=== PATIENT | male | born 1955 | race Caucasian/White ===

== ENCOUNTER 2016-08-17 | Outpatient (CLI) | payer OTHER | END 2016-08-17 22:34 | disposition critical access hospital (66) | DX: R45.851 Suicidal ideations (principal) | CPT/HCPCS: A0425; A0429 ==

== ENCOUNTER 2016-08-17 23:06 | Emergency (ER) | payer OTHER ==
[2016-08-18] MEDS ORDERED: LORazepam 0.5 MG TABLET PO STA ×3 (00:24→06:26)
[2016-08-18] MEDS ORDERED: LORazepam 0.5 MG TABLET ONE ×2 (00:28→02:41)
== END 2016-08-18 08:51 | disposition home or self-care (01) ==
DX: F32.9 Major depressive disorder, single episode, unspecified (principal); F10.129 Alcohol abuse with intoxication, unspecified
CPT/HCPCS: 36415; 80048; 80306; 80307; 80320; 80329; 81001; 85025; 99283; 99284; A9270

== ENCOUNTER 2017-07-11 22:37 | Outpatient (CLI) | payer OTHER | END 2017-07-11 22:38 | disposition critical access hospital (66) | LOC: EMS 22:37 | PROVIDERS: ATTEND Surgery | DX: R41.82 Altered mental status, unspecified (principal); R26.81 Unsteadiness on feet; Z72.89 Other problems related to lifestyle | CPT/HCPCS: A0425; A0429 ==

== ENCOUNTER 2017-07-11 23:13 | Inpatient (IN) | payer OTHER ==
[2017-07-11] MEDS ORDERED: MULTIVITAMIN 10 ML in SODIUM CHLORIDE 0.9% 1,000 ML IV STA (23:22)
[2017-07-11] MEDS ORDERED: LORazepam 2 MG/ML VIAL IVP STA (23:22)
[2017-07-11] MEDS ORDERED: THIAMINE INJ 100 MG, FOLIC ACID INJ 1 MG in SODIUM CHLORIDE 0.9% 100ML 100 ML IV STA (23:22)
[2017-07-11] MEDS ORDERED: MAGNESIUM SULFATE 2 GRAM 2 GM/50 ML BAG IV STA (23:22)
[2017-07-11] MEDS ORDERED: THIAMINE 100 MG/1 ML 2 ML MDV ONE (23:35)
[2017-07-11 23:39] LABS: BASOPHILS % (AUTO) 0.2 %; EOSINOPHILS % (AUTO) 0.1 %; HGB - HEMOGLOBIN 13.3 g/dL (14.0-18.0); LYMPHOCYTES # (AUTO) 0.2 10^3/uL (1.5-3.5); LYMPHOCYTES % (AUTO) 3.2 %; MEAN CORPUSCULAR HEMOGLOBIN 34.7 pg (27.0-31.0); MEAN CORPUSCULAR HGB CONC 33.7 g/dL (32.0-36.0); MEAN PLATELET VOLUME 8.1 fL (7.4-11.4); MONOCYTES # (AUTO) 0.8 10^3/uL (0.0-1.0); NEUTROPHILS # (AUTO) 6.5 10^3/uL (1.5-6.6); NEUTROPHILS % (AUTO) 85.5 %; PLT - PLATELET COUNT 48 10^3/uL (130-450); RED BLOOD COUNT 3.84 10^6/uL (4.70-6.10); WHITE BLOOD COUNT 7.6 x10^3/uL (4.8-10.8)
[2017-07-11] MEDS ORDERED: MAGNESIUM SULFATE 2 GRAM 2 GM/50 ML BAG IV ONE (23:39)
[2017-07-11 23:52] LABS: MUDS CUTOFF CONCENTRATIONS CUTOFF CONC BELOW:
[2017-07-11 23:58] LABS: GLUCOSE, URINE (UA) 100 mg/dL (NEGATIVE); KETONES,URINE (UA) 15 mg/dL (NEGATIVE); LEUKOCYTE ESTERASE, URINE NEGATIVE (NEGATIVE); NITRITE,URINE POSITIVE (NEGATIVE); OCCULT BLOOD,URINE TRACE-LYSE (NEGATIVE); PH,URINE 7.5 PH (5.0-7.5); PROTEIN,URINE 100 mg/dL (NEGATIVE); UROBILINOGEN,URINE >=8.0 E.U./dL (NORMAL)
[2017-07-12] LABS: ALBUMIN 3.7 g/dL (3.2-5.5); ALBUMIN/GLOBULIN RATIO 0.9 (1.0-2.2); ALKALINE PHOSPHATASE 145 IU/L (42-121); ALT ALANINE AMINOTRANSFERASE 128 IU/L (10-60); AST ASPARTATE AMINOTRANSFERASE 406 IU/L (10-42); BILIRUBIN,TOTAL 15.7 mg/dL (0.2-1.0); BUN - BLOOD UREA NITROGEN 13 mg/dL (6-20); CALCIUM 9.1 mg/dL (8.5-10.3); CARBON DIOXIDE - CO2 21 mmol/L (21-32); CHLORIDE 92 mmol/L (101-111); CREATININE 1.7 mg/dL (0.6-1.2); GFR - MDRD 41 (>89); GLUCOSE 147 mg/dL (70-100); LIPASE 52 U/L (22-51); SODIUM 134 mmol/L (135-145); TOTAL PROTEIN 7.9 g/dL (6.7-8.2)
[2017-07-12 00:18] LABS: BILIRUBIN,URINE LARGE (NEGATIVE); CLARITY,URINE HAZY (CLEAR); ICTOTEST,URINE POSITIVE
[2017-07-12 00:20] LABS: AMPHETAMINE SCREEN,URINE NEGATIVE (NEGATIVE); BACTERIA,URINE None Seen /HPF (None Seen); BENZODIAZEPINES SCREEN, URINE NEGATIVE (NEGATIVE); COCAINE SCREEN URINE NEGATIVE (NEGATIVE); METHADONE SCREEN, URINE NEGATIVE (NEGATIVE); METHAMPHETAMINES SCREEN, URINE NEGATIVE (NEGATIVE); MUCUS,URINE Few Strands; OPIATE SCREEN, URINE NEGATIVE (NEGATIVE); OXYCODONE SCREEN, URINE NEGATIVE (NEGATIVE); PROPOXYPHENE SCREEN, URINE NEGATIVE (NEGATIVE); RBC,URINE 0-5 /HPF (0-5); SQUAMOUS EPITHELIAL CELL,UR RARE Squamous (<= Few); TRICYCLIC ANTIDEPRESSANT,URINE NEGATIVE (NEGATIVE)
--- NOTE | 2017-07-12 01:07 | ED Physician Documentation ---
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 According to ems, patient called police three different times today saying someone was breaking into his house and looking through his window. The third time that the patient called when ems arrived he was holding a gun saying there was a boy in his house hiding under the table. There was no one else in the house. Patient states that he had been drinking a pint every other day or every day and had quit 5 days ago. Upon initial evaluation in the emergency department patient denied current hallucinations. Patient was mildly tachycardic and tremulous. Review of Systems Unable to obtain: Confused PD PAST MEDICAL HISTORY - Past Medical History Past Medical History: No - Past Surgical History Past Surgical History: Yes Ortho: Other - Present Medications Home Medications: Ambulatory Orders Medication Instructions Recorded Confirmed No Known Home Medications [No 08/17/16 07/12/17 Known Home Medications] - Allergies Allergies/Adverse Reactions: Allergies Allergy/AdvReac Type Severity Reaction Status Date / Time Sulfa (Sulfonamide Allergy Unknown Verified 07/11/17 23:21 Antibiotics) - Social History Does the pt smoke?: No Smoking Status: Never smoker Does the pt drink ETOH?: Yes Does the pt have substance abuse?: No - Immunizations Immunizations are current?: Yes - POLST Patient has POLST: No PD ED PE NORMAL - Vitals Vital signs reviewed: Yes - General General: Alert and oriented X 3 - HEENT HEENT: Atraumatic - Neck Neck: Supple, no meningeal sign - Respiratory Respiratory: No respiratory distress - Derm Derm: No rash - Extremities Extremities: No deformity, No edema - Neuro Neuro: No motor deficit, Normal speech Eye Opening: Spontaneous PD ED PE EXPANDED - General General: Disheveled, poorly kept - HEENT HEENT: Dry mucous membranes, Dental decay - Eyes Eyes: Scleral icterus - Cardiac Cardiac: Tachy - Abdomen Abdomen: Hepatomegaly. No: Tender to palpation, Rebound, Guarding - Neuro Neuro: Other (mild tremor) Results - Vitals Vitals: Vital Signs - 24 hr 07/11/17 07/12/17 07/12/17 23:16 00:20 00:49 Temperature 37.9 C H Heart Rate 114 H 104 H 110 H Respiratory 18 18 16 Rate Blood Pressure 135/96 H 109/78 112/73 O2 Saturation 97 95 97 07/12/17 01:34 Temperature Heart Rate 99 Respiratory 18 Rate Blood Pressure 136/95 H O2 Saturation 98 Oxygen O2 Source Room air - EKG (time done) 0104 Rate: Rate (enter#) (90) Rhythm: NSR [place]: Normal Intervals: Prolonged QT QRS: Normal Ischemia: Normal ST segments Compare to prior EKG: Old EKG unavailable - Labs Labs: Laboratory Tests 07/11/17 07/11/17 07/11/17 23:30 23:30 23:30 WBC 7.6 RBC 3.84 L Hgb 13.3 L Hct 39.5 L MCV 103.0 H MCH 34.7 H MCHC 33.7 RDW 15.0 Plt Count 48 L MPV 8.1 Neut # 6.5 Lymph # 0.2 L [place] # 0.8 Eos # 0.0 Baso # 0.0 Absolute Nucleated RBC 0.01 Nucleated RBC % 0.1 Sodium 134 L Potassium 3.0 L Chloride 92 L Carbon Dioxide 21 Anion Gap 21.0 H BUN 13 Creatinine 1.7 H Estimated GFR (MDRD) 41 L Glucose 147 H Calcium 9.1 Total Bilirubin 15.7 H AST 406 H ALT 128 H Alkaline Phosphatase 145 H Ammonia Total Creatine Kinase Troponin I Total Protein 7.9 Albumin 3.7 Globulin 4.2 Albumin/Globulin Ratio 0.9 L Lipase 52 H TSH 5.62 H Free T4 Urine Color Urine Clarity Urine pH Ur Specific [place] Urine Protein Urine Glucose (UA) Urine Ketones Urine Occult Blood Urine Nitrite Urine Bilirubin Urine Urobilinogen Ur Leukocyte Esterase Urine RBC Urine WBC Ur Squamous Epith Cells Urine Bacteria Urine Casts Urine Mucus Ur Microscopic Review Urine Culture Comments Urine Opiates Screen Ur Oxycodone Screen Urine Methadone Screen Ur Propoxyphene Screen Ur Barbiturates Screen Ur Tricyclics Screen Ur Phencyclidine Scrn Ur Amphetamine Screen U Methamphetamines Scrn U Benzodiazepines Scrn Urine Cocaine Screen U Cannabinoids Screen Ethyl Alcohol < 5.0 07/11/17 07/11/17 07/11/17 23:30 23:30 23:30 WBC RBC Hgb Hct MCV MCH MCHC RDW Plt Count MPV Neut # Lymph # [place] # Eos # Baso # Absolute Nucleated RBC Nucleated RBC % Sodium Potassium Chloride Carbon Dioxide Anion Gap BUN Creatinine Estimated GFR (MDRD) Glucose Calcium Total Bilirubin AST ALT Alkaline Phosphatase Ammonia Total Creatine Kinase 774 H Troponin I 0.05 Total Protein Albumin Globulin Albumin/Globulin Ratio Lipase TSH 4.97 Free T4 1.06 Urine Color Urine Clarity Urine pH Ur Specific [place] Urine Protein Urine Glucose (UA) Urine Ketones Urine Occult Blood Urine Nitrite Urine Bilirubin Urine Urobilinogen Ur Leukocyte Esterase Urine RBC Urine WBC Ur Squamous Epith Cells Urine Bacteria Urine Casts Urine Mucus Ur Microscopic Review Urine Culture Comments Urine Opiates Screen Ur Oxycodone Screen Urine Methadone Screen Ur Propoxyphene Screen Ur Barbiturates Screen Ur Tricyclics Screen Ur Phencyclidine Scrn Ur Amphetamine Screen U Methamphetamines Scrn U Benzodiazepines Scrn Urine Cocaine Screen U Cannabinoids Screen Ethyl Alcohol 07/11/17 07/12/17 23:49 00:34 WBC RBC Hgb Hct MCV MCH MCHC RDW Plt Count MPV Neut # Lymph # [place] # Eos # Baso # Absolute Nucleated RBC Nucleated RBC % Sodium Potassium Chloride Carbon Dioxide Anion Gap BUN Creatinine Estimated GFR (MDRD) Glucose Calcium Total Bilirubin AST ALT Alkaline Phosphatase Ammonia 57.5 H Total Creatine Kinase Troponin I Total Protein Albumin Globulin Albumin/Globulin Ratio Lipase TSH Free T4 Urine Color DK. ORANGE Urine Clarity HAZY Urine pH 7.5 Ur Specific [place] 1.020 Urine Protein 100 H Urine Glucose (UA) 100 H Urine Ketones 15 H Urine Occult Blood TRACE-LYSE Urine Nitrite POSITIVE H Urine Bilirubin LARGE H Urine Urobilinogen >=8.0 H Ur Leukocyte Esterase NEGATIVE Urine RBC 0-5 Urine WBC 4-5 Ur Squamous Epith Cells RARE Squamous Urine Bacteria None Seen Urine Casts 0-2 Hyaline Casts Urine Mucus Few Strands Ur Microscopic Review INDICATED Urine Culture Comments INDICATED Urine Opiates Screen NEGATIVE Ur Oxycodone Screen NEGATIVE Urine Methadone Screen NEGATIVE Ur Propoxyphene Screen NEGATIVE Ur Barbiturates Screen NEGATIVE Ur Tricyclics Screen NEGATIVE Ur Phencyclidine Scrn NEGATIVE Ur Amphetamine Screen NEGATIVE U Methamphetamines Scrn NEGATIVE U Benzodiazepines Scrn NEGATIVE Urine Cocaine Screen NEGATIVE U Cannabinoids Screen NEGATIVE Ethyl Alcohol PD MEDICAL DECISION MAKING - ED course Complexity details: reviewed old records, reviewed results, re-evaluated patient , considered differential, d/w patient, d/w medical consultant ED course: Patient was seen and examined at bedside. IV access was gained and labs were drawn. Patient was treated with a banana bag and Ativan 1 mg. ekg was performed showed normal sinus with borderline prolonged qt. Patient had multiple lab abnormalities, steffany, transaminitis and elevated bilirubin. Hospitalist was contacted and the case was discussed with her. Patient was admitted for further evaluation and care. Departure - Departure Disposition: 66 [facility] DC/Xfer Clinical Impression: Alcohol withdrawal, STEFFANY (acute kidney injury), Transaminitis Condition: Stable
[2017-07-12] MEDS ORDERED: ONDANSETRON 4 MG/2 ML VIAL IVP PRN (01:50)
[2017-07-12] MEDS ORDERED: TEMAZEPAM 15 MG CAPSULE PO PRN (01:50)
[2017-07-12 01:58] LABS: THYROID STIMULATING HORMONE 4.97 uIU/mL (0.34-5.60)
[2017-07-12 02:00] LABS: FREE T4 (FREE THYROXINE) 1.06 ng/dL (0.58-1.64)
--- NOTE | 2017-07-12 02:47 | Ultrasound Preliminary Report ---
Exam: US ABDOMEN COMPLETE IMPRESSION: 1. Severe hepatic steatosis and moderate to severe hepatomegaly. 2. Dilated common duct measuring 10 mm. However there is no definite intrahepatic biliary dilation. 3. Pancreas is obscured by overlying structures. 4. Gallbladder sludge. No evidence of stones or cholecystitis. 5. Nonspecific mild splenic enlargement. [facility] SITE ID: [id number]
[2017-07-12] MEDS ORDERED: cloNIDine 0.1 MG PATCH TOP SCH (03:00)
--- NOTE | 2017-07-12 03:10 | Ultrasound Report ---
EXAM: ABDOMEN ULTRASOUND EXAM DATE: 07/12/2017 02:29 AM. CLINICAL HISTORY: Hyperbilirubinemia. COMPARISON: CT 09/24/2010. TECHNIQUE: Real-time scanning was performed with static images obtained. FINDINGS: Liver: Moderate to severe increased echogenicity, with increased size of the liver. Liver measures 19 .6 cm in maximal length. There is no definite suspicious hepatic lesion seen at this time. Gallbladder: No stones, wall thickening, or pericholecystic fluid demonstrated. Gallbladder sludge is present. Biliary System: Dilated common duct measuring 10 mm. No definite intrahepatic biliary dilation noted at this time. Pancreas: Obscured by overlying structures. Kidneys: Right: 11.6 cm longitudinally. Normal. No contour-deforming mass, stones, or hydronephrosis. Left: 10.1 cm longitudinally. Normal. No contour-deforming mass, stones, or hydronephrosis. Spleen: 13.8 cm. Normal in size and echotexture. Aorta and Inferior Vena Cava: Unremarkable. Other: None. IMPRESSION: 1. Severe hepatic steatosis and moderate to severe hepatomegaly. 2. Dilated common duct measuring 10 mm. However there is no definite intrahepatic biliary dilation. 3. Pancreas is obscured by overlying structures. 4. Gallbladder sludge. No evidence of stones or cholecystitis. 5. Nonspecific mild splenic enlargement. [facility] Referring Provider Line: [phone] SITE ID: [id number]
[2017-07-12] MEDS: PROPRANOLOL 10 MG TABLET PO SCH ×3 (03:13→21:48)
[2017-07-12] MEDS: chlordiazePOXIDE 25 MG CAPSULE PO SCH ×4 (03:13→17:29)
[2017-07-12] MEDS: LORazepam 2 MG/ML VIAL IVP PRN ×2 (03:20→05:00)
[2017-07-12] MEDS: SODIUM CHLORIDE FLUSH 0.9% 10 ML SYRINGE IVP SCH ×4 (03:21→21:48)
[2017-07-12] MEDS ORDERED: LACTULOSE 10 GM /15 ML UDC PO SCH (04:00)
[2017-07-12] MEDS: NS W/20 MEQ KCL 1,000 ML IV SCH ×2 (04:29→14:20)
--- NOTE | 2017-07-12 04:33 | HISTORY & PHYSICAL EXAMINATION ---
DATE OF SERVICE: 07/12/2017 Physician: Trish Bender MD DATE OF ADMISSION: 07/12/2017 CHIEF COMPLAINT: Shakes and hallucinations. HISTORY OF PRESENT ILLNESS: The patient is a 61-year-old male with past medical history of alcoholism. He was brought into the ER by the police after he was evaluated at his home and was found hallucinating. The patient himself was a poor historian, but as much as he could tell me he had been drinking alcohol for several years heavily and stopped drinking about 5 days ago. At that time, he decided that he "wanted to be healthy." Two days ago, 3 days after he stopped drinking, he became wobbly and started to hear noises in his ear. Initially, he thought he had an ear infection. Subsequently, on the night of to 07/12/2017, he saw people around his house, at least 3-4 people looking into his window and also some people being inside his house, therefore, he called the police. When the police arrived at the patient's residence, they did not find any intruders or bystanders; however, the patient was found shaky, appeared jaundiced, and appeared acutely ill. Besides the above-mentioned issues, the patient also felt padding being on both soles. When I asked him what kind of padding, he described that he had been walking on wood floor quite a while and he felt he had a padding-like feeling developing on his feet. Upon presentation to the ER, the patient was tachycardic with heart rate of 115. He had fever with temperature of 37.9 Celsius, was saturating 97% on room air, blood pressure was 135/96, respiratory rate 18. The ER workup showed significantly abnormal laboratories with abnormal liver function tests. In particular, bilirubin was around 15 and transaminases were in the 100 range. Compared to previous laboratories, this was a new problem. In addition, there was renal failure with creatinine of 1.7, electrolyte abnormality with potassium of 3.0, and there was also anemia and thrombocytopenia with platelet count of 48 and hemoglobin of 13.3. Ammonia level was 57.5. Lipase was unremarkable. EKG showed nonspecific changes and few ectopic beats. No acute ischemia. Troponin was negative. PAST MEDICAL HISTORY 1. Chronic alcoholism. 2. Depression and suicidal ideation for which the patient had an ER visit in . OUTPATIENT MEDICATIONS: No outpatient medications. ALLERGIES: SULFA. SOCIAL HISTORY: The patient drinks alcohol regularly for several years, at least a pint a day. He lives by himself and he about 3 years ago after being for 30 years. FAMILY HISTORY: The patient did not report chronic illnesses in first degree relatives. REVIEW OF SYSTEMS: Please see pertinent positives listed above in history of present illness. On 12-point review, the patient did not report additional complaints. In particular, he denied abdominal pain, nausea, vomiting, chest pain, shortness of breath. PHYSICAL EXAMINATION: VITAL SIGNS: Please see listed above in the history of present illness. GENERAL: The patient is a well-developed male who was shaky, at times was speaking incomprehensibly. EYES: Scleral icterus. SKIN: Jaundice. No bruises, no rash. MUSCULOSKELETAL: Appeared atraumatic. EARS: Shiny normal-appearing tympanic membranes in both ears without erythema, inflammation or bulging. Unremarkable ear exam bilaterally. HEART: S1, S2. Regular tachycardia. I could not hear pathologic murmur in the setting of fast rate. LUNGS: Clear to auscultation without wheezes or crackles. LYMPHATICS: No lymphedema. ABDOMEN: Distended, nontender. I could not palpate organomegaly. Bowel tones were hypoactive. NEURO: Alert, disoriented, nonfocal. PSYCH: Hallucinating, tactile hallucinations during exam. DIAGNOSTIC DATA: Pertinent diagnostics reviewed per ER workup. ASSESSMENT: The patient is getting admitted with acute alcohol withdrawal and delirium tremens; auditory, visual and tactile hallucinations. The case id complicated by electrolyte abnormality, acute renal failure and acute liver failure as well. In particular, the patient has severe hyperbilirubinemia and jaundice. The encephalopathy could be complicated by hepatic encephalopathy as well, besides the delirium tremens. In addition, there is anemia and severe thrombocytopenia. PLAN AND ORDERS: The patient is getting admitted as an inpatient given his tachycardia, acute alcohol withdrawal and high risk to develop cardiac arrhythmia, further significant electrolyte abnormality, and worsening mental status. He will be closely monitored in the ICU. Although I think that laboratory abnormalities are secondary to alcoholism, alcohol withdrawal and related complications, to avoid premature closure I will order ultrasound of the abdomen to make sure that there is no biliary blockage responsible for the hyperbilirubinemia. In addition, ordered hepatitis panel as well. The patient will be monitored on telemetry, will be placed on CIWA protocol, will use Ativan p.r.n. as needed. If the patient does not respond well to Ativan, then we will consider Precedex. For now, to provide alpha blockade, we will use clonidine. To use a long-acting benzodiazepine, I also ordered Librium around the clock. In addition, will continue with vitamin supplements, electrolyte replacement, and IV hydration. If hemodynamics need further control , then I will use a nonselective beta shirin/propranolol. Will check TSH and free T4, request social work consult to assist with discharge planning. Will follow daily metabolic panel. In addition, added coagulation studies and we will recheck CBC in the morning. Regarding DVT prophylaxis, will use Venodyne boots. Given severe thrombocytopenia, the patient should not get pharmacologic prophylaxis. CODE STATUS: FULL CODE per default. The patient did not have clear mentation to discuss this issue. DISPOSITION: I certify that the reasonable expectation is that this patient will be hospitalized for at least 96 hours. Subsequently, if he does not improve, he will be transferred. If he improves he will be discharged. CONDITION: His condition warrants inpatient hospitalization given his acute alcohol withdrawal, requiring medications and close monitoring. TOTAL TIME: Time spent with the care of this patient was 50 minutes and that was critical care time. TD: 07/12/2017 05:31 MTDD
[2017-07-12] MEDS ORDERED: POTASSIUM CHLORIDE 20 MEQ TABLET PO ONE ×2 (04:48→07:00)
[2017-07-12 05:27] LABS: BASOPHILS % (AUTO) 0.4 %; EOSINOPHILS % (AUTO) 0.4 %; HGB - HEMOGLOBIN 12.1 g/dL (14.0-18.0); LYMPHOCYTES # (AUTO) 0.6 10^3/uL (1.5-3.5); LYMPHOCYTES % (AUTO) 8.6 %; MEAN CORPUSCULAR HEMOGLOBIN 34.9 pg (27.0-31.0); MEAN CORPUSCULAR HGB CONC 33.8 g/dL (32.0-36.0); MEAN CORPUSCULAR VOLUME 103.4 fL (80.0-94.0); MEAN PLATELET VOLUME 8.4 fL (7.4-11.4); MONOCYTES # (AUTO) 0.9 10^3/uL (0.0-1.0); MONOCYTES % (AUTO) 12.6 %; NEUTROPHILS # (AUTO) 5.6 10^3/uL (1.5-6.6); PLT - PLATELET COUNT 38 10^3/uL (130-450); RED BLOOD COUNT 3.46 10^6/uL (4.70-6.10); RED CELL DISTRIBUTION WIDTH 14.6 % (12.0-15.0); WHITE BLOOD COUNT 7.2 x10^3/uL (4.8-10.8)
[2017-07-12 05:33] LABS: CALCIUM 8.2 mg/dL (8.5-10.3)
[2017-07-12 05:36] LABS: VBG PH 7.448 (7.31-7.41)
[2017-07-12 05:38] LABS: INR 1.8 (0.8-1.2); PT - PROTHROMBIN TIME 19.8 secs (9.9-12.6)
[2017-07-12 05:43] LABS: ALBUMIN 3.3 g/dL (3.2-5.5); ALBUMIN/GLOBULIN RATIO 0.9 (1.0-2.2); BILIRUBIN,TOTAL 14.6 mg/dL (0.2-1.0); CALCIUM 8.1 mg/dL (8.5-10.3); CREATININE 1.3 mg/dL (0.6-1.2); MAGNESIUM 2.1 mg/dL (1.7-2.8); PHOSPHORUS 2.6 mg/dL (2.5-4.6); TOTAL PROTEIN 6.8 g/dL (6.7-8.2)
[2017-07-12] MEDS: DEXMEDETOMIDINE 400 MCG/100 ML 100 ML IV PRN ×2 (06:40→20:25)
[2017-07-12] MEDS: PANTOPRAZOLE 40 MG TABLET PO SCH (06:53)
[2017-07-12] MEDS: THIAMINE 100 MG TABLET PO SCH (08:39)
[2017-07-12] MEDS: PRENATAL VITAMIN TABLET PO SCH (08:39)
--- NOTE | 2017-07-12 10:01 | CT Report ---
DATE OF SERVICE: CT BRAIN WITHOUT CONTRAST: 07/12/2017 CLINICAL INDICATION: Fall, altered mental status, question hemorrhage. TECHNIQUE: Axial CT images of the brain were obtained without intravenous contrast. No previous CT is available for comparison. FINDINGS: The ventricles and sulci demonstrate moderate symmetric enlargement, compatible with atrophy. There is no evidence of acute hemorrhage, mass effect, or midline shift. The basilar cisterns remain patent. No calvarial fracture is seen. The visualized orbital contents are unremarkable. There are mucous retention cysts or polyps in the right maxillary sinus. IMPRESSION: ATROPHY. NO EVIDENCE OF HEMORRHAGE. In accordance with CT protocol optimization, one or more of the following dose reduction techniques were utilized for this exam: automated exposure control, adjustment of mA and/or KV based on patient size, or use of iterative reconstructive technique. TD: 07/12/2017 11:00
[2017-07-12 10:41] LABS: % IRON SATURATION 85 % (20-50); IRON 140 ug/dL (45-182); TOTAL IRON BINDING CAPACITY 165 ug/dL (250-450); TRANSFERRIN 118 mg/dL (180-329)
[2017-07-12 10:49] LABS: FERRITIN 1455.8 ng/mL (23.9-336.2)
[2017-07-12 10:52] LABS: FOLATE 12.71 ng/mL (5.90 - >24.8)
--- NOTE | 2017-07-12 18:15 | PROVIDER PROGRESS NOTE ---
Hospitalist Cross-cover Note - Cross-Cover Note Cross-Cover Note: October patient was seen and examined this morning. This morning patient's [place] was between 10 and 12. The patient was having confabulations, tremors and hallucinations. Patient had to be placed on a Precedex drip which seemed to really help the patient. By the afternoon the patient was on low dose Precedex and was able to eat dinner, have a normal conversation and did not appear tremulous. We will continue try to wean him off the Precedex and continue alcohol withdrawal treatment. Patient is open to possibility of voluntary detox after hospitalization.
[2017-07-13] MEDS: chlordiazePOXIDE 25 MG CAPSULE PO SCH ×5 (00:11→23:55)
[2017-07-13] MEDS: NS W/20 MEQ KCL 1,000 ML IV SCH ×3 (00:12→19:40)
[2017-07-13 05:03] LABS: CALCIUM 8.2 mg/dL (8.5-10.3)
[2017-07-13 05:12] LABS: INR 1.9 (0.8-1.2); PT - PROTHROMBIN TIME 20.6 secs (9.9-12.6); VBG PH 7.397 (7.31-7.41)
[2017-07-13 05:16] LABS: ALBUMIN 2.7 g/dL (3.2-5.5); ALBUMIN/GLOBULIN RATIO 0.8 (1.0-2.2); BILIRUBIN,TOTAL 12.2 mg/dL (0.2-1.0); CALCIUM 8.1 mg/dL (8.5-10.3); MAGNESIUM 1.9 mg/dL (1.7-2.8); PHOSPHORUS 2.4 mg/dL (2.5-4.6); TOTAL PROTEIN 6.2 g/dL (6.7-8.2)
[2017-07-13] MEDS ORDERED: POTASSIUM CHLORIDE 20 MEQ TABLET PO ONE (05:39)
[2017-07-13] MEDS: PANTOPRAZOLE 40 MG TABLET PO SCH (06:02)
[2017-07-13] MEDS: SODIUM CHLORIDE FLUSH 0.9% 10 ML SYRINGE IVP SCH ×3 (06:03→23:56)
[2017-07-13] MEDS: NEUTRA-PHOS 250 MG TABLET PO SCH ×2 (06:04→08:41)
[2017-07-13] MEDS: SODIUM CHLORIDE FLUSH 0.9% 10 ML SYRINGE IVP PRN ×2 (08:07→11:10)
[2017-07-13] MEDS: PRENATAL VITAMIN TABLET PO SCH (08:41)
[2017-07-13] MEDS: THIAMINE 100 MG TABLET PO SCH (08:41)
[2017-07-13] MEDS: PROPRANOLOL 10 MG TABLET PO SCH ×2 (08:41→22:05)
[2017-07-13 11:01] LABS: HEPATITIS A IGM NON-REACTIVE (NON-REACTIVE); HEPATITIS B CORE ANTIBODY IGM NON-REACTIVE (NON-REACTIVE); HEPATITIS B SURFACE ANTIGEN NON-REACTIVE (NON-REACTIVE); HEPATITIS C ANTIBODY NON-REACTIVE (NON-REACTIVE)
[2017-07-13] MEDS: PANTOPRAZOLE 40 MG VIAL IVP SCH ×2 (11:10→21:54)
[2017-07-13 13:57] LABS: BASOPHILS % (AUTO) 0.6 %; EOSINOPHILS # (AUTO) 0.1 10^3/uL (0.0-0.7); EOSINOPHILS % (AUTO) 1.7 %; HGB - HEMOGLOBIN 11.7 g/dL (14.0-18.0); LYMPHOCYTES # (AUTO) 0.5 10^3/uL (1.5-3.5); MEAN CORPUSCULAR HEMOGLOBIN 36.2 pg (27.0-31.0); MEAN CORPUSCULAR HGB CONC 34.5 g/dL (32.0-36.0); MEAN CORPUSCULAR VOLUME 104.8 fL (80.0-94.0); MEAN PLATELET VOLUME 9.7 fL (7.4-11.4); MONOCYTES # (AUTO) 0.8 10^3/uL (0.0-1.0); MONOCYTES % (AUTO) 14.7 %; NEUTROPHILS # (AUTO) 4.3 10^3/uL (1.5-6.6); PLT - PLATELET COUNT 44 10^3/uL (130-450); RED BLOOD COUNT 3.25 10^6/uL (4.70-6.10); RED CELL DISTRIBUTION WIDTH 15.1 % (12.0-15.0); WHITE BLOOD COUNT 5.7 x10^3/uL (4.8-10.8)
[2017-07-13 17:08] LABS: BASOPHILS % (AUTO) 0.7 %; EOSINOPHILS # (AUTO) 0.1 10^3/uL (0.0-0.7); HGB - HEMOGLOBIN 11.8 g/dL (14.0-18.0); LYMPHOCYTES # (AUTO) 0.7 10^3/uL (1.5-3.5); LYMPHOCYTES % (AUTO) 12.4 %; MEAN CORPUSCULAR HEMOGLOBIN 35.1 pg (27.0-31.0); MEAN CORPUSCULAR HGB CONC 33.2 g/dL (32.0-36.0); MEAN CORPUSCULAR VOLUME 105.7 fL (80.0-94.0); MEAN PLATELET VOLUME 9.4 fL (7.4-11.4); MONOCYTES # (AUTO) 0.8 10^3/uL (0.0-1.0); MONOCYTES % (AUTO) 15.7 %; NEUTROPHILS # (AUTO) 3.7 10^3/uL (1.5-6.6); NEUTROPHILS % (AUTO) 69.2 %; PLT - PLATELET COUNT 48 10^3/uL (130-450); RED BLOOD COUNT 3.35 10^6/uL (4.70-6.10); RED CELL DISTRIBUTION WIDTH 15.1 % (12.0-15.0); WHITE BLOOD COUNT 5.4 x10^3/uL (4.8-10.8)
--- NOTE | 2017-07-13 18:33 | PROVIDER PROGRESS NOTE ---
Assessment/Plan - Problem List (1) Alcohol withdrawal Qualifiers: Complication of substance-induced condition: with delirium Qualified Code(s ): F10.231 - Alcohol dependence with withdrawal delirium Assessment/Plan: Patient presented with severe alcohol withdrawal as he was tremulous, hallucinating and confabulating. The patient initially required ICU admission and was placed on a Precedex drip. This morning the patient has been successfully taken off the Precedex drip and alcohol withdrawal score has been between 4 and 6. Continue ativan as need for withdrawal Continue MV, folate, Thiamine (2) Alcoholic hepatitis Qualifiers: Ascites presence: without ascites Qualified Code(s): K70.10 - Alcoholic hepatitis without ascites Assessment/Plan: Patient is a heavy drinker and presented with jaundice and bilirubin up to 15.7 Bili has improved to 12.2 today AST and ALT also elevated but improving Started on lactulose as he had a mildly elevated ammonia level Hepatitis panel negative Continue to monitor LFTs Avoid alcohol INR 1.9, Plts 44 CT abd showed no CBD dilation and liver looks enlarged so unlikely to have cirrhosis (3) Hypokalemia Assessment/Plan: K is down to 3.4 Replace K (4) Anemia Assessment/Plan: Hb dropping slowly from 13.3 to 11.7 Patient had a bloody stool today Will monitor Hb closely q6 hours Iron studies, b12 and folate normal Start IV protonix If continued bleeding consider surgical consult for EGD/Colonoscopy (5) Weakness Assessment/Plan: Patient has severe weakness and debility. This is likely secondary to his alcoholism and alcohol withdrawal. Patient has very unsteady gait and not safe for transfer at this time. PT has been consulted and will see the patient in the morning. (6) STEFFANY (acute kidney injury) Assessment/Plan: Research Intern was 1.7 Resolved with IVFs Research Intern now 1.0 - Current Meds Current Meds: Current Medications Generic Name Dose Route Start Last Admin Trade Name Freq PRN Reason Stop Dose Admin Chlordiazepoxide HCl 25 mg 07/12/17 02:00 07/13/17 17:27 Librium PO 25 mg Q6HR OK Administration Clonidine HCl 1 patch 07/12/17 03:00 07/12/17 03:25 [id number] TOP 1 patch Q7D OK Administration Potassium Chloride/Sodium Chloride 1,000 mls @ 100 mls/hr 07/12/17 02:00 10:18 Normal Saline 0.9% W/20 Meq Kcl IV 100 mls/hr .Q10H OK Administration Dexmedetomidine/Sodium Chloride 100 mls @ 6.675 mls/hr 07/12/17 06:22 08:07 Precedex Premix IV 0 mcg/kg/hr .[id number] PRN 0 mls/hr Agitation Titration Protocol 0.3 MCG/KG/HR Lorazepam 1 mg 07/12/17 01:48 07/12/17 05:00 Ativan Inj (Vial) IVP 1 mg Q2H PRN Administration Anxiety Pantoprazole Sodium 40 mg 07/13/17 11:00 07/13/17 11:10 Protonix IVP 40 mg BID OK Administration Multivit/Folic Acid/Iron 1 tab 07/12/17 09:00 07/13/17 08:41 Trinatal Rx 1 PO 1 tab DAILY OK Administration Propranolol HCl 20 mg 07/12/17 03:00 07/13/17 08:41 Inderal PO 20 mg BID OK Administration Sodium Chloride 10 ml 07/12/17 06:00 07/13/17 13:12 Normal Saline Flush 0.9% IVP Not Given Q8HR OK Sodium Chloride 10 ml 07/12/17 01:50 07/13/17 11:10 Normal Saline Flush 0.9% IVP 10 ml PRN PRN Administration NEEDED PER PROVIDER ORDERS Thiamine HCl 100 mg 07/12/17 09:00 07/13/17 08:41 Vitamin B-1 PO 100 mg DAILY OK Administration - Lab Result Lab results reviewed: Yes Fish Bone Diagrams: 07/13/17 16:01 07/13/17 04:20 - Additional Planning Condition/Complexity: Guarded My Orders: My Active Orders 07/13/17 Evaluate and Treat PT [PT] Routine 07/13/17 11:00 Pantoprazole [Protonix] 40 mg IVP BID 07/13/17 12:05 Guiaic [OCCULT BLOOD IN PAT. SINGLE] [RAPID] Routine 07/13/17 23:00 CBC - COMP BLD CT W/AUTO DIFF [HEME] Q6H 07/14/17 05:00 CBC - COMP BLD CT W/AUTO DIFF [HEME] Q6H PT WITH INR [COAG] DAILYLAB 07/15/17 05:00 PT WITH INR [COAG] DAILYLAB 07/16/17 05:00 PT WITH INR [COAG] DAILYLAB 07/17/17 05:00 PT WITH INR [COAG] DAILY Consult/Specialty: PT Plan Discussed with:: Patient, Significant Other Time Spent: 31-60 minutes Subjective - Subjective Patient Reports: Other (Still has tremors and very weak and unsteady on his feet. Had a bloody BM today. Denies any fevers or chills. No hallucinations.) Nursing Reports: No Complaints Objective Vital Signs: Vital Signs - 24 hr 07/12/17 07/12/17 07/12/17 19:00 20:00 21:00 Temperature Heart Rate [ 62 64 62 Monitoring electrodes] Respiratory 20 21 21 Rate Blood Pressure 86/55 L 96/55 L 94/63 [Left Brachial artery] O2 Saturation 94 07/12/17 07/12/17 07/13/17 21:42 23:00 00:09 Temperature 36.6 C 36.8 C Heart Rate [ 62 Monitoring electrodes] Respiratory 22 Rate Blood Pressure 97/61 [Left Brachial artery] O2 Saturation 94 07/13/17 07/13/17 07/13/17 01:00 03:00 04:00 Temperature Heart Rate [ 60 62 62 Monitoring electrodes] Respiratory 20 19 19 Rate Blood Pressure 98/65 102/67 101/67 [Left Brachial artery] O2 Saturation 95 07/13/17 07/13/17 07/13/17 05:00 06:00 07:00 Temperature Heart Rate [ 74 60 61 Monitoring electrodes] Respiratory 19 19 19 Rate Blood Pressure 84/68 L 95/64 103/67 [Left Brachial artery] O2 Saturation 96 07/13/17 07/13/17 07/13/17 08:20 08:21 09:00 Temperature Heart Rate [ 84 84 62 Monitoring electrodes] Respiratory 27 H 27 H 19 Rate Blood Pressure 95/65 92/50 L [Left Brachial artery] O2 Saturation 96 07/13/17 07/13/17 07/13/17 09:56 10:28 11:16 Temperature Heart Rate [ 71 66 72 Monitoring electrodes] Respiratory 24 22 Rate Blood Pressure 90/51 L 90/51 L 104/56 L [Left Brachial artery] O2 Saturation 97 07/13/17 07/13/17 07/13/17 13:00 14:08 17:00 Temperature Heart Rate [ 75 78 75 Monitoring electrodes] Respiratory 30 H 29 H 25 H Rate Blood Pressure 104/67 105/66 103/67 [Left Brachial artery] O2 Saturation 98 95 96 Oxygen O2 Source Room air I&O (Last 24 Hrs): Intake and Output Totals x24h 07/11/17 07/12/17 07/13/17 23:59 23:59 23:59 Intake Total 4262.867 2486.870 Output Total 300 Balance 4262.867 2186.870 General: Alert, Oriented x3, Cooperative, Other (tremor) HEENT: Atraumatic, PERRLA, EOMI, Other (Dry mucus membranes, positive scleral icterus) Neck: Supple, No JVD, No thyromegaly, +2 carotid pulse wo bruit, No LAD Lymphatic: no adenopathy Neuro: Alert, Non Focal, CN 2-12 Grossly Intact, Oriented Times 3 Cardiovascular: Regular rate, Normal S1, Normal S2, No murmurs Respiratory: Chest non-tender, No respiratory distress, Breath sounds nml Abdomen: Normal bowel sounds, Soft, No tenderness Extremities: No clubbing, No cyanosis, No edema, Normal pulses Comments/Notes: Jaundice - Results Results: Laboratory Results WBC 5.4 x10^3/uL (4.8-10.8) 07/13/17 16:01 RBC 3.35 10^6/uL (4.70-6.10) L 07/13/17 16:01 Hgb 11.8 g/dL (14.0-18.0) L 07/13/17 16:01 Hct 35.4 % (42.0-52.0) L 07/13/17 16:01 MCV 105.7 fL (80.0-94.0) H 07/13/17 16:01 MCH 35.1 pg (27.0-31.0) H 07/13/17 16:01 MCHC 33.2 g/dL (32.0-36.0) 07/13/17 16:01 RDW 15.1 % (12.0-15.0) H 07/13/17 16:01 Plt Count 48 10^3/uL (130-450) L 07/13/17 16:01 MPV 9.4 fL (7.4-11.4) 07/13/17 16:01 Neut # 3.7 10^3/uL (1.5-6.6) 07/13/17 16:01 Lymph # 0.7 10^3/uL (1.5-3.5) L 07/13/17 16:01 [place] # 0.8 10^3/uL (0.0-1.0) 07/13/17 16:01 Eos # 0.1 10^3/uL (0.0-0.7) 07/13/17 16:01 Baso # 0.0 10^3/uL (0.0-0.1) 07/13/17 16:01 Absolute Nucleated RBC 0.01 x10^3/uL 07/13/17 16:01 Nucleated RBC % 0.1 /100WBC 07/13/17 16:01 PT 20.6 secs (9.9-12.6) H 07/13/17 04:20 INR 1.9 (0.8-1.2) H 07/13/17 04:20 APTT 34.1 secs (24.9-33.3) H 07/12/17 05:15 VBG pH 7.397 (7.31-7.41) 07/13/17 04:20 Ionized Calcium 1.09 mmol/L (1.15-1.33) L 07/13/17 04:20 Sodium 135 mmol/L (135-145) 07/13/17 04:20 Potassium 3.4 mmol/L (3.5-5.0) L 07/13/17 04:20 Chloride 101 mmol/L (101-111) 07/13/17 04:20 Carbon Dioxide 22 mmol/L (21-32) 07/13/17 04:20 Anion Gap 12.0 (6-13) 07/13/17 04:20 BUN 15 mg/dL (6-20) 07/13/17 04:20 Creatinine 1.0 mg/dL (0.6-1.2) 07/13/17 04:20 Estimated GFR (MDRD) 76 (>89) L 07/13/17 04:20 Glucose 95 mg/dL (70-100) 07/13/17 04:20 POC Whole Bld Glucose 99 mg/dL (70 - 100) 07/13/17 11:27 Calcium 8.1 mg/dL (8.5-10.3) L 07/13/17 04:20 Ionized Calcium YES 07/13/17 04:20 Phosphorus 2.4 mg/dL (2.5-4.6) L 07/13/17 04:20 Magnesium 1.9 mg/dL (1.7-2.8) 07/13/17 04:20 Iron 140 ug/dL (45-182) 07/12/17 09:52 TIBC 165 ug/dL (250-450) L 07/12/17 09:52 % Saturation 85 % (20-50) H 07/12/17 09:52 Transferrin 118 mg/dL (180-329) L 07/12/17 09:52 Ferritin 1455.8 ng/mL (23.9-336.2) H 07/12/17 09:52 Total Bilirubin 12.2 mg/dL (0.2-1.0) H 07/13/17 04:20 AST 287 IU/L (10-42) H 07/13/17 04:20 ALT 98 IU/L (10-60) H 07/13/17 04:20 Alkaline Phosphatase 121 IU/L (42-121) 07/13/17 04:20 Ammonia 57.5 umol/L (7-35) H 07/12/17 00:34 Total Creatine Kinase 774 IU/L (22-269) H 07/11/17 23:30 Troponin I 0.05 ng/mL (<0.49) 07/11/17 23:30 Total Protein 6.2 g/dL (6.7-8.2) L 07/13/17 04:20 Albumin 2.7 g/dL (3.2-5.5) L 07/13/17 04:20 Globulin 3.5 g/dL (2.1-4.2) 07/13/17 04:20 Albumin/Globulin Ratio 0.8 (1.0-2.2) L 07/13/17 04:20 Lipase 52 U/L (22-51) H 07/11/17 23:30 Vitamin B12 2131 pg/mL (180-914) H 07/12/17 09:52 Folate 12.71 ng/mL (5.90 - >24.8) 01/24/18 09:52 TSH 4.97 uIU/mL (0.34-5.60) 07/11/17 23:30 Free T4 1.06 ng/dL (0.58-1.64) 07/11/17 23:30 Urine Color DK. ORANGE 07/11/17 23:49 Urine Clarity HAZY (CLEAR) 07/11/17 23:49 Urine pH 7.5 PH (5.0-7.5) 07/11/17 23:49 Ur Specific [place] 1.020 (1.002-1.030) 07/11/17 23:49 Urine Protein 100 mg/dL (NEGATIVE) H 07/11/17 23:49 Urine Glucose (UA) 100 mg/dL (NEGATIVE) H 07/11/17 23:49 Urine Ketones 15 mg/dL (NEGATIVE) H 07/11/17 23:49 Urine Occult Blood TRACE-LYSE (NEGATIVE) 07/11/17 23:49 Urine Nitrite POSITIVE (NEGATIVE) H 07/11/17 23:49 Urine Bilirubin LARGE (NEGATIVE) H 07/11/17 23:49 Urine Urobilinogen >=8.0 E.U./dL (NORMAL) H 07/11/17 23:49 Ur Leukocyte Esterase NEGATIVE (NEGATIVE) 07/11/17 23:49 Urine RBC 0-5 /HPF (0-5) 07/11/17 23:49 Urine WBC 4-5 /HPF (0-3) 07/11/17 23:49 Ur Squamous Epith Cells RARE Squamous (<= Few) 07/11/17 23:49 Urine Bacteria None Seen /HPF (None Seen) 07/11/17 23:49 Urine Casts 0-2 Cellular Casts /LPF0-2 Hyaline Casts /LPF 07/11/17 23:49 Urine Casts 0-2 Cellular Casts /LPF0-2 Hyaline Casts /LPF 07/11/17 23:49 Urine Mucus Few Strands 07/11/17 23:49 Ur Microscopic Review INDICATED 07/11/17 23:49 Urine Culture Comments INDICATED 07/11/17 23:49 Urine Opiates Screen NEGATIVE (NEGATIVE) 07/11/17 23:49 Ur Oxycodone Screen NEGATIVE (NEGATIVE) 07/11/17 23:49 Urine Methadone Screen NEGATIVE (NEGATIVE) 07/11/17 23:49 Ur Propoxyphene Screen NEGATIVE (NEGATIVE) 07/11/17 23:49 Ur Barbiturates Screen NEGATIVE (NEGATIVE) 07/11/17 23:49 Ur Tricyclics Screen NEGATIVE (NEGATIVE) 07/11/17 23:49 Ur Phencyclidine Scrn NEGATIVE (NEGATIVE) 07/11/17 23:49 Ur Amphetamine Screen NEGATIVE (NEGATIVE) 07/11/17 23:49 U Methamphetamines Scrn NEGATIVE (NEGATIVE) 07/11/17 23:49 U Benzodiazepines Scrn NEGATIVE (NEGATIVE) 07/11/17 23:49 Urine Cocaine Screen NEGATIVE (NEGATIVE) 07/11/17 23:49 U Cannabinoids Screen NEGATIVE (NEGATIVE) 07/11/17 23:49 Ethyl Alcohol < 5.0 mg/dL 07/11/17 23:30 Hepatitis A IgM Ab NON-REACTIVE (NON-REACTIVE) 07/12/17 05:15 Hep Bs Antigen NON-REACTIVE (NON-REACTIVE) 07/12/17 05:15 Hep B Core IgM Ab NON-REACTIVE (NON-REACTIVE) 07/12/17 05:15 Hepatitis C Antibody NON-REACTIVE (NON-REACTIVE) 07/12/17 05:15 Hep C Ab Signal/Cutoff 0.00 (<1.00) 07/12/17 05:15
[2017-07-13 23:18] LABS: BASOPHILS % (AUTO) 1.1 %; EOSINOPHILS # (AUTO) 0.1 10^3/uL (0.0-0.7); EOSINOPHILS % (AUTO) 2.6 %; HGB - HEMOGLOBIN 11.3 g/dL (14.0-18.0); LYMPHOCYTES # (AUTO) 0.7 10^3/uL (1.5-3.5); LYMPHOCYTES % (AUTO) 16.6 %; MEAN CORPUSCULAR HEMOGLOBIN 35.2 pg (27.0-31.0); MEAN CORPUSCULAR HGB CONC 34.3 g/dL (32.0-36.0); MEAN CORPUSCULAR VOLUME 102.6 fL (80.0-94.0); MEAN PLATELET VOLUME 8.9 fL (7.4-11.4); MONOCYTES # (AUTO) 0.9 10^3/uL (0.0-1.0); MONOCYTES % (AUTO) 19.8 %; NEUTROPHILS # (AUTO) 2.6 10^3/uL (1.5-6.6); NEUTROPHILS % (AUTO) 59.9 %; PLT - PLATELET COUNT 43 10^3/uL (130-450); RED BLOOD COUNT 3.21 10^6/uL (4.70-6.10); RED CELL DISTRIBUTION WIDTH 15.2 % (12.0-15.0); WHITE BLOOD COUNT 4.4 x10^3/uL (4.8-10.8)
[2017-07-14 05:04] LABS: BASOPHILS # (AUTO) 0.1 10^3/uL (0.0-0.1); BASOPHILS % (AUTO) 1.2 %; EOSINOPHILS # (AUTO) 0.1 10^3/uL (0.0-0.7); EOSINOPHILS % (AUTO) 1.7 %; HGB - HEMOGLOBIN 11.8 g/dL (14.0-18.0); LYMPHOCYTES # (AUTO) 0.7 10^3/uL (1.5-3.5); MEAN CORPUSCULAR HEMOGLOBIN 35.6 pg (27.0-31.0); MEAN CORPUSCULAR VOLUME 104.6 fL (80.0-94.0); MEAN PLATELET VOLUME 8.8 fL (7.4-11.4); MONOCYTES # (AUTO) 0.7 10^3/uL (0.0-1.0); MONOCYTES % (AUTO) 16.8 %; NEUTROPHILS # (AUTO) 2.7 10^3/uL (1.5-6.6); NEUTROPHILS % (AUTO) 63.3 %; PLT - PLATELET COUNT 49 10^3/uL (130-450); RED BLOOD COUNT 3.31 10^6/uL (4.70-6.10); RED CELL DISTRIBUTION WIDTH 14.9 % (12.0-15.0); WHITE BLOOD COUNT 4.3 x10^3/uL (4.8-10.8)
[2017-07-14 05:06] LABS: CALCIUM 8.2 mg/dL (8.5-10.3)
[2017-07-14 05:09] LABS: INR 2.2 (0.8-1.2); PT - PROTHROMBIN TIME 24.1 secs (9.9-12.6); VBG PH 7.358 (7.31-7.41)
[2017-07-14 05:15] LABS: ALBUMIN 2.6 g/dL (3.2-5.5); ALBUMIN/GLOBULIN RATIO 0.8 (1.0-2.2); BILIRUBIN,TOTAL 12.1 mg/dL (0.2-1.0); CALCIUM 8.3 mg/dL (8.5-10.3); CREATININE 0.9 mg/dL (0.6-1.2); MAGNESIUM 1.5 mg/dL (1.7-2.8); PHOSPHORUS 2.2 mg/dL (2.5-4.6); TOTAL PROTEIN 5.8 g/dL (6.7-8.2)
[2017-07-14] MEDS: chlordiazePOXIDE 25 MG CAPSULE PO SCH (06:31)
[2017-07-14] MEDS: SODIUM CHLORIDE FLUSH 0.9% 10 ML SYRINGE IVP SCH (06:32)
[2017-07-14] MEDS: NS W/20 MEQ KCL 1,000 ML IV SCH ×2 (06:34→08:54)
[2017-07-14] MEDS ORDERED: POTASSIUM PHOSPHATE 15 MMOL in SODIUM CHLORIDE 0.9% 250 ML IV ONE (06:41)
[2017-07-14] MEDS ORDERED: MAGNESIUM OXIDE 400 MG TABLET PO SCH (08:00)
[2017-07-14] MEDS: THIAMINE 100 MG TABLET PO SCH (08:51)
[2017-07-14] MEDS: PROPRANOLOL 10 MG TABLET PO SCH (08:51)
[2017-07-14] MEDS: PRENATAL VITAMIN TABLET PO SCH (08:52)
--- NOTE | 2017-07-14 08:55 | Discharge Plan ---
Discharge Plan Disposition: 01 Home, Self Care Condition: Stable Prescriptions: chlordiazePOXIDE [Librium] 25 mg PO BID #3 capsule cloNIDine 0.1 MG PATCH [[id number]-[id number]-5] 1 patch TOP Q7D #3 patch Magnesium Oxide [Mag Ox] 400 mg PO DAILY #30 tablet Thiamine [Vitamin B-1] 100 mg PO DAILY #30 tablet Diet: Regular Activity Restrictions: Activity as Tolerated Shower Restrictions: No Driving Restrictions: No Instruction Topics: Alcoholism, Alcoholism Get Help, Addiction Alcohol, ED Withdrawal Alcohol, Magnesium Blood Additional Instructions or Follow Up instructions: STOP DRINKING ALCOHOL EXCESSIVELY Take the Librium twice a day for the next few days to prevent alcohol withdrawal symptoms. Use the patch topically, change it once a week. Start taking a tablet of Magnesium and Thiamine daily. See your doctor for refills and for a follow-up visit. No Smoking: If you smoke, Please STOP! Call for help.
[2017-07-14 09:02] VITALS: BP 123/89
--- NOTE | 2017-07-14 16:26 | DISCHARGE SUMMARY ---
DATE OF SERVICE: 07/14/2017 Physician: Lien Frazier MD DATE OF ADMISSION: 07/12/2017 DATE OF DISCHARGE: 07/14/2017 DATE OF ADMISSION: 07/12/2017 DATE OF DISCHARGE: 07/14/2017 HISTORY OF PRESENT ILLNESS: This is a 61-year-old male with a history of alcohol abuse. The patient drinks a liter of vodka daily. Five days before admission, he decided to stop this because he "wanted to become healthy". Two days before this admission, he started to have hallucinations and called the police. They found him to be confused and brought him to the emergency room. He was admitted for alcohol detoxification with signs of withdrawal, abnormal blood tests and rehydration. HOSPITAL COURSE AND DISCHARGE DIAGNOSES: 1. Alcohol dependence with withdrawal. The patient was tachycardic and showed evidence of volume depletion. He required Librium while here and a CIWA protocol. He had a head CT done which showed atrophy but no evidence of hemorrhage.The patient was mentating appropriately, able to take regular diet. He was discharged on several more days of Librium for a taper and advised to continue to remain off of alcohol. 2. Alcoholic hepatitis, without ascites. The patient's AST was 406 on admission, ALT 128, ammonia level 57, bilirubin 15, INR 2.2, platelet count 48. With continued alcohol abstinence and IV hydration, his AST dropped to 207, ALT 89. He had an ultrasound of the abdomen done that showed severe hepatic steatosis and moderate to severe hepatomegaly, dilated common bile duct, but no biliary dilatation, the pancreas was obscured, there was gallbladder sludge, but no evidence of stones and he had mild splenic enlargement that was nonspecific. The patient was discharged with oral thiamine replacement daily. 3. Hypokalemia. The patient's admitting potassium was 3.0 and he required replacement, on the day of discharge, this was 3.6. 4. Hypomagnesemia. The patient's magnesium level was low normal on admission, this dropped to 1.5 at the time of discharge and he was discharged with magnesium oral replacement. ALLERGIES: SULFA. MEDICATIONS AT THE TIME OF DISCHARGE (all new): 1. Librium 25 mg p.o. b.i.d. for an additional 2 days. 2. Clonidine patch topically weekly. 3. Magnesium 400 mg p.o. daily. 4. Thiamine 100 mg p.o. daily. LABORATORY DATA AND IMAGING: Reviewed and summarized above. CONDITION AT DISCHARGE: Stable. PHYSICAL EXAMINATION: VITAL SIGNS: Blood pressure 123/89. HEENT: Unremarkable except he was disheveled and poor dentition. NECK: Without JVD. CHEST: Clear. HEART: Sounds normal. ABDOMEN: Soft with positive bowel sounds. Nontender. EXTREMITIES: Without edema. NEUROLOGIC: Grossly intact. He had no "liver flap". Follow-up: He was advised to have a PCP. He was told he should return to the ER if he has further problems. Time required to complete this discharge: 30 min. TD: 07/14/2017 17:25 SENAIT
== END 2017-07-14 10:30 | disposition home or self-care (01) | DRG 897 ==
LOC: EDUNIT# → ED 23:13 → ICU 07-12 01:50
PROVIDERS: ADMIT Internal Medicine; ATTEND Internal Medicine
DX: F10.231 Alcohol dependence with withdrawal delirium (principal); N17.9 Acute kidney failure, unspecified; E86.9 Volume depletion, unspecified; K70.10 Alcoholic hepatitis without ascites; E87.6 Hypokalemia; E83.42 Hypomagnesemia; D64.9 Anemia, unspecified; D69.6 Thrombocytopenia, unspecified; Z86.59 Personal history of other mental and behavioral disorders
CPT/HCPCS: 36415; 70450; 76700; 80053; 80074; 80306; 80320; 81001; 81003; 82140; 82270; 82310; 82330; 82550; 82607; 82728; 82746; 83540; 83690; 83735; 84100; 84439; 84443; 84466; 84484; 85025; 85610; 85730; 87086; 87150; 93005; 96365; 96366; 96368; 96375; 99284; 99285

== ENCOUNTER 2017-07-14 13:41 | Outpatient (CLI) | payer OTHER | END 2017-07-14 13:42 | disposition EMS.NT | LOC: EMS 13:41 | PROVIDERS: ATTEND Surgery | DX: K92.1 Melena (principal); Z72.89 Other problems related to lifestyle ==

== ENCOUNTER 2017-07-27 11:19 | Inpatient (IN) | payer OTHER ==
[2017-07-27 12:40] LABS: GLUCOSE, URINE (UA) NEGATIVE (NEGATIVE); KETONES,URINE (UA) TRACE mg/dL (NEGATIVE); LEUKOCYTE ESTERASE, URINE NEGATIVE (NEGATIVE); NITRITE,URINE NEGATIVE (NEGATIVE); OCCULT BLOOD,URINE TRACE-LYSE (NEGATIVE); PROTEIN,URINE TRACE mg/dL (NEGATIVE); UROBILINOGEN,URINE 4 E.U./dL (NORMAL)
[2017-07-27 12:52] LABS: CLARITY,URINE HAZY (CLEAR)
[2017-07-27 12:56] LABS: BILIRUBIN,URINE LARGE (NEGATIVE); ICTOTEST,URINE POSITIVE
[2017-07-27 13:02] LABS: RBC,URINE 0-5 /HPF (0-5); SQUAMOUS EPITHELIAL CELL,UR FEW Squamous (<= Few)
[2017-07-27 13:03] LABS: BACTERIA,URINE None Seen /HPF (None Seen); MUCUS,URINE Moderate Strands
[2017-07-27 13:04] LABS: BASOPHILS % (AUTO) 0.1 %; EOSINOPHILS # (AUTO) 0.3 10^3/uL (0.0-0.7); EOSINOPHILS % (AUTO) 1.7 %; HGB - HEMOGLOBIN 11.8 g/dL (14.0-18.0); LYMPHOCYTES # (AUTO) 1.1 10^3/uL (1.5-3.5); LYMPHOCYTES % (AUTO) 7.1 %; MEAN CORPUSCULAR HEMOGLOBIN 36.7 pg (27.0-31.0); MEAN CORPUSCULAR HGB CONC 34.3 g/dL (32.0-36.0); MEAN PLATELET VOLUME 8.7 fL (7.4-11.4); MONOCYTES # (AUTO) 1.2 10^3/uL (0.0-1.0); MONOCYTES % (AUTO) 7.8 %; NEUTROPHILS % (AUTO) 83.3 %; PLT - PLATELET COUNT 231 10^3/uL (130-450); RED BLOOD COUNT 3.22 10^6/uL (4.70-6.10); RED CELL DISTRIBUTION WIDTH 17.1 % (12.0-15.0); WHITE BLOOD COUNT 15.6 x10^3/uL (4.8-10.8)
[2017-07-27] MEDS ORDERED: PHYTONADIONE 10 MG/ML AMP SUBQ STA (13:11)
--- NOTE | 2017-07-27 13:11 | ED Physician Documentation ---
PD HPI ABD PAIN - Stated complaint Stated Complaint: MALE - Chief complaint Chief Complaint: Abd Pain - History obtained from History obtained from: Patient - History of Present Illness Timing - onset: Other (61-year-old gentleman with alcoholic cirrhosis presents with lower GI bleeding with bowel movements but of large volume for the last 3 days associated with weakness and shortness of breath as well as abdominal swelling. He has a raw rectum but no abdominal pain. No hematemesis. He had a recent admission for alcohol withdrawal, he says he has had one drink since then. On that admission he was noted to be coagulopathic and thrombocytopenic.) Review of Systems Ten Systems: 10 systems reviewed and negative Constitutional: reports: Fatigue. denies: Fever, Chills Nose: reports: Epistaxis. denies: Rhinorrhea / runny nose, Congestion Cardiac: denies: Chest pain / pressure, Palpitations Respiratory: reports: Dyspnea. denies: Cough GI: reports: Bloody / black stool. denies: Abdominal Pain, Nausea, Vomiting PD PAST MEDICAL HISTORY - Past Medical History Cardiovascular: None Respiratory: None Neuro: None Endocrine/Autoimmune: None GI: None : Kidney stones HEENT: None Psych: None Musculoskeletal: Other Derm: None - Past Surgical History Past Surgical History: Yes Ortho: Other - Present Medications Home Medications: Ambulatory Orders Medication Instructions Recorded Confirmed Thiamine [Vitamin B-1] 100 mg PO DAILY #30 tablet 07/14/17 chlordiazePOXIDE [Librium] 25 mg PO BID #3 capsule 07/14/17 cloNIDine 0.1 MG PATCH 1 patch TOP Q7D #3 patch 07/14/17 [[id number]] - Allergies Allergies/Adverse Reactions: Allergies Allergy/AdvReac Type Severity Reaction Status Date / Time Sulfa (Sulfonamide Allergy Unknown Verified 07/27/17 11:25 Antibiotics) - Social History Does the pt smoke?: No Smoking Status: Never smoker Does the pt drink ETOH?: Yes Does the pt have substance abuse?: No - Immunizations Immunizations are current?: Yes - POLST Patient has POLST: No PD ED PE NORMAL - Vitals Vital signs reviewed: Yes - General General: Alert and oriented X 3, Other (He is jaundiced) - HEENT HEENT: PERRL, EOMI, Other (Icteric) - Neck Neck: Supple, no meningeal sign, No bony TTP - Cardiac Cardiac: RRR, No murmur - Respiratory Respiratory: No respiratory distress, Clear bilaterally - Abdomen Abdomen: Other (Nontender but swollen with fluid wave and bedside ultrasound showing significant ascites) - Rectal Rectal: Other (Very guaiac positive, he does have external hemorrhoids but they do not look like they have been recently bleeding.) - Back Back: No CVA TTP, No spinal TTP - Derm Derm: Normal color, Warm and dry - Extremities Extremities: No edema, No calf tenderness / cord - Neuro Neuro: Alert and oriented X 3, Normal speech - Psych Psych: Normal mood, Normal affect Results - Vitals Vitals: Vital Signs - 24 hr 07/27/17 11:21 Temperature 36.7 C Heart Rate 113 H Respiratory 18 Rate Blood Pressure 126/74 O2 Saturation 96 Oxygen O2 Source Room air - Labs Labs: Laboratory Tests 07/27/17 07/27/17 07/27/17 12:23 12:50 12:50 WBC 15.6 H RBC 3.22 L Hgb 11.8 L Hct 34.5 L MCV 107.0 H MCH 36.7 H MCHC 34.3 RDW 17.1 H Plt Count 231 MPV 8.7 Neut # 13.0 H Lymph # 1.1 L [place] # 1.2 H Eos # 0.3 Baso # 0.0 Absolute Nucleated RBC 0.00 Nucleated RBC % 0.0 Manual Slide Review Indicated RBC Morph Micro Appear 2+ ANISOCYTOSIS PT INR Sodium 132 L Potassium 3.2 L Chloride 98 L Carbon Dioxide 26 Anion Gap 8.0 BUN 16 Creatinine 1.3 H Estimated GFR (MDRD) 57 L Glucose 92 Calcium 7.7 L Total Bilirubin 17.0 H AST 97 H ALT 35 Alkaline Phosphatase 131 H Total Protein 6.6 L Albumin 2.1 L Globulin 4.5 H Albumin/Globulin Ratio 0.5 L Lipase 31 Urine Color ORANGE Urine Clarity HAZY Urine pH 6.0 Ur Specific [place] 1.020 Urine Protein TRACE Urine Glucose (UA) NEGATIVE Urine Ketones TRACE Urine Occult Blood TRACE-LYSE Urine Nitrite NEGATIVE Urine Bilirubin LARGE H Urine Urobilinogen 4 H Ur Leukocyte Esterase NEGATIVE Urine RBC 0-5 Urine WBC 4-5 Ur Squamous Epith Cells FEW Squamous Urine Bacteria None Seen Urine Mucus Moderate Strands Ur Microscopic Review INDICATED Urine Culture Comments NOT INDICATED Ethyl Alcohol Blood Type Antibody Screen 07/27/17 07/27/17 07/27/17 12:50 12:50 13:25 WBC RBC Hgb Hct MCV MCH MCHC RDW Plt Count MPV Neut # Lymph # [place] # Eos # Baso # Absolute Nucleated RBC Nucleated RBC % Manual Slide Review RBC Morph Micro Appear PT 27.1 H INR 2.5 H Sodium Potassium Chloride Carbon Dioxide Anion Gap BUN Creatinine Estimated GFR (MDRD) Glucose Calcium Total Bilirubin AST ALT Alkaline Phosphatase Total Protein Albumin Globulin Albumin/Globulin Ratio Lipase Urine Color Urine Clarity Urine pH Ur Specific [place] Urine Protein Urine Glucose (UA) Urine Ketones Urine Occult Blood Urine Nitrite Urine Bilirubin Urine Urobilinogen Ur Leukocyte Esterase Urine RBC Urine WBC Ur Squamous Epith Cells Urine Bacteria Urine Mucus Ur Microscopic Review Urine Culture Comments Ethyl Alcohol < 5.0 Blood Type A POSITIVE Antibody Screen NEGATIVE PD MEDICAL DECISION MAKING - ED course ED course: 61-year-old gentleman with alcoholic liver disease presents with a lower GI bleed and evidence of worsening cirrhosis, ultrasound on last admission did not comment on ascites, but he has it now and his INR is higher and his bilirubin is 17, his meld score is 32 giving him a 53% 3 month mortality. Given the active bleeding despite reassuring H&H I think he should spend the night for serial H&H and medication management and diuresis and call the hospitalist was placed at 2:[address] Miller by phone for eval at 2:18pm Departure - Departure Disposition: ED Place in Observation Clinical Impression: Lower GI bleed Cirrhosis Qualifiers: Hepatic cirrhosis type: alcoholic cirrhosis Ascites presence: with ascites Qualified Code(s): K70.31 - Alcoholic cirrhosis of liver with ascites Liver failure Qualifiers: Liver failure chronicity: acute Hepatic coma status: without hepatic coma Qualified Code(s): K72.00 - Acute and subacute hepatic failure without coma Condition: Serious
[2017-07-27 13:19] LABS: RBC MORPHOLOGY (MULTIPLE) 2+ ANISOCYTOSIS (NORMAL)
[2017-07-27 13:21] LABS: ALBUMIN 2.1 g/dL (3.2-5.5); ALBUMIN/GLOBULIN RATIO 0.5 (1.0-2.2); CALCIUM 7.7 mg/dL (8.5-10.3); CREATININE 1.3 mg/dL (0.6-1.2); TOTAL PROTEIN 6.6 g/dL (6.7-8.2)
[2017-07-27 13:55] LABS: INR 2.5 (0.8-1.2); PT - PROTHROMBIN TIME 27.1 secs (9.9-12.6)
[2017-07-27] MEDS ORDERED: FUROSEMIDE 40 MG/4 ML VIAL IVP STA (14:05)
[2017-07-27] MEDS ORDERED: POTASSIUM BICARB 25 MEQ TABLET PO STA (14:05)
[2017-07-27] MEDS ORDERED: ONDANSETRON 4 MG/2 ML VIAL IVP PRN (15:21)
[2017-07-27] MEDS ORDERED: ONDANSETRON ODT 4 MG TABLET TL PRN (15:21)
--- NOTE | 2017-07-27 16:41 | XRAY Preliminary Report ---
Exam: XR CHEST 1 VIEW X-RAY IMPRESSION: Normal single view chest. [facility] SITE ID: [id number]
--- NOTE | 2017-07-27 16:47 | XRAY Report ---
EXAM: CHEST RADIOGRAPHY EXAM DATE: 07/27/2017 04:32 PM. CLINICAL HISTORY: Cirrhosis. Abdominal distention. COMPARISON: None. TECHNIQUE: 1 view. FINDINGS: Lungs/Pleura: No focal opacities evident. No pleural effusion. No pneumothorax. Mediastinum: Within exam limitations, the cardiomediastinal contour is normal. Other: None. IMPRESSION: Normal single view chest. [facility] Referring Provider Line: [phone] SITE ID: [id number]
[2017-07-27 17:27] LABS: GLUCOSE, URINE (UA) NEGATIVE (NEGATIVE); KETONES,URINE (UA) NEGATIVE (NEGATIVE); LEUKOCYTE ESTERASE, URINE NEGATIVE (NEGATIVE); NITRITE,URINE NEGATIVE (NEGATIVE); OCCULT BLOOD,URINE NEGATIVE (NEGATIVE); PH,URINE 6.5 PH (5.0-7.5); PROTEIN,URINE NEGATIVE (NEGATIVE); UROBILINOGEN,URINE 1 (NORMAL) E.U./dL (NORMAL)
[2017-07-27 17:37] LABS: BILIRUBIN,URINE MODERATE (NEGATIVE); CLARITY,URINE CLEAR (CLEAR); ICTOTEST,URINE POSITIVE
[2017-07-27] MEDS: SODIUM CHLORIDE FLUSH 0.9% 10 ML SYRINGE IVP PRN (18:01)
[2017-07-27] MEDS: PANTOPRAZOLE 40 MG VIAL IVP SCH (18:01)
--- NOTE | 2017-07-27 20:08 | CONSULTATION NOTE ---
Referring Provider Name of Referring Provider:: Dr. Gallo Consult Date: 07/27/17 Chief Complaint - Chief Complaint Chief Complaint: GI bleed History of Present Illness - History of Present Illness HPI Comment/Other: This is a 61 year old male with end stage liver disease secondary to Alcohol abuse who was recently admitted for alcohol withdrawal who represents to the emergency department today complaining of bright red blood per rectum. He states that a few days ago he began having bright red bleeding associated with his bowel movements. He states that he has occasionally seen clots in the toilet as well. He does have hemorrhoids but feels like this is more bleeding than he usually sees with his hemorrhoids. He last had a colonoscopy 3 years ago and as far as he can remember he states that it was normal. He does not have a property supervisor and to his knowledge she has never had an EGD. He also complains of increasing abdominal girth in the last few days. His calculated meld score is 32 he is coagulopathic With an INR of 2.5. He denies any hematemesis. He has been hemodynamically stable since admission. History - Past Medical History Cardiovascular: reports: None Respiratory: reports: None Neuro: reports: None Endocrine/Autoimmune: reports: None GI: reports: None : reports: Kidney stones HEENT: reports: None Psych: reports: None Musculoskeletal: reports: Other Derm: reports: None MRSA Hx?: No - Past Surgical History Ortho: reports: Other - POLST Patient has POLST: No Meds/Allgy - Home Medications Home Medications: Ambulatory Orders Medication Instructions Recorded Confirmed Thiamine [Vitamin B-1] 100 mg PO DAILY #30 tablet 07/14/17 07/27/17 chlordiazePOXIDE [Librium] 25 mg PO BID #3 capsule 07/14/17 07/27/17 cloNIDine 0.1 MG PATCH 1 patch TOP Q7D #3 patch 07/14/17 07/27/17 [[id number]] Magnesium Oxide [Magnesium Oxide] 400 mg PO DAILY 07/27/17 07/27/17 - Allergies Allergies/Adverse Reactions: Allergies Allergy/AdvReac Type Severity Reaction Status Date / Time Sulfa (Sulfonamide Allergy Unknown Verified 07/27/17 11:25 Antibiotics) Review of Systems - Constitutional Constitutional: reports: Fatigue - Cardiovascular Cariovascular: denies: Palpitations - Gastrointestinal Gastrointestinal: reports: Abdominal distention, Rectal bleeding. denies: Abdominal pain - Neurological Neurological: reports: Memory problems Exam - Vital Signs Reviewed Vital Signs: Yes Vital Signs: Vital Signs x48h Temp Pulse Resp BP Pulse Ox 07/27/17 15:47 36.8 C 96 18 101/66 96 - Physical Exam General Appearance: positive: No acute distress Respiratory: positive: No respiratory distress Cardiovascular: positive: Regular rate & rhythm Abdomen: positive: Other (Softly distended, tympanic to percussion. Nontender to palpation.) Extremities: positive: Pedal edema Neurologic/Psychiatric: positive: Oriented x3 Conclusion/Plan - Diagnosis Diagnosis: Alcoholic cirrhosis with GI bleed - Plan Plan: The patient states that even if I recommended a colonoscopy he would not be willing to undergo one because he feels that he lost his rectal tone after his last colonoscopy. At this time I do not feel that he urgently needs to undergo colonoscopy. He should follow-up with a property supervisor for management of his liver failure including an EGD and colonoscopy. His hemoglobin is 11 and his blood pressure and heart rate have been normal. I would recommend period of observation and as long as his hemoglobin and hematocrit do not drop precipitously he can be discharged to follow-up with a property supervisor. If he does develop severe lower GI bleed he will need his INR corrected. If he becomes hemodynamically unstable he will require transfer to a higher level of care. - Lab Results Fish Bones: 07/27/17 12:50 07/27/17 12:50
--- NOTE | 2017-07-27 20:19 | HISTORY & PHYSICAL EXAMINATION ---
DATE OF SERVICE: 07/27/2017 Physician: Hien Miller MD PRIMARY CARE PROVIDER: None. CHIEF COMPLAINT: Bright red blood per rectum. HISTORY OF PRESENT ILLNESS: The patient is an unfortunate 61-year-old male who has alcoholic liver disease. He was just admitted 07/12/2017 for alcohol withdrawal and hallucinations. He decided to be healthy and stopped drinking around 07/07/2017. He got through his withdrawal, and on physical exam during that stay he did not have ascites, but he had other lab findings of cirrhosis including chronic anemia, thrombocytopenia, macrocytosis, INR of 2.1, and a bilirubin of 12. With that, abdominal ultrasound on 07/12/2017, he had severe hepatic steatosis and moderate to severe hepatomegaly. A dilated common bile duct measuring 10 mm. Pancreas obscured by structures. Gallbladder sludge. Mild nonspecific splenic enlargement. No ascites. He does have a history of bright red blood per rectum in the remote past, but it went away on its own and he never needed to do anything about it. He never had a colonoscopy or endoscopy. Since discharge on 07/14/2017, he said that he continued not to drink. He has had maybe 1 sip of 1 drink, but he has not gone back to his alcohol drinking. About a week ago , he developed severe lancinating rectal pain every time he defecated. Then, that progressed to episodic bright red blood per rectum. Last night he had ange clots. He has not had any unusual weight changes. No fevers, chills, sweats. He denies any abdominal pain. However, his abdomen is becoming gradually more and more distended. His legs are mildly more edematous. When he started having clots last night, he decided he should come to the emergency room today. He was evaluated by Dr. Wellington and blood pressure was 126/74. Pulse was approximately 113. Oxygenating well on room air and he was afebrile. His rectal exam showed him to be very guaiac positive. External hemorrhoids, but they do not look like they have been bleeding. There is no comment about a fissure, or palpation of internal hemorrhoids or any masses. His hemoglobin is 11.8. That is about what he was with his admission when he had withdrawal. Unfortunately, his bilirubin has worsened to 17. INR worsened to 2.5. Platelets are unusually elevated at 231, and I think this may be a lab error. He is now admitted for worsening ascites in a patient who appears to have end- stage liver disease and probable lower GI bleeding, source yet to be established. PAST MEDICAL HISTORY: 1. Chronic alcoholism. 2. Depression with suicidal ideation related to his divorce three years ago. ALLERGIES: SULFA. MEDICATIONS: 1. Librium 25 mg p.o. b.i.d. that he has not had to take. 2. Clonidine 0.1 mg every seven days. 3. Magnesium oxide 400 mg daily. 4. Vitamin B1 daily. SOCIAL HISTORY: He was born and raised in [place]. 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 He has been once before and has had 3 children with his first . They 3 years ago and he has had a subsequent depression because of that. He has been drinking for decades. Drinks at least a pint a day. Stopped drinking 2017. He says he has never smoked. He has no other history of recreational substance abuse[place] with his new girlfriend. FAMILY HISTORY: Dad is in his 90s and mom is in her 80s. Dad is an alcoholic. Otherwise, there are no other major medical illnesses in them. He is 1 of 8 children. None of them have problems with alcoholism, hypertension, cancer. His 3 children are healthy. REVIEW OF SYSTEMS GENERAL: He does not describe any change in weight. No unexpected weight changes. No sweats. Appetite has been okay. ENT: He wears glasses, denies cataracts. Denies deafness. Denies problems with swallowing. PULMONARY: Denies coughing, wheezing, bronchitis, asthma, chest congestion. CARDIOVASCULAR: Denies chest pain, he does have mild increase in leg edema. No orthopnea. No palpitations. No history of heart disease or murmurs. GASTROINTESTINAL: As above. GENITOURINARY: Denies erectile dysfunction, nocturia, increasing urinary frequency, urgency. Denies hematuria or flank pain. JOINTS: Not a problem. What he feels more than anything is like his feet have a thick pad on them. He can feel the bottoms of his feet. They are not hypersensitive. It just feels like he is always wearing socks when he is not. DERMATOLOGIC: No new lesions, no changes in any moles. No rashes. PSYCH: He has not hallucinated since he went through withdrawal 2 weeks ago. He gets occasionally angry and depressed because of the divorce, but never homicidal. Last suicidal ideation was 08/2016. Currently not suicidal. CENTRAL NERVOUS SYSTEM: Denies headache, syncope, seizures. No gait ataxia. PHYSICAL EXAMINATION GENERA: He is seen in his room after being transferred there from the emergency room. He is alert, oriented, eating a normal diet, watching TV, and in no acute distress. He is a middle-aged white male who looks his stated age. VITAL SIGNS: Temperature is 36.8, pulse is 96, blood pressure 101/66, respirations 18, and he is 96% on room air. HEAD: He has male pattern baldness and the hair he does have left falls to his shoulders. He is wearing dark-rimmed glasses. Pupils are reactive. Sclerae is muddy and anicteric. Oral mucosa is pink. Moist. Speech is normal. Swallowing is normal as I watch him eat a sandwich. NECK: Supple with shotty adenopathy. No goiter or bruits. LUNGS: Clear to auscultation and percussion. Slightly diminished breath sounds. He does initially have crackles at the base, but when I have him give a deep cough they clear. No increased respiratory effort. He says that it is getting a little bit harder to breathe, especially when he lays down because his abdominal distention feels like it is pushing up on his diaphragm. ABDOMEN: He has generalized abdominal distention, firm. Slightly tympanitic. There is a fluid wave. No rebound or guarding. I do not feel his spleen. I do feel his liver. Scrotum slightly has edema. EXTREMITIES: He has mild 1+ edema. No clubbing or cyanosis. NEUROLOGIC: He is alert and oriented to person, place and time. Normal speech patterns. No confusion. No evidence of hepatic encephalopathy. He does not have asterixis. He is able to swing his legs at the side of the bed and transfer from a supine to sitting position and then a standing position with only standby assist and a modicum of grunting effort. LABORATORY DATA: Sodium is 132, potassium 3.2, BUN 16, creatinine 1.3, random glucose 92. Two weeks ago, his creatinine was 0.9. Bilirubin is 17. Two weeks ago was 12. AST is 97, ALT is 35, alkaline phosphatase is 131. Albumin is 2.1. White cell count is 15.6, hemoglobin 11.8, hematocrit 34.5, platelets are unusually high at 231. Two weeks ago, he was in the 30s and 40s. INR was 1.8, 2 weeks ago, it is 2.5 today. Urinalysis has large amount of bilirubin, 4+ urobilinogen. Negative leukocyte esterase. Moderate strands. Culture is indicated. Today's alcohol level is less than 5. Tox screen on 07/11/2017 was negative for all substances. On 07/12/2017, hepatitis A, B, and C were all nonreactive. Today's chest x-ray has normal single view chest. No pleural effusion. ASSESSMENT 1. Bright red blood per rectum, indicating possible lower gastrointestinal bleed. Differential diagnoses in this gentleman, who is an alcoholic, would be internal hemorrhoids, external hemorrhoids, rectal fissure, possible neoplasm. Rectal exam was done in the emergency room and none of these were found other than external hemorrhoids that were not bleeding. This is a gentleman who has a prolonged INR, and end-stage liver disease. I do not believe this is esophageal variceal bleeding because he does not have black tarry stools and he is not hemodynamically unstable. I have spoken to [facility], Gastroenterology transportation services representative, and at this time they feel this patient can safely stay here from a hemodynamic perspective. ATTESTATION: This patient will be admitted for less than 96 hours. At 96 hours, he will be evaluated for discharge or transfer. PLAN: Check serial hemoglobin and hematocrit. If develops any sign of instability, transfer after starting platelets and FFP. No FFP or platelets at this time. Once we have stabilized him and he is not having an active GI bleed, will need outpatient colonoscopy and upper endoscopy with assembly line inspector [facility]. I have discussed the case the General Surgery transportation services representative as well,Dr. Goldstein. I am not requested endoscopy here but wanted to advise them of his admission as a courtesy. 2. Alcoholic liver disease with worsening labs and a rising MELD score. Again , the case was discussed with Gastroenterology at [facility]. He will definitely need followup in the outpatient setting. Hepatitis panel negative. This is attributed strictly to his alcoholism. Possibly fatty liver or a combination thereof. PLAN: Abdominal ultrasound to assess with venous Doppler to assess for thrombosis. Also, need to look for ascites. Transfuse albumin per [facility] recommendations. Diagnostic paracentesis has been discussed with Dr. Culp, radiology, and we will plan for tomorrow. He does not require me to reverse the INR with FFP. Blood cultures were recommended. Chest xray was recommended. Spironolactone to be started. No antibiotics until the diagnostic paracentesis results return. 3. Thrombocytopenia history. Since this is not going to change his management tonight, I will not repeat his CBC tonight. However, we will repeat CBC tomorrow to see where his platelets are since I think those platelets are a lab error. 4. FULL CODE STATUS. 5. Deep venous thrombosis prophylaxis will be KATEY mayers. TD: 07/27/2017 20:17 MTDJessica
[2017-07-27] MEDS: ALBUMIN 25% 12.5 GM/50 ML VIAL IV SCH (21:24)
[2017-07-27] MEDS: SODIUM CHLORIDE FLUSH 0.9% 10 ML SYRINGE IVP SCH (21:24)
--- NOTE | 2017-07-27 23:06 | Ultrasound Preliminary Report ---
Exam: US DOPPLER LIMITED IMPRESSION: 1. Cirrhotic liver. No mass. Liver is enlarged. 2. Splenic enlargement. 3. Portal vein and hepatic vein are patent. Hepatic artery not evaluated. 4. Moderate ascites. [facility] SITE ID: [id number]
--- NOTE | 2017-07-28 00:59 | Ultrasound Report ---
EXAM: LIMITED ABDOMINAL DOPPLER ULTRASOUND EXAM DATE: 07/27/2017 07:07 PM. CLINICAL HISTORY: Cirrhosis. COMPARISON: 07/12/2017. TECHNIQUE: Real-time scanning was performed with static images obtained. FINDINGS: Liver: Heterogeneous liver parenchyma with irregular liver contour. No mass. No evidence of intrahepa tic bile duct dilation. 18.7 cm. Main portal vein flow: Hepatopetal. Spleen: 14.6 x 5.6 x 11.5 cm. Enlarged spleen with a volume of 494 cc. No mass. Other: At least moderate amount of nonloculated fluid in the abdomen. Splenic vein is patent. Portal vein is patent. Hepatic artery not evaluated. IMPRESSION: 1. Cirrhotic liver. No mass. Liver is enlarged. 2. Splenic enlargement. 3. Portal vein and hepatic vein are patent. Hepatic artery not evaluated. 4. Moderate ascites. [facility] Referring Provider Line: [phone] SITE ID: [id number]
[2017-07-28 01:02] LABS: HGB - HEMOGLOBIN 10.1 g/dL (14.0-18.0)
[2017-07-28] MEDS: SODIUM CHLORIDE FLUSH 0.9% 10 ML SYRINGE IVP PRN ×3 (06:08→13:03)
[2017-07-28] MEDS: SODIUM CHLORIDE FLUSH 0.9% 10 ML SYRINGE IVP SCH ×3 (06:08→19:55)
[2017-07-28] MEDS: PANTOPRAZOLE 40 MG VIAL IVP SCH (06:08)
[2017-07-28 06:59] LABS: BASOPHILS # (AUTO) 0.1 10^3/uL (0.0-0.1); EOSINOPHILS % (AUTO) 0.1 %; LYMPHOCYTES # (AUTO) 0.9 10^3/uL (1.5-3.5); MONOCYTES # (AUTO) 0.7 10^3/uL (0.0-1.0); RED BLOOD COUNT 2.82 10^6/uL (4.70-6.10)
[2017-07-28 07:16] LABS: BASOPHILS % (AUTO) 0.7 %; LYMPHOCYTES % (AUTO) 7.1 %; MEAN CORPUSCULAR HEMOGLOBIN 35.3 pg (27.0-31.0); MEAN PLATELET VOLUME 8.7 fL (7.4-11.4); MONOCYTES % (AUTO) 5.4 %; NEUTROPHILS # (AUTO) 11.5 10^3/uL (1.5-6.6); NEUTROPHILS % (AUTO) 86.7 %; PLT - PLATELET COUNT 186 10^3/uL (130-450); WHITE BLOOD COUNT 13.2 x10^3/uL (4.8-10.8)
[2017-07-28] MEDS ORDERED: POTASSIUM CHLORIDE 20 MEQ/15 ML UDC PO SCH (08:00)
[2017-07-28] MEDS: POLYETHYLENE GLYCOL 3350 17 GM PACKET PO SCH (08:25)
[2017-07-28] MEDS: ALBUMIN 25% 12.5 GM/50 ML VIAL IV SCH ×2 (08:25→20:56)
[2017-07-28] MEDS ORDERED: BUFFERED LIDOCAINE 10 ML SYRINGE IU ONE (10:29)
[2017-07-28 10:51] LABS: CC,BF RBC 313 /mm^3
--- NOTE | 2017-07-28 11:03 | Ultrasound Report ---
ULTRASOUND-GUIDED PARACENTESIS: 07/28/2017 CLINICAL INDICATION: New ascites, diagnostic tap. FINDINGS: Following obtaining informed consent, a suitable site on the patient's right mid abdomen was selected with ultrasound. The skin was prepped and draped in the usual sterile fashion. The skin and soft tissues were anesthetized with lidocaine. A 20-gauge needle was inserted into the fluid, and 60 mL of ascitic fluid was removed without difficulty. Fluid was submitted to the lab for further evaluation as directed by the clinical service. The patient tolerated the procedure well. No immediate complications. IMPRESSION: SUCCESSFUL ULTRASOUND-GUIDED DIAGNOSTIC PARACENTESIS. TD: 07/28/2017 11:02
[2017-07-28 11:08] LABS: BF COLOR YELLOW
--- NOTE | 2017-07-28 11:09 | PROVIDER PROGRESS NOTE ---
Subjective - Prog Note Date Prog Note Date: 07/28/17 Prog Note Time: 11:07 - Subjective Pt reports feeling: No change Subjective: no real response to the lasix IV diagnostic paracentesis done this am denies abd pain. no cp, no fevers. has not had any more rectal bleeding. Current Medications - Current Medications Current Medications: Active Medications Albumin Human (Albuminar-25) 12.5 gm in 50 mls @ 50 mls/hr IV BID [facility] Last Infusion: 07/28/17 09:31 Dose: Infused Ondansetron HCl (Zofran Inj) 4 mg IVP Q6HR PRN PRN Reason: Nausea / Vomiting Ondansetron HCl (Zofran Odt) 4 mg TL Q6HR PRN PRN Reason: Nausea / Vomiting Pantoprazole Sodium (Protonix) 40 mg IVP QDAC [facility] Last Admin: 07/28/17 06:08 Dose: 40 mg Polyethylene Glycol (Miralax) 17 gm PO DAILY [facility] Last Admin: 07/28/17 08:25 Dose: Not Given Sodium Chloride (Normal Saline Flush 0.9%) 10 ml IVP PRN PRN PRN Reason: NEEDED PER PROVIDER ORDERS Last Admin: 07/28/17 06:18 Dose: 10 ml Sodium Chloride (Normal Saline Flush 0.9%) 10 ml IVP Q8HR [facility] Last Admin: 07/28/17 06:08 Dose: 10 ml Magnesium Oxide [Magnesium Oxide] 400 mg PO DAILY 07/27/17 Objective - Vital Signs/Intake & Output Reviewed Vital Signs: Yes Vital Signs: Vital Signs x48h Temp Pulse Resp BP Pulse Ox 07/28/17 07:55 36.7 C 78 16 108/56 L 95 Intake & Output: Intake & Output 07/25/17 07/26/17 07/27/17 07/28/17 23:59 23:59 23:59 23:59 Intake Total 175 170 Output Total 400 Balance 175 -230 - Objective General Appearance: positive: No acute distress, Alert, Other (icteric jaundice male. no lethargy) Eyes Bilateral: positive: PERRL Eyes: OU Scleral icterus ENT: positive: Pharynx nml Neck: positive: No JVD. negative: Stiff neck, Carotid bruit Respiratory: positive: Chest non-tender. negative: Wheezes, Rales, Rhonchi Cardiovascular: positive: Regular rate & rhythm, No murmur. negative: Gallop/S4 , Friction rub Abdomen: positive: Non-tender, Nml bowel sounds, Other (distension from fluid, does have fluid wave. but not in pain). negative: Guarding, Rebound Skin: positive: Warm, Dry Extremities: positive: Full ROM, Pedal edema Neurologic/Psychiatric: positive: Oriented x3, CN's nml (2-12), Motor nml (no asterixis and no ataxia) - Lab Results Fish Bones: 07/28/17 06:52 07/27/17 12:50 Other Labs: Lab Results x24hrs 07/28/17 07/28/17 07/27/17 Range/Units 06:52 00:38 Unknown WBC 13.2 H (4.8-10.8) x10^3/uL RBC 2.82 L (4.70-6.10) 10^6/uL Hgb 10.0 L 10.1 L (14.0-18.0) g/dL Hct 30.2 L 28.8 L (42.0-52.0) % MCV 107.0 H (80.0-94.0) fL MCH 35.3 H (27.0-31.0) pg MCHC 33.0 (32.0-36.0) g/dL RDW 17.0 H (12.0-15.0) % Plt Count 186 (130-450) 10^3/uL MPV 8.7 (7.4-11.4) fL Neut # 11.5 H (1.5-6.6) 10^3/uL Lymph # 0.9 L (1.5-3.5) 10^3/uL [place] # 0.7 (0.0-1.0) 10^3/uL Eos # 0.0 (0.0-0.7) 10^3/uL Baso # 0.1 (0.0-0.1) 10^3/uL Absolute Nucleated RBC 0.01 x10^3/uL Nucleated RBC % 0.0 /100WBC Ammonia 18.0 (7-35) umol/L Urine Color Urine Clarity (CLEAR) Urine pH (5.0-7.5) PH Ur Specific [place] (1.002-1.030) Urine Protein (NEGATIVE) mg/dL Urine Glucose (UA) (NEGATIVE) mg/dL Urine Ketones (NEGATIVE) mg/dL Urine Occult Blood (NEGATIVE) Urine Nitrite (NEGATIVE) Urine Bilirubin (NEGATIVE) Urine Urobilinogen (NORMAL) E.U./dL Ur Leukocyte Esterase (NEGATIVE) Ur Microscopic Review Urine Culture Comments 07/27/17 Range/Units 17:08 WBC (4.8-10.8) x10^3/uL RBC (4.70-6.10) 10^6/uL Hgb (14.0-18.0) g/dL Hct (42.0-52.0) % MCV (80.0-94.0) fL MCH (27.0-31.0) pg MCHC (32.0-36.0) g/dL RDW (12.0-15.0) % Plt Count (130-450) 10^3/uL MPV (7.4-11.4) fL Neut # (1.5-6.6) 10^3/uL Lymph # (1.5-3.5) 10^3/uL [place] # (0.0-1.0) 10^3/uL Eos # (0.0-0.7) 10^3/uL Baso # (0.0-0.1) 10^3/uL Absolute Nucleated RBC x10^3/uL Nucleated RBC % /100WBC Ammonia (7-35) umol/L Urine Color DARK YELLOW Urine Clarity CLEAR (CLEAR) Urine pH 6.5 (5.0-7.5) PH Ur Specific [place] 1.015 (1.002-1.030) Urine Protein NEGATIVE (NEGATIVE) mg/dL Urine Glucose (UA) NEGATIVE (NEGATIVE) mg/dL Urine Ketones NEGATIVE (NEGATIVE) mg/dL Urine Occult Blood NEGATIVE (NEGATIVE) Urine Nitrite NEGATIVE (NEGATIVE) Urine Bilirubin MODERATE H (NEGATIVE) Urine Urobilinogen 1 (NORMAL) (NORMAL) E.U./dL Ur Leukocyte Esterase NEGATIVE (NEGATIVE) Ur Microscopic Review NOT INDICATED Urine Culture Comments NOT INDICATED Assessment/Plan - Problem List (1) Bright red blood per rectum Impression: he has stayed stable with BP and with Hgb. No further bleeding since admit At this time no transfusion need for FFP or PRBC. If does need it, transfer (2) Alcoholic cirrhosis of liver with ascites Impression: worsening in the last 2 weeks. He didn't have much ascites then. Bili went from 15>17. INR went from 2.1>2.5, Creat went from 0.9>1.3 getting albumin diagnostic paracentesis results pending. Initial gram stain does show bacteria and fluid was cloudy, start empiric tx for SBP. He does not have a fever, but does have elevated WBC, abd exam not really tender start spironolactone and one more dose of IV lasix CXR negative Blood cultures pending. (3) Electrolyte abnormality Impression: hyponatremia and hypokalemia. receving supplement for K. recheck in am.
[2017-07-28 11:44] LABS: BF SOURCE PERITONIAL
[2017-07-28] MEDS ORDERED: CEFOTAXIME 2 GM in SODIUM CHLORIDE 0.9% MINIBAG 100 ML IV SCH (12:00)
[2017-07-28] MEDS: FUROSEMIDE 40 MG/4 ML VIAL IVP SCH (13:03)
[2017-07-28] MEDS: CEFOTAXIME IV SCH ×2 (13:03→19:54)
[2017-07-28] MEDS: SODIUM CHLORIDE 0.9% IV SCH ×2 (13:03→19:54)
[2017-07-28] MEDS: POTASSIUM CHLORIDE 20 MEQ/15 ML UDC PO SCH (18:18)
[2017-07-28] MEDS: SPIRONOLACTONE 25 MG TABLET PO SCH (21:02)
[2017-07-29] MEDS: SODIUM CHLORIDE 0.9% IV SCH ×3 (04:09→19:41)
[2017-07-29] MEDS: CEFOTAXIME IV SCH ×3 (04:09→19:41)
[2017-07-29] MEDS: SODIUM CHLORIDE FLUSH 0.9% 10 ML SYRINGE IVP SCH ×3 (04:10→19:41)
[2017-07-29 06:01] LABS: ALBUMIN 1.9 g/dL (3.2-5.5); ALBUMIN/GLOBULIN RATIO 0.6 (1.0-2.2); CALCIUM 6.9 mg/dL (8.5-10.3); CREATININE 1.3 mg/dL (0.6-1.2); TOTAL PROTEIN 5.1 g/dL (6.7-8.2)
[2017-07-29] MEDS: SODIUM CHLORIDE FLUSH 0.9% 10 ML SYRINGE IVP PRN ×4 (06:21→20:53)
[2017-07-29] MEDS: PANTOPRAZOLE 40 MG VIAL IVP SCH (06:22)
--- NOTE | 2017-07-29 06:49 | PROVIDER PROGRESS NOTE ---
Subjective - Prog Note Date Prog Note Date: 07/29/17 Prog Note Time: 15:37 - Subjective Subjective: still having occ bright red blood Hgb slightly dropped but not significantly BP stable eating no abd pain no fevers still relates all of this started after a C scope a few years ago lost sphincter control and now oozes sometimes rectal pain is only w defecation. Hurts like a sharp hot knife Current Medications - Current Medications Current Medications: Active Medications Furosemide (Lasix Inj 40 Mg Vial) 40 mg IVP DAILY [facility] Last Admin: 07/29/17 09:49 Dose: 40 mg Albumin Human (Albuminar-25) 12.5 gm in 50 mls @ 50 mls/hr IV BID [facility] Last Infusion: 07/29/17 12:22 Dose: Infused Cefotaxime Sodium 2 gm/ Sodium (Chloride) 100 mls @ 100 mls/hr IV Q8H [facility] Last Infusion: 07/29/17 13:30 Dose: Infused Lidocaine HCl (Xylocaine Jelly 2%) 1 ml TOP TID [facility] Nitroglycerin (Nitro-Bid (Pkt)) 0.25 inch TOP Q8H [facility] Ondansetron HCl (Zofran Inj) 4 mg IVP Q6HR PRN PRN Reason: Nausea / Vomiting Ondansetron HCl (Zofran Odt) 4 mg TL Q6HR PRN PRN Reason: Nausea / Vomiting Pantoprazole Sodium (Protonix) 40 mg IVP QDAC [facility] Last Admin: 07/29/17 06:22 Dose: 40 mg Polyethylene Glycol (Miralax) 17 gm PO DAILY [facility] Last Admin: 07/29/17 07:36 Dose: Not Given Potassium Chloride () 20 meq PO BIDWM [facility] Last Admin: 07/29/17 09:53 Dose: 20 meq Sodium Chloride (Normal Saline Flush 0.9%) 10 ml IVP PRN PRN PRN Reason: NEEDED PER PROVIDER ORDERS Last Admin: 07/29/17 12:12 Dose: 10 ml Sodium Chloride (Normal Saline Flush 0.9%) 10 ml IVP Q8HR [facility] Last Admin: 07/29/17 13:32 Dose: 10 ml Spironolactone (Aldactone) 25 mg PO BID [facility] Last Admin: 07/29/17 09:49 Dose: 25 mg Magnesium Oxide [Magnesium Oxide] 400 mg PO DAILY 07/27/17 Objective - Vital Signs/Intake & Output Reviewed Vital Signs: Yes Vital Signs: Vital Signs x48h Temp Pulse Resp BP Pulse Ox 07/29/17 01:00 37.0 C 77 16 110/61 98 Intake & Output: Intake & Output 07/26/17 07/27/17 07/28/17 07/29/17 23:59 23:59 23:59 23:59 Intake Total 175 940 100 Output Total 1835 150 Balance 175 -895 -50 - Objective General Appearance: positive: No acute distress, Alert, Other (middled aged male, looks stated age, jaundiced) Eyes Bilateral: positive: PERRL, EOMI Eyes: OU Scleral icterus ENT: positive: Pharynx nml Neck: positive: No JVD. negative: Lymphadenopathy (R), Lymphadenopathy (L), Stiff neck, Carotid bruit Respiratory: positive: Chest non-tender. negative: Wheezes, Rales, Rhonchi Cardiovascular: positive: Regular rate & rhythm. negative: Gallop/S4, Friction rub Abdomen: positive: Non-tender, No organomegaly, Nml bowel sounds, Other (fluid distension) Rectal: positive: Tenderness, Hemorrhoid (external, none are thrombosed. fissure at 12 o'clock) Skin: positive: Warm, Dry Extremities: positive: Non-tender, Pedal edema Neurologic/Psychiatric: positive: Oriented x3, CN's nml (2-12), Motor nml. negative: Slurred/abnml speech, Depressed mood/affect - Lab Results Fish Bones: 07/28/17 06:52 07/29/17 05:15 Other Labs: Lab Results x24hrs 07/29/17 07/28/17 07/28/17 Range/Units 05:15 09:45 06:52 WBC 13.2 H (4.8-10.8) x10^3/uL RBC 2.82 L (4.70-6.10) 10^6/uL Hgb 10.0 L (14.0-18.0) g/dL Hct 30.2 L (42.0-52.0) % MCV 107.0 H (80.0-94.0) fL MCH 35.3 H (27.0-31.0) pg MCHC 33.0 (32.0-36.0) g/dL RDW 17.0 H (12.0-15.0) % Plt Count 186 (130-450) 10^3/uL MPV 8.7 (7.4-11.4) fL Neut # 11.5 H (1.5-6.6) 10^3/uL Lymph # 0.9 L (1.5-3.5) 10^3/uL [place] # 0.7 (0.0-1.0) 10^3/uL Eos # 0.0 (0.0-0.7) 10^3/uL Baso # 0.1 (0.0-0.1) 10^3/uL Absolute Nucleated RBC 0.01 x10^3/uL Nucleated RBC % 0.0 /100WBC Sodium 136 (135-145) mmol/L Potassium 3.2 L (3.5-5.0) mmol/L Chloride 104 (101-111) mmol/L Carbon Dioxide 26 (21-32) mmol/L Anion Gap 6.0 (6-13) BUN 19 (6-20) mg/dL Creatinine 1.3 H (0.6-1.2) mg/dL Estimated GFR (MDRD) 57 L (>89) Glucose 90 (70-100) mg/dL Calcium 6.9 L (8.5-10.3) mg/dL Total Bilirubin 10.0 H (0.2-1.0) mg/dL AST 64 H (10-42) IU/L ALT 25 (10-60) IU/L Alkaline Phosphatase 88 (42-121) IU/L Total Protein 5.1 L (6.7-8.2) g/dL Albumin 1.9 L (3.2-5.5) g/dL Globulin 3.2 (2.1-4.2) g/dL Albumin/Globulin Ratio 0.6 L (1.0-2.2) Fluid Source PERITONIAL Fluid Color YELLOW Fluid Clarity CLEAR Fluid WBC 358 /mm^3 Fluid RBC 313 /mm^3 Fluid Neutrophils % 36.0 % Fluid Lymphocytes % 2.0 Fluid Monocytes % 6.0 % Fluid Macrophages % 52.0 % Fld Mesothelial Cell % 4.0 % Assessment/Plan - Problem List (1) Bright red blood per rectum Impression: FROM RECTAL FISSURE he has stayed stable with BP and with Hgb. Has had some bleeding yesterday pm and this am At this time no transfusion need for FFP or PRBC. If does need it, transfer But I think his bleeding is from fissure. Will start NTG and lidocaine jelly. Plan for dc in am. (2) Alcoholic cirrhosis of liver with ascites Impression: worsening in the last 2 weeks. He didn't have much ascites then. Bili went from 15>17. INR went from 2.1>2.5, Creat went from 0.9>1.3 This morning bili down to 10. continue albumin diagnostic paracentesis results w initial gram stain showing bacteria and fluid was cloudy per RN, started empiric tx for SBP with cefotaxime. He does not have a fever, but does have elevated WBC, abd exam not really tender This am WBC nml . Continue abx. Day #2 Cefotaxime and change to cipro 500 mg po bid for 3 more days once dc'd for a total of 5 days of treatment in view of mild nature of presentation. started spironolactone and IV lasix. when he goes home continue spironolactone. right now no varices suspected so no betablocker or PPI. CXR negative Blood cultures negative at 24 hours. Once he is discharged, fu with his PCP at the [facility] in [place] who can then refer him to liver clinic. reminded he needs to be dry and no drugs for min of 6 months to be considered for liver transplant. (3) Electrolyte abnormality Impression: hyponatremia resolved but hypokalemia continues this am receiving supplement for K at 20 bid. Continue for a week at home. Make sure his PCP repeats his BMP in the next week to avoid hyperkalemia. continue to monitor and supplement since he is on both K losing and K sparing diuretics
[2017-07-29] MEDS: POLYETHYLENE GLYCOL 3350 17 GM PACKET PO SCH (07:36)
[2017-07-29] MEDS: FUROSEMIDE 40 MG/4 ML VIAL IVP SCH (09:49)
[2017-07-29] MEDS: SPIRONOLACTONE 25 MG TABLET PO SCH ×2 (09:49→20:53)
[2017-07-29] MEDS: POTASSIUM CHLORIDE 20 MEQ/15 ML UDC PO SCH ×2 (09:53→17:23)
[2017-07-29] MEDS: ALBUMIN 25% 12.5 GM/50 ML VIAL IV SCH ×2 (09:53→20:53)
[2017-07-29] MEDS: LIDOCAINE JELLY 2% 30 ML TUBE TOP SCH ×2 (17:23→22:08)
[2017-07-29] MEDS: NITROGLYCERIN 2% PASTE TOP SCH ×2 (17:23→22:07)
[2017-07-29] MEDS ORDERED: IBUPROFEN 400 MG TABLET PO PRN (18:44)
[2017-07-30] MEDS: SODIUM CHLORIDE 0.9% IV SCH (03:55)
[2017-07-30] MEDS: CEFOTAXIME IV SCH (03:55)
[2017-07-30] MEDS: SODIUM CHLORIDE FLUSH 0.9% 10 ML SYRINGE IVP SCH ×2 (03:56→06:12)
[2017-07-30 05:38] LABS: ALBUMIN 2.1 g/dL (3.2-5.5); ALBUMIN/GLOBULIN RATIO 0.7 (1.0-2.2); BILIRUBIN,TOTAL 9.9 mg/dL (0.2-1.0); CREATININE 1.1 mg/dL (0.6-1.2); TOTAL PROTEIN 5.2 g/dL (6.7-8.2)
[2017-07-30] MEDS: NITROGLYCERIN 2% PASTE TOP SCH (06:11)
[2017-07-30] MEDS: LIDOCAINE JELLY 2% 30 ML TUBE TOP SCH (06:12)
[2017-07-30] MEDS: PANTOPRAZOLE 40 MG VIAL IVP SCH (06:12)
[2017-07-30] MEDS: ALBUMIN 25% 12.5 GM/50 ML VIAL IV SCH (08:25)
[2017-07-30] MEDS: FUROSEMIDE 40 MG/4 ML VIAL IVP SCH (08:25)
[2017-07-30] MEDS: POTASSIUM CHLORIDE 20 MEQ/15 ML UDC PO SCH (08:25)
[2017-07-30] MEDS: POLYETHYLENE GLYCOL 3350 17 GM PACKET PO SCH (08:26)
[2017-07-30] MEDS: SODIUM CHLORIDE FLUSH 0.9% 10 ML SYRINGE IVP PRN (08:26)
[2017-07-30] MEDS: SPIRONOLACTONE 25 MG TABLET PO SCH (08:26)
[2017-07-30 08:35] VITALS: BP 115/57
[2017-07-30 11:03] LABS: HGB - HEMOGLOBIN 10.8 g/dL (14.0-18.0); MEAN CORPUSCULAR HEMOGLOBIN 36.8 pg (27.0-31.0); MEAN CORPUSCULAR HGB CONC 33.8 g/dL (32.0-36.0); MEAN CORPUSCULAR VOLUME 108.9 fL (80.0-94.0); MEAN PLATELET VOLUME 7.8 fL (7.4-11.4); RED BLOOD COUNT 2.93 10^6/uL (4.70-6.10); RED CELL DISTRIBUTION WIDTH 17.3 % (12.0-15.0); WHITE BLOOD COUNT 10.5 x10^3/uL (4.8-10.8)
--- NOTE | 2017-07-30 11:24 | Discharge Plan ---
Discharge Plan Disposition: 01 Home, Self Care Condition: Good Diet: Soft Activity Restrictions: No Restrictions Shower Restrictions: No Driving Restrictions: No Weight Bearing: Full Weight Instruction Topics: Cirrhosis Liver Dc Additional Instructions or Follow Up instructions: You have several medical conditions which make it very important for you to have a regular doctor who follows your case. It is important that you select a primary care physician as soon as possible and start seeing that physician on a regular basis. It is imperative that you stop drinking alcohol as you have cirrhosis at this time and alcohol will only make it worse, and left untreated, cirrhosis will kill you.Continue with the Flagyl and the creams that we have prescribed for your rectal fissure. Continue with Spironolactone and a stool softener, and your home medications. No Smoking: If you smoke, Please STOP! Call for help.
--- NOTE | 2017-07-30 11:35 | DISCHARGE SUMMARY ---
"Discharge Summary Admit Date: 07/27/17 Discharge Date: 07/30/17 Discharging Provider: Beatrice Damon DO Primary Care Provider: Pt denies he has a PCP Code Status: Attempt Resuscitation Condition at Discharge: Good Discharge Disposition: 01 Home, Self Care - DIAGNOSES Admission Diagnoses: Alcoholic cirrhosis Discharge Diagnoses with Status of Each Condition: Alcoholic cirrhosis- Patient's transaminases are only mildly elevated in the AST but his total protein and albumin are low and his bilirubin is elevated.He has been experiencing bright red blood per rectum through an anal fissure and this may be related to portal hypertension.We will discharge him on a maintenance dose of Spironolactone. Bright red blood per rectum- we will discharge the patient home on nitroglycerin cream and lidocaine jelly. He will also be given a prescription for Colace for stool softening. He should follow-up with the primary care physician in the next week. Electrolyte abnormalities- The patient's hypokalemia and hyponatremia have been corrected. His creatinine is now within normal limits and his BUN is corrected as well. He still shows a low calcium but the corrected Calcium level is within normal limits. - HPI History of Present Illness: From Dr Goldstein's note: This is a 61 year old male with end stage liver disease secondary to Alcohol abuse who was recently admitted for alcohol withdrawal who represents to the emergency department today complaining of bright red blood per rectum. He states that a few days ago he began having bright red bleeding associated with his bowel movements. He states that he has occasionally seen clots in the toilet as well. He does have hemorrhoids but feels like this is more bleeding than he usually sees with his hemorrhoids. He last had a colonoscopy 3 years ago and as far as he can remember he states that it was normal. He does not have a national van owner operator and to his knowledge she has never had an EGD. He also complains of increasing abdominal girth in the last few days. His calculated meld score is 32 he is coagulopathic With an INR of 2.5. He denies any hematemesis. He has been hemodynamically stable since admission. - CONSULTS | PROCEDURES Consultations: Dr Goldstein (surgery) - HOSPITAL COURSE Hospital Course: The patient was admitted to the hospital and placed on medications to help with correction of his electrolytes and his bright red blood from the rectal fissure. He continues to slowly improve daily to the point where today he appears to be stable enough to be discharged. His hemoglobin has increased while here in the hospital and he has no new complaints today. - ALLERGIES Allergies/Adverse Reactions: Allergies Allergy/AdvReac Type Severity Reaction Status Date / Time Sulfa (Sulfonamide Allergy Unknown Verified 07/27/17 11:25 Antibiotics) - MEDICATIONS Home Medications: Ambulatory Orders Medication Instructions Recorded Confirmed Thiamine [Vitamin B-1] 100 mg PO DAILY #30 tablet 07/14/17 07/27/17 cloNIDine 0.1 MG PATCH 1 patch TOP Q7D #3 patch 07/14/17 07/27/17 [[id number]] Magnesium Oxide [Magnesium Oxide] 400 mg PO DAILY 07/27/17 07/27/17 Home Medications Other | Comments: Ciprofloxacin 500 mg twice a day for 3 days Spironolactone 25 mg a day Nitroglycerin cream 0.4% and lidocaine jelly to the affected area 3 times a day. - PHYSICAL EXAM AT DISCHARGE General Appearance: positive: No acute distress, Alert Eyes Bilateral: positive: Normal inspection, PERRL, EOMI ENT: positive: ENT inspection nml, Pharynx nml, No signs of dehydration Neck: positive: Nml inspection, Thyroid nml, No JVD, Trachea midline. negative : Thyromegaly Respiratory: positive: Chest non-tender, No respiratory distress, Breath sounds nml. negative: Wheezes, Rales, Rhonchi Cardiovascular: positive: Regular rate & rhythm, No murmur, No gallop Peripheral Pulses: positive: 1+ Abdomen: positive: Non-tender, No organomegaly, Nml bowel sounds, No distention Rectal: positive: Stool - heme POS, Bloody stool, Tenderness Back: positive: Nml inspection. negative: CVA tenderness (R), CVA tenderness (L ) Skin: positive: Color nml, No rash, Warm, Dry. negative: Cyanosis Extremities: positive: Non-tender, Full ROM, Nml appearance Neurologic/Psychiatric: positive: Oriented x3, CN's nml (2-12), Motor nml, Sensation nml, Mood/affect nml - LABS Result Diagrams: 07/30/17 10:55 07/30/17 04:48 - DIAGNOSTIC IMAGING Diagnostic Imaging Results: Final report reviewed Diagnostic Imaging Results Comments: EXAM: CHEST RADIOGRAPHY EXAM DATE: 07/27/2017 04:32 PM. CLINICAL HISTORY: Cirrhosis. Abdominal distention. COMPARISON: None. TECHNIQUE: 1 view. FINDINGS: Lungs/Pleura: No focal opacities evident. No pleural effusion. No pneumothorax. Mediastinum: Within exam limitations, the cardiomediastinal contour is normal. Other: None. IMPRESSION: Normal single view chest. EXAM: LIMITED ABDOMINAL DOPPLER ULTRASOUND EXAM DATE: 07/27/2017 07:07 PM. CLINICAL HISTORY: Cirrhosis. COMPARISON: 07/12/2017. TECHNIQUE: Real-time scanning was performed with static images obtained. FINDINGS: Liver: Heterogeneous liver parenchyma with irregular liver contour. No mass. No evidence of intrahepatic bile duct dilation. 18.7 cm. Main portal vein flow: Hepatopetal. Spleen: 14.6 x 5.6 x 11.5 cm. Enlarged spleen with a volume of 494 cc. No mass. Other: At least moderate amount of nonloculated fluid in the abdomen. Splenic vein is patent. Portal vein is patent. Hepatic artery not evaluated. IMPRESSION: 1. Cirrhotic liver. No mass. Liver is enlarged. 2. Splenic enlargement. 3. Portal vein and hepatic vein are patent. Hepatic artery not evaluated. 4. Moderate ascites. EXAM: [id number] US/ABDPAR ([id number]) ULTRASOUND-GUIDED PARACENTESIS: 07/28/2017 CLINICAL INDICATION: New ascites, diagnostic tap. FINDINGS: Following obtaining informed consent, a suitable site on the patient' s right mid abdomen was selected with ultrasound. The skin was prepped and draped in the usual sterile fashion. The skin and soft tissues were anesthetized with lidocaine. A 20-gauge needle was inserted into the fluid, and 60 mL of ascitic fluid was removed without difficulty. Fluid was submitted to the lab for further evaluation as directed by the clinical service. The patient tolerated the procedure well. No immediate complications. IMPRESSION: SUCCESSFUL ULTRASOUND-GUIDED DIAGNOSTIC PARACENTESIS. - FOLLOW UP Follow Up: Follow-up with a primary care physician this week and with a national van owner operator next week - TIME SPENT Time Spent in Discharge (Minutes): 40"
== END 2017-07-30 12:15 | disposition home or self-care (01) | DRG 433 ==
LOC: ED 11:19 → MS2 15:21
PROVIDERS: ADMIT Specialist; ATTEND Hospitalist
PROC: 0W9G3ZX Drainage of Peritoneal Cavity, Percutaneous Approach, Diagnostic (ICD-10-PCS; principal; 2017-07-28)
DX: K70.31 Alcoholic cirrhosis of liver with ascites (principal); E87.1 Hypo-osmolality and hyponatremia; D68.9 Coagulation defect, unspecified; K60.2 Anal fissure, unspecified; K70.40 Alcoholic hepatic failure without coma; E87.6 Hypokalemia; K64.4 Residual hemorrhoidal skin tags; D64.9 Anemia, unspecified; F10.20 Alcohol dependence, uncomplicated; F32.9 Major depressive disorder, single episode, unspecified; Y90.0 Blood alcohol level of less than 20 mg/100 ml
CPT/HCPCS: 36415; 49083; 71045; 80053; 80320; 81001; 81003; 81599; 82140; 83690; 84157; 85014; 85018; 85025; 85610; 86850; 86900; 86901; 87040; 87070; 87086; 87205; 89051; 93976; 96372; 96374; 99283; 99284; 99285

== ENCOUNTER 2018-04-15 13:11 | Outpatient (CLI) | payer OTHER | END 2018-04-15 13:12 | disposition EMS.NT | LOC: EMS 13:11 | PROVIDERS: ATTEND Surgery | DX: Z72.89 Other problems related to lifestyle (principal) ==

== ENCOUNTER 2018-06-12 00:50 | Outpatient (CLI) | payer OTHER | END 2018-06-12 00:51 | disposition EMS.NT | LOC: EMS 00:50 | PROVIDERS: ATTEND Surgery | DX: R11.10 Vomiting, unspecified (principal); R10.10 Upper abdominal pain, unspecified ==

== ENCOUNTER 2018-06-12 03:12 | Inpatient (IN) | payer OTHER ==
--- NOTE | 2018-06-12 03:32 | ED Physician Documentation ---
PD HPI ABD PAIN - Stated complaint Stated Complaint: ABD PAIN - Chief complaint Chief Complaint: Abd Pain - History obtained from History obtained from: Patient - History of Present Illness Timing - onset: How many days ago (3) Timing - duration: Days (3) Timing - details: Gradual onset, Still present Quality: Cramping, Aching, Pain Location: Epigastric, Periumbilical Radiation: No: Chest, Lower back Improved by: No: Vomiting Worsened by: Eating Associated symptoms: Nausea, Vomiting (for 1-2 days, with hiccups for 3 days as well.), Hematemesis (he noted some dark blood in the last emesis, not prior). No: Fever, Diarrhea, Constipation, Melena Similar symptoms before: Diagnosis (alcoholic gastritis and withdrawal. No history of pancreatitis.) Recently seen: Other (he says he had an EGD done outpt after his Jul admission here, and it was okay, per patient. Done by GI on [facility] in [place]. We are trying to track that report.) Review of Systems Constitutional: reports: Myalgias. denies: Fever, Chills Nose: denies: Rhinorrhea / runny nose, Congestion Throat: denies: Sore throat Cardiac: denies: Chest pain / pressure, Palpitations Respiratory: denies: Dyspnea, Cough GI: reports: Abdominal Pain, Nausea, Vomiting. denies: Constipation, Diarrhea, Bloody / black stool : denies: Dysuria, Frequency Neurologic: reports: Generalized weakness, Near syncope (feeling lightheaded). denies: Syncope, Altered mental status, Headache Endocrine: denies: Weight loss Immunocompromised: denies: Immunocompromised PD PAST MEDICAL HISTORY - Past Medical History Past Medical History: Yes Cardiovascular: None Respiratory: None Endocrine/Autoimmune: None GI: None : Kidney stones HEENT: None Psych: None Musculoskeletal: Other Derm: None - Past Surgical History Past Surgical History: Yes Ortho: Other - Present Medications Home Medications: Ambulatory Orders Medication Instructions Recorded Confirmed Thiamine [Vitamin B-1] 100 mg PO DAILY #30 tablet 07/14/17 07/27/17 Magnesium Oxide 400 mg PO DAILY 07/27/17 07/27/17 - Allergies Allergies/Adverse Reactions: Allergies Allergy/AdvReac Type Severity Reaction Status Date / Time Sulfa (Sulfonamide Allergy Unknown Verified 06/12/18 03:16 Antibiotics) - Social History Does the pt smoke?: No Smoking Status: Never smoker Does the pt drink ETOH?: Yes Does the pt have substance abuse?: No - Immunizations Immunizations are current?: Yes - POLST Patient has POLST: No PD ED PE NORMAL - Vitals Vital signs reviewed: Yes - General General: Alert and oriented X 3, Well developed/nourished, Other (shaky very, and tachycardic c/w withdrawal. ) - HEENT HEENT: Pharynx benign. No: Moist mucous membranes - Neck Neck: Supple, no meningeal sign, No adenopathy, No JVD - Cardiac Cardiac: No murmur. No: RRR - Respiratory Respiratory: No respiratory distress, Clear bilaterally - Abdomen Abdomen: Normal bowel sounds, Soft, No organomegaly, Other (mildly to moderately distended but not tight. Bowel sounds are diminished. Tender in epigastric area. ) - Male Male : Deferred - Back Back: No CVA TTP - Derm Derm: Normal color, Warm and dry - Extremities Extremities: No deformity, No tenderness to palpate, Normal ROM s pain, No edema, No calf tenderness / cord - Neuro Neuro: Alert and oriented X 3, No motor deficit, Normal speech Results - Vitals Vitals: Vital Signs - 24 hr 06/12/18 06/12/18 06/12/18 03:11 03:30 04:28 Temperature 38.0 C H Heart Rate 110 H 106 H Heart Rate [ 115 H Sitting] Heart Rate [ 130 H Standing] Heart Rate [ 110 H Supine] Respiratory 18 16 Rate Blood Pressure 153/89 H 129/95 H Blood Pressure 132/88 H [Sitting] Blood Pressure 138/90 H [Standing] Blood Pressure 134/83 H [Supine] O2 Saturation 98 98 Oxygen O2 Source Room air - Labs Labs: Laboratory Tests 06/12/18 06/12/18 06/12/18 04:06 04:06 04:06 WBC 5.3 RBC 3.83 L Hgb 13.5 L Hct 38.4 L MCV 100.1 H MCH 35.2 H MCHC 35.2 RDW 14.3 Plt Count 52 L MPV 7.8 Neut # (Auto) 4.1 Lymph # (Auto) 0.5 L [place] # (Auto) 0.6 Eos # (Auto) 0.0 Baso # (Auto) 0.0 Absolute Nucleated RBC 0.00 Nucleated RBC % 0.0 PT 18.7 H INR 1.7 H APTT 36.9 H Sodium 138 Potassium 3.2 L Chloride 103 Carbon Dioxide 21 Anion Gap 14.0 H BUN 14 Creatinine 1.1 Estimated GFR (MDRD) 68 L Glucose 110 H Lactic Acid Calcium 8.3 L Magnesium 1.7 Total Bilirubin 5.3 H AST 160 H ALT 62 H Alkaline Phosphatase 112 Total Protein 7.4 Albumin 3.6 Globulin 3.8 Albumin/Globulin Ratio 0.9 L Lipase 43 Ethyl Alcohol 147.5 Blood Type Antibody Screen 06/12/18 06/12/18 04:06 04:20 WBC RBC Hgb Hct MCV MCH MCHC RDW Plt Count MPV Neut # (Auto) Lymph # (Auto) [place] # (Auto) Eos # (Auto) Baso # (Auto) Absolute Nucleated RBC Nucleated RBC % PT INR APTT Sodium Potassium Chloride Carbon Dioxide Anion Gap BUN Creatinine Estimated GFR (MDRD) Glucose Lactic Acid 3.9 H* Calcium Magnesium Total Bilirubin AST ALT Alkaline Phosphatase Total Protein Albumin Globulin Albumin/Globulin Ratio Lipase Ethyl Alcohol Blood Type A POSITIVE Antibody Screen NEGATIVE - Rads (name of study) abd CT Radiology: Prelim report reviewed (results pending) PD MEDICAL DECISION MAKING - ED course Complexity details: considered differential (Sounds like alcoholic gastritis most likely. Will check labs for pancreatitis. He has been having vomiting the last day or so and is very shaky and tachycardic suggestive of alcohol withdrawal. Will check labs as well. He does have history of significant liver disease. He states he had a upper endoscopy done in August of this past year in [facility]. He does not remember the name of the physician. Were trying to track down that result for the issue of whether he had varices or any evidence of variceal bleeding in the past. I think he will have significant enough withdrawal and is having gastritis type symptoms that he will need to be hospitalized. Wanting to make sure that here is appropriate. His vital signs are stable with blood pressure. He is tachycardic here but that improves with Ativan. He has not had any vomiting while here. He is also given famotidine and Protonix IV.), d/w patient Departure - Departure Disposition: 66 [facility] DC/Xfer Clinical Impression: Alcoholic cirrhosis of liver with ascites Alcohol withdrawal Qualifiers: Complication of substance-induced condition: uncomplicated Qualified Code(s): F10.230 - Alcohol dependence with withdrawal, uncomplicated Abdominal pain Qualifiers: Abdominal location: upper abdomen, unspecified Qualified Code(s): R10.10 - Upper abdominal pain, unspecified Vomiting Qualifiers: Vomiting type: unspecified Vomiting Intractability: non-intractable Nausea presence: with nausea Qualified Code(s): R11.2 - Nausea with vomiting, unspecified Condition: Stable Record reviewed to determine appropriate education?: Yes
[2018-06-12] MEDS ORDERED: SODIUM CHLORIDE 0.9% 1,000 ML IV ONE ×2 (03:55→07:27)
[2018-06-12] MEDS ORDERED: LORazepam 2 MG/ML VIAL IVP STA ×2 (03:55→05:05)
[2018-06-12] MEDS ORDERED: ONDANSETRON 4 MG/2 ML VIAL IVP STA (03:55)
[2018-06-12] MEDS ORDERED: FAMOTIDINE 20 MG/2 ML VIAL IVP STA (03:55)
[2018-06-12] MEDS ORDERED: FOLIC ACID INJ 1 MG, THIAMINE INJ 100 MG, MAGNESIUM SULFATE 2 GM, MULTIVITAMIN 10 ML in... IV STA ×5 (03:56)
[2018-06-12] MEDS ORDERED: THIAMINE 100 MG/1 ML 2 ML MDV ONE (04:07)
[2018-06-12 04:12] LABS: BASOPHILS % (AUTO) 0.7 %; EOSINOPHILS % (AUTO) 0.2 %; HGB - HEMOGLOBIN 13.5 g/dL (14.0-18.0); LYMPHOCYTES # (AUTO) 0.5 10^3/uL (1.5-3.5); LYMPHOCYTES % (AUTO) 9.8 %; MEAN CORPUSCULAR HEMOGLOBIN 35.2 pg (27.0-31.0); MEAN CORPUSCULAR HGB CONC 35.2 g/dL (32.0-36.0); MEAN CORPUSCULAR VOLUME 100.1 fL (80.0-94.0); MEAN PLATELET VOLUME 7.8 fL (7.4-11.4); MONOCYTES # (AUTO) 0.6 10^3/uL (0.0-1.0); NEUTROPHILS # (AUTO) 4.1 10^3/uL (1.5-6.6); NEUTROPHILS % (AUTO) 77.3 %; PLT - PLATELET COUNT 52 10^3/uL (130-450); RED BLOOD COUNT 3.83 10^6/uL (4.70-6.10); RED CELL DISTRIBUTION WIDTH 14.3 % (12.0-15.0); WHITE BLOOD COUNT 5.3 x10^3/uL (4.8-10.8)
[2018-06-12] MEDS ORDERED: IOVERSOL 320 100 ML VIAL IVP ONE ×2 (04:12→04:57)
[2018-06-12 04:19] LABS: INR 1.7 (0.8-1.2); PT - PROTHROMBIN TIME 18.7 secs (9.9-12.6)
[2018-06-12 04:25] LABS: ALBUMIN 3.6 g/dL (3.2-5.5); ALBUMIN/GLOBULIN RATIO 0.9 (1.0-2.2); BILIRUBIN,TOTAL 5.3 mg/dL (0.2-1.0); CALCIUM 8.3 mg/dL (8.5-10.3); CREATININE 1.1 mg/dL (0.6-1.2); MAGNESIUM 1.7 mg/dL (1.7-2.8); TOTAL PROTEIN 7.4 g/dL (6.7-8.2)
[2018-06-12] MEDS ORDERED: PANTOPRAZOLE 40 MG VIAL IVP STA (04:41)
--- NOTE | 2018-06-12 05:09 | CT Report ---
Reason: mid abd pain and vomiting; h/o cirrhosis Procedure Date: 06/12/2018 Accession Number: [id number] / [id number] Procedure: CT - Abdomen/Pelvis W/ CPT Code: FULL RESULT: EXAM: CT ABDOMEN AND PELVIS EXAM DATE: 06/12/2018 04:56 AM. CLINICAL HISTORY: Mid abd pain and vomiting; h/o cirrhosis. COMPARISONS: None. TECHNIQUE: Routine helical CT imaging was performed through the abdomen and pelvis. IV contrast: OPTI 320 100mL. Enteric contrast: No. Reconstructions: Coronal and sagittal. In accordance with CT protocol optimization, one or more of the following dose reduction techniques were utilized for this exam: automated exposure control, adjustment of mA and/or KV based on patient size, or use of iterative reconstructive technique. FINDINGS: Lung Bases: Unremarkable. Liver: Diffuse fatty infiltration. Gallbladder/Bile Ducts: Cholelithiasis. Spleen: Normal. Pancreas: Normal. Adrenal Glands: Normal. Kidneys: Cortical cysts. No hydronephrosis or nephrolithiasis. Peritoneal Cavity/Bowel: Normal. No free fluid, free air or adenopathy. No masses or acute inflammatory process. The appendix is well visualized and normal. Pelvic Organs: Normal. The bladder and visualized pelvic organs are within normal limits. Vasculature: Retroperitoneal varices. Bones: No significant abnormality. Other: None. IMPRESSION: Fatty infiltration of the liver. Varices. No evidence of bowel obstruction. Cholelithiasis. RADIA
[2018-06-12] MEDS ORDERED: HYDROmorphone 0.5 MG/0.5 ML SYRINGE IVP PRN (05:46)
[2018-06-12] MEDS ORDERED: PROCHLORPERAZINE 10 MG/2 ML VIAL IVP PRN (05:46)
[2018-06-12] MEDS ORDERED: SODIUM CHLORIDE FLUSH 0.9% 10 ML SYRINGE IVP PRN (05:46)
[2018-06-12] MEDS ORDERED: D5NS W/20 MEQ KCL 1,000 ML IV SCH (06:00)
[2018-06-12] MEDS ORDERED: LORazepam 100MG/100ML 100 ML IV SCH (06:00)
[2018-06-12 06:41] LABS: VBG BASE EXCESS -2.7 mmol/L (-2 - +2); VBG PCO2 34.6 mmHg (41-51); VBG PH 7.407 (7.31-7.41); VBG PO2 161.5 mmHg (25-47); VBG TOTAL CO2 22.4 mmol/L (24-29)
[2018-06-12] MEDS ORDERED: GI COCKTAIL 120 ML BOTTLE PO PRN (07:00)
--- NOTE | 2018-06-12 07:24 | HISTORY & PHYSICAL EXAMINATION ---
DATE OF SERVICE: 06/12/2018 Physician: Lien Frazier MD HISTORY OF PRESENT ILLNESS: This is a 62-year-old white male with a history of alcohol abuse, several admissions for alcohol withdrawal. He required a Precedex drip and ICU stay in June 2017. There is a remote history of suicide attempt after a divorce, rectal bleeding from hemorrhoids. He was admitted here in July 2017 with a GI bleed and refused endoscopy, but states that he had colonoscopy after that time at another facility and "nothing was found." The patient presents now with 1-2 days of nausea, vomiting, abdominal pain and hiccups. He stopped drinking his heavy alcohol daily intake because of the abdominal pain, nausea and vomiting. He presented today with continued abdominal pain, nausea, vomiting, and also now starting to be shaky and tremulous. He is tachycardic and has signs of alcohol withdrawal despite still having a blood alcohol level present of 148. He is being admitted to the ICU for alcohol withdrawal. PAST MEDICAL HISTORY: Alcohol abuse, alcohol withdrawal, alcoholic hepatitis, ascites, alcohol cirrhosis, remote suicide attempt, bleeding hemorrhoid history. MEDICATIONS: According to the records he is on thiamine and magnesium, but was unlikely to be taking either. ALLERGIES: SULFA. SOCIAL HISTORY: The patient is a nonsmoker who never smoked, uses no illicit drugs. He has heavy alcohol intake. REVIEW OF SYSTEMS: Comprehensive review of systems was performed and the pertinent positives are in the HPI, the rest are negative. FAMILY HISTORY: No inherited diseases. PHYSICAL EXAMINATION GENERAL: A tremulous white male who is disheveled, but currently somnolent and not tremulous after Ativan given iv in the ER. VITAL SIGNS: Blood pressure 153/89 with a pulse of 110, a fever of 38, room air saturation is 98%. HEENT: Reveals dry oral mucosa having hiccups. Scleral icterus. NECK: Without JVD or carotid bruits. LUNGS: Clear. HEART: Heart sounds tachycardic and a 1-2/6 systolic murmur. ABDOMEN: Soft, mildly tender. Decreased bowel sounds. I cannot rule out hepatomegaly or ascites. EXTREMITIES: Legs without edema. NEUROLOGIC: Tremulous previously. No asterixis. Moving all extremities. LABORATORY DATA: Sodium 138, potassium 3.2, anion gap 14. Lactic acid level 3.9. Normal BUN and creatinine. Magnesium 1.7, phosphorus 2.2, bilirubin 5.3 (in the past, his bilirubin has been 13-17). AST 160, ALT 62. INR 1.7, hemoglobin 13.5 with elevated MCV of 100. Normal white count. Platelet count down at 52. Serum alcohol level 148. IMAGING STUDIES: No chest x-ray was done. Abdominal CT was done that showed the presence of small ascites, diffuse fatty infiltration of the liver, gallstones are present, but no evidence of bile duct dilatation and a normal looking pancreas. IMPRESSION/DIAGNOSES 1. Alcohol withdrawal. 2. Alcoholic ketoacidosis. 3. Abdominal pain, which could be from an ulcer, gastritis or spontaneous bacterial peritonitis. No evidence of pancreatitis. 4. Hematemesis, posssibly from gastritis, ulcer or varices. 5. Tachycardia, most likely from volume depletion and his alcohol withdrawal, but also rule out alcoholic cardiomyopathy. 6. Alcohol cirrhosis with ascites. PLAN 1. Admit the patient to the ICU on telemetry. Begin a CIWA protocol and Ativan titration, IV dosing. Begin thiamine, which was given in the ER and now daily thiamine via banana bag. Begin fluids with D5 normal saline with potassium replacement. Follow his potassium, magnesium, and phosphorus. Replace the low potassium and phosphorus. 2. Begin treatment for his abdominal pain and hematemesis with H2 blockers, sucralfate, only clear liquids for a diet. 3. Consider General Surgery consult, for EGD, if there is significant hematemesis. But he may need to be transferred, as variceal bleeding is unable to be managed here. 4. Obtain a urine culture and recheck lactic acid levels until they clear. SBP should be considered also. 5. Social work consult when the patient is medically cleared for potential transfer for inpatient detoxification and further management. Deep venous thrombosis prophylaxis: SCDs. CODE STATUS: FULL CODE. ATTESTATION: The patient is expected to be discharged or transferred to another facility within 96 hours: Yes. TD: 06/12/2018 06:44 SENAIT
[2018-06-12] MEDS ORDERED: LORazepam 2 MG/ML VIAL IVP PRN (07:27)
[2018-06-12] MEDS: SUCRALFATE 1 GM/10 ML UDC PO SCH ×2 (08:16→11:30)
[2018-06-12] MEDS: POTASSIUM PHOSPHATE 15 MMOL in SODIUM CHLORIDE 0.9% 250 ML IV SCH ×2 (08:17→12:06)
[2018-06-12] MEDS: chlordiazePOXIDE 25 MG CAPSULE PO SCH ×2 (08:33→11:30)
[2018-06-12] MEDS ORDERED: SODIUM CHLORIDE FLUSH 0.9% 10 ML SYRINGE IVP SCH (09:00)
[2018-06-12] MEDS ORDERED: MULTIVITAMIN 10 ML, THIAMINE INJ 100 MG, FOLIC ACID INJ 1 MG in SODIUM CHLORIDE 0.9% 1,... IV SCH (09:00)
[2018-06-12] MEDS ORDERED: MAGNESIUM OXIDE 400 MG TABLET PO SCH (09:00)
[2018-06-12] MEDS ORDERED: PANTOPRAZOLE 40 MG VIAL IVP SCH ×2 (09:00→21:00)
[2018-06-12 10:31] LABS: MUDS CUTOFF CONCENTRATIONS CUTOFF CONC BELOW:
[2018-06-12 10:34] LABS: GLUCOSE, URINE (UA) NEGATIVE (NEGATIVE); KETONES,URINE (UA) NEGATIVE (NEGATIVE); LEUKOCYTE ESTERASE, URINE NEGATIVE (NEGATIVE); NITRITE,URINE NEGATIVE (NEGATIVE); OCCULT BLOOD,URINE MODERATE (NEGATIVE); PROTEIN,URINE 30 mg/dL (NEGATIVE); UROBILINOGEN,URINE >=8.0 E.U./dL (NORMAL)
[2018-06-12 10:40] LABS: BILIRUBIN,URINE SMALL (NEGATIVE); CLARITY,URINE CLEAR (CLEAR); ICTOTEST,URINE POSITIVE
[2018-06-12 10:46] LABS: AMPHETAMINE SCREEN,URINE NEGATIVE (NEGATIVE); BENZODIAZEPINES SCREEN, URINE POSITIVE (NEGATIVE); COCAINE SCREEN URINE NEGATIVE (NEGATIVE); METHADONE SCREEN, URINE NEGATIVE (NEGATIVE); METHAMPHETAMINES SCREEN, URINE NEGATIVE (NEGATIVE); OPIATE SCREEN, URINE NEGATIVE (NEGATIVE); OXYCODONE SCREEN, URINE NEGATIVE (NEGATIVE); PROPOXYPHENE SCREEN, URINE NEGATIVE (NEGATIVE); TRICYCLIC ANTIDEPRESSANT,URINE NEGATIVE (NEGATIVE)
[2018-06-12 11:17] LABS: BACTERIA,URINE Rare /HPF (None Seen); SQUAMOUS EPITHELIAL CELL,UR RARE Squamous (<= Few)
[2018-06-12 11:18] LABS: CASTS, URINE 3-5 Hyaline Casts /LPF
--- NOTE | 2018-06-12 12:27 | Discharge Plan ---
Discharge Plan Disposition: Home, Self Care Condition: Fair Prescriptions: chlordiazePOXIDE [Librium] 25 mg PO Q6HR #30 capsule Multivit-Min/Iron Fum/Folic AC [Stvxh-Enstorz-Hsbyibvt Tablet] 1 each PO DAILY #30 tablet Omeprazole 20 mg PO BID #60 tablet. Thiamine [Vitamin B-1] 100 mg PO DAILY #30 tablet Diet: Regular Activity Restrictions: Activity as Tolerated Shower Restrictions: No Driving Restrictions: No Weight Bearing: Full Weight Additional Instructions or Follow Up instructions: You presented to the emergency department with abdominal pain, nausea and vomiting. You found to have likely alcoholic gastritis. Improved with a GI cocktail and antinausea medications. You were able to tolerate your lunch. You were starting to go through some alcohol withdrawal for which we gave you Librium. I have prescribed you Librium 30 tablets which you should take 4 times a day for 3 days then 3 times a day for 3 days then 2 times a day for 3 days and then once a day for 3 days to get you through the alcohol withdrawal. I encourage you to stop drinking as it is damaging her liver and causing your health to deteriorate. I also prescribed you omeprazole which should help with your gastritis. Have prescribed you a multivitamin with minerals and thiamine which should help with your nutritional deficiencies due to alcohol abuse. I recommend that you take yourself to a alcohol rehab center if you need to help. You appear well enough to be able to go home. No Smoking: If you smoke, Please STOP! Call for help. Follow-up with: Africa Gonzales MD [Primary Care Provider] -
--- NOTE | 2018-06-12 12:37 | DISCHARGE SUMMARY ---
Discharge Summary Admit Date: 06/12/18 Discharge Date: 06/12/18 Discharging Provider: Yahir Cherry MD Primary Care Provider: Africa Gonzales MD Code Status: Attempt Resuscitation Condition at Discharge: Fair Discharge Disposition: 01 Home, Self Care - DIAGNOSES Admission Diagnoses: 1. Alcohol withdrawal 2. Alcohol ketoacidosis 3. Abdominal pain 4. Hematemesis 5. Tachycardia 6. Alcoholic liver cirrhosis with ascites Discharge Diagnoses with Status of Each Condition: 1. Alcohol withdrawal: Stable 2. Alcoholic gastritis: Stable 3. Alcoholic liver cirrhosis with ascites: Stable 4. Alcohol abuse: Stable - HPI History of Present Illness: Patient is a 62-year-old gentleman with a past medical history significant for alcohol abuse and alcoholic liver cirrhosis with varices who presents to the emergency department with complaint of abdominal pain. The patient has had several admissions in the past for alcohol withdrawal. He has required a Precedex drip and ICU stay in June 2017. There is a remote history of suicide attempt after a divorce, rectal bleeding with hemorrhoids. He was admitted here in July 2017 with a GI bleed and refused endoscopy, but states that he had colonoscopy after that time at another facility and nothing was found. Patient presented with 1-2 days of nausea, vomiting and abdominal pain. The patient also states that he has been having hiccups nonstop. He stated that he stopped drinking his heavy alcohol daily intake 1 day ago because of his abdominal pain, nausea and vomiting. He presented to the emergency department with continued abdominal pain, nausea and vomiting. He also became shaky and tremulous. He was tachycardic with signs of alcohol withdrawal despite still having a blood alcohol level of 147.5. He was initially placed in the intensive care unit for alcohol withdrawal given his previous history. - HOSPITAL COURSE Hospital Course: The patient surprisingly did not go into florid alcohol withdrawal likely because his last drink was only 24 hours ago and he still had alcohol in his system on presentation. The patient was having tremors but was scoring low on the [place] protocol. The patient was placed on oral Librium as he was tolerating p.o. intake. The patient was able to eat a full lunch and his nausea had resolved. The patient stated that his abdominal pain was improved. The patient recovered much quicker than what we had anticipated but he appeared well enough that we were able to discharge him home. The patient was discharged home with a prescription for Librium to help him through his alcohol withdrawal. The patient was instructed to take 1 tablet of Librium 4 times a day for 3 days then 1 tablet of Librium 3 times a day for 3 days then 1 tablet of Librium 2 times a day for 3 days and finally 1 tablet of Librium daily for 3 days. The patient was also prescribed omeprazole for his alcoholic gastritis. He was prescribed a multivitamin with minerals and thiamine for nutritional purposes given his history of alcohol abuse. The patient was seen by social work and given counseling and resources for alcohol withdrawal. The patient stated that he was interested in quitting and was going to make an effort to quit. He understood that the alcohol abuse had done significant damage to his liver already and if he continued to drink his prognosis is very poor going forward. - ALLERGIES Allergies/Adverse Reactions: Allergies Allergy/AdvReac Type Severity Reaction Status Date / Time Sulfa (Sulfonamide Allergy Unknown Verified 06/12/18 03:16 Antibiotics) - MEDICATIONS Home Medications: Ambulatory Orders Medication Instructions Recorded Confirmed Multivit-Min/Iron Fum/Folic AC 1 each PO DAILY #30 tablet 06/12/18 [Ezugf-Qlbwkde-Ykfeqosh Tablet] Omeprazole 20 mg PO BID #60 tablet. 06/12/18 Thiamine [Vitamin B-1] 100 mg PO DAILY #30 tablet 06/12/18 chlordiazePOXIDE [Librium] 25 mg PO Q6HR #30 capsule 06/12/18 - PHYSICAL EXAM AT DISCHARGE General Appearance: positive: Alert, Other (Tremulous, disheveled appearing) Eyes Bilateral: positive: Normal inspection, PERRL, EOMI, No lid inflammation, Conjunctivae nml, No scleral icterus ENT: positive: ENT inspection nml, Pharynx nml, Dry mucous membranes. negative: Purulent nasal drainage, Pharyngeal erythema, Oral lesions Neck: positive: Nml inspection, Thyroid nml, No JVD, Trachea midline. negative: Thyromegaly, Lymphadenopathy (R), Lymphadenopathy (L), Stiff neck, Carotid bruit, Tracheal deviation Respiratory: positive: Chest non-tender, No respiratory distress, Breath sounds nml. negative: Wheezes, Rales, Rhonchi Cardiovascular: positive: No murmur, No gallop, Tachycardia Peripheral Pulses: positive: 2+ Abdomen: positive: No organomegaly, Nml bowel sounds, Tenderness (Mild epigastric tenderness). negative: Guarding, Rebound, Hepatomegaly Back: positive: Nml inspection. negative: CVA tenderness (R), CVA tenderness (L) Skin: positive: Color nml, No rash, Warm. negative: Cyanosis, Diaphoresis, Pallor Extremities: positive: Non-tender, Full ROM, Nml appearance, No pedal edema Neurologic/Psychiatric: positive: Oriented x3, CN's nml (2-12), Motor nml, Sensation nml, Mood/affect nml - LABS Result Diagrams: 06/12/18 04:06 06/12/18 04:06 Other Lab Results: Laboratory Results WBC 5.3 x10^3/uL (4.8-10.8) 06/12/18 04:06 RBC 3.83 10^6/uL (4.70-6.10) L 06/12/18 04:06 Hgb 13.5 g/dL (14.0-18.0) L 06/12/18 04:06 Hct 38.4 % (42.0-52.0) L 06/12/18 04:06 MCV 100.1 fL (80.0-94.0) H 06/12/18 04:06 MCH 35.2 pg (27.0-31.0) H 06/12/18 04:06 MCHC 35.2 g/dL (32.0-36.0) 06/12/18 04:06 RDW 14.3 % (12.0-15.0) 06/12/18 04:06 Plt Count 52 10^3/uL (130-450) L 06/12/18 04:06 MPV 7.8 fL (7.4-11.4) 06/12/18 04:06 Neut # (Auto) 4.1 10^3/uL (1.5-6.6) 06/12/18 04:06 Lymph # (Auto) 0.5 10^3/uL (1.5-3.5) L 06/12/18 04:06 [place] # (Auto) 0.6 10^3/uL (0.0-1.0) 06/12/18 04:06 Eos # (Auto) 0.0 10^3/uL (0.0-0.7) 06/12/18 04:06 Baso # (Auto) 0.0 10^3/uL (0.0-0.1) 06/12/18 04:06 Absolute Nucleated RBC 0.00 x10^3/uL 06/12/18 04:06 Nucleated RBC % 0.0 /100WBC 06/12/18 04:06 PT 18.7 secs (9.9-12.6) H 06/12/18 04:06 INR 1.7 (0.8-1.2) H 06/12/18 04:06 APTT 36.9 secs (24.9-33.3) H 06/12/18 04:06 VBG pH 7.407 (7.31-7.41) 06/12/18 06:10 VBG pCO2 34.6 mmHg (41-51) L 06/12/18 06:10 VBG pO2 161.5 mmHg (25-47) H 06/12/18 06:10 VBG HCO3 21.3 mmol/L (23-28) L 06/12/18 06:10 VBG Total CO2 22.4 mmol/L (24-29) L 06/12/18 06:10 VBG O2 Saturation 98.8 % (60-80) H 06/12/18 06:10 VBG Base Excess -2.7 mmol/L (-2 - +2) L 06/12/18 06:10 Sodium 138 mmol/L (135-145) 06/12/18 04:06 Potassium 3.2 mmol/L (3.5-5.0) L 06/12/18 04:06 Chloride 103 mmol/L (101-111) 06/12/18 04:06 Carbon Dioxide 21 mmol/L (21-32) 06/12/18 04:06 Anion Gap 14.0 (6-13) H 06/12/18 04:06 BUN 14 mg/dL (6-20) 06/12/18 04:06 Creatinine 1.1 mg/dL (0.6-1.2) 06/12/18 04:06 Estimated GFR (MDRD) 68 (>89) L 06/12/18 04:06 Glucose 110 mg/dL (70-100) H 06/12/18 04:06 Lactic Acid 2.5 mmol/L (0.5-2.2) H 06/12/18 06:55 Calcium 8.3 mg/dL (8.5-10.3) L 06/12/18 04:06 Phosphorus 2.2 mg/dL (2.5-4.6) L 06/12/18 04:06 Magnesium 1.7 mg/dL (1.7-2.8) 06/12/18 04:06 Total Bilirubin 5.3 mg/dL (0.2-1.0) H 06/12/18 04:06 AST 160 IU/L (10-42) H 06/12/18 04:06 ALT 62 IU/L (10-60) H 06/12/18 04:06 Alkaline Phosphatase 112 IU/L (42-121) 06/12/18 04:06 Total Protein 7.4 g/dL (6.7-8.2) 06/12/18 04:06 Albumin 3.6 g/dL (3.2-5.5) 06/12/18 04:06 Globulin 3.8 g/dL (2.1-4.2) 06/12/18 04:06 Albumin/Globulin Ratio 0.9 (1.0-2.2) L 06/12/18 04:06 Lipase 43 U/L (22-51) 06/12/18 04:06 Urine Color DARK YELLOW 06/12/18 10:16 Urine Clarity CLEAR (CLEAR) 06/12/18 10:16 Urine pH 7.0 PH (5.0-7.5) 06/12/18 10:16 Ur Specific [place] 1.015 (1.002-1.030) 06/12/18 10:16 Urine Protein 30 mg/dL (NEGATIVE) H 06/12/18 10:16 Urine Glucose (UA) NEGATIVE mg/dL (NEGATIVE) 06/12/18 10:16 Urine Ketones NEGATIVE mg/dL (NEGATIVE) 06/12/18 10:16 Urine Occult Blood MODERATE (NEGATIVE) H 06/12/18 10:16 Urine Nitrite NEGATIVE (NEGATIVE) 06/12/18 10:16 Urine Bilirubin SMALL (NEGATIVE) H 06/12/18 10:16 Urine Urobilinogen >=8.0 E.U./dL (NORMAL) H 06/12/18 10:16 Ur Leukocyte Esterase NEGATIVE (NEGATIVE) 06/12/18 10:16 Urine RBC 6-10 /HPF (0-5) H 06/12/18 10:16 Urine WBC 0-3 /HPF (0-3) 06/12/18 10:16 Ur Squamous Epith Cells RARE Squamous (<= Few) 06/12/18 10:16 Urine Bacteria Rare /HPF (None Seen) 06/12/18 10:16 Urine Casts 3-5 Hyaline Casts /LPF 06/12/18 10:16 Ur Microscopic Review INDICATED 06/12/18 10:16 Urine Culture Comments NOT INDICATED 06/12/18 10:16 Urine Opiates Screen NEGATIVE (NEGATIVE) 06/12/18 10:16 Ur Oxycodone Screen NEGATIVE (NEGATIVE) 06/12/18 10:16 Urine Methadone Screen NEGATIVE (NEGATIVE) 06/12/18 10:16 Ur Propoxyphene Screen NEGATIVE (NEGATIVE) 06/12/18 10:16 Ur Barbiturates Screen NEGATIVE (NEGATIVE) 06/12/18 10:16 Ur Tricyclics Screen NEGATIVE (NEGATIVE) 06/12/18 10:16 Ur Phencyclidine Scrn NEGATIVE (NEGATIVE) 06/12/18 10:16 Ur Amphetamine Screen NEGATIVE (NEGATIVE) 06/12/18 10:16 U Methamphetamines Scrn NEGATIVE (NEGATIVE) 06/12/18 10:16 U Benzodiazepines Scrn POSITIVE (NEGATIVE) H 06/12/18 10:16 Urine Cocaine Screen NEGATIVE (NEGATIVE) 06/12/18 10:16 U Cannabinoids Screen NEGATIVE (NEGATIVE) 06/12/18 10:16 Ethyl Alcohol 147.5 mg/dL 06/12/18 04:06 Blood Type A POSITIVE 06/12/18 04:20 Antibody Screen NEGATIVE 06/12/18 04:20 - DIAGNOSTIC IMAGING Diagnostic Imaging Results: Final report reviewed Diagnostic Imaging Results Comments: CT abdomen/pelvis Impression: Fatty infiltration of the liver. Varices. No evidence of bowel obstruction. Cholelithiasis. - FOLLOW UP Follow Up: The patient was admitted for mild alcohol withdrawal and alcoholic gastritis. The patient had improvement in his symptoms and was able to tolerate p.o. medication and full meal. The patient was discharged home with Librium to help with his alcohol withdrawal and omeprazole to help with gastritis. The patient was counseled on the need to quit drinking. The patient will need to follow-up with his primary care physician. - TIME SPENT Time Spent in Discharge (Minutes): 40
[2018-06-12 13:07] VITALS: BP 130/89
[2018-06-13] MEDS ORDERED: MULTIVITAMIN 10 ML, THIAMINE INJ 100 MG, FOLIC ACID INJ 1 MG in SODIUM CHLORIDE 0.9% 1,... IV SCH (04:30)
== END 2018-06-12 14:05 | disposition home or self-care (01) | DRG 897 ==
LOC: EDUNIT# → ED 03:12 → ICU 05:46
PROVIDERS: ADMIT Internal Medicine; ATTEND Internal Medicine
DX: F10.239 Alcohol dependence with withdrawal, unspecified (principal); E87.2 Acidosis; K92.0 Hematemesis; K29.20 Alcoholic gastritis without bleeding; K70.31 Alcoholic cirrhosis of liver with ascites; Y90.6 Blood alcohol level of 120-199 mg/100 ml; R00.0 Tachycardia, unspecified; F10.20 Alcohol dependence, uncomplicated
CPT/HCPCS: 36415; 74177; 80053; 80306; 80320; 81001; 81003; 82803; 83605; 83690; 83735; 84100; 84132; 85025; 85610; 85730; 86850; 86900; 86901; 87086; 87150; 93005; 96365; 96375; 99284

== ENCOUNTER 2018-09-09 12:52 | Inpatient (IN) | payer OTHER ==
[2018-09-09] MEDS ORDERED: MORPHINE 2 MG/ML SYRINGE IVP STA (13:21)
[2018-09-09] MEDS ORDERED: SODIUM CHLORIDE 0.9% 1,000 ML IV ONE (13:21)
[2018-09-09] MEDS ORDERED: LORazepam 2 MG/ML VIAL IVP STA (13:21)
--- NOTE | 2018-09-09 13:23 | ED Physician Documentation ---
History of Present Illness - Stated complaint Stated Complaint: SIDE/BACK PX VOMITING - Chief complaint Chief Complaint: General - History obtained from History obtained from: Patient, Friend - History of Present Illness Timing: Other (This is a 62-year-old gentleman with history of some alcohol problems who presents with 2 days of sudden onset low back pain. He says it is just below the belt sign and slightly to the right of midline. It started at rest while watching TV. He admits to drinking alcohol for the pain, but his time course is inconsistent because then he says that his last drink was 5 days ago. He also complains of central abdominal pain, vomiting and diarrhea and shakiness from alcohol withdrawal. He denies any specific urinary complaints. He has no history of IV drug use.) Review of Systems Constitutional: reports: Fever, Chills, Myalgias, Fatigue Nose: denies: Rhinorrhea / runny nose, Congestion Throat: reports: Sore throat Respiratory: denies: Cough GI: reports: Abdominal Pain, Nausea, Vomiting, Diarrhea. denies: Hematemesis, Bloody / black stool : denies: Dysuria, Frequency PD PAST MEDICAL HISTORY - Past Medical History Cardiovascular: None Respiratory: None Neuro: None Endocrine/Autoimmune: None GI: Other : Kidney stones HEENT: None Psych: None Musculoskeletal: Other Derm: None - Past Surgical History Past Surgical History: Yes Ortho: Carpal Tunnel surgery, Other - Present Medications Home Medications: Ambulatory Orders Medication Instructions Recorded Confirmed Multivit-Min/Iron Fum/Folic AC 1 each PO DAILY #30 tablet 06/12/18 [Ovxrj-Wnywtjs-Ccgjvrap Tablet] Omeprazole 20 mg PO BID #60 tablet. 06/12/18 Thiamine [Vitamin B-1] 100 mg PO DAILY #30 tablet 06/12/18 chlordiazePOXIDE [Librium] 25 mg PO Q6HR #30 capsule 06/12/18 - Allergies Allergies/Adverse Reactions: Allergies Allergy/AdvReac Type Severity Reaction Status Date / Time Sulfa (Sulfonamide Allergy Unknown Verified 06/12/18 03:16 Antibiotics) - Social History Does the pt smoke?: No Smoking Status: Never smoker Does the pt drink ETOH?: Yes Does the pt have substance abuse?: No - Immunizations Immunizations are current?: Yes - POLST Patient has POLST: No PD ED PE NORMAL - Vitals Vital signs reviewed: Yes - General General: Alert and oriented X 3, Other (Slightly tremulous, tachycardic) - HEENT HEENT: PERRL, EOMI - Neck Neck: Supple, no meningeal sign, No bony TTP - Cardiac Cardiac: RRR, No murmur - Respiratory Respiratory: No respiratory distress, Clear bilaterally - Abdomen Abdomen: Normal bowel sounds, Soft, Non tender - Back Back: Other (Tender to the low back diffusely without skin changes) - Derm Derm: Normal color, Warm and dry, No rash - Extremities Extremities: No calf tenderness / cord, Other (The patient has equal and normal Achilles and patellar reflexes bilaterally. Normal sensation in all areas of the legs. Patient denies saddle anesthesia. Normal strength in flexion- extension at the ankles, knees, and flexion of the hips.) - Neuro Neuro: Alert and oriented X 3, Normal speech Results - Vitals Vitals: Vital Signs - 24 hr 09/09/18 09/09/18 13:00 15:21 Temperature 38.0 C H Heart Rate 119 H 105 H Respiratory 18 Rate Blood Pressure 142/86 H 127/83 H O2 Saturation 97 96 Oxygen O2 Source Room air - Labs Labs: Laboratory Tests 09/09/18 09/09/18 09/09/18 14:00 14:00 14:00 WBC 6.0 RBC 3.53 L Hgb 12.6 L Hct 35.6 L MCV 100.8 H MCH 35.6 H MCHC 35.3 RDW 15.4 H Plt Count 42 L MPV 7.7 Neut # (Auto) 4.5 Lymph # (Auto) 0.5 L [place] # (Auto) 0.9 Eos # (Auto) 0.0 Baso # (Auto) 0.0 Absolute Nucleated RBC 0.00 Nucleated RBC % 0.0 Sodium 134 L Potassium 3.1 L Chloride 95 L Carbon Dioxide 24 Anion Gap 15.0 H BUN 14 Creatinine 1.0 Estimated GFR (MDRD) 76 L Glucose 145 H Lactic Acid Calcium 8.4 L Magnesium 1.6 L Total Bilirubin 8.0 H AST 207 H ALT 64 H Alkaline Phosphatase 133 H Total Protein 7.4 Albumin 3.5 Globulin 3.9 Albumin/Globulin Ratio 0.9 L Lipase 46 Urine Color Urine Clarity Urine pH Ur Specific [place] Urine Protein Urine Glucose (UA) Urine Ketones Urine Occult Blood Urine Nitrite Urine Bilirubin Urine Urobilinogen Ur Leukocyte Esterase Ur Microscopic Review Urine Culture Comments Ethyl Alcohol 149.0 Influenza A (Rapid) Negative Influenza B (Rapid) Negative 09/09/18 09/09/18 14:09 15:20 WBC RBC Hgb Hct MCV MCH MCHC RDW Plt Count MPV Neut # (Auto) Lymph # (Auto) [place] # (Auto) Eos # (Auto) Baso # (Auto) Absolute Nucleated RBC Nucleated RBC % Sodium Potassium Chloride Carbon Dioxide Anion Gap BUN Creatinine Estimated GFR (MDRD) Glucose Lactic Acid 5.7 H* Calcium Magnesium Total Bilirubin AST ALT Alkaline Phosphatase Total Protein Albumin Globulin Albumin/Globulin Ratio Lipase Urine Color DARK YELLOW Urine Clarity CLEAR Urine pH 7.0 Ur Specific [place] 1.020 Urine Protein 100 H Urine Glucose (UA) NEGATIVE Urine Ketones 15 H Urine Occult Blood MODERATE H Urine Nitrite NEGATIVE Urine Bilirubin MODERATE H Urine Urobilinogen >=8.0 H Ur Leukocyte Esterase NEGATIVE Ur Microscopic Review INDICATED Urine Culture Comments Not Reportable Ethyl Alcohol Influenza A (Rapid) Influenza B (Rapid) PD MEDICAL DECISION MAKING - ED course ED course: This is a 62-year-old gentleman with cirrhosis and ongoing alcohol abuse who presents with fever, back pain, and some evidence of withdrawal. His workup demonstrates evidence of cirrhosis, lactic acidosis which could be from cirrhosis but infection not ruled out. He does not have leukocytosis, but he is a cirrhotic so that is nonspecific as well. Abdominal CT does not show a source nor does the urine. He was cultured up and given cefepime, vancomycin, and significant crystalloid repletion given the lactic acidosis and I spoke with Dr. Miller for admission at 3:57 PM. - Critical Care Time(min): 38 Time Includes: Direct patient care, Review records, Reassess patient, Document care, Coordinate care, Medical consult Data interpretation: Labs, Pulse ox - Sepsis Event Current Stage of Sepsis: Sepsis Possible source of Sepsis: Unknown Mental/Cognitive Status: Confused Capillary refill: Less than 2 seconds Peripheral Pulse Strength: 4+ Bounding Peripheral Pulse Location: Radial Bedside ultrasound performed: No Departure - Departure Disposition: 66 [facility] DC/Xfer Clinical Impression: Alcoholism /alcohol abuse, Electrolyte abnormality Cirrhosis Qualifiers: Hepatic cirrhosis type: alcoholic cirrhosis Ascites presence: without ascites Qualified Code(s): K70.30 - Alcoholic cirrhosis of liver without ascites Fever Qualifiers: Fever type: due to other condition Qualified Code(s): R50.81 - Fever presenting with conditions classified elsewhere Back pain Qualifiers: Back pain location: low back pain Chronicity: acute Back pain laterality: midline Sciatica presence: without sciatica Qualified Code(s): M54.5 - Low back pain Condition: Serious
[2018-09-09] MEDS ORDERED: ONDANSETRON 4 MG/2 ML VIAL IVP STA (14:03)
--- NOTE | 2018-09-09 14:18 | CT Report ---
Reason: abd/flank pain Procedure Date: 09/09/2018 Accession Number: [id number] / [id number] Procedure: CT - Abdomen/Pelvis WO CPT Code: FULL RESULT: EXAM: CT ABDOMEN AND PELVIS (CT KUB) EXAM DATE: 09/09/2018 01:41 PM. CLINICAL HISTORY: Abd/flank pain. COMPARISONS: ABDOMEN/PELVIS W/ 06/12/2018 4:33 AM. TECHNIQUE: Routine axial helical CT imaging was performed through the abdomen and pelvis without IV contrast. Reconstructions: Coronal and sagittal. In accordance with CT protocol optimization, one or more of the following dose reduction techniques were utilized for this exam: automated exposure control, adjustment of mA and/or KV based on patient size, or use of iterative reconstructive technique. FINDINGS: Lung Bases: Unremarkable. Right Kidney/Ureter: There is a nonobstructing 3 mm stone in the right kidney with no hydronephrosis or hydroureter. Left Kidney/Ureter: There is a nonobstructing 2 mm stone in the left kidney with no hydronephrosis or hydroureter. Other Solid Organs: The liver is again noted to be diffusely low in attenuation and heterogeneous with a nodular contour consistent with cirrhotic liver morphology. The spleen, adrenal glands and pancreas image normally. There is are tiny calcified stones in the gallbladder with no gallbladder wall thickening. Gallbladder/Bile Ducts: Unremarkable. Peritoneal Cavity: No free fluid, free air or ange adenopathy. Bowel is grossly unremarkable. Pelvic Organs: No bladder stones or wall thickening. Noncontrast images of the visualized pelvic organs are unremarkable. Vasculature: Unremarkable. Other: None. IMPRESSION: Bilateral nonobstructing renal stones measuring 3 mm on the right and 2 mm on the left. No hydronephrosis or hydroureter. No stones in the bladder. RADIA
[2018-09-09 14:28] LABS: ALBUMIN 3.5 g/dL (3.2-5.5); ALBUMIN/GLOBULIN RATIO 0.9 (1.0-2.2); CALCIUM 8.4 mg/dL (8.5-10.3); MAGNESIUM 1.6 mg/dL (1.7-2.8); TOTAL PROTEIN 7.4 g/dL (6.7-8.2)
[2018-09-09 14:34] LABS: BASOPHILS % (AUTO) 0.7 %; EOSINOPHILS % (AUTO) 0.7 %; HGB - HEMOGLOBIN 12.6 g/dL (14.0-18.0); LYMPHOCYTES # (AUTO) 0.5 10^3/uL (1.5-3.5); LYMPHOCYTES % (AUTO) 8.1 %; MEAN CORPUSCULAR HEMOGLOBIN 35.6 pg (27.0-31.0); MEAN CORPUSCULAR HGB CONC 35.3 g/dL (32.0-36.0); MEAN CORPUSCULAR VOLUME 100.8 fL (80.0-94.0); MEAN PLATELET VOLUME 7.7 fL (7.4-11.4); MONOCYTES # (AUTO) 0.9 10^3/uL (0.0-1.0); MONOCYTES % (AUTO) 14.3 %; NEUTROPHILS # (AUTO) 4.5 10^3/uL (1.5-6.6); NEUTROPHILS % (AUTO) 76.2 %; PLT - PLATELET COUNT 42 10^3/uL (130-450); RED BLOOD COUNT 3.53 10^6/uL (4.70-6.10); RED CELL DISTRIBUTION WIDTH 15.4 % (12.0-15.0)
[2018-09-09] MEDS ORDERED: LACTATED RINGERS 2,449.41 ML IV STA (14:35)
[2018-09-09] MEDS ORDERED: POTASSIUM CHLOR 10 MEQ/100 ML 10 MEQ/100 ML BAG IV ONE (14:35)
[2018-09-09] MEDS ORDERED: CEFEPIME 2 GM in SODIUM CHLORIDE 0.9% MINIBAG 100 ML IV STA (14:53)
[2018-09-09] MEDS ORDERED: VANCOMYCIN INJ 2 GM in SODIUM CHLORIDE 0.9% 500 ML IV STA (14:53)
[2018-09-09 15:25] LABS: MUDS CUTOFF CONCENTRATIONS CUTOFF CONC BELOW:
[2018-09-09 15:27] LABS: GLUCOSE, URINE (UA) NEGATIVE (NEGATIVE); KETONES,URINE (UA) 15 mg/dL (NEGATIVE); LEUKOCYTE ESTERASE, URINE NEGATIVE (NEGATIVE); NITRITE,URINE NEGATIVE (NEGATIVE); OCCULT BLOOD,URINE MODERATE (NEGATIVE); PROTEIN,URINE 100 mg/dL (NEGATIVE); UROBILINOGEN,URINE >=8.0 E.U./dL (NORMAL)
[2018-09-09 15:39] LABS: BILIRUBIN,URINE MODERATE (NEGATIVE); CLARITY,URINE CLEAR (CLEAR); ICTOTEST,URINE POSITIVE
[2018-09-09] MEDS ORDERED: ONDANSETRON 4 MG/2 ML VIAL IVP PRN (15:58)
[2018-09-09] MEDS ORDERED: ONDANSETRON ODT 4 MG TABLET TL PRN (15:58)
[2018-09-09] MEDS ORDERED: SODIUM CHLORIDE FLUSH 0.9% 10 ML SYRINGE IVP PRN (15:58)
[2018-09-09] MEDS ORDERED: IBUPROFEN 600 MG TABLET PO PRN (15:58)
[2018-09-09] MEDS ORDERED: MAGNESIUM SULFATE 2 GRAM 2 GM/50 ML BAG IV ONE (16:00)
[2018-09-09 16:03] LABS: BACTERIA,URINE None Seen /HPF (None Seen); MUCUS,URINE Few Strands; SQUAMOUS EPITHELIAL CELL,UR NONE SEEN (<= Few)
[2018-09-09 16:04] LABS: AMPHETAMINE SCREEN,URINE NEGATIVE (NEGATIVE); BENZODIAZEPINES SCREEN, URINE NEGATIVE (NEGATIVE); COCAINE SCREEN URINE NEGATIVE (NEGATIVE); METHADONE SCREEN, URINE NEGATIVE (NEGATIVE); METHAMPHETAMINES SCREEN, URINE NEGATIVE (NEGATIVE); OPIATE SCREEN, URINE POSITIVE (NEGATIVE); OXYCODONE SCREEN, URINE NEGATIVE (NEGATIVE); PROPOXYPHENE SCREEN, URINE NEGATIVE (NEGATIVE); TRICYCLIC ANTIDEPRESSANT,URINE NEGATIVE (NEGATIVE)
[2018-09-09] MEDS ORDERED: VANCOMYCIN INJ 1 GM in SODIUM CHLORIDE 0.9% 250 ML IV SCH (19:00)
[2018-09-09] MEDS ORDERED: MULTIVITAMIN 10 ML, THIAMINE INJ 100 MG, FOLIC ACID INJ 1 MG in SODIUM CHLORIDE 0.9% 1,... IV SCH (19:27)
[2018-09-09] MEDS ORDERED: POTASSIUM CHLORIDE INJ 40 MEQ in SODIUM CHLORIDE 0.9% 480 ML IV ONE (19:30)
[2018-09-09] MEDS ORDERED: SODIUM CHLORIDE 0.9% 500 ML IV ONE (20:07)
--- NOTE | 2018-09-09 20:08 | HISTORY & PHYSICAL EXAMINATION ---
DATE OF SERVICE: 09/09/2018 Physician: Hien Miller MD PRIMARY CARE PROVIDER: Africa Gonzales MD, [facility]. ADMITTING PROVIDER: Hien Miller MD CHIEF COMPLAINT: Severe low back pain. HISTORY OF PRESENT ILLNESS: Mr. Garland is an unfortunate male who drinks a pint of vodka on a daily basis and has done so for decades. He gives conflicting information about how long he has been drinking, and why he drinks, but has been doing this for a long time. He had been admitted 06/2017 with withdrawal to our hospital. Was admitted 07/2017 with rectal bleeding, and then admitted 05/2018 with nausea, vomiting, abdominal pain, hiccups, and was felt to have alcoholic gastritis. With his alcohol use, he has alcoholic liver disease including portal hypertension and esophageal varices. His last drink was approximately 5 days ago. While he does endorse having some mild URI symptoms of a runny nose, right eustachian tube dysfunction, it has been nothing severe. His back started hurting a few days ago and the pain is getting steadily worse. It is centered in the lumbar spine, just to the right of midline. It is constant, unremitting. It does not wax and wane. It is nonradiating. Nothing seems to particularly make it better or worse. He states that he has been drinking to relieve the pain, but when I asked him to clarify that, because he told me he stopped drinking 5 days ago and the pain started after that, he seems confused. He came to the emergency room with this. There is no hematuria, no urgency or frequency. Evaluated by Dr. Hieu Soriano. In addition to the back pain, he has central abdominal pain, vomiting, and diarrhea. He cannot keep anything down. When he was seen by Dr. Soriano, his temperature was 38, pulse 119, respirations 18, and blood pressure 142/86, 97% on room air. He was tachycardic, starting to get tremulous, having emesis in the ED. His back was tender to touch in the low back area, but no skin changes. The abdomen was benign. CT of the abdomen was done and other than his usual findings of cirrhotic liver morphology and nonobstructing bilateral kidney stones, not much more was seen. The pancreas appeared normal. There were tiny stones in the gallbladder without gallbladder wall thickening. There was no ascites present in the pelvis. The patient had diffuse electrolyte abnormalities. He was hypokalemic, had a high anion gap, a random glucose of 145, a lactic acid of 5.7, and elevated liver enzymes with a total bilirubin of 8, AST 207, ALT 64, alkaline phosphatase 133. Hemoglobin was stable at 12.6. His white cell count was normal. His platelets were down to 42. In 07/2017, they were 231 and 05/2018 they were 52. He had a hepatitis panel done in 06/2017 and it was all nonreactive. His influenza A and B were negative with his current ER evaluation. Because he is starting to go in withdrawal, has liver failure on lab studies and a fever to 38, the patient may have an infection that we are just not finding. His urine has hyperbilirubinemia, and he does have red cells 11-25, white cells, 6-10, but no bacteria. The patient was given empiric cefepime and vancomycin in the emergency room. He has been given IV fluids. Now upon transfer to Med/Surg, he is afebrile, pulse has dropped down to 95 and blood pressure is 121/72. PAST MEDICAL HISTORY 1. Alcoholic liver disease with hepatic failure, esophageal varices. 2. Depression with suicidal ideation 08/2016. 3. History of rectal bleeding 07/2017. No colonoscopy was done at that time, but he says he got an outpatient one that was negative. ALLERGIES: HE IS ALLERGIC TO SULFA. MEDICATIONS: Essentially none. When he was in the hospital he was given Librium, multivitamin, omeprazole, and thiamine to take in the outpatient setting. He said he did not necessarily continue those. SOCIAL HISTORY: He is . 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 He was born and raised in [place]. He was once before and has had 3 children with his first . They in 2014, and has had subsequent depression because of that. He says he drinks at least a pint a day. He denies ever smoking tobacco. He denies any history of recreational substance abuse, such as cocaine, heroin, LSD, or cannabis. He lives in his own home of the [place] [facility]. He did have a girlfriend last year and she is not with him anymore. FAMILY HISTORY: Dad is approximately 92 and has alcoholism, but is otherwise healthy. Mom is 88 and is healthy. The patient is 1 of 8 children. Of his brothers and sisters, he said 1 has seizure disorders, 1 likes to smoke pot, but they do not have any cancer, heart attack, stroke, mental health or alcoholism amongst them. He states that his 3 children are healthy. REVIEW OF SYSTEMS CONSTITUTIONAL: He denies any fevers, chills, unexpected weight loss, sweats. Overall, he just does not feel well and has not felt well forever. ENT: He wears glasses, denies any problems with blurred vision, cataracts, problems with swallowing. No facial dysesthesias. Denies deafness. PULMONARY: Denies coughing, wheezing, bronchitis, chest congestion, or asthma. CARDIOVASCULAR: He has mild leg edema, has always done so. Denies orthopnea. Denies any change in cardiovascular endurance. He denies any history of heart attack, palpitations, valvular heart disease. He does not have any murmurs. GASTROINTESTINAL: Positive for generalized abdominal pain, nausea, vomiting, diarrhea. GENITOURINARY: Denies urgency, frequency, dysuria, hematuria, and feels like his back pain is lower than what flank pain would be. JOINTS: Feels like he cannot feel the bottom of his feet. That has been getting worse. He feels like he always has socks on. Denies any joint effusions, joint pain that is severe and unusual. SKIN: Denies any rashes, new moles, new lesions. PSYCHIATRIC: He does hallucinate with withdrawal, gets depressed, last suicidal ideation was 08/2016. He has been through withdrawals at least 3 times and has had inpatient rehab in [place] a couple of times. CENTRAL NERVOUS SYSTEM: Denies seizures, syncope, headache. Denies cerebellar ataxia. Previous level of function is described as an independent male who says that he still feeds himself, dresses himself, drives a car. Vague about when he last went to work. PHYSICAL EXAMINATION On examination, I am seeing him in med/surg after he has been transferred from the emergency room and has received IV fluids and antibiotics. VITAL SIGNS: Repeat temperature has not been noted since he was 38 in the emergency room. Pulse is now 95, blood pressure 121/72, respirations 18, 96% on room air. GENERAL: He is a tremulous, long haired, disheveled male who looks his stated age, and has 2 emesis bags in front of him as he constantly spits and dry heaves during my exam. HEENT: Head is unremarkable. Sclerae are muddy, icteric sclerae. Pupils reactive. No facial asymmetry. Slightly rough, low hoarse voice. Both tympanic membranes appear concave. No redness. The back of the throat is cobblestone. Poor dentition and halitosis. NECK: With shotty adenopathy. Supple. No carotid bruits. No goiter. LUNGS: Clear to auscultation and percussion without crackles, rhonchi or wheezing. He has no increased respiratory effort in talking to me. CARDIAC: Regular rate and rhythm, tachycardic in the ER and now in the 90s in the room. PMI normally placed. No murmurs, rubs or gallop. ABDOMEN: Diffuse abdominal aching with palpation. He says it is really mild and on a scale of 1-10, he says maybe it is at 2. There is no pinpoint area of pain. He does not have rebound or guarding. Hyperactive bowel sounds. Liver edge is palpable 2 fingerbreadths below the right rib cage. I am not feeling his spleen. EXTREMITIES: Dirty. Hands are covered in what looks like dirt. Knobby deformities of some of his distal interphalangeal joints of his fingers. No clubbing, cyanosis or edema. NEUROLOGIC: It is hard for him to concentrate on this exam. He is able to give me a lucid history, but fads often into silence periodically, especially when he is vomiting. He can follow 2-step commands, but has a little bit of psychomotor slowing. He is tremulous and with hand shaking as he holds the emesis basin to his face. No focal deficits. LABORATORY DATA: Labs reviewed in history of present illness. He has thrombocytopenia, macrocytosis, acidosis with hyponatremia, hypokalemia and elevated anion gap, liver failure. Urinalysis with hyperbilirubinemia and hematuria. Urine tox screen is positive for opiates. Alcohol is 149. CT of the abdomen as above. ASSESSMENT: 1. Probable alcohol withdrawal. We are not finding any source of infection in this gentleman with a negative review of systems for lung, urinalysis showing probable hyperbilirubinemia, but no white cells or bacteria. No pancreatitis on abdominal exam. Fever can be seen with withdrawal. He is tremulous. Plan is: a. inpatient admission. b. ATTESTATION: The patient will be admitted less than 96 hours. c. Banana bag. d. KELLIEWA protocol. e. Replace potassium and magnesium. f. Transfer to ICU if he escalates with regards to needing increasing level of treatment for alcohol withdrawal. 2. Alcoholic liver disease without ascites, but a positive history of esophageal varices. a. Continue to check hemoglobin and hematocrit, and make sure this gentleman does not progress to a gastrointestinal bleed. b. We will give proton pump inhibitor or histamine shirin on a regular basis. 3. Fever. Again, most likely part of alcohol withdrawal. a. On current empiric antibiotic therapy with cefepime and vancomycin. b. Blood cultures have been submitted. c. I will withdraw or deescalate treatment on the basis of his findings over the next 24 hours or if his exam changes and he provides us was a source of infection through his history and exam. 4. Deep venous thrombosis prophylaxis will be KATEY mayers. 5. FULL CODE STATUS. He states that is a power of claims attorney is Faith, his sister. TD: 09/09/2018 19:12 SENAIT
--- NOTE | 2018-09-09 20:09 | XRAY Report ---
Reason: fever and alcohol withdrawal Procedure Date: 09/09/2018 Accession Number: [id number] / [id number] Procedure: XR - Chest 1 View X-Ray CPT Code: 87489 FULL RESULT: EXAM: CHEST RADIOGRAPHY EXAM DATE: 09/09/2018 07:19 PM. CLINICAL HISTORY: Fever and alcohol withdrawal. COMPARISON: CHEST 1 VIEW 07/27/2017 4:16 PM. TECHNIQUE: 1 view. FINDINGS: Lungs/Pleura: No dense consolidation. No large effusion or pneumothorax. No pulmonary edema. Mediastinum: Heart and mediastinal contours are unremarkable. Other: None. IMPRESSION: No acute radiographic pulmonary abnormalities. RADIA
[2018-09-09] MEDS: SODIUM CHLORIDE FLUSH 0.9% 10 ML SYRINGE IVP SCH (20:18)
[2018-09-09] MEDS ORDERED: CEFEPIME 2 GM in SODIUM CHLORIDE 0.9% MINIBAG 100 ML IV SCH (21:00)
[2018-09-09] MEDS: LORazepam 2 MG/ML VIAL IVP PRN (22:19)
[2018-09-09] MEDS: POTASSIUM CHLOR 10 MEQ/100 ML 10 MEQ/100 ML BAG IV SCH (22:19)
[2018-09-09] MEDS: D5NS W/20 MEQ KCL 1,000 ML IV SCH (22:19)
[2018-09-09] MEDS: FAMOTIDINE 20 MG TABLET PO SCH (22:19)
[2018-09-10] MEDS: POTASSIUM CHLOR 10 MEQ/100 ML 10 MEQ/100 ML BAG IV SCH ×3 (00:04→02:36)
[2018-09-10] MEDS: SODIUM CHLORIDE FLUSH 0.9% 10 ML SYRINGE IVP SCH ×3 (00:04→19:26)
[2018-09-10] MEDS: LORazepam 2 MG/ML VIAL IVP PRN ×3 (00:08→23:08)
[2018-09-10] MEDS: CEFEPIME 2 GM in SODIUM CHLORIDE 0.9% MINIBAG 100 ML IV SCH ×2 (03:38→16:40)
[2018-09-10] MEDS ORDERED: WATER FOR INJECTION,STERILE 40 ML ONE (04:33)
[2018-09-10] MEDS: VANCOMYCIN INJ 1.25 GM in SODIUM CHLORIDE 0.9% 250 ML IV SCH ×2 (04:43→17:01)
[2018-09-10 05:18] LABS: BASOPHILS % (AUTO) 0.8 %; EOSINOPHILS # (AUTO) 0.1 10^3/uL (0.0-0.7); EOSINOPHILS % (AUTO) 1.8 %; HGB - HEMOGLOBIN 11.2 g/dL (14.0-18.0); LYMPHOCYTES # (AUTO) 0.4 10^3/uL (1.5-3.5); LYMPHOCYTES % (AUTO) 11.1 %; MEAN CORPUSCULAR HEMOGLOBIN 35.6 pg (27.0-31.0); MEAN CORPUSCULAR HGB CONC 34.7 g/dL (32.0-36.0); MEAN CORPUSCULAR VOLUME 102.9 fL (80.0-94.0); MEAN PLATELET VOLUME 7.6 fL (7.4-11.4); MONOCYTES # (AUTO) 0.9 10^3/uL (0.0-1.0); MONOCYTES % (AUTO) 25.2 %; NEUTROPHILS # (AUTO) 2.1 10^3/uL (1.5-6.6); NEUTROPHILS % (AUTO) 61.1 %; RED BLOOD COUNT 3.15 10^6/uL (4.70-6.10); RED CELL DISTRIBUTION WIDTH 15.6 % (12.0-15.0); WHITE BLOOD COUNT 3.4 x10^3/uL (4.8-10.8)
[2018-09-10 05:22] LABS: PLT - PLATELET COUNT 32 10^3/uL (130-450)
[2018-09-10 05:26] LABS: ALBUMIN 2.9 g/dL (3.2-5.5); ALBUMIN/GLOBULIN RATIO 0.9 (1.0-2.2); ALKALINE PHOSPHATASE 96 IU/L (42-121); ALT ALANINE AMINOTRANSFERASE 54 IU/L (10-60); AST ASPARTATE AMINOTRANSFERASE 180 IU/L (10-42); BILIRUBIN,TOTAL 7.6 mg/dL (0.2-1.0); BUN - BLOOD UREA NITROGEN 11 mg/dL (6-20); CALCIUM 7.6 mg/dL (8.5-10.3); CARBON DIOXIDE - CO2 22 mmol/L (21-32); CHLORIDE 98 mmol/L (101-111); GFR - MDRD 76 (>89); GLUCOSE 132 mg/dL (70-100); MAGNESIUM 1.7 mg/dL (1.7-2.8); SODIUM 131 mmol/L (135-145)
[2018-09-10 05:27] LABS: PHOSPHORUS < 1.0 mg/dL (2.5-4.6)
[2018-09-10 05:44] LABS: PLATELET ESTIMATE, MANUAL DECREASED (<130,000) (NORMAL); PLATELET MORPHOLOGY NORMAL APPEARANCE (NORMAL); RBC MORPHOLOGY (MULTIPLE) NORMAL APPEARANCE (NORMAL)
[2018-09-10] MEDS: NEUTRA-PHOS 250 MG TABLET PO SCH ×3 (08:15→17:01)
[2018-09-10] MEDS: FAMOTIDINE 20 MG TABLET PO SCH ×2 (08:15→22:11)
[2018-09-10] MEDS: POLYETHYLENE GLYCOL 3350 17 GM PACKET PO SCH (08:16)
[2018-09-10] MEDS ORDERED: MULTIVITAMIN 10 ML, THIAMINE INJ 100 MG, FOLIC ACID INJ 1 MG in SODIUM CHLORIDE 0.9% 1,... IV SCH (09:00)
[2018-09-10] MEDS ORDERED: VANCOMYCIN PER PHARMACY 100 GM in SODIUM CHLORIDE 0.9% 250 ML IV SCH (09:00)
--- NOTE | 2018-09-10 09:55 | HISTORY & PHYSICAL EXAMINATION ---
History - Past Medical History Cardiovascular: reports: None Respiratory: reports: None Neuro: reports: None Endocrine/Autoimmune: reports: None GI: reports: Other : reports: Kidney stones HEENT: reports: None Psych: reports: None Musculoskeletal: reports: Other Derm: reports: None MRSA Hx?: No - Past Surgical History Ortho: reports: Carpal Tunnel surgery, Other - POLST Patient has POLST: No Meds/Allgy - Home Medications Home Medications: Ambulatory Orders Medication Instructions Recorded Confirmed Multivit-Min/Iron Fum/Folic AC 1 each PO DAILY #30 tablet 06/12/18 [Agqkq-[id number] Tablet] Omeprazole 20 mg PO BID #60 tablet. 06/12/18 Thiamine [Vitamin B-1] 100 mg PO DAILY #30 tablet 06/12/18 chlordiazePOXIDE [Librium] 25 mg PO Q6HR #30 capsule 06/12/18 - Allergies Allergies/Adverse Reactions: Allergies Allergy/AdvReac Type Severity Reaction Status Date / Time Sulfa (Sulfonamide Allergy Unknown Verified 06/12/18 03:16 Antibiotics) Exam - Vital Signs Vital Signs: Vital Signs x48h Temp Pulse Resp BP Pulse Ox 09/10/18 07:30 37.6 C H 95 18 116/60 98 Sepsis Event Note (H) - Evaluation Possible source of Sepsis: positive: Unknown Conclusion/Plan - Lab Results Fish Bones: 09/10/18 05:01 09/10/18 05:01
--- NOTE | 2018-09-10 10:01 | PROVIDER PROGRESS NOTE ---
Subjective - Prog Note Date Prog Note Date: 09/10/18 Prog Note Time: 10:05 - Subjective Pt reports feeling: No change Subjective: Back still hurts. Sitting up in bed trying to eat breakfast. The nonstop vomiting finally resolved from yesterday. Still with mild generalized pain. stool is at least once a day and he is incontinent, doesn't have strength to get out of bed quickly enough. not black. gets hungry. when he does try to get up to stand, 2 max assist and legs so weak, they tremble underneath him, can't be supported. Current Medications - Current Medications Current Medications: Active Medications Famotidine (Pepcid) 20 mg PO BID [facility] Last Admin: 09/10/18 08:15 Dose: 20 mg Cefepime HCl 2 gm/ Sodium (Chloride) 100 mls @ 200 mls/hr IV Q12H [facility] Last Infusion: 09/10/18 04:30 Dose: Infused Vancomycin HCl 1.25 gm/ Sodium (Chloride) 250 mls @ 167 mls/hr IV Q12H [facility] Last Infusion: 09/10/18 06:38 Dose: Infused Multivitamins 10 ml/ Thiamine HCl 100 mg/ Folic Acid 1 mg/Sodium Chloride 1,011.2 mls @ 100 mls/hr IV DAILY [facility] Stop: 09/11/18 19:07 Ibuprofen (Motrin) 600 mg PO Q6HR PRN PRN Reason: Pain 1 to 4 Lorazepam (Ativan Inj (Vial)) 1 mg IVP Q30M PRN; Protocol PRN Reason: CIWA >8 Last Admin: 09/10/18 00:08 Dose: 1 mg Ondansetron HCl (Zofran Inj) 4 mg IVP Q6HR PRN PRN Reason: Nausea / Vomiting Last Admin: 09/09/18 18:47 Dose: 4 mg Ondansetron HCl (Zofran Odt) 4 mg TL Q6HR PRN PRN Reason: Nausea / Vomiting Oxycodone HCl (Roxicodone) 5 mg PO Q4HR PRN PRN Reason: Pain 5 to 7 Polyethylene Glycol (Miralax) 17 gm PO DAILY [facility] Last Admin: 09/10/18 08:16 Dose: 17 gm Sodium Chloride (Normal Saline Flush 0.9%) 10 ml IVP PRN PRN PRN Reason: NEEDED PER PROVIDER ORDERS Sodium Chloride (Normal Saline Flush 0.9%) 10 ml IVP 0100,0900,1700 [facility] Last Admin: 09/10/18 00:04 Dose: 10 ml Sodium Phosphate (K-Phos Neutral) 250 mg PO TIDWM [facility] Last Admin: 09/10/18 08:15 Dose: 250 mg Objective - Vital Signs/Intake & Output Reviewed Vital Signs: Yes Vital Signs: Vital Signs x48h Temp Pulse Resp BP Pulse Ox 09/10/18 07:30 37.6 C H 95 18 116/60 98 Intake & Output: Intake & Output 09/07/18 09/08/18 09/09/18 09/10/18 23:59 23:59 23:59 23:59 Intake Total 4849.41 1595.000 Output Total 500 550 Balance 4349.41 1045.000 - Objective General Appearance: positive: No acute distress, Other (speech slowed, tremulous) Eyes Bilateral: positive: PERRL Eyes: OU Scleral icterus ENT: positive: Pharynx nml, Other (poor dentition, halotosis) Neck: positive: No JVD. negative: Stiff neck, Carotid bruit Respiratory: positive: Chest non-tender. negative: Wheezes, Rales, Rhonchi Cardiovascular: positive: Regular rate & rhythm. negative: Gallop/S4, Friction rub Abdomen: positive: Nml bowel sounds, Tenderness (diffuse, mild), Hepatomegaly. negative: Guarding, Rebound Skin: positive: Warm, Diaphoresis Extremities: positive: Non-tender, Pedal edema Neurologic/Psychiatric: positive: CN's nml (2-12), Disoriented to place, Disoriented to time, Slurred/abnml speech. negative: Motor nml (ataxia, tremors, asterixis) - Lab Results Fish Bones: 09/10/18 05:01 09/10/18 05:01 Other Labs: Lab Results x24hrs 09/10/18 09/10/18 09/10/18 Range/Units 05:01 05:01 05:01 WBC 3.4 L (4.8-10.8) x10^3/uL RBC 3.15 L (4.70-6.10) 10^6/uL Hgb 11.2 L (14.0-18.0) g/dL Hct 32.4 L (42.0-52.0) % MCV 102.9 H (80.0-94.0) fL MCH 35.6 H (27.0-31.0) pg MCHC 34.7 (32.0-36.0) g/dL RDW 15.6 H (12.0-15.0) % Plt Count 32 L* (130-450) 10^3/uL MPV 7.6 (7.4-11.4) fL Neut # (Auto) 2.1 (1.5-6.6) 10^3/uL Lymph # (Auto) 0.4 L (1.5-3.5) 10^3/uL Grady # (Auto) 0.9 (0.0-1.0) 10^3/uL Eos # (Auto) 0.1 (0.0-0.7) 10^3/uL Baso # (Auto) 0.0 (0.0-0.1) 10^3/uL Absolute Nucleated RBC 0.00 x10^3/uL Nucleated RBC % 0.1 /100WBC Manual Slide Review Indicated Platelet Estimate DECREASED (<130,000) (NORMAL) Platelet Morphology NORMAL APPEARANCE (NORMAL) RBC Morph Micro Appear NORMAL APPEARANCE (NORMAL) Sodium 131 L (135-145) mmol/L Potassium 3.3 L (3.5-5.0) mmol/L Chloride 98 L (101-111) mmol/L Carbon Dioxide 22 (21-32) mmol/L Anion Gap 11.0 (6-13) BUN 11 (6-20) mg/dL Creatinine 1.0 (0.6-1.2) mg/dL Estimated GFR (MDRD) 76 L (>89) Glucose 132 H (70-100) mg/dL Lactic Acid 2.0 (0.5-2.2) mmol/L Calcium 7.6 L (8.5-10.3) mg/dL Phosphorus < 1.0 L* (2.5-4.6) mg/dL Magnesium 1.7 (1.7-2.8) mg/dL Total Bilirubin 7.6 H (0.2-1.0) mg/dL AST 180 H (10-42) IU/L ALT 54 (10-60) IU/L Alkaline Phosphatase 96 (42-121) IU/L Total Protein 6.0 L (6.7-8.2) g/dL Albumin 2.9 L (3.2-5.5) g/dL Globulin 3.1 (2.1-4.2) g/dL Albumin/Globulin Ratio 0.9 L (1.0-2.2) Lipase (22-51) U/L Urine Color Urine Clarity (CLEAR) Urine pH (5.0-7.5) PH Ur Specific [place] (1.002-1.030) Urine Protein (NEGATIVE) mg/dL Urine Glucose (UA) (NEGATIVE) mg/dL Urine Ketones (NEGATIVE) mg/dL Urine Occult Blood (NEGATIVE) Urine Nitrite (NEGATIVE) Urine Bilirubin (NEGATIVE) Urine Urobilinogen (NORMAL) E.U./dL Ur Leukocyte Esterase (NEGATIVE) Urine RBC (0-5) /HPF Urine WBC (0-3) /HPF Ur Squamous Epith Cells (<= Few) Urine Bacteria (None Seen) /HPF Urine Mucus Ur Microscopic Review Urine Culture Comments Urine Opiates Screen (NEGATIVE) Ur Oxycodone Screen (NEGATIVE) Urine Methadone Screen (NEGATIVE) Ur Propoxyphene Screen (NEGATIVE) Ur Barbiturates Screen (NEGATIVE) Ur Tricyclics Screen (NEGATIVE) Ur Phencyclidine Scrn (NEGATIVE) Ur Amphetamine Screen (NEGATIVE) U Methamphetamines Scrn (NEGATIVE) U Benzodiazepines Scrn (NEGATIVE) Urine Cocaine Screen (NEGATIVE) U Cannabinoids Screen (NEGATIVE) Ethyl Alcohol mg/dL Influenza A (Rapid) (Negative) Influenza B (Rapid) (Negative) 09/09/18 09/09/18 09/09/18 Range/Units 18:38 15:20 14:09 WBC (4.8-10.8) x10^3/uL RBC (4.70-6.10) 10^6/uL Hgb (14.0-18.0) g/dL Hct (42.0-52.0) % MCV (80.0-94.0) fL MCH (27.0-31.0) pg MCHC (32.0-36.0) g/dL RDW (12.0-15.0) % Plt Count (130-450) 10^3/uL MPV (7.4-11.4) fL Neut # (Auto) (1.5-6.6) 10^3/uL Lymph # (Auto) (1.5-3.5) 10^3/uL Grady # (Auto) (0.0-1.0) 10^3/uL Eos # (Auto) (0.0-0.7) 10^3/uL Baso # (Auto) (0.0-0.1) 10^3/uL Absolute Nucleated RBC x10^3/uL Nucleated RBC % /100WBC Manual Slide Review Platelet Estimate (NORMAL) Platelet Morphology (NORMAL) RBC Morph Micro Appear (NORMAL) Sodium (135-145) mmol/L Potassium (3.5-5.0) mmol/L Chloride (101-111) mmol/L Carbon Dioxide (21-32) mmol/L Anion Gap (6-13) BUN (6-20) mg/dL Creatinine (0.6-1.2) mg/dL Estimated GFR (MDRD) (>89) Glucose (70-100) mg/dL Lactic Acid 4.2 H* 5.7 H* (0.5-2.2) mmol/L Calcium (8.5-10.3) mg/dL Phosphorus (2.5-4.6) mg/dL Magnesium (1.7-2.8) mg/dL Total Bilirubin (0.2-1.0) mg/dL AST (10-42) IU/L ALT (10-60) IU/L Alkaline Phosphatase (42-121) IU/L Total Protein (6.7-8.2) g/dL Albumin (3.2-5.5) g/dL Globulin (2.1-4.2) g/dL Albumin/Globulin Ratio (1.0-2.2) Lipase (22-51) U/L Urine Color DARK YELLOW Urine Clarity CLEAR (CLEAR) Urine pH 7.0 (5.0-7.5) PH Ur Specific [place] 1.020 (1.002-1.030) Urine Protein 100 H (NEGATIVE) mg/dL Urine Glucose (UA) NEGATIVE (NEGATIVE) mg/dL Urine Ketones 15 H (NEGATIVE) mg/dL Urine Occult Blood MODERATE H (NEGATIVE) Urine Nitrite NEGATIVE (NEGATIVE) Urine Bilirubin MODERATE H (NEGATIVE) Urine Urobilinogen >=8.0 H (NORMAL) E.U./dL Ur Leukocyte Esterase NEGATIVE (NEGATIVE) Urine RBC 11-25 H (0-5) /HPF Urine WBC 6-10 H (0-3) /HPF Ur Squamous Epith Cells NONE SEEN (<= Few) Urine Bacteria None Seen (None Seen) /HPF Urine Mucus Few Strands Ur Microscopic Review INDICATED Urine Culture Comments INDICATED Urine Opiates Screen POSITIVE H (NEGATIVE) Ur Oxycodone Screen NEGATIVE (NEGATIVE) Urine Methadone Screen NEGATIVE (NEGATIVE) Ur Propoxyphene Screen NEGATIVE (NEGATIVE) Ur Barbiturates Screen NEGATIVE (NEGATIVE) Ur Tricyclics Screen NEGATIVE (NEGATIVE) Ur Phencyclidine Scrn NEGATIVE (NEGATIVE) Ur Amphetamine Screen NEGATIVE (NEGATIVE) U Methamphetamines Scrn NEGATIVE (NEGATIVE) U Benzodiazepines Scrn NEGATIVE (NEGATIVE) Urine Cocaine Screen NEGATIVE (NEGATIVE) U Cannabinoids Screen NEGATIVE (NEGATIVE) Ethyl Alcohol mg/dL Influenza A (Rapid) (Negative) Influenza B (Rapid) (Negative) 09/09/18 09/09/18 09/09/18 Range/Units 14:00 14:00 14:00 WBC 6.0 (4.8-10.8) x10^3/uL RBC 3.53 L (4.70-6.10) 10^6/uL Hgb 12.6 L (14.0-18.0) g/dL Hct 35.6 L (42.0-52.0) % MCV 100.8 H (80.0-94.0) fL MCH 35.6 H (27.0-31.0) pg MCHC 35.3 (32.0-36.0) g/dL RDW 15.4 H (12.0-15.0) % Plt Count 42 L (130-450) 10^3/uL MPV 7.7 (7.4-11.4) fL Neut # (Auto) 4.5 (1.5-6.6) 10^3/uL Lymph # (Auto) 0.5 L (1.5-3.5) 10^3/uL Grady # (Auto) 0.9 (0.0-1.0) 10^3/uL Eos # (Auto) 0.0 (0.0-0.7) 10^3/uL Baso # (Auto) 0.0 (0.0-0.1) 10^3/uL Absolute Nucleated RBC 0.00 x10^3/uL Nucleated RBC % 0.0 /100WBC Manual Slide Review Platelet Estimate (NORMAL) Platelet Morphology (NORMAL) RBC Morph Micro Appear (NORMAL) Sodium 134 L (135-145) mmol/L Potassium 3.1 L (3.5-5.0) mmol/L Chloride 95 L (101-111) mmol/L Carbon Dioxide 24 (21-32) mmol/L Anion Gap 15.0 H (6-13) BUN 14 (6-20) mg/dL Creatinine 1.0 (0.6-1.2) mg/dL Estimated GFR (MDRD) 76 L (>89) Glucose 145 H (70-100) mg/dL Lactic Acid (0.5-2.2) mmol/L Calcium 8.4 L (8.5-10.3) mg/dL Phosphorus (2.5-4.6) mg/dL Magnesium 1.6 L (1.7-2.8) mg/dL Total Bilirubin 8.0 H (0.2-1.0) mg/dL AST 207 H (10-42) IU/L ALT 64 H (10-60) IU/L Alkaline Phosphatase 133 H (42-121) IU/L Total Protein 7.4 (6.7-8.2) g/dL Albumin 3.5 (3.2-5.5) g/dL Globulin 3.9 (2.1-4.2) g/dL Albumin/Globulin Ratio 0.9 L (1.0-2.2) Lipase 46 (22-51) U/L Urine Color Urine Clarity (CLEAR) Urine pH (5.0-7.5) PH Ur Specific [place] (1.002-1.030) Urine Protein (NEGATIVE) mg/dL Urine Glucose (UA) (NEGATIVE) mg/dL Urine Ketones (NEGATIVE) mg/dL Urine Occult Blood (NEGATIVE) Urine Nitrite (NEGATIVE) Urine Bilirubin (NEGATIVE) Urine Urobilinogen (NORMAL) E.U./dL Ur Leukocyte Esterase (NEGATIVE) Urine RBC (0-5) /HPF Urine WBC (0-3) /HPF Ur Squamous Epith Cells (<= Few) Urine Bacteria (None Seen) /HPF Urine Mucus Ur Microscopic Review Urine Culture Comments Urine Opiates Screen (NEGATIVE) Ur Oxycodone Screen (NEGATIVE) Urine Methadone Screen (NEGATIVE) Ur Propoxyphene Screen (NEGATIVE) Ur Barbiturates Screen (NEGATIVE) Ur Tricyclics Screen (NEGATIVE) Ur Phencyclidine Scrn (NEGATIVE) Ur Amphetamine Screen (NEGATIVE) U Methamphetamines Scrn (NEGATIVE) U Benzodiazepines Scrn (NEGATIVE) Urine Cocaine Screen (NEGATIVE) U Cannabinoids Screen (NEGATIVE) Ethyl Alcohol 149.0 mg/dL Influenza A (Rapid) Negative (Negative) Influenza B (Rapid) Negative (Negative) ABX Reporting Has patient been on IV antibiotics over the past 48 hours?: Yes Sepsis Event Note (H) - Evaluation Possible source of Sepsis: positive: Unknown Assessment/Plan - Problem List (1) Alcohol withdrawal Impression: Patient presented his low back pain with fever but negative source of infection. He was already starting to go in withdrawal when he was admitted and that the only thing I can think his fever is from. Chest x-ray is negative, urine is negative, and abdomen is not indicating any source of infection. He does not have a fever, denies any sweats I do not think valvular heart disease is a problem. Now in full withdrawal with hallucinations, tremulousness, And I will continue CIWA protocol. He did not get his banana bag last night because of nursing confusion about access to the medication. Banana bag ordered for this morning. Overall I do not think it is going to reduce his risk of Warnicke's encephalopathy. Qualifiers: Complication of substance-induced condition: with delirium Qualified Code(s): F10.231 - Alcohol dependence with withdrawal delirium (2) Electrolyte abnormality Impression: Potassium replaced with IV fluids. Magnesium given a K rider.Still hypokalemic this morning. Will give oral solution since he seems to be more awake. (3) Alcoholic cirrhosis of liver without ascites Impression: He has esophageal varices, portal hypertension, thrombocytopenia with prolonged INR. He did have ascites last year and does not this year. Considering he is not on any medications for his alcoholic liver disease I find it interesting that he has no ascites. His bili is not nearly as elevated as it was a year ago. But still has a prolonged INR. Elevated bilirubin. The most I can do is avoid liver toxic agents such as Tylenol, etc. He has acute intoxication on alcohol level from yesterday. No steroids given at this time. (4) Fever Impression: No clear an infection source identified. He is on empiric antibiotic therapy. High fever has resolved but he is still at 37.7 up to 37.8 at times. I would stop that in 3 days depending on that it is in process, results to follow. any culture results. Urine culture this morning says blood cultures were received and being process. Qualifiers: Fever type: due to other condition Qualified Code(s): R50.81 - Fever presenting with conditions classified elsewhere (5) Hepatic encephalopathy Impression: add lactulose and check ammonia level daily. add riamximin, betablocker. (6) Lactic acidosis Impression: from cirrhosis, resolved. (7) Weakness Impression: Once his delirium tremens resolved he may be able to be ambulatory again. But right now needs a 2 person max assist and his legs shake when he stands. Will have PT evaluation for possibility of needing rehab at discharge.
[2018-09-10] MEDS: MULTIVITAMIN 10 ML, THIAMINE INJ 100 MG, FOLIC ACID INJ 1 MG in SODIUM CHLORIDE 0.9% 1,... IV SCH (10:15)
[2018-09-10] MEDS: D5NS W/20 MEQ KCL 1,000 ML IV SCH (10:22)
[2018-09-10] MEDS: LACTULOSE 10 GM /15 ML UDC PO SCH ×2 (14:02→22:11)
[2018-09-10] MEDS: IBUPROFEN 600 MG TABLET PO PRN (14:45)
[2018-09-10] MEDS: metroNIDAZOLE 250 MG TABLET PO SCH (17:01)
[2018-09-10] MEDS: rifAXIMin 550 MG TABLET PO SCH (22:10)
[2018-09-10] MEDS: PROPRANOLOL 10 MG TABLET PO SCH (22:11)
[2018-09-11] MEDS: SODIUM CHLORIDE FLUSH 0.9% 10 ML SYRINGE IVP SCH ×4 (00:05→05:52)
[2018-09-11] MEDS: LORazepam 2 MG/ML VIAL IVP PRN ×6 (00:44→05:52)
[2018-09-11] MEDS: metroNIDAZOLE 250 MG TABLET PO SCH ×3 (01:53→17:40)
[2018-09-11] MEDS: CEFEPIME 2 GM in SODIUM CHLORIDE 0.9% MINIBAG 100 ML IV SCH ×2 (03:44→15:50)
[2018-09-11] MEDS ORDERED: LORazepam 100MG/100ML D5W 100 ML IV SCH (04:00)
--- NOTE | 2018-09-11 04:10 | PROVIDER PROGRESS NOTE ---
Candy Spreader Note - Candy Spreader Note Candy Spreader Note: Subjective: Patient having worsening DT's per RN CIWA has been progressive over night with 15 now to 18 despite multiple doses of Ativan which was increases to 2 mg IVP q30min. Patient moans and groans and was observed with tremors. No hematemesis, loose stools and on C. diff precautions due to new onset C. diff. Objective: VSS, afebrile, Temp Pulse Resp BP Pulse Ox 37.4 C 75 21 119/78 95 09/11/18 00:20 09/10/18 23:38 09/10/18 23:38 09/10/18 23:38 09/10/18 23:38 General Appearance: positive: Appears anxious and uncooperative, agitated and in mild-mod acute distress, Other (speech slowed, tremulous) Eyes Bilateral: positive: PERRL Eyes: OU Scleral icterus ENT: positive: Pharynx nml, Other (poor dentition, halotosis) Neck: positive: No JVD. negative: Stiff neck, Carotid bruit Respiratory: positive: Chest non-tender. negative: Wheezes, Rales, Rhonchi Cardiovascular: positive: Regular rate & rhythm. negative: Gallop/S4, Friction rub Abdomen: positive: Nml bowel sounds, Tenderness (diffuse, mild), Hepatomegaly. negative: Guarding, Rebound Skin: positive: Warm, Diaphoresis Extremities: positive: Non-tender, Pedal edema Neurologic/Psychiatric: positive: CN's nml (2-12), Disoriented to place, Disoriented to time, Slurred/abnml speech. negative: Motor nml (ataxia, tremors, asterixis); verbalizes poorly, spontaneously moving all limbs, agitated. Active Medications Generic Name Dose Route Start Last Admin Trade Name Freq PRN Reason Stop Dose Admin Famotidine 20 mg 09/11/18 09:00 Pepcid IVP BID OK Cefepime HCl 2 gm/ Sodium 100 mls @ 200 mls/hr 09/10/18 04:00 09/11/18 03:44 Chloride IV 200 mls/hr Q12H OK Administration Vancomycin HCl 1.25 gm/ Sodium 250 mls @ 167 mls/hr 09/10/18 04:00 09/10/18 20:20 Chloride IV Infused Q12H OK Infusion Multivitamins 10 ml/ Thiamine 1,011.2 mls @ 100 mls/hr 09/10/18 09:00 09/11/18 00:06 HCl 100 mg/ Folic Acid 1 mg/ IV 09/11/18 19:07 Infused Sodium Chloride DAILY OK Infusion Lorazepam 100 mls @ 5 mls/hr 09/11/18 04:00 Ativan IV .Q20H OK Protocol 5 MG/HR Ibuprofen 600 mg 09/10/18 08:41 09/10/18 14:45 Motrin PO 600 mg Q6HR PRN Administration Pain 1 to 4 Lactulose 10 gm 09/10/18 14:00 09/10/18 22:11 Enulose PO 10 gm TID OK Administration Lorazepam 2 mg 09/11/18 01:32 09/11/18 03:10 Ativan Inj (Vial) IVP 2 mg Q30M PRN Administration CIWA >8 Protocol Metronidazole 500 mg 09/10/18 17:00 09/11/18 01:53 Flagyl PO 500 mg Q8H OK Administration Ondansetron HCl 4 mg 09/09/18 15:58 09/09/18 18:47 Zofran Inj IVP 4 mg Q6HR PRN Administration Nausea / Vomiting Ondansetron HCl 4 mg 09/09/18 15:58 Zofran Odt TL Q6HR PRN Nausea / Vomiting Oxycodone HCl 5 mg 09/09/18 15:58 Roxicodone PO Q4HR PRN Pain 5 to 7 Polyethylene Glycol 17 gm 09/10/18 09:00 09/10/18 08:16 Miralax PO 17 gm DAILY OK Administration Propranolol HCl 10 mg 09/10/18 21:00 09/10/18 22:11 Inderal PO 10 mg BID OK Administration Rifaximin 550 mg 09/10/18 21:00 09/10/18 22:10 Xifaxan PO 550 mg BID OK Administration Sodium Chloride 10 ml 09/09/18 15:58 Normal Saline Flush 0.9% IVP PRN PRN NEEDED PER PROVIDER ORDERS Sodium Chloride 10 ml 09/09/18 17:00 09/11/18 03:11 Normal Saline Flush 0.9% IVP 10 ml 0100,0900,1700 OK Administration Sodium Phosphate 250 mg 09/10/18 08:00 09/10/18 17:01 K-Phos Neutral PO 250 mg TIDWM OK Administration Labs: Reviewed Imaging studies: reviewed Assessment: (1) Alcohol withdrawal Impression: Patient with severe DT's and at high risk for withdrawal seizures unresponsive to increased 2 mg IV q30min and with CIWA of 18. Would transfer to ICU and start an Ativan gtt, along with placing on 2 point reastraints. Would avoid Haldol as this has extrapyrimidal side effect and would create unwanted complications as patient is currently with severe DT's. Qualifiers: Complication of substance-induced condition: with delirium Qualified Code(s): F10.231 - Alcohol dependence with withdrawal delirium (2) Electrolyte abnormality Impression: Low phosph, potassium, Potassium replaced with IV fluids. Magnesium given a K rider. Will give oral solution since he seems to be more awake. ICU electrolyte protocol to start. (3) Alcoholic cirrhosis of liver without ascites Impression: He has esophageal varices, portal hypertension, thrombocytopenia with prolonged INR. Surprisingly no ASCITES, but at risk for worsening hepatic encephalopathy which would lower seizure threshold if he bleeds, also would watch for tense ascites as this may be a sign of SBP. Propanolol for portal HTN. (4) Fever Impression: Likely secondary to new onset C. diff. He is on empiric antibiotic therapy. Pyrexia noted, Urine and blood cultures to follow. Qualifiers: Fever type: due to other condition Qualified Code(s): R50.81 - Fever presenting with conditions classified elsewhere (5) Hepatic encephalopathy Impression: on lactulose, rifaximin.
[2018-09-11] MEDS: VANCOMYCIN INJ 1.25 GM in SODIUM CHLORIDE 0.9% 250 ML IV SCH (04:45)
[2018-09-11 06:17] LABS: EOSINOPHILS # (AUTO) 0.1 10^3/uL (0.0-0.7); EOSINOPHILS % (AUTO) 3.5 %; HGB - HEMOGLOBIN 11.5 g/dL (14.0-18.0); LYMPHOCYTES # (AUTO) 0.6 10^3/uL (1.5-3.5); MEAN CORPUSCULAR HEMOGLOBIN 35.2 pg (27.0-31.0); MEAN CORPUSCULAR HGB CONC 33.7 g/dL (32.0-36.0); MEAN CORPUSCULAR VOLUME 104.4 fL (80.0-94.0); MEAN PLATELET VOLUME 8.2 fL (7.4-11.4); MONOCYTES # (AUTO) 0.9 10^3/uL (0.0-1.0); NEUTROPHILS # (AUTO) 2.1 10^3/uL (1.5-6.6); NEUTROPHILS % (AUTO) 55.5 %; PLT - PLATELET COUNT 37 10^3/uL (130-450); RED BLOOD COUNT 3.28 10^6/uL (4.70-6.10); RED CELL DISTRIBUTION WIDTH 16.2 % (12.0-15.0); WHITE BLOOD COUNT 3.8 x10^3/uL (4.8-10.8)
[2018-09-11 06:38] LABS: ALBUMIN 2.9 g/dL (3.2-5.5); ALBUMIN/GLOBULIN RATIO 0.9 (1.0-2.2); CREATININE 0.8 mg/dL (0.6-1.2); TOTAL PROTEIN 6.1 g/dL (6.7-8.2)
[2018-09-11] MEDS: MULTIVITAMIN 10 ML, THIAMINE INJ 100 MG, FOLIC ACID INJ 1 MG in SODIUM CHLORIDE 0.9% 1,... IV SCH (09:00)
[2018-09-11] MEDS: SODIUM CHLORIDE 0.9% 500 ML IV PRN (10:15)
[2018-09-11] MEDS ORDERED: POTASSIUM CHLORIDE 20 MEQ/15 ML UDC PO ONE (10:17)
[2018-09-11] MEDS: POLYETHYLENE GLYCOL 3350 17 GM PACKET PO SCH (10:27)
[2018-09-11] MEDS: NEUTRA-PHOS 250 MG TABLET PO SCH ×3 (10:31→21:11)
[2018-09-11] MEDS: FAMOTIDINE 20 MG/2 ML VIAL IVP SCH ×2 (10:32→21:10)
[2018-09-11] MEDS: rifAXIMin 550 MG TABLET PO SCH (10:33)
[2018-09-11] MEDS: LACTULOSE 10 GM /15 ML UDC PO SCH ×3 (10:38→22:24)
[2018-09-11] MEDS ORDERED: MAGNESIUM OXIDE 400 MG TABLET PO SCH (12:00)
--- NOTE | 2018-09-11 12:05 | PROVIDER PROGRESS NOTE ---
Assessment/Plan - Problem List (1) Alcohol withdrawal Qualifiers: Complication of substance-induced condition: with delirium Qualified Code(s): F10.231 - Alcohol dependence with withdrawal delirium Assessment/Plan: Pt moved to ICU overnight to start iv Ativan drip for active alcohol withdrawal. (2) C. difficile diarrhea Assessment/Plan: Pt was started on po Flagyl and put on contact precautions yesterday. (3) Hypokalemia Assessment/Plan: Correct low K. Follow BMP daily. (4) Hypophosphatemia Assessment/Plan: Correct low PO4. Follow serum PO4 daily. (5) Alcoholic cirrhosis of liver without ascites Assessment/Plan: He has known esophageal varices, portal hypertension, thrombocytopenia and p rolonged INR. Not a Lovenox candidate. Follow CBC, LFTs, I's and O's daily. (6) Thrombocytopenia Assessment/Plan: Likely due to his alcohol abuse. He is not on Lovenox for DVT prophylaxis. He is on Pepcid iv for stress ulcer prophylaxis. He still has a risk of bleeding from potential varices and this thrombocytopenia. Follow CBC daily. (7) Fever Qualifiers: Fever type: unspecified Qualified Code(s): R50.9 - Fever, unspecified Assessment/Plan: The plan was to continue empiric iv antibiotics for 3 days, therefore iv Vanco will be continued today and tomorrow, awaiting cultures. - Current Meds Current Meds: Current Medications Generic Name Dose Route Start Last Admin Trade Name Freq PRN Reason Stop Dose Admin Famotidine 20 mg 09/11/18 09:00 09/11/18 10:32 Pepcid IVP 20 mg BID OK Administration Cefepime HCl 2 gm/ Sodium 100 mls @ 200 mls/hr 09/10/18 04:00 09/11/18 04:42 Chloride IV Infused Q12H OK Infusion Vancomycin HCl 1.25 gm/ Sodium 250 mls @ 167 mls/hr 09/10/18 04:00 09/11/18 06:30 Chloride IV Infused Q12H OK Infusion Multivitamins 10 ml/ Thiamine 1,011.2 mls @ 100 mls/hr 09/10/18 09:00 09/11/18 09:00 HCl 100 mg/ Folic Acid 1 mg/ IV 09/11/18 19:07 100 mls/hr Sodium Chloride DAILY OK Administration Lorazepam 100 mls @ 5 mls/hr 09/11/18 04:00 09/11/18 10:12 Ativan IV 5 mg/hr .Q20H OK 5 mls/hr Administration Protocol 5 MG/HR Sodium Chloride 500 mls @ 20 mls/hr 09/11/18 08:34 09/11/18 10:15 Normal Saline 0.9% IV 20 mls/hr Q24H PRN Administration TKO RATE Ibuprofen 600 mg 09/10/18 08:41 09/10/18 14:45 Motrin PO 600 mg Q6HR PRN Administration Pain 1 to 4 Lactulose 10 gm 09/10/18 14:00 09/11/18 10:38 Enulose PO 10 gm TID OK Administration Lorazepam 2 mg 09/11/18 01:32 09/11/18 05:52 Ativan Inj (Vial) IVP 2 mg Q30M PRN Administration CIWA >8 Protocol Metronidazole 500 mg 09/10/18 17:00 09/11/18 10:30 Flagyl PO 500 mg Q8H OK Administration Ondansetron HCl 4 mg 09/09/18 15:58 09/09/18 18:47 Zofran Inj IVP 4 mg Q6HR PRN Administration Nausea / Vomiting Polyethylene Glycol 17 gm 09/10/18 09:00 09/11/18 10:27 Miralax PO Not Given DAILY OK Propranolol HCl 10 mg 09/10/18 21:00 09/10/18 22:11 Inderal PO 10 mg BID OK Administration Rifaximin 550 mg 09/10/18 21:00 09/11/18 10:33 Xifaxan PO 550 mg BID OK Administration Sodium Chloride 10 ml 09/09/18 15:58 09/11/18 10:32 Normal Saline Flush 0.9% IVP 10 ml PRN PRN Administration NEEDED PER PROVIDER ORDERS Sodium Chloride 10 ml 09/09/18 17:00 09/11/18 05:52 Normal Saline Flush 0.9% IVP 10 ml 0100,0900,1700 OK Administration Sodium Phosphate 250 mg 09/10/18 08:00 09/11/18 10:31 K-Phos Neutral PO 250 mg TIDWM OK Administration - Lab Result Fish Bone Diagrams: 09/11/18 06:07 09/11/18 06:07 - Additional Planning My Orders: My Active Orders 09/11/18 08:17 Humphrey Insertion [RC] QSHIFT 09/11/18 08:18 Humphrey Continuation and Care [RC] QSSCFT 09/11/18 08:34 Sodium Chloride 0.9% [Normal Saline 0.9%] 500 ml IV Q24H 09/11/18 10:15 MRSA PCR,CCU ADMIT Routine 09/11/18 12:00 Magnesium Oxide [Mag Ox] 400 mg PO Q6H Potassium Phosphate 15 mmol Sodium Chloride 0.9% [Normal Saline 0.9%] 250 ml IV Q4H 09/11/18 12:30 Saccharomyces Boulardii [Florastor] 500 mg PO BIDWM 09/12/18 05:00 PHOSPHORUS [CHEM] DAILYLAB 09/13/18 05:00 PHOSPHORUS [CHEM] DAILYLAB 09/14/18 05:00 PHOSPHORUS [CHEM] DAILYLAB Subjective - Subjective Nursing Reports: Other (Somnolent, but awakens to eat and take meds) Objective Vital Signs: Vital Signs - 24 hr 09/10/18 09/10/18 09/10/18 14:39 15:50 23:38 Temperature 37.1 C 37.1 C Heart Rate [ 96 75 Brachial] Respiratory 24 21 Rate Blood Pressure 126/80 119/78 [Right Brachial artery] O2 Saturation 98 95 09/11/18 09/11/18 09/11/18 00:20 08:33 09:00 Temperature 37.4 C 37.8 C H Heart Rate [ 73 84 Brachial] Respiratory 18 18 Rate Blood Pressure 99/67 98/68 [Right Brachial artery] O2 Saturation 92 92 09/11/18 09/11/18 10:00 11:00 Temperature Heart Rate [ 92 99 Brachial] Respiratory 19 31 H Rate Blood Pressure 117/86 H 107/88 H [Right Brachial artery] O2 Saturation 98 97 Oxygen O2 Source Room air I&O (Last 24 Hrs): Intake and Output Totals x24h 09/09/18 09/10/18 09/11/18 23:59 23:59 23:59 Intake Total 4849.41 3690.000 1861.2 Output Total 500 1150 600 Balance 4349.41 2540.000 1261.2 General: Other (Somnolent) HEENT: Mucous membr. moist/pink, Other (Disheveled) Neuro: Non Focal Respiratory: No respiratory distress Abdomen: Soft Extremities: No edema - Results Results: Laboratory Results WBC 3.8 x10^3/uL (4.8-10.8) L 09/11/18 06:07 RBC 3.28 10^6/uL (4.70-6.10) L 09/11/18 06:07 Hgb 11.5 g/dL (14.0-18.0) L 09/11/18 06:07 Hct 34.2 % (42.0-52.0) L 09/11/18 06:07 MCV 104.4 fL (80.0-94.0) H 09/11/18 06:07 MCH 35.2 pg (27.0-31.0) H 09/11/18 06:07 MCHC 33.7 g/dL (32.0-36.0) 09/11/18 06:07 RDW 16.2 % (12.0-15.0) H 09/11/18 06:07 Plt Count 37 10^3/uL (130-450) L 09/11/18 06:07 MPV 8.2 fL (7.4-11.4) 09/11/18 06:07 Neut # (Auto) 2.1 10^3/uL (1.5-6.6) 09/11/18 06:07 Lymph # (Auto) 0.6 10^3/uL (1.5-3.5) L 09/11/18 06:07 [place] # (Auto) 0.9 10^3/uL (0.0-1.0) 09/11/18 06:07 Eos # (Auto) 0.1 10^3/uL (0.0-0.7) 09/11/18 06:07 Baso # (Auto) 0.0 10^3/uL (0.0-0.1) 09/11/18 06:07 Absolute Nucleated RBC 0.00 x10^3/uL 09/11/18 06:07 Nucleated RBC % 0.1 /100WBC 09/11/18 06:07 Manual Slide Review Indicated 09/10/18 05:01 Platelet Estimate DECREASED (<130,000) (NORMAL) 09/10/18 05:01 Platelet Morphology NORMAL APPEARANCE (NORMAL) 09/10/18 05:01 RBC Morph Micro Appear NORMAL APPEARANCE (NORMAL) 09/10/18 05:01 Sodium 137 mmol/L (135-145) 09/11/18 06:07 Potassium 3.1 mmol/L (3.5-5.0) L 09/11/18 06:07 Chloride 103 mmol/L (101-111) 09/11/18 06:07 Carbon Dioxide 22 mmol/L (21-32) 09/11/18 06:07 Anion Gap 12.0 (6-13) 09/11/18 06:07 BUN 6 mg/dL (6-20) 09/11/18 06:07 Creatinine 0.8 mg/dL (0.6-1.2) 09/11/18 06:07 Estimated GFR (MDRD) 99 (>89) 09/11/18 06:07 Glucose 91 mg/dL (70-100) 09/11/18 06:07 Lactic Acid 2.0 mmol/L (0.5-2.2) 09/10/18 05:01 Calcium 8.0 mg/dL (8.5-10.3) L 09/11/18 06:07 Phosphorus < 1.0 mg/dL (2.5-4.6) L* 09/11/18 05:00 Magnesium 1.6 mg/dL (1.7-2.8) L 09/11/18 05:00 Total Bilirubin 9.0 mg/dL (0.2-1.0) H 09/11/18 06:07 AST 201 IU/L (10-42) H 09/11/18 06:07 ALT 60 IU/L (10-60) 09/11/18 06:07 Alkaline Phosphatase 105 IU/L (42-121) 09/11/18 06:07 Ammonia 42.1 umol/L (7-35) H 09/11/18 06:07 Total Protein 6.1 g/dL (6.7-8.2) L 09/11/18 06:07 Albumin 2.9 g/dL (3.2-5.5) L 09/11/18 06:07 Globulin 3.2 g/dL (2.1-4.2) 09/11/18 06:07 Albumin/Globulin Ratio 0.9 (1.0-2.2) L 09/11/18 06:07 Lipase 46 U/L (22-51) 09/09/18 14:00 Urine Color DARK YELLOW 09/09/18 15:20 Urine Clarity CLEAR (CLEAR) 09/09/18 15:20 Urine pH 7.0 PH (5.0-7.5) 09/09/18 15:20 Ur Specific [place] 1.020 (1.002-1.030) 09/09/18 15:20 Urine Protein 100 mg/dL (NEGATIVE) H 09/09/18 15:20 Urine Glucose (UA) NEGATIVE mg/dL (NEGATIVE) 09/09/18 15:20 Urine Ketones 15 mg/dL (NEGATIVE) H 09/09/18 15:20 Urine Occult Blood MODERATE (NEGATIVE) H 09/09/18 15:20 Urine Nitrite NEGATIVE (NEGATIVE) 09/09/18 15:20 Urine Bilirubin MODERATE (NEGATIVE) H 09/09/18 15:20 Urine Urobilinogen >=8.0 E.U./dL (NORMAL) H 09/09/18 15:20 Ur Leukocyte Esterase NEGATIVE (NEGATIVE) 09/09/18 15:20 Urine RBC 11-25 /HPF (0-5) H 09/09/18 15:20 Urine WBC 6-10 /HPF (0-3) H 09/09/18 15:20 Ur Squamous Epith Cells NONE SEEN (<= Few) 09/09/18 15:20 Urine Bacteria None Seen /HPF (None Seen) 09/09/18 15:20 Urine Mucus Few Strands 09/09/18 15:20 Ur Microscopic Review INDICATED 09/09/18 15:20 Urine Culture Comments INDICATED 09/09/18 15:20 Urine Opiates Screen POSITIVE (NEGATIVE) H 09/09/18 15:20 Ur Oxycodone Screen NEGATIVE (NEGATIVE) 09/09/18 15:20 Urine Methadone Screen NEGATIVE (NEGATIVE) 09/09/18 15:20 Ur Propoxyphene Screen NEGATIVE (NEGATIVE) 09/09/18 15:20 Ur Barbiturates Screen NEGATIVE (NEGATIVE) 09/09/18 15:20 Ur Tricyclics Screen NEGATIVE (NEGATIVE) 09/09/18 15:20 Ur Phencyclidine Scrn NEGATIVE (NEGATIVE) 09/09/18 15:20 Ur Amphetamine Screen NEGATIVE (NEGATIVE) 09/09/18 15:20 U Methamphetamines Scrn NEGATIVE (NEGATIVE) 09/09/18 15:20 U Benzodiazepines Scrn NEGATIVE (NEGATIVE) 09/09/18 15:20 Urine Cocaine Screen NEGATIVE (NEGATIVE) 09/09/18 15:20 U Cannabinoids Screen NEGATIVE (NEGATIVE) 09/09/18 15:20 Ethyl Alcohol 149.0 mg/dL 09/09/18 14:00 C. difficile Tox B Gene POSITIVE (NEGATIVE) A* 09/10/18 12:57 Influenza A (Rapid) Negative (Negative) 09/09/18 14:00 Influenza B (Rapid) Negative (Negative) 09/09/18 14:00 - Procedures Procedures: Procedures DRAINAGE OF PERITONEAL CAVITY, PERCUTANEOUS APPROACH, DIAGN (07/27/17) Sepsis Event Note (H) - Evaluation Possible source of Sepsis: positive: Unknown
[2018-09-11] MEDS ORDERED: rifAXIMin 550 MG TABLET PO SCH ×2 (12:43→13:00)
[2018-09-11] MEDS: POTASSIUM PHOSPHATE 15 MMOL in SODIUM CHLORIDE 0.9% 250 ML IV SCH ×2 (13:39→17:36)
[2018-09-11] MEDS: PROPRANOLOL 10 MG TABLET PO SCH ×2 (13:40→21:10)
[2018-09-11] MEDS: SACCHAROMYCES BOULARDII 250 MG CAPSULE PO SCH ×2 (15:45→17:40)
[2018-09-11] MEDS: VANCOMYCIN INJ 1 GM, VANCOMYCIN INJ 250 MG in SODIUM CHLORIDE 0.9% 250 ML IV SCH (18:37)
[2018-09-11] MEDS: LORazepam 100MG/100ML D5W 100 ML IV SCH (20:00)
[2018-09-11] MEDS ORDERED: MAGNESIUM SULFATE 2 GRAM 2 GM/50 ML BAG IV ONE (22:00)
[2018-09-12] MEDS: SODIUM CHLORIDE 0.9% 1,000 ML IV SCH ×3 (00:44→16:30)
[2018-09-12] MEDS: metroNIDAZOLE 250 MG TABLET PO SCH ×3 (01:39→17:14)
[2018-09-12] MEDS ORDERED: POTASSIUM PHOSPHATE 15 MMOL in SODIUM CHLORIDE 0.9% 250 ML IV ONE (01:42)
[2018-09-12] MEDS: CEFEPIME 2 GM in SODIUM CHLORIDE 0.9% MINIBAG 100 ML IV SCH ×2 (04:27→15:50)
[2018-09-12 05:52] LABS: BASOPHILS # (AUTO) 0.1 10^3/uL (0.0-0.1); BASOPHILS % (AUTO) 1.1 %; EOSINOPHILS # (AUTO) 0.1 10^3/uL (0.0-0.7); EOSINOPHILS % (AUTO) 2.6 %; HGB - HEMOGLOBIN 11.8 g/dL (14.0-18.0); LYMPHOCYTES # (AUTO) 0.6 10^3/uL (1.5-3.5); LYMPHOCYTES % (AUTO) 12.5 %; MEAN CORPUSCULAR HEMOGLOBIN 35.7 pg (27.0-31.0); MEAN CORPUSCULAR HGB CONC 33.9 g/dL (32.0-36.0); MEAN CORPUSCULAR VOLUME 105.3 fL (80.0-94.0); MEAN PLATELET VOLUME 7.9 fL (7.4-11.4); MONOCYTES % (AUTO) 20.8 %; NEUTROPHILS # (AUTO) 3.1 10^3/uL (1.5-6.6); PLT - PLATELET COUNT 38 10^3/uL (130-450); RED BLOOD COUNT 3.31 10^6/uL (4.70-6.10); RED CELL DISTRIBUTION WIDTH 16.3 % (12.0-15.0); WHITE BLOOD COUNT 4.9 x10^3/uL (4.8-10.8)
[2018-09-12 05:58] LABS: ALBUMIN 2.5 g/dL (3.2-5.5); ALBUMIN/GLOBULIN RATIO 0.9 (1.0-2.2); BILIRUBIN,TOTAL 7.7 mg/dL (0.2-1.0); CALCIUM 7.4 mg/dL (8.5-10.3); CREATININE 0.8 mg/dL (0.6-1.2); PHOSPHORUS 3.5 mg/dL (2.5-4.6); TOTAL PROTEIN 5.4 g/dL (6.7-8.2)
[2018-09-12] MEDS: LACTULOSE 10 GM /15 ML UDC PO SCH ×3 (06:23→22:20)
[2018-09-12] MEDS: POTASSIUM CHLOR 10 MEQ/100 ML 10 MEQ/100 ML BAG IV SCH ×4 (07:30→10:50)
[2018-09-12 07:49] LABS: VANCOMYCIN,TROUGH 12.3 ug/mL (10.0-20.0)
[2018-09-12] MEDS: SODIUM CHLORIDE FLUSH 0.9% 10 ML SYRINGE IVP SCH ×2 (08:26→17:38)
[2018-09-12] MEDS: FAMOTIDINE 20 MG/2 ML VIAL IVP SCH ×2 (08:26→20:57)
[2018-09-12] MEDS: SACCHAROMYCES BOULARDII 250 MG CAPSULE PO SCH ×2 (08:54→17:13)
[2018-09-12] MEDS: NEUTRA-PHOS 250 MG TABLET PO SCH ×3 (08:54→17:14)
[2018-09-12] MEDS: PROPRANOLOL 10 MG TABLET PO SCH ×2 (08:54→20:57)
[2018-09-12] MEDS: POTASSIUM CHLORIDE 20 MEQ TABLET PO SCH ×2 (08:55→17:14)
[2018-09-12] MEDS: VANCOMYCIN INJ 1 GM, VANCOMYCIN INJ 250 MG in SODIUM CHLORIDE 0.9% 250 ML IV SCH ×2 (09:20→20:29)
[2018-09-12] MEDS: LORazepam 100MG/100ML D5W 100 ML IV SCH (10:20)
[2018-09-12] MEDS: SODIUM CHLORIDE 0.9% 500 ML IV PRN (11:15)
--- NOTE | 2018-09-12 15:01 | PROVIDER PROGRESS NOTE ---
Assessment/Plan - Problem List (1) Alcohol withdrawal Qualifiers: Complication of substance-induced condition: with delirium Qualified Code(s): F10.231 - Alcohol dependence with withdrawal delirium Assessment/Plan: Pt still hallucinating. Will keep in low Ativan drip for today and see if we can titrate down tomorrow. Continue Thiamine daily. (2) C. difficile diarrhea Assessment/Plan: Less volume of diarrhea today. He is able to swallow his po Flagyl, continue this and Florastor. (3) Hypokalemia Assessment/Plan: Electrolyte protocol in place for ICU nurses to replace but will also start po bid KCl. Follow BMP daily. (4) Hypophosphatemia Assessment/Plan: Follow intermittently and replace. (5) Alcoholic cirrhosis of liver without ascites Assessment/Plan: Cpntinue Lactulose and daily Ammonia level checks, alomg with Propranolol. His Rifaximin was stopped due to the C, diff (6) Thrombocytopenia Assessment/Plan: Related to his heavy alcohol intake. No evidence of bleeding. Monitor CBC daily. (7) Fever Qualifiers: Fever type: unspecified Qualified Code(s): R50.9 - Fever, unspecified Assessment/Plan: Today will be the final day of empiric cephalosporin and Vanco iv, if no cultures are pos. His fever has responded to management of his alcohol withdrawal. - Current Meds Current Meds: Current Medications Generic Name Dose Route Start Last Admin Trade Name Freq PRN Reason Stop Dose Admin Famotidine 20 mg 09/11/18 09:00 09/12/18 08:26 Pepcid IVP 20 mg BID OK Administration Cefepime HCl 2 gm/ Sodium 100 mls @ 200 mls/hr 09/10/18 04:00 09/12/18 05:00 Chloride IV Infused Q12H OK Infusion Sodium Chloride 500 mls @ 20 mls/hr 09/11/18 08:34 09/12/18 14:00 Normal Saline 0.9% IV 20 mls/hr Q24H PRN Infusion TKO RATE Lorazepam 100 mls @ 5 mls/hr 09/11/18 13:00 09/12/18 14:00 Ativan IV 4 mg/hr .Q20H OK 4 mls/hr Titration Protocol 5 MG/HR Vancomycin HCl 1 gm/ 250 mls @ 167 mls/hr 09/11/18 20:00 09/12/18 10:50 Vancomycin HCl 250 mg/ Sodium IV Infused Chloride Q12H OK Infusion Sodium Chloride 1,000 mls @ 125 mls/hr 09/12/18 01:00 09/12/18 14:00 Normal Saline 0.9% IV 125 mls/hr .Q8H OK Infusion Ibuprofen 600 mg 09/10/18 08:41 09/10/18 14:45 Motrin PO 600 mg Q6HR PRN Administration Pain 1 to 4 Lactulose 10 gm 09/10/18 14:00 09/12/18 14:21 Enulose PO Not Given TID OK Metronidazole 500 mg 09/10/18 17:00 09/12/18 08:55 Flagyl PO 500 mg Q8H OK Administration Ondansetron HCl 4 mg 09/09/18 15:58 09/09/18 18:47 Zofran Inj IVP 4 mg Q6HR PRN Administration Nausea / Vomiting Potassium Chloride 20 meq 09/12/18 08:32 09/12/18 08:55 K-Dur PO 20 meq BIDWM OK Administration Propranolol HCl 10 mg 09/11/18 12:59 09/12/18 08:54 Inderal PO 10 mg BID OK Administration Saccharomyces Boulardii 500 mg 09/11/18 12:30 09/12/18 08:54 Florastor PO 500 mg BIDWM OK Administration Sodium Chloride 10 ml 09/09/18 15:58 09/11/18 10:32 Normal Saline Flush 0.9% IVP 10 ml PRN PRN Administration NEEDED PER PROVIDER ORDERS Sodium Chloride 10 ml 09/09/18 17:00 09/12/18 08:26 Normal Saline Flush 0.9% IVP 10 ml 0100,0900,1700 OK Administration Sodium Phosphate 250 mg 09/11/18 21:00 09/12/18 12:29 K-Phos Neutral PO 250 mg TIDWM OK Administration - Lab Result Fish Bone Diagrams: 09/12/18 05:30 09/12/18 05:30 - Additional Planning My Orders: My Active Orders 09/11/18 14:50 Oxygen Therapy [RC] .PRN 09/12/18 08:32 Potassium Chloride [K-Dur] 20 meq PO BIDWM 09/13/18 05:00 MAGNESIUM [CHEM] DAILYLAB PHOSPHORUS [CHEM] DAILYLAB 09/14/18 05:00 PHOSPHORUS [CHEM] DAILYLAB Subjective - Subjective Patient Reports: Resting Comfortably, Other (He awoke and said "Hi" then fell back asleep.) Nursing Reports: Other (Eating most of his tray, takes his meds, was seeing things flying in the air.) Objective Vital Signs: Vital Signs - 24 hr 09/11/18 09/11/18 09/11/18 15:00 16:00 17:00 Temperature 36.9 C 37.0 C Heart Rate [ 90 84 87 Brachial] Respiratory 24 23 23 Rate Blood Pressure 150/75 H 106/75 99/60 [Right Brachial artery] O2 Saturation 95 95 93 09/11/18 09/11/18 09/11/18 18:00 19:00 20:00 Temperature 36.9 C 37.2 C 37.2 C Heart Rate [ 93 87 81 Brachial] Respiratory 25 H 23 22 Rate Blood Pressure 117/74 104/65 100/71 [Right Brachial artery] O2 Saturation 98 98 100 09/11/18 09/11/18 09/11/18 21:00 21:57 23:00 Temperature 36.9 C 36.9 C 36.9 C Heart Rate [ 86 96 84 Brachial] Respiratory 22 23 22 Rate Blood Pressure 86/68 L 112/77 97/67 [Right Brachial artery] O2 Saturation 93 99 93 09/12/18 09/12/18 09/12/18 00:00 01:00 02:00 Temperature 36.9 C 37.1 C 37.2 C Heart Rate [ 82 85 77 Brachial] Respiratory 21 22 22 Rate Blood Pressure 104/69 109/71 108/72 [Right Brachial artery] O2 Saturation 100 95 100 09/12/18 09/12/18 09/12/18 03:00 04:00 05:00 Temperature 37.2 C 37.3 C Heart Rate [ 74 95 88 Brachial] Respiratory 24 18 22 Rate Blood Pressure 106/72 129/88 H 105/77 [Right Brachial artery] O2 Saturation 100 91 L 09/12/18 09/12/18 09/12/18 06:00 06:58 08:00 Temperature 37.1 C 37.2 C Heart Rate [ 85 77 59 L Brachial] Respiratory 31 H 21 21 Rate Blood Pressure 112/79 114/74 115/76 [Right Brachial artery] O2 Saturation 97 97 95 03/27/19 03/27/19 03/27/19 09:00 10:00 11:00 Temperature 37.7 C H 37.7 C H 37.5 C Heart Rate [ 88 78 76 Brachial] Respiratory 20 29 H 23 Rate Blood Pressure 146/74 H 120/81 H 106/72 [Right Brachial artery] O2 Saturation 98 98 95 09/12/18 09/12/18 09/12/18 12:00 13:00 14:00 Temperature 37.4 C 37.5 C 37.7 C H Heart Rate [ 76 87 85 Brachial] Respiratory 23 22 24 Rate Blood Pressure 107/78 112/88 H 114/81 H [Right Brachial artery] O2 Saturation 95 97 96 Oxygen O2 Source Room air I&O (Last 24 Hrs): Intake and Output Totals x24h 09/10/18 09/11/18 09/12/18 23:59 23:59 23:59 Intake Total 3690.000 4552.049 4252.451 Output Total 1150 1787 1810 Balance 2540.000 2765.049 2442.451 General: Other (Somnolent byt arousable) Neck: Supple Neuro: Other (Somnolent, moves all extremities spontaneously) Cardiovascular: Normal S1 Respiratory: No respiratory distress Abdomen: Soft Extremities: No edema - Results Results: Laboratory Results WBC 4.9 x10^3/uL (4.8-10.8) 09/12/18 05:30 RBC 3.31 10^6/uL (4.70-6.10) L 09/12/18 05:30 Hgb 11.8 g/dL (14.0-18.0) L 09/12/18 05:30 Hct 34.9 % (42.0-52.0) L 09/12/18 05:30 MCV 105.3 fL (80.0-94.0) H 09/12/18 05:30 MCH 35.7 pg (27.0-31.0) H 09/12/18 05:30 MCHC 33.9 g/dL (32.0-36.0) 09/12/18 05:30 RDW 16.3 % (12.0-15.0) H 09/12/18 05:30 Plt Count 38 10^3/uL (130-450) L 09/12/18 05:30 MPV 7.9 fL (7.4-11.4) 09/12/18 05:30 Neut # (Auto) 3.1 10^3/uL (1.5-6.6) 09/12/18 05:30 Lymph # (Auto) 0.6 10^3/uL (1.5-3.5) L 09/12/18 05:30 [place] # (Auto) 1.0 10^3/uL (0.0-1.0) 09/12/18 05:30 Eos # (Auto) 0.1 10^3/uL (0.0-0.7) 09/12/18 05:30 Baso # (Auto) 0.1 10^3/uL (0.0-0.1) 09/12/18 05:30 Absolute Nucleated RBC 0.01 x10^3/uL 09/12/18 05:30 Nucleated RBC % 0.1 /100WBC 09/12/18 05:30 Manual Slide Review Indicated 09/10/18 05:01 Platelet Estimate DECREASED (<130,000) (NORMAL) 09/10/18 05:01 Platelet Morphology NORMAL APPEARANCE (NORMAL) 09/10/18 05:01 RBC Morph Micro Appear NORMAL APPEARANCE (NORMAL) 09/10/18 05:01 Sodium 141 mmol/L (135-145) 09/12/18 05:30 Potassium 3.0 mmol/L (3.5-5.0) L 09/12/18 05:30 Chloride 112 mmol/L (101-111) H 09/12/18 05:30 Carbon Dioxide 21 mmol/L (21-32) 09/12/18 05:30 Anion Gap 8.0 (6-13) 09/12/18 05:30 BUN 6 mg/dL (6-20) 09/12/18 05:30 Creatinine 0.8 mg/dL (0.6-1.2) 09/12/18 05:30 Estimated GFR (MDRD) 99 (>89) 09/12/18 05:30 Glucose 88 mg/dL (70-100) 09/12/18 05:30 Lactic Acid 2.0 mmol/L (0.5-2.2) 09/10/18 05:01 Calcium 7.4 mg/dL (8.5-10.3) L 09/12/18 05:30 Phosphorus 3.5 mg/dL (2.5-4.6) 09/12/18 05:30 Magnesium 2.3 mg/dL (1.7-2.8) 09/12/18 05:30 Total Bilirubin 7.7 mg/dL (0.2-1.0) H 09/12/18 05:30 AST 154 IU/L (10-42) H 09/12/18 05:30 ALT 56 IU/L (10-60) 09/12/18 05:30 Alkaline Phosphatase 98 IU/L (42-121) 09/12/18 05:30 Ammonia 28.3 umol/L (7-35) 09/12/18 05:30 Total Protein 5.4 g/dL (6.7-8.2) L 09/12/18 05:30 Albumin 2.5 g/dL (3.2-5.5) L 09/12/18 05:30 Globulin 2.9 g/dL (2.1-4.2) 09/12/18 05:30 Albumin/Globulin Ratio 0.9 (1.0-2.2) L 09/12/18 05:30 Lipase 46 U/L (22-51) 09/09/18 14:00 Urine Color DARK YELLOW 09/09/18 15:20 Urine Clarity CLEAR (CLEAR) 09/09/18 15:20 Urine pH 7.0 PH (5.0-7.5) 09/09/18 15:20 Ur Specific [place] 1.020 (1.002-1.030) 09/09/18 15:20 Urine Protein 100 mg/dL (NEGATIVE) H 09/09/18 15:20 Urine Glucose (UA) NEGATIVE mg/dL (NEGATIVE) 09/09/18 15:20 Urine Ketones 15 mg/dL (NEGATIVE) H 09/09/18 15:20 Urine Occult Blood MODERATE (NEGATIVE) H 09/09/18 15:20 Urine Nitrite NEGATIVE (NEGATIVE) 09/09/18 15:20 Urine Bilirubin MODERATE (NEGATIVE) H 09/09/18 15:20 Urine Urobilinogen >=8.0 E.U./dL (NORMAL) H 09/09/18 15:20 Ur Leukocyte Esterase NEGATIVE (NEGATIVE) 09/09/18 15:20 Urine RBC 11-25 /HPF (0-5) H 09/09/18 15:20 Urine WBC 6-10 /HPF (0-3) H 09/09/18 15:20 Ur Squamous Epith Cells NONE SEEN (<= Few) 09/09/18 15:20 Urine Bacteria None Seen /HPF (None Seen) 09/09/18 15:20 Urine Mucus Few Strands 09/09/18 15:20 Ur Microscopic Review INDICATED 09/09/18 15:20 Urine Culture Comments INDICATED 09/09/18 15:20 Nasal Screen MRSA (PCR) NEGATIVE (NEGATIVE) 09/11/18 10:15 Last Dose Date 09/11/18 09/12/18 07:25 Last Dose Time 235809/12/18 07:25 Vancomycin Trough 12.3 ug/mL (10.0-20.0) 09/12/18 07:25 Urine Opiates Screen POSITIVE (NEGATIVE) H 09/09/18 15:20 Ur Oxycodone Screen NEGATIVE (NEGATIVE) 09/09/18 15:20 Urine Methadone Screen NEGATIVE (NEGATIVE) 09/09/18 15:20 Ur Propoxyphene Screen NEGATIVE (NEGATIVE) 09/09/18 15:20 Ur Barbiturates Screen NEGATIVE (NEGATIVE) 09/09/18 15:20 Ur Tricyclics Screen NEGATIVE (NEGATIVE) 09/09/18 15:20 Ur Phencyclidine Scrn NEGATIVE (NEGATIVE) 09/09/18 15:20 Ur Amphetamine Screen NEGATIVE (NEGATIVE) 09/09/18 15:20 U Methamphetamines Scrn NEGATIVE (NEGATIVE) 09/09/18 15:20 U Benzodiazepines Scrn NEGATIVE (NEGATIVE) 09/09/18 15:20 Urine Cocaine Screen NEGATIVE (NEGATIVE) 09/09/18 15:20 U Cannabinoids Screen NEGATIVE (NEGATIVE) 09/09/18 15:20 Ethyl Alcohol 149.0 mg/dL 09/09/18 14:00 C. difficile Tox B Gene POSITIVE (NEGATIVE) A* 09/10/18 12:57 Influenza A (Rapid) Negative (Negative) 09/09/18 14:00 Influenza B (Rapid) Negative (Negative) 09/09/18 14:00 - Procedures Procedures: Procedures DRAINAGE OF PERITONEAL CAVITY, PERCUTANEOUS APPROACH, DIAGN (07/27/17) Sepsis Event Note (H) - Evaluation Possible source of Sepsis: positive: Unknown
[2018-09-12] MEDS ORDERED: SODIUM CHLORIDE 0.9% 500 ML IV PRN (16:00)
[2018-09-12] MEDS: ACETAMINOPHEN 1,000 MG/100 ML 100 ML IV PRN (17:11)
[2018-09-13] MEDS: metroNIDAZOLE 250 MG TABLET PO SCH ×3 (00:36→17:14)
[2018-09-13] MEDS: SODIUM CHLORIDE 0.9% 1,000 ML IV SCH ×4 (00:36→19:12)
[2018-09-13] MEDS: CEFEPIME 2 GM in SODIUM CHLORIDE 0.9% MINIBAG 100 ML IV SCH ×2 (04:30→15:58)
[2018-09-13] MEDS: SODIUM CHLORIDE FLUSH 0.9% 10 ML SYRINGE IVP SCH ×3 (05:10→17:14)
[2018-09-13] MEDS: LACTULOSE 10 GM /15 ML UDC PO SCH ×3 (06:02→21:39)
[2018-09-13 06:14] LABS: CALCIUM 7.3 mg/dL (8.5-10.3); CREATININE 0.7 mg/dL (0.6-1.2)
[2018-09-13] MEDS ORDERED: VANCOMYCIN 1 GM VIAL ONE (07:54)
[2018-09-13] MEDS ORDERED: VANCOMYCIN 500 MG VIAL ONE (07:54)
[2018-09-13] MEDS: VANCOMYCIN INJ 1 GM, VANCOMYCIN INJ 250 MG in SODIUM CHLORIDE 0.9% 250 ML IV SCH ×2 (08:15→21:38)
[2018-09-13] MEDS: FAMOTIDINE 20 MG/2 ML VIAL IVP SCH ×2 (08:17→21:39)
[2018-09-13] MEDS: POTASSIUM CHLORIDE 20 MEQ TABLET PO SCH ×2 (08:46→17:14)
[2018-09-13] MEDS: PROPRANOLOL 10 MG TABLET PO SCH ×2 (08:46→21:39)
[2018-09-13] MEDS: SACCHAROMYCES BOULARDII 250 MG CAPSULE PO SCH ×2 (08:46→17:14)
[2018-09-13] MEDS: NEUTRA-PHOS 250 MG TABLET PO SCH ×5 (08:47→17:14)
[2018-09-13] MEDS: ACETAMINOPHEN 1,000 MG/100 ML 100 ML IV PRN (11:10)
[2018-09-13] MEDS: THIAMINE 100 MG TABLET PO SCH (12:39)
[2018-09-13] MEDS ORDERED: SODIUM CHLORIDE 0.9% 500 ML IV PRN (13:46)
--- NOTE | 2018-09-13 16:54 | PROVIDER PROGRESS NOTE ---
Assessment/Plan - Problem List (1) Fever Qualifiers: Fever type: unspecified Qualified Code(s): R50.9 - Fever, unspecified Assessment/Plan: Still has nearly daily fever to as high as 38 C. WBC has never been elevated, possibly from bonne marrow suppression from alcohol, however. Will recycle blood cultures, obtain u/a with culture, do CXR and if those are unremarkable then obtain a CT abdomen. Humphrey to be DCd, since he will be awakening off Ativan. (2) Alcohol withdrawal Qualifiers: Complication of substance-induced condition: with delirium Qualified Code(s): F10.231 - Alcohol dependence with withdrawal delirium Assessment/Plan: Ativan iv drip to be weaned to off today. Pt may be able to come out of ICU tonight or tomorrow. (3) C. difficile diarrhea Assessment/Plan: Improved diarrhea. (4) Alcoholic cirrhosis of liver without ascites Assessment/Plan: Stable LFTs (5) Thrombocytopenia Assessment/Plan: Stable but severely depressed. No signs of bleeding. (6) Hypokalemia Assessment/Plan: Resolved with replacement. (7) Hypophosphatemia Assessment/Plan: Resolved with replacement. - Current Meds Current Meds: Current Medications Generic Name Dose Route Start Last Admin Trade Name Freq PRN Reason Stop Dose Admin Famotidine 20 mg 09/11/18 09:00 09/13/18 08:17 Pepcid IVP 20 mg BID OK Administration Cefepime HCl 2 gm/ Sodium 100 mls @ 200 mls/hr 09/10/18 04:00 09/13/18 15:58 Chloride IV 200 mls/hr Q12H OK Administration Sodium Chloride 500 mls @ 20 mls/hr 09/11/18 08:34 09/13/18 13:00 Normal Saline 0.9% IV Infused Q24H PRN Infusion TKO RATE Lorazepam 100 mls @ 5 mls/hr 09/11/18 13:00 09/13/18 12:00 Ativan IV 0 mg/hr .Q20H OK 0 mls/hr Titration Protocol 5 MG/HR Vancomycin HCl 1 gm/ 250 mls @ 167 mls/hr 09/11/18 20:00 09/13/18 09:45 Vancomycin HCl 250 mg/ Sodium IV Infused Chloride Q12H OK Infusion Sodium Chloride 1,000 mls @ 125 mls/hr 09/12/18 01:00 09/13/18 16:00 Normal Saline 0.9% IV 0 mls/hr .Q8H OK Infusion Acetaminophen 100 mls @ 400 mls/hr 09/12/18 15:31 09/13/18 11:25 Ofirmev IV Infused Q6HR PRN Infusion Pain or Fever > 38C (100.4F) Sodium Chloride 500 mls @ 20 mls/hr 09/12/18 16:00 09/12/18 17:30 Normal Saline 0.9% IV Infused Q24H PRN Infusion TKO RATE Sodium Chloride 500 mls @ 20 mls/hr 09/13/18 13:46 09/13/18 16:00 Normal Saline 0.9% IV 20 mls/hr Q24H PRN Infusion TKO RATE Ibuprofen 600 mg 09/10/18 08:41 09/10/18 14:45 Motrin PO 600 mg Q6HR PRN Administration Pain 1 to 4 Lactulose 10 gm 09/10/18 14:00 09/13/18 06:02 Enulose PO 10 gm TID OK Administration Metronidazole 500 mg 09/10/18 17:00 09/13/18 08:46 Flagyl PO 500 mg Q8H OK Administration Ondansetron HCl 4 mg 09/09/18 15:58 09/09/18 18:47 Zofran Inj IVP 4 mg Q6HR PRN Administration Nausea / Vomiting Potassium Chloride 20 meq 09/12/18 08:32 09/13/18 08:46 K-Dur PO 20 meq BIDWM OK Administration Propranolol HCl 10 mg 09/11/18 12:59 09/13/18 08:46 Inderal PO 10 mg BID OK Administration Saccharomyces Boulardii 500 mg 09/11/18 12:30 09/13/18 08:46 Florastor PO 500 mg BIDWM OK Administration Sodium Chloride 10 ml 09/09/18 15:58 09/11/18 10:32 Normal Saline Flush 0.9% IVP 10 ml PRN PRN Administration NEEDED PER PROVIDER ORDERS Sodium Chloride 10 ml 09/09/18 17:00 09/13/18 09:18 Normal Saline Flush 0.9% IVP 10 ml 0100,0900,1700 OK Administration Sodium Phosphate 250 mg 09/11/18 21:00 09/13/18 12:38 K-Phos Neutral PO 250 mg TIDWM OK Administration Thiamine HCl 100 mg 09/13/18 12:00 09/13/18 12:39 Vitamin B-1 PO 100 mg DAILY OK Administration - Lab Result Fish Bone Diagrams: 09/12/18 05:30 09/13/18 05:35 - Additional Planning My Orders: My Active Orders 09/12/18 16:00 Sodium Chloride 0.9% [Normal Saline 0.9%] 500 ml IV Q24H 09/13/18 08:19 Miscellaenous Nursing Order [RC] QSHIFT 09/13/18 12:00 Thiamine [Vitamin B-1] 100 mg PO DAILY 09/13/18 13:46 Sodium Chloride 0.9% [Normal Saline 0.9%] 500 ml IV Q24H 09/14/18 05:00 CBC - COMP BLD CT W/AUTO DIFF [HEME] DAILYLAB CMP [COMPREHENSIVE METABOLIC PANEL] [CHEM] DAILYLAB PHOSPHORUS [CHEM] DAILYLAB 09/15/18 05:00 CBC - COMP BLD CT W/AUTO DIFF [HEME] DAILYLAB CMP [COMPREHENSIVE METABOLIC PANEL] [CHEM] DAILYLAB 09/15/18 19:30 VANCOMYCIN TROUGH [CHEM] Timed Subjective - Subjective Patient Reports: No Complaints Nursing Reports: Other (Sleepy) Objective Vital Signs: Vital Signs - 24 hr 09/12/18 09/12/18 09/12/18 17:00 18:00 19:00 Temperature 38 C H 38.1 C H 37.9 C H Heart Rate [ 82 78 84 Brachial] Respiratory 28 H 25 H 22 Rate Blood Pressure 116/77 124/87 H 112/76 [Right Brachial artery] O2 Saturation 92 96 91 L 09/12/18 09/12/18 09/12/18 20:00 21:00 22:00 Temperature 37.6 C H 37.3 C 37.1 C Heart Rate [ 78 71 76 Brachial] Respiratory 25 H 18 23 Rate Blood Pressure 103/68 108/72 108/69 [Right Brachial artery] O2 Saturation 95 96 98 09/12/18 09/13/18 09/13/18 23:00 00:00 01:00 Temperature 36.9 C 36.9 C 37 C Heart Rate [ 65 76 92 Brachial] Respiratory 20 22 22 Rate Blood Pressure 103/68 103/72 119/79 [Right Brachial artery] O2 Saturation 97 96 98 09/13/18 09/13/18 09/13/18 02:00 03:00 04:00 Temperature 37.0 C 37 C 37.2 C Heart Rate [ 71 101 H 73 Brachial] Respiratory 22 21 23 Rate Blood Pressure 114/83 H 132/89 H 136/82 H [Right Brachial artery] O2 Saturation 98 97 98 09/13/18 09/13/18 09/13/18 05:00 06:00 07:00 Temperature 37.2 C 37.3 C 37.2 C Heart Rate [ 67 70 68 Brachial] Respiratory 21 23 25 H Rate Blood Pressure 117/80 126/85 H 127/90 H [Right Brachial artery] O2 Saturation 96 98 100 09/13/18 09/13/18 09/13/18 08:00 09:00 10:00 Temperature 37.4 C 37.5 C 37.8 C H Heart Rate [ 67 82 78 Brachial] Respiratory 26 H 26 H 27 H Rate Blood Pressure 133/87 H 134/96 H 132/93 H [Right Brachial artery] O2 Saturation 97 100 100 09/13/18 09/13/18 09/13/18 11:00 12:00 13:00 Temperature 38 C H 37.6 C H 37.5 C Heart Rate [ 77 87 79 Brachial] Respiratory 28 H 28 H 28 H Rate Blood Pressure 125/79 124/78 146/98 H [Right Brachial artery] O2 Saturation 98 97 97 09/13/18 16:00 Temperature 36.9 C Heart Rate [ 73 Brachial] Respiratory 13 Rate Blood Pressure 125/76 [Right Brachial artery] O2 Saturation 96 Oxygen O2 Source Room air I&O (Last 24 Hrs): Intake and Output Totals x24h 09/11/18 09/12/18 09/13/18 23:59 23:59 23:59 Intake Total 4552.383 6201.534 4462.953 Output Total 1787 2845 1305 Balance 2765.383 3356.534 3157.953 General: Other (Lethargic) HEENT: Mucous membr. moist/pink Neck: Supple Neuro: Other (Lethargic, feeds himself.) Cardiovascular: Regular rate Respiratory: No respiratory distress Extremities: No edema - Results Results: Laboratory Results WBC 4.9 x10^3/uL (4.8-10.8) 09/12/18 05:30 RBC 3.31 10^6/uL (4.70-6.10) L 09/12/18 05:30 Hgb 11.8 g/dL (14.0-18.0) L 09/12/18 05:30 Hct 34.9 % (42.0-52.0) L 09/12/18 05:30 MCV 105.3 fL (80.0-94.0) H 09/12/18 05:30 MCH 35.7 pg (27.0-31.0) H 09/12/18 05:30 MCHC 33.9 g/dL (32.0-36.0) 09/12/18 05:30 RDW 16.3 % (12.0-15.0) H 09/12/18 05:30 Plt Count 38 10^3/uL (130-450) L 09/12/18 05:30 MPV 7.9 fL (7.4-11.4) 09/12/18 05:30 Neut # (Auto) 3.1 10^3/uL (1.5-6.6) 09/12/18 05:30 Lymph # (Auto) 0.6 10^3/uL (1.5-3.5) L 09/12/18 05:30 [place] # (Auto) 1.0 10^3/uL (0.0-1.0) 09/12/18 05:30 Eos # (Auto) 0.1 10^3/uL (0.0-0.7) 09/12/18 05:30 Baso # (Auto) 0.1 10^3/uL (0.0-0.1) 09/12/18 05:30 Absolute Nucleated RBC 0.01 x10^3/uL 09/12/18 05:30 Nucleated RBC % 0.1 /100WBC 09/12/18 05:30 Manual Slide Review Indicated 09/10/18 05:01 Platelet Estimate DECREASED (<130,000) (NORMAL) 09/10/18 05:01 Platelet Morphology NORMAL APPEARANCE (NORMAL) 09/10/18 05:01 RBC Morph Micro Appear NORMAL APPEARANCE (NORMAL) 09/10/18 05:01 Sodium 143 mmol/L (135-145) 09/13/18 05:35 Potassium 3.6 mmol/L (3.5-5.0) 09/13/18 05:35 Chloride 115 mmol/L (101-111) H 09/13/18 05:35 Carbon Dioxide 21 mmol/L (21-32) 09/13/18 05:35 Anion Gap 7.0 (6-13) 09/13/18 05:35 BUN 8 mg/dL (6-20) 09/13/18 05:35 Creatinine 0.7 mg/dL (0.6-1.2) 09/13/18 05:35 Estimated GFR (MDRD) 115 (>89) 09/13/18 05:35 Glucose 85 mg/dL (70-100) 09/13/18 05:35 Lactic Acid 2.0 mmol/L (0.5-2.2) 09/10/18 05:01 Calcium 7.3 mg/dL (8.5-10.3) L 09/13/18 05:35 Phosphorus 2.1 mg/dL (2.5-4.6) L 09/13/18 05:35 Magnesium 1.8 mg/dL (1.7-2.8) 09/13/18 05:35 Total Bilirubin 7.7 mg/dL (0.2-1.0) H 09/12/18 05:30 AST 154 IU/L (10-42) H 09/12/18 05:30 ALT 56 IU/L (10-60) 09/12/18 05:30 Alkaline Phosphatase 98 IU/L (42-121) 09/12/18 05:30 Ammonia 31.6 umol/L (7-35) 09/13/18 05:35 Total Protein 5.4 g/dL (6.7-8.2) L 09/12/18 05:30 Albumin 2.2 g/dL (3.2-5.5) L 09/13/18 05:00 Globulin 2.9 g/dL (2.1-4.2) 09/12/18 05:30 Albumin/Globulin Ratio 0.9 (1.0-2.2) L 09/12/18 05:30 Lipase 46 U/L (22-51) 09/09/18 14:00 TSH 2.59 uIU/mL (0.34-5.60) 09/13/18 05:35 Urine Color DARK YELLOW 09/09/18 15:20 Urine Clarity CLEAR (CLEAR) 09/09/18 15:20 Urine pH 7.0 PH (5.0-7.5) 09/09/18 15:20 Ur Specific [place] 1.020 (1.002-1.030) 09/09/18 15:20 Urine Protein 100 mg/dL (NEGATIVE) H 09/09/18 15:20 Urine Glucose (UA) NEGATIVE mg/dL (NEGATIVE) 09/09/18 15:20 Urine Ketones 15 mg/dL (NEGATIVE) H 09/09/18 15:20 Urine Occult Blood MODERATE (NEGATIVE) H 09/09/18 15:20 Urine Nitrite NEGATIVE (NEGATIVE) 09/09/18 15:20 Urine Bilirubin MODERATE (NEGATIVE) H 09/09/18 15:20 Urine Urobilinogen >=8.0 E.U./dL (NORMAL) H 09/09/18 15:20 Ur Leukocyte Esterase NEGATIVE (NEGATIVE) 09/09/18 15:20 Urine RBC 11-25 /HPF (0-5) H 09/09/18 15:20 Urine WBC 6-10 /HPF (0-3) H 09/09/18 15:20 Ur Squamous Epith Cells NONE SEEN (<= Few) 09/09/18 15:20 Urine Bacteria None Seen /HPF (None Seen) 09/09/18 15:20 Urine Mucus Few Strands 09/09/18 15:20 Ur Microscopic Review INDICATED 09/09/18 15:20 Urine Culture Comments INDICATED 09/09/18 15:20 Nasal Screen MRSA (PCR) NEGATIVE (NEGATIVE) 09/11/18 10:15 Last Dose Date 09/11/18 09/12/18 07:25 Last Dose Time 235809/12/18 07:25 Vancomycin Trough 12.3 ug/mL (10.0-20.0) 09/12/18 07:25 Urine Opiates Screen POSITIVE (NEGATIVE) H 09/09/18 15:20 Ur Oxycodone Screen NEGATIVE (NEGATIVE) 09/09/18 15:20 Urine Methadone Screen NEGATIVE (NEGATIVE) 09/09/18 15:20 Ur Propoxyphene Screen NEGATIVE (NEGATIVE) 09/09/18 15:20 Ur Barbiturates Screen NEGATIVE (NEGATIVE) 09/09/18 15:20 Ur Tricyclics Screen NEGATIVE (NEGATIVE) 09/09/18 15:20 Ur Phencyclidine Scrn NEGATIVE (NEGATIVE) 09/09/18 15:20 Ur Amphetamine Screen NEGATIVE (NEGATIVE) 09/09/18 15:20 U Methamphetamines Scrn NEGATIVE (NEGATIVE) 09/09/18 15:20 U Benzodiazepines Scrn NEGATIVE (NEGATIVE) 09/09/18 15:20 Urine Cocaine Screen NEGATIVE (NEGATIVE) 09/09/18 15:20 U Cannabinoids Screen NEGATIVE (NEGATIVE) 09/09/18 15:20 Ethyl Alcohol 149.0 mg/dL 09/09/18 14:00 C. difficile Tox B Gene POSITIVE (NEGATIVE) A* 09/10/18 12:57 Influenza A (Rapid) Negative (Negative) 09/09/18 14:00 Influenza B (Rapid) Negative (Negative) 09/09/18 14:00 - Procedures Procedures: Procedures DRAINAGE OF PERITONEAL CAVITY, PERCUTANEOUS APPROACH, DIAGN (07/27/17) Sepsis Event Note (H) - Evaluation Possible source of Sepsis: positive: Unknown
[2018-09-13] MEDS ORDERED: LORazepam 2 MG/ML VIAL IVP PRN (23:14)
[2018-09-14] MEDS: metroNIDAZOLE 250 MG TABLET PO SCH ×3 (00:41→17:36)
[2018-09-14] MEDS: SODIUM CHLORIDE FLUSH 0.9% 10 ML SYRINGE IVP SCH ×4 (00:42→21:52)
[2018-09-14] MEDS: oxyCODONE 5 MG TABLET PO PRN ×2 (02:44→21:04)
[2018-09-14] MEDS: SODIUM CHLORIDE 0.9% 1,000 ML IV SCH ×2 (03:49→12:10)
[2018-09-14] MEDS: CEFEPIME 2 GM in SODIUM CHLORIDE 0.9% MINIBAG 100 ML IV SCH (03:49)
[2018-09-14 05:27] LABS: BASOPHILS % (AUTO) 0.8 %; EOSINOPHILS # (AUTO) 0.1 10^3/uL (0.0-0.7); EOSINOPHILS % (AUTO) 2.2 %; HGB - HEMOGLOBIN 12.1 g/dL (14.0-18.0); LYMPHOCYTES # (AUTO) 0.9 10^3/uL (1.5-3.5); LYMPHOCYTES % (AUTO) 14.4 %; MEAN CORPUSCULAR HEMOGLOBIN 36.1 pg (27.0-31.0); MEAN CORPUSCULAR HGB CONC 33.8 g/dL (32.0-36.0); MEAN CORPUSCULAR VOLUME 106.9 fL (80.0-94.0); MEAN PLATELET VOLUME 7.9 fL (7.4-11.4); MONOCYTES # (AUTO) 1.3 10^3/uL (0.0-1.0); MONOCYTES % (AUTO) 22.8 %; NEUTROPHILS # (AUTO) 3.5 10^3/uL (1.5-6.6); NEUTROPHILS % (AUTO) 59.8 %; PLT - PLATELET COUNT 58 10^3/uL (130-450); RED BLOOD COUNT 3.35 10^6/uL (4.70-6.10); RED CELL DISTRIBUTION WIDTH 17.9 % (12.0-15.0); WHITE BLOOD COUNT 5.9 x10^3/uL (4.8-10.8)
[2018-09-14 05:47] LABS: ALBUMIN 2.4 g/dL (3.2-5.5); ALBUMIN/GLOBULIN RATIO 0.8 (1.0-2.2); BILIRUBIN,TOTAL 9.5 mg/dL (0.2-1.0); CALCIUM 7.6 mg/dL (8.5-10.3); CREATININE 0.7 mg/dL (0.6-1.2); PHOSPHORUS 2.1 mg/dL (2.5-4.6); TOTAL PROTEIN 5.5 g/dL (6.7-8.2)
[2018-09-14] MEDS: ZINC OXIDE 20% OINT 28.35 GM TUBE TOP PRN ×4 (06:02→16:45)
[2018-09-14] MEDS: LACTULOSE 10 GM /15 ML UDC PO SCH ×3 (06:02→21:04)
[2018-09-14] MEDS: NEUTRA-PHOS 250 MG TABLET PO SCH ×5 (06:15→17:24)
[2018-09-14] MEDS: VANCOMYCIN INJ 1 GM, VANCOMYCIN INJ 250 MG in SODIUM CHLORIDE 0.9% 250 ML IV SCH (08:12)
[2018-09-14] MEDS ORDERED: LORazepam 2 MG/ML VIAL IVP PRN (09:21)
[2018-09-14] MEDS: SACCHAROMYCES BOULARDII 250 MG CAPSULE PO SCH ×2 (09:22→17:23)
[2018-09-14] MEDS: PROPRANOLOL 10 MG TABLET PO SCH ×2 (09:36→21:04)
[2018-09-14] MEDS: THIAMINE 100 MG TABLET PO SCH (09:36)
[2018-09-14] MEDS: POTASSIUM CHLORIDE 20 MEQ TABLET PO SCH ×2 (09:37→17:23)
[2018-09-14] MEDS: FAMOTIDINE 20 MG TABLET PO SCH ×2 (09:37→21:04)
--- NOTE | 2018-09-14 10:52 | XRAY Report ---
Reason: Fever, sedation, eval for aspiration pneumonia Procedure Date: 09/14/2018 Accession Number: [id number] / [id number] Procedure: XR - Chest 1 View X-Ray CPT Code: 70371 FULL RESULT: EXAM: CHEST RADIOGRAPHY EXAM DATE: 09/14/2018 09:11 AM. CLINICAL HISTORY: Fever, sedation, evaluate for aspiration pneumonia. COMPARISON: CHEST 1 VIEW 09/09/2018 7:06 PM. TECHNIQUE: 1 view. FINDINGS: Lungs/Pleura: Prominence of central vessels is redemonstrated. A trace amount of fluid is now seen in the horizontal fissure. Otherwise, no airspace consolidation is detected on the limited frontal view. No sizable pleural effusion or pneumothorax. Mediastinum: Essentially unchanged cardiomegaly with prominent pulmonary arteries. Other: None. IMPRESSION: Limited exam with suggestion of central vascular congestion. RADIA
[2018-09-14 11:29] LABS: GLUCOSE, URINE (UA) NEGATIVE (NEGATIVE); KETONES,URINE (UA) NEGATIVE (NEGATIVE); LEUKOCYTE ESTERASE, URINE NEGATIVE (NEGATIVE); NITRITE,URINE NEGATIVE (NEGATIVE); OCCULT BLOOD,URINE SMALL (NEGATIVE); PH,URINE 6.5 PH (5.0-7.5); PROTEIN,URINE NEGATIVE (NEGATIVE); UROBILINOGEN,URINE 0.2 (NORMAL) E.U./dL (NORMAL)
--- NOTE | 2018-09-14 11:38 | PROVIDER PROGRESS NOTE ---
Assessment/Plan - Problem List (1) FUO (fever of unknown origin) Assessment/Plan: Patient is not lucid enough to describe where he has symptoms to explain a fever CXR was done that showed vascular congestion, no infiltrate or atelectasis to explain fever. U/A is pending Stop empiric iv Cefepime and iv Vanco since no growth on any cultures. Possible CT abdomen to look for source of fever. Possible send stool for Salmonella, Shogella, etc. cultures (2) Alcohol withdrawal Qualifiers: Complication of substance-induced condition: with delirium Qualified Code(s): F10.231 - Alcohol dependence with withdrawal delirium Assessment/Plan: Ativan drip was stopped yesterday. Overnight he needed iv boluses of Ativan. This am he is more lethargic and confused than yesterday, when he was still on low dose iv Ativan drip. Will decrease and spread out Ativan prn use. Continue CIWA protocol (3) C. difficile diarrhea Assessment/Plan: CXR showed volume overload. Will decrease iv saline at 125cc/hr to TKO. Finish po Flagyl after a 5-7 day course. (4) Alcoholic cirrhosis of liver without ascites Assessment/Plan: LFTs are stable Thrombocytopenia is stable and no signs of bleeding (5) Thrombocytopenia Assessment/Plan: As above Monitor for bleeding and daily CBC (6) Hypophosphatemia Assessment/Plan: Replacing for low serum PO4 (7) Hypernatremia Assessment/Plan: Will decrease iv hydtation with saline to TKO. Monitor BMP daily. (8) Hypokalemia Assessment/Plan: Resolved on daily replacement - Current Meds Current Meds: Current Medications Generic Name Dose Route Start Last Admin Trade Name Freq PRN Reason Stop Dose Admin Famotidine 20 mg 09/14/18 10:15 09/14/18 09:37 Pepcid PO 20 mg BID OK Administration Sodium Chloride 500 mls @ 20 mls/hr 09/13/18 13:46 09/14/18 07:30 Normal Saline 0.9% IV Infused Q24H PRN Infusion TKO RATE Ibuprofen 600 mg 09/10/18 08:41 09/10/18 14:45 Motrin PO 600 mg Q6HR PRN Administration Pain 1 to 4 Lactulose 10 gm 09/10/18 14:00 09/14/18 06:02 Enulose PO 10 gm TID OK Administration Metronidazole 500 mg 09/10/18 17:00 09/14/18 09:37 Flagyl PO 500 mg Q8H OK Administration Multi-Ingredient Ointment 1 applic 09/14/18 01:44 09/14/18 10:52 Zinc Oxide TOP 1 applic PRN PRN Administration Skin Care Ondansetron HCl 4 mg 09/09/18 15:58 09/09/18 18:47 Zofran Inj IVP 4 mg Q6HR PRN Administration Nausea / Vomiting Oxycodone HCl 5 mg 09/09/18 15:58 09/14/18 02:44 Roxicodone PO 5 mg Q4HR PRN Administration Pain 5 to 7 Potassium Chloride 20 meq 09/12/18 08:32 09/14/18 09:37 K-Dur PO 20 meq BIDWM OK Administration Propranolol HCl 10 mg 09/11/18 12:59 09/14/18 09:36 Inderal PO 10 mg BID OK Administration Saccharomyces Boulardii 500 mg 09/11/18 12:30 09/14/18 09:22 Florastor PO 500 mg BIDWM OK Administration Sodium Chloride 10 ml 09/09/18 15:58 09/11/18 10:32 Normal Saline Flush 0.9% IVP 10 ml PRN PRN Administration NEEDED PER PROVIDER ORDERS Sodium Chloride 10 ml 09/09/18 17:00 09/14/18 09:39 Normal Saline Flush 0.9% IVP 10 ml 0100,0900,1700 OK Administration Sodium Phosphate 250 mg 09/11/18 21:00 09/14/18 09:23 K-Phos Neutral PO 250 mg TIDWM OK Administration Thiamine HCl 100 mg 09/13/18 12:00 09/14/18 09:36 Vitamin B-1 PO 100 mg DAILY OK Administration - Lab Result Fish Bone Diagrams: 09/14/18 05:00 09/14/18 05:00 - Additional Planning My Orders: My Active Orders 09/13/18 12:00 Thiamine [Vitamin B-1] 100 mg PO DAILY 09/13/18 13:46 Sodium Chloride 0.9% [Normal Saline 0.9%] 500 ml IV Q24H 09/13/18 17:21 CULTURE, BLOOD #1 [RM] Stat 09/13/18 17:31 CULTURE, BLOOD #2 [RM] Stat 09/14/18 01:44 Zinc Oxide 20% Oint [Zinc Oxide] 1 applic TOP PRN PRN 09/14/18 09:21 LORazepam INJ [Ativan Inj (Vial)] 0.5 mg IVP Q4H PRN 09/14/18 10:15 Famotidine [Pepcid] 20 mg PO BID 09/14/18 11:09 UA w/ MICROSCOPIC, CULT IF [URIN] Urgent 09/14/18 11:35 Sodium Chloride 0.9% [Normal Saline 0.9%] 1,000 ml IV 30 mls/hr 09/15/18 05:00 AMMONIA [CHEM] DAILYLAB CBC - COMP BLD CT W/AUTO DIFF [HEME] DAILYLAB CMP [COMPREHENSIVE METABOLIC PANEL] [CHEM] DAILYLAB PHOSPHORUS [CHEM] DAILYLAB 09/15/18 19:30 VANCOMYCIN TROUGH [CHEM] Timed 09/16/18 05:00 AMMONIA [CHEM] DAILYLAB Subjective - Subjective Nursing Reports: Other (Unable to feed himself, "air feeds") Objective Vital Signs: Vital Signs - 24 hr 09/13/18 09/13/18 09/13/18 12:00 13:00 16:00 Temperature 37.6 C H 37.5 C 36.9 C Heart Rate [ 87 79 73 Brachial] Respiratory 28 H 28 H 13 Rate Blood Pressure 124/78 146/98 H 125/76 [Right Brachial artery] O2 Saturation 97 97 96 09/13/18 09/13/18 09/13/18 17:00 18:00 19:00 Temperature 37 C 37.2 C 37.2 C Heart Rate [ 67 68 73 Brachial] Respiratory 16 30 H 22 Rate Blood Pressure 138/87 H 135/93 H 130/89 H [Right Brachial artery] O2 Saturation 97 95 94 09/13/18 09/13/18 09/13/18 20:00 21:00 22:00 Temperature 37.2 C 37.3 C 37.1 C Heart Rate [ 80 96 82 Brachial] Respiratory 28 H 21 25 H Rate Blood Pressure 145/95 H 130/97 H 123/100 H [Right Brachial artery] O2 Saturation 09/13/18 09/14/18 09/14/18 23:00 00:00 01:00 Temperature 37.2 C 37.2 C Heart Rate [ 69 66 64 Brachial] Respiratory 25 H 18 22 Rate Blood Pressure 144/95 H 140/87 H 140/85 H [Right Brachial artery] O2 Saturation 96 97 98 09/14/18 09/14/18 09/14/18 02:00 03:00 04:00 Temperature 37.2 C 37.2 C 37.2 C Heart Rate [ 66 63 73 Brachial] Respiratory 24 13 19 Rate Blood Pressure 128/85 H 127/81 H 118/90 H [Right Brachial artery] O2 Saturation 97 96 96 09/14/18 09/14/18 09/14/18 05:00 06:00 07:02 Temperature 36.8 C 36.8 C Heart Rate [ 72 70 69 Brachial] Respiratory 14 12 14 Rate Blood Pressure 139/107 H 124/94 H 119/89 H [Right Brachial artery] O2 Saturation 96 96 96 09/14/18 09/14/18 09/14/18 08:00 10:00 11:00 Temperature 36.9 C Heart Rate [ 62 65 73 Brachial] Respiratory 10 L 10 L 16 Rate Blood Pressure 131/85 H 130/86 H 138/96 H [Right Brachial artery] O2 Saturation 97 96 Oxygen O2 Source Room air I&O (Last 24 Hrs): Intake and Output Totals x24h 09/12/18 09/13/18 09/14/18 23:59 23:59 23:59 Intake Total 6201.534 6185.833 3426.25 Output Total 2845 1990 1825 Balance 3356.534 4195.833 1601.25 General: Other (Sleeping with eyes open) HEENT: Mucous membr. moist/pink, Other (Disheveled) Neck: Supple Neuro: Disoriented, Other (Moves all extremities) Cardiovascular: Regular rate Respiratory: No respiratory distress Abdomen: Soft Extremities: No edema - Results Results: Laboratory Results WBC 5.9 x10^3/uL (4.8-10.8) 09/14/18 05:00 RBC 3.35 10^6/uL (4.70-6.10) L 09/14/18 05:00 Hgb 12.1 g/dL (14.0-18.0) L 09/14/18 05:00 Hct 35.8 % (42.0-52.0) L 09/14/18 05:00 MCV 106.9 fL (80.0-94.0) H 09/14/18 05:00 MCH 36.1 pg (27.0-31.0) H 09/14/18 05:00 MCHC 33.8 g/dL (32.0-36.0) 09/14/18 05:00 RDW 17.9 % (12.0-15.0) H 09/14/18 05:00 Plt Count 58 10^3/uL (130-450) L 09/14/18 05:00 MPV 7.9 fL (7.4-11.4) 09/14/18 05:00 Neut # (Auto) 3.5 10^3/uL (1.5-6.6) 09/14/18 05:00 Lymph # (Auto) 0.9 10^3/uL (1.5-3.5) L 09/14/18 05:00 [place] # (Auto) 1.3 10^3/uL (0.0-1.0) H 09/14/18 05:00 Eos # (Auto) 0.1 10^3/uL (0.0-0.7) 09/14/18 05:00 Baso # (Auto) 0.0 10^3/uL (0.0-0.1) 09/14/18 05:00 Absolute Nucleated RBC 0.00 x10^3/uL 09/14/18 05:00 Nucleated RBC % 0.0 /100WBC 09/14/18 05:00 Manual Slide Review Indicated 09/10/18 05:01 Platelet Estimate DECREASED (<130,000) (NORMAL) 09/10/18 05:01 Platelet Morphology NORMAL APPEARANCE (NORMAL) 09/10/18 05:01 RBC Morph Micro Appear NORMAL APPEARANCE (NORMAL) 09/10/18 05:01 Sodium 146 mmol/L (135-145) H 09/14/18 05:00 Potassium 3.9 mmol/L (3.5-5.0) 09/14/18 05:00 Chloride 115 mmol/L (101-111) H 09/14/18 05:00 Carbon Dioxide 22 mmol/L (21-32) 09/14/18 05:00 Anion Gap 9.0 (6-13) 09/14/18 05:00 BUN 9 mg/dL (6-20) 09/14/18 05:00 Creatinine 0.7 mg/dL (0.6-1.2) 09/14/18 05:00 Estimated GFR (MDRD) 115 (>89) 09/14/18 05:00 Glucose 84 mg/dL (70-100) 09/14/18 05:00 Lactic Acid 2.0 mmol/L (0.5-2.2) 09/10/18 05:01 Calcium 7.6 mg/dL (8.5-10.3) L 09/14/18 05:00 Phosphorus 2.1 mg/dL (2.5-4.6) L 09/14/18 05:00 Magnesium 1.8 mg/dL (1.7-2.8) 09/14/18 05:00 Total Bilirubin 9.5 mg/dL (0.2-1.0) H 09/14/18 05:00 AST 100 IU/L (10-42) H 09/14/18 05:00 ALT 45 IU/L (10-60) 09/14/18 05:00 Alkaline Phosphatase 113 IU/L (42-121) 09/14/18 05:00 Ammonia 23.7 umol/L (7-35) 09/14/18 08:31 Total Protein 5.5 g/dL (6.7-8.2) L 09/14/18 05:00 Albumin 2.4 g/dL (3.2-5.5) L 09/14/18 05:00 Globulin 3.1 g/dL (2.1-4.2) 09/14/18 05:00 Albumin/Globulin Ratio 0.8 (1.0-2.2) L 09/14/18 05:00 Lipase 46 U/L (22-51) 09/09/18 14:00 TSH 2.59 uIU/mL (0.34-5.60) 09/13/18 05:35 Urine Color DARK YELLOW 09/09/18 15:20 Urine Clarity CLEAR (CLEAR) 09/09/18 15:20 Urine pH 7.0 PH (5.0-7.5) 09/09/18 15:20 Ur Specific [place] 1.020 (1.002-1.030) 09/09/18 15:20 Urine Protein 100 mg/dL (NEGATIVE) H 09/09/18 15:20 Urine Glucose (UA) NEGATIVE mg/dL (NEGATIVE) 09/09/18 15:20 Urine Ketones 15 mg/dL (NEGATIVE) H 09/09/18 15:20 Urine Occult Blood MODERATE (NEGATIVE) H 09/09/18 15:20 Urine Nitrite NEGATIVE (NEGATIVE) 09/09/18 15:20 Urine Bilirubin MODERATE (NEGATIVE) H 09/09/18 15:20 Urine Urobilinogen >=8.0 E.U./dL (NORMAL) H 09/09/18 15:20 Ur Leukocyte Esterase NEGATIVE (NEGATIVE) 09/09/18 15:20 Urine RBC 11-25 /HPF (0-5) H 09/09/18 15:20 Urine WBC 6-10 /HPF (0-3) H 09/09/18 15:20 Ur Squamous Epith Cells NONE SEEN (<= Few) 09/09/18 15:20 Urine Bacteria None Seen /HPF (None Seen) 09/09/18 15:20 Urine Mucus Few Strands 09/09/18 15:20 Ur Microscopic Review INDICATED 09/09/18 15:20 Urine Culture Comments INDICATED 09/09/18 15:20 Nasal Screen MRSA (PCR) NEGATIVE (NEGATIVE) 09/11/18 10:15 Last Dose Date 09/11/18 09/12/18 07:25 Last Dose Time 23509/12/18 07:25 Vancomycin Trough 12.3 ug/mL (10.0-20.0) 09/12/18 07:25 Urine Opiates Screen POSITIVE (NEGATIVE) H 09/09/18 15:20 Ur Oxycodone Screen NEGATIVE (NEGATIVE) 09/09/18 15:20 Urine Methadone Screen NEGATIVE (NEGATIVE) 09/09/18 15:20 Ur Propoxyphene Screen NEGATIVE (NEGATIVE) 09/09/18 15:20 Ur Barbiturates Screen NEGATIVE (NEGATIVE) 09/09/18 15:20 Ur Tricyclics Screen NEGATIVE (NEGATIVE) 09/09/18 15:20 Ur Phencyclidine Scrn NEGATIVE (NEGATIVE) 09/09/18 15:20 Ur Amphetamine Screen NEGATIVE (NEGATIVE) 09/09/18 15:20 U Methamphetamines Scrn NEGATIVE (NEGATIVE) 09/09/18 15:20 U Benzodiazepines Scrn NEGATIVE (NEGATIVE) 09/09/18 15:20 Urine Cocaine Screen NEGATIVE (NEGATIVE) 09/09/18 15:20 U Cannabinoids Screen NEGATIVE (NEGATIVE) 09/09/18 15:20 Ethyl Alcohol 149.0 mg/dL 09/09/18 14:00 C. difficile Tox B Gene POSITIVE (NEGATIVE) A* 09/10/18 12:57 Influenza A (Rapid) Negative (Negative) 09/09/18 14:00 Influenza B (Rapid) Negative (Negative) 09/09/18 14:00 - Procedures Procedures: Procedures DRAINAGE OF PERITONEAL CAVITY, PERCUTANEOUS APPROACH, DIAGN (07/27/17) Sepsis Event Note (H) - Evaluation Possible source of Sepsis: positive: Unknown
[2018-09-14 11:41] LABS: BILIRUBIN,URINE MODERATE (NEGATIVE); CLARITY,URINE CLEAR (CLEAR); ICTOTEST,URINE POSITIVE
[2018-09-14 11:53] LABS: BACTERIA,URINE Rare /HPF (None Seen); CASTS, URINE 3-5 Hyaline Casts /LPF; MUCUS,URINE Few Strands; SQUAMOUS EPITHELIAL CELL,UR RARE Squamous (<= Few)
[2018-09-14] MEDS: IBUPROFEN 600 MG TABLET PO PRN (17:24)
[2018-09-15] MEDS: metroNIDAZOLE 250 MG TABLET PO SCH ×3 (01:17→18:04)
[2018-09-15 05:32] LABS: BASOPHILS % (AUTO) 0.7 %; EOSINOPHILS # (AUTO) 0.1 10^3/uL (0.0-0.7); EOSINOPHILS % (AUTO) 1.9 %; HGB - HEMOGLOBIN 12.1 g/dL (14.0-18.0); LYMPHOCYTES # (AUTO) 0.8 10^3/uL (1.5-3.5); MEAN CORPUSCULAR HEMOGLOBIN 35.8 pg (27.0-31.0); MEAN CORPUSCULAR HGB CONC 33.2 g/dL (32.0-36.0); MEAN CORPUSCULAR VOLUME 107.8 fL (80.0-94.0); MEAN PLATELET VOLUME 7.6 fL (7.4-11.4); MONOCYTES # (AUTO) 1.6 10^3/uL (0.0-1.0); MONOCYTES % (AUTO) 22.8 %; NEUTROPHILS # (AUTO) 4.4 10^3/uL (1.5-6.6); NEUTROPHILS % (AUTO) 62.6 %; PLT - PLATELET COUNT 68 10^3/uL (130-450); RED BLOOD COUNT 3.37 10^6/uL (4.70-6.10); RED CELL DISTRIBUTION WIDTH 18.4 % (12.0-15.0)
[2018-09-15 05:42] LABS: ALBUMIN 2.4 g/dL (3.2-5.5); ALBUMIN/GLOBULIN RATIO 0.8 (1.0-2.2); BILIRUBIN,TOTAL 8.5 mg/dL (0.2-1.0); CALCIUM 8.1 mg/dL (8.5-10.3); CREATININE 0.7 mg/dL (0.6-1.2); PHOSPHORUS 2.8 mg/dL (2.5-4.6); TOTAL PROTEIN 5.5 g/dL (6.7-8.2)
[2018-09-15] MEDS: LACTULOSE 10 GM /15 ML UDC PO SCH ×3 (06:11→20:12)
[2018-09-15] MEDS ORDERED: LORazepam 2 MG/ML VIAL IVP PRN (08:09)
[2018-09-15] MEDS: FAMOTIDINE 20 MG TABLET PO SCH ×2 (08:47→20:12)
[2018-09-15] MEDS: POTASSIUM CHLORIDE 20 MEQ TABLET PO SCH ×2 (08:47→18:05)
[2018-09-15] MEDS: SACCHAROMYCES BOULARDII 250 MG CAPSULE PO SCH ×2 (08:47→18:05)
[2018-09-15] MEDS: NEUTRA-PHOS 250 MG TABLET PO SCH ×3 (08:47→18:05)
[2018-09-15] MEDS: PROPRANOLOL 10 MG TABLET PO SCH ×2 (08:48→20:11)
[2018-09-15] MEDS: THIAMINE 100 MG TABLET PO SCH (08:48)
[2018-09-15] MEDS: SODIUM CHLORIDE FLUSH 0.9% 10 ML SYRINGE IVP SCH ×3 (08:48→20:11)
--- NOTE | 2018-09-15 11:45 | PROVIDER PROGRESS NOTE ---
Assessment/Plan - Problem List (1) FUO (fever of unknown origin) Assessment/Plan: No fever for 24 hours, when the empiric antibiotics were stopped. Perhaps he had a drug fever. Await the culture results that were resent yesterday. (2) Alcohol withdrawal Qualifiers: Complication of substance-induced condition: with unspecified complication Qualified Code(s): F10.239 - Alcohol dependence with withdrawal, unspecified Assessment/Plan: The Ativan doses are being decreased and stretched out, in order to allow him to awaken more. Will ask for PT today, and OOB to chair. He may be out of ICU to Medr bed. Will decrease CIWA scoring from hourly to q4h. (3) C. difficile diarrhea Assessment/Plan: BMs decreasing Pt on Day #5 of Flagyl (4) Alcoholic cirrhosis of liver without ascites Assessment/Plan: Continue Lactulose and Rifaximin. Monitor Ammonia level (5) Thrombocytopenia Assessment/Plan: Abnormal but stable. No signs of bleeding. (6) Hypophosphatemia Assessment/Plan: Pt on scheduled replacement. (7) Hypernatremia Assessment/Plan: Resolved (8) Hypokalemia Assessment/Plan: Resolved - Current Meds Current Meds: Current Medications Generic Name Dose Route Start Last Admin Trade Name Freq PRN Reason Stop Dose Admin Famotidine 20 mg 09/14/18 10:15 09/15/18 08:47 Pepcid PO 20 mg BID OK Administration Sodium Chloride 500 mls @ 20 mls/hr 09/13/18 13:46 09/14/18 07:30 Normal Saline 0.9% IV Infused Q24H PRN Infusion TKO RATE Sodium Chloride 1,000 mls @ 30 mls/hr 09/14/18 11:35 09/15/18 11:00 Normal Saline 0.9% IV 30 mls/hr .[id number] OK Infusion Ibuprofen 600 mg 09/10/18 08:41 09/14/18 17:24 Motrin PO 600 mg Q6HR PRN Administration Pain 1 to 4 Lactulose 10 gm 09/10/18 14:00 09/15/18 06:11 Enulose PO 10 gm TID OK Administration Metronidazole 500 mg 09/10/18 17:00 09/15/18 08:47 Flagyl PO 500 mg Q8H OK Administration Multi-Ingredient Ointment 1 applic 03/29/19 01:44 09/14/18 16:45 Zinc Oxide TOP 1 applic PRN PRN Administration Skin Care Ondansetron HCl 4 mg 09/09/18 15:58 09/09/18 18:47 Zofran Inj IVP 4 mg Q6HR PRN Administration Nausea / Vomiting Oxycodone HCl 5 mg 09/09/18 15:58 09/14/18 21:04 Roxicodone PO 5 mg Q4HR PRN Administration Pain 5 to 7 Potassium Chloride 20 meq 09/12/18 08:32 09/15/18 08:47 K-Dur PO 20 meq BIDWM OK Administration Propranolol HCl 10 mg 09/11/18 12:59 09/15/18 08:48 Inderal PO 10 mg BID OK Administration Saccharomyces Boulardii 500 mg 09/11/18 12:30 09/15/18 08:47 Florastor PO 500 mg BIDWM OK Administration Sodium Chloride 10 ml 09/09/18 15:58 09/11/18 10:32 Normal Saline Flush 0.9% IVP 10 ml PRN PRN Administration NEEDED PER PROVIDER ORDERS Sodium Chloride 10 ml 09/09/18 17:00 09/15/18 08:48 Normal Saline Flush 0.9% IVP 10 ml 0100,0900,1700 OK Administration Sodium Phosphate 250 mg 09/11/18 21:00 09/15/18 08:47 K-Phos Neutral PO 250 mg TIDWM OK Administration Thiamine HCl 100 mg 09/13/18 12:00 09/15/18 08:48 Vitamin B-1 PO 100 mg DAILY OK Administration - Lab Result Fish Bone Diagrams: 09/15/18 05:23 09/15/18 05:23 - Additional Planning My Orders: My Active Orders 09/14/18 11:35 Sodium Chloride 0.9% [Normal Saline 0.9%] 1,000 ml IV 30 mls/hr 09/15/18 08:09 LORazepam INJ [Ativan Inj (Vial)] 0.5 mg IVP Q6H PRN 09/15/18 19:30 VANCOMYCIN TROUGH [CHEM] Timed 09/16/18 05:00 AMMONIA [CHEM] DAILYLAB Objective Vital Signs: Vital Signs - 24 hr 09/14/18 09/14/18 09/14/18 12:00 12:24 13:00 Temperature 37.1 C Heart Rate [ 64 65 Brachial] Heart Rate [ Monitoring electrodes] Respiratory 11 L 11 L Rate Blood Pressure 126/85 H 131/91 H [Right Brachial artery] O2 Saturation 97 95 09/14/18 09/14/18 09/14/18 14:00 15:00 16:00 Temperature 36.2 C L Heart Rate [ 70 Brachial] Heart Rate [ 64 70 Monitoring electrodes] Respiratory 16 11 L 14 Rate Blood Pressure 123/78 131/94 H [Right Brachial artery] O2 Saturation 98 97 97 09/14/18 09/14/18 09/14/18 17:00 18:00 19:00 Temperature Heart Rate [ Brachial] Heart Rate [ 74 67 67 Monitoring electrodes] Respiratory 16 12 11 L Rate Blood Pressure 160/95 H 124/81 H 116/79 [Right Brachial artery] O2 Saturation 97 95 98 09/14/18 09/14/18 09/14/18 20:00 21:00 22:00 Temperature 36.6 C Heart Rate [ Brachial] Heart Rate [ 80 65 674 H Monitoring electrodes] Respiratory 11 L 14 11 L Rate Blood Pressure 134/87 H 121/90 H 127/86 H [Right Brachial artery] O2 Saturation 98 96 99 09/14/18 09/15/18 09/15/18 23:08 00:00 01:00 Temperature 36.8 C Heart Rate [ Brachial] Heart Rate [ 74 64 67 Monitoring electrodes] Respiratory 21 10 L 7 L Rate Blood Pressure 123/83 H 115/74 120/82 H [Right Brachial artery] O2 Saturation 99 95 97 09/15/18 09/15/18 09/15/18 02:00 03:00 04:00 Temperature 36.3 C L 36.3 C L Heart Rate [ Brachial] Heart Rate [ 56 L 61 53 L Monitoring electrodes] Respiratory 8 L 9 L 9 L Rate Blood Pressure 111/59 L 141/89 H 112/78 [Right Brachial artery] O2 Saturation 97 99 97 09/15/18 09/15/18 09/15/18 05:00 06:00 07:00 Temperature Heart Rate [ Brachial] Heart Rate [ 60 58 L 57 L Monitoring electrodes] Respiratory 8 L 13 Rate Blood Pressure 120/80 111/87 H 115/75 [Right Brachial artery] O2 Saturation 99 99 09/15/18 09/15/18 09/15/18 08:00 09:00 10:00 Temperature 36.6 C Heart Rate [ Brachial] Heart Rate [ 53 L 71 62 Monitoring electrodes] Respiratory 20 12 Rate Blood Pressure 117/99 H 139/87 H 113/93 H [Right Brachial artery] O2 Saturation 99 98 09/15/18 11:00 Temperature Heart Rate [ Brachial] Heart Rate [ 67 Monitoring electrodes] Respiratory 12 Rate Blood Pressure 114/85 H [Right Brachial artery] O2 Saturation 94 Oxygen O2 Source Room air I&O (Last 24 Hrs): Intake and Output Totals x24h 09/13/18 09/14/18 09/15/18 23:59 23:59 23:59 Intake Total 6185.833 5083.00 1367 Output Total 1989 2485 900 Balance 4195.833 2598.00 467 General: Other (Sleepy, but awoke to walk with PT.) HEENT: Mucous membr. moist/pink, Other (Disheveled) Neck: Supple Neuro: Disoriented, Other (Lethargic) Cardiovascular: Regular rate Respiratory: No respiratory distress Abdomen: Soft Extremities: No edema - Results Results: Laboratory Results WBC 7.0 x10^3/uL (4.8-10.8) 09/15/18 05:23 RBC 3.37 10^6/uL (4.70-6.10) L 09/15/18 05:23 Hgb 12.1 g/dL (14.0-18.0) L 09/15/18 05:23 Hct 36.4 % (42.0-52.0) L 09/15/18 05:23 MCV 107.8 fL (80.0-94.0) H 09/15/18 05:23 MCH 35.8 pg (27.0-31.0) H 09/15/18 05:23 MCHC 33.2 g/dL (32.0-36.0) 09/15/18 05:23 RDW 18.4 % (12.0-15.0) H 09/15/18 05:23 Plt Count 68 10^3/uL (130-450) L 09/15/18 05:23 MPV 7.6 fL (7.4-11.4) 09/15/18 05:23 Neut # (Auto) 4.4 10^3/uL (1.5-6.6) 09/15/18 05:23 Lymph # (Auto) 0.8 10^3/uL (1.5-3.5) L 09/15/18 05:23 [place] # (Auto) 1.6 10^3/uL (0.0-1.0) H 09/15/18 05:23 Eos # (Auto) 0.1 10^3/uL (0.0-0.7) 09/15/18 05:23 Baso # (Auto) 0.0 10^3/uL (0.0-0.1) 09/15/18 05:23 Absolute Nucleated RBC 0.00 x10^3/uL 09/15/18 05:23 Nucleated RBC % 0.0 /100WBC 09/15/18 05:23 Manual Slide Review Indicated 09/10/18 05:01 Platelet Estimate DECREASED (<130,000) (NORMAL) 09/10/18 05:01 Platelet Morphology NORMAL APPEARANCE (NORMAL) 09/10/18 05:01 RBC Morph Micro Appear NORMAL APPEARANCE (NORMAL) 09/10/18 05:01 Sodium 140 mmol/L (135-145) 09/15/18 05:23 Potassium 4.0 mmol/L (3.5-5.0) 09/15/18 05:23 Chloride 108 mmol/L (101-111) 09/15/18 05:23 Carbon Dioxide 24 mmol/L (21-32) 09/15/18 05:23 Anion Gap 8.0 (6-13) 09/15/18 05:23 BUN 10 mg/dL (6-20) 09/15/18 05:23 Creatinine 0.7 mg/dL (0.6-1.2) 09/15/18 05:23 Estimated GFR (MDRD) 115 (>89) 09/15/18 05:23 Glucose 83 mg/dL (70-100) 09/15/18 05:23 Lactic Acid 2.0 mmol/L (0.5-2.2) 09/10/18 05:01 Calcium 8.1 mg/dL (8.5-10.3) L 09/15/18 05:23 Phosphorus 2.8 mg/dL (2.5-4.6) 09/15/18 05:23 Magnesium 1.8 mg/dL (1.7-2.8) 09/14/18 05:00 Total Bilirubin 8.5 mg/dL (0.2-1.0) H 09/15/18 05:23 AST 87 IU/L (10-42) H 09/15/18 05:23 ALT 42 IU/L (10-60) 09/15/18 05:23 Alkaline Phosphatase 115 IU/L (42-121) 09/15/18 05:23 Ammonia 35.3 umol/L (7-35) H 09/15/18 05:23 Total Protein 5.5 g/dL (6.7-8.2) L 09/15/18 05:23 Albumin 2.4 g/dL (3.2-5.5) L 09/15/18 05:23 Globulin 3.1 g/dL (2.1-4.2) 09/15/18 05:23 Albumin/Globulin Ratio 0.8 (1.0-2.2) L 09/15/18 05:23 Lipase 46 U/L (22-51) 09/09/18 14:00 TSH 2.59 uIU/mL (0.34-5.60) 09/13/18 05:35 Urine Color DARK YELLOW 09/14/18 11:09 Urine Clarity CLEAR (CLEAR) 09/14/18 11:09 Urine pH 6.5 PH (5.0-7.5) 09/14/18 11:09 Ur Specific [place] 1.025 (1.002-1.030) 09/14/18 11:09 Urine Protein NEGATIVE mg/dL (NEGATIVE) 09/14/18 11:09 Urine Glucose (UA) NEGATIVE mg/dL (NEGATIVE) 09/14/18 11:09 Urine Ketones NEGATIVE mg/dL (NEGATIVE) 09/14/18 11:09 Urine Occult Blood SMALL (NEGATIVE) H 09/14/18 11:09 Urine Nitrite NEGATIVE (NEGATIVE) 09/14/18 11:09 Urine Bilirubin MODERATE (NEGATIVE) H 09/14/18 11:09 Urine Urobilinogen 0.2 (NORMAL) E.U./dL (NORMAL) 09/14/18 11:09 Ur Leukocyte Esterase NEGATIVE (NEGATIVE) 09/14/18 11:09 Urine RBC 6-10 /HPF (0-5) H 09/14/18 11:09 Urine WBC 0-3 /HPF (0-3) 09/14/18 11:09 Ur Squamous Epith Cells RARE Squamous (<= Few) 09/14/18 11:09 Urine Bacteria Rare /HPF (None Seen) 09/14/18 11:09 Urine Casts 3-5 Hyaline Casts /LPF 09/14/18 11:09 Urine Mucus Few Strands 09/14/18 11:09 Ur Microscopic Review INDICATED 09/09/18 15:20 Urine Culture Comments NOT INDICATED 09/14/18 11:09 Nasal Screen MRSA (PCR) NEGATIVE (NEGATIVE) 09/11/18 10:15 Last Dose Date 09/11/18 09/12/18 07:25 Last Dose Time 235809/12/18 07:25 Vancomycin Trough 12.3 ug/mL (10.0-20.0) 09/12/18 07:25 Urine Opiates Screen POSITIVE (NEGATIVE) H 09/09/18 15:20 Ur Oxycodone Screen NEGATIVE (NEGATIVE) 09/09/18 15:20 Urine Methadone Screen NEGATIVE (NEGATIVE) 09/09/18 15:20 Ur Propoxyphene Screen NEGATIVE (NEGATIVE) 09/09/18 15:20 Ur Barbiturates Screen NEGATIVE (NEGATIVE) 09/09/18 15:20 Ur Tricyclics Screen NEGATIVE (NEGATIVE) 09/09/18 15:20 Ur Phencyclidine Scrn NEGATIVE (NEGATIVE) 09/09/18 15:20 Ur Amphetamine Screen NEGATIVE (NEGATIVE) 09/09/18 15:20 U Methamphetamines Scrn NEGATIVE (NEGATIVE) 09/09/18 15:20 U Benzodiazepines Scrn NEGATIVE (NEGATIVE) 09/09/18 15:20 Urine Cocaine Screen NEGATIVE (NEGATIVE) 09/09/18 15:20 U Cannabinoids Screen NEGATIVE (NEGATIVE) 09/09/18 15:20 Ethyl Alcohol 149.0 mg/dL 09/09/18 14:00 C. difficile Tox B Gene POSITIVE (NEGATIVE) A* 09/10/18 12:57 Influenza A (Rapid) Negative (Negative) 09/09/18 14:00 Influenza B (Rapid) Negative (Negative) 09/09/18 14:00 - Procedures Procedures: Procedures DRAINAGE OF PERITONEAL CAVITY, PERCUTANEOUS APPROACH, DIAGN (07/27/17) Sepsis Event Note (H) - Evaluation Possible source of Sepsis: positive: Unknown
[2018-09-15] MEDS: SODIUM CHLORIDE 0.9% 1,000 ML IV SCH (20:11)
--- NOTE | 2018-09-15 21:28 | CT Report ---
Reason: lethargic/ obtunded Procedure Date: 09/15/2018 Accession Number: [id number] / [id number] Procedure: CT - HEAD WO CPT Code: FULL RESULT: EXAM: CT HEAD EXAM DATE: 09/15/2018 08:06 PM. CLINICAL HISTORY: Lethargic/ obtunded. COMPARISON: HEAD W/O 07/12/2017 9:25 AM. TECHNIQUE: Multiaxial CT images were obtained from the foramen magnum to the vertex. Reformats: Sagittal and coronal. IV contrast: None. In accordance with CT protocol optimization, one or more of the following dose reduction techniques were utilized for this exam: automated exposure control, adjustment of mA and/or KV based on patient size, or use of iterative reconstructive technique. FINDINGS: Parenchyma: No mass-effect or midline shift. No evidence for edema. No intracranial hemorrhage. Mild bilateral chronic microangiopathic white matter changes are evident. Extraaxial Spaces: Normal for age. No subdural or epidural collections identified. Ventricles: The ventricles and cortical sulci are prominent, consistent with age-related tissue loss. Sinuses and orbits: No acute findings. Mild right maxillary sinus small mucous retention cysts or mucosal thickening at the inferior aspect, unchanged. Bones: No evidence of fracture or calvarial defect. IMPRESSION: Generalized age-related cortical atrophic changes without evidence of acute intracranial abnormality. RADIA
[2018-09-16] MEDS: metroNIDAZOLE 250 MG TABLET PO SCH ×2 (01:25→08:23)
[2018-09-16] MEDS: LACTULOSE 10 GM /15 ML UDC PO SCH ×3 (05:27→22:38)
[2018-09-16] MEDS: NEUTRA-PHOS 250 MG TABLET PO SCH ×3 (08:22→17:23)
[2018-09-16] MEDS: POTASSIUM CHLORIDE 20 MEQ TABLET PO SCH ×2 (08:23→17:23)
[2018-09-16] MEDS: PROPRANOLOL 10 MG TABLET PO SCH (08:23)
[2018-09-16] MEDS: THIAMINE 100 MG TABLET PO SCH (08:23)
[2018-09-16] MEDS: FAMOTIDINE 20 MG TABLET PO SCH ×2 (08:23→21:43)
[2018-09-16] MEDS: SODIUM CHLORIDE FLUSH 0.9% 10 ML SYRINGE IVP SCH ×2 (08:23→17:23)
[2018-09-16] MEDS: SACCHAROMYCES BOULARDII 250 MG CAPSULE PO SCH ×2 (08:23→17:23)
--- NOTE | 2018-09-16 09:08 | PROVIDER PROGRESS NOTE ---
Assessment/Plan - Problem List (1) Alcohol withdrawal Qualifiers: Complication of substance-induced condition: with unspecified complication Qualified Code(s): F10.239 - Alcohol dependence with withdrawal, unspecified Assessment/Plan: He has had an unexpectedly slow course of recovery from his withdrawal. It was estimated to take 4-5 days, but it was 5-6 days before the Ativan management was done. Will change CIWA protocol to prn assessments. The Ativan drip was stopped > 48 hours ago and will continue to decrease and spread out his Ativan prn iv doses. Will stop the Propranolol, which may be adding to his lethargy an somnolence. He started PT just yesterday, after 7 days in bed in the ICU. (2) Hepatic encephalopathy Assessment/Plan: He was put on Lactulose at admission and ammonia level followed. Even after Ativan stopped, he has been very somnolent. This obtunded state may be his baseline. A head CT was done yesterday to assess for other neurologuc cause of obtundation and lethargy, and it was stable. Propranolol will be stopped due to resting bradycardia in 50's and it may be adding to his lethargy. Follow Ammonia level daily. He started PT just yesterday, after 7 days in bed in the ICU. A shower will be requested today, which may help him awaken more. (3) C. difficile diarrhea Assessment/Plan: He had 6 BMs 2 days ago, 4 BMs yesterday, and already 1 this am. Will start Lomotil and Imodium prn, now that he has had 7 days of Flagyl for C. diff tx. He was started on po Flagyl for this C. diff at admission. Will switch to po Vanco 125 mg qid, since the diarrhea is still voluminous. (4) Alcoholic cirrhosis of liver without ascites Assessment/Plan: Stable exam. Will check LFTs. (5) Thrombocytopenia Assessment/Plan: No signs of bleeding. Will check CBC intermittently. (6) FUO (fever of unknown origin) Assessment/Plan: No further daily fever, since his empiric antibiotics (for fever) were stopped 48 hours ago, and after the withdrawal sx stopped and as his C. diff diarrhea was being treated with po Flagyl. (7) Hypophosphatemia Assessment/Plan: PO4 check tomorrow to determine if he needs daily tid PO4 replacement. (8) Hypernatremia Assessment/Plan: Check labs intermittently. (9) Hypokalemia Assessment/Plan: Check labs intermittently. - Current Meds Current Meds: Current Medications Generic Name Dose Route Start Last Admin Trade Name Freq PRN Reason Stop Dose Admin Famotidine 20 mg 09/14/18 10:15 09/15/18 20:12 Pepcid PO 20 mg BID OK Administration Sodium Chloride 500 mls @ 20 mls/hr 09/13/18 13:46 09/14/18 07:30 Normal Saline 0.9% IV Infused Q24H PRN Infusion TKO RATE Sodium Chloride 1,000 mls @ 30 mls/hr 09/14/18 11:35 09/15/18 20:11 Normal Saline 0.9% IV 30 mls/hr .[id number] OK Administration Ibuprofen 600 mg 09/10/18 08:41 09/14/18 17:24 Motrin PO 600 mg Q6HR PRN Administration Pain 1 to 4 Lactulose 10 gm 09/10/18 14:00 09/16/18 05:27 Enulose PO 10 gm TID OK Administration Metronidazole 500 mg 09/10/18 17:00 09/16/18 01:25 Flagyl PO 500 mg Q8H OK Administration Multi-Ingredient Ointment 1 applic 09/14/18 01:44 09/14/18 16:45 Zinc Oxide TOP 1 applic PRN PRN Administration Skin Care Ondansetron HCl 4 mg 09/09/18 15:58 09/09/18 18:47 Zofran Inj IVP 4 mg Q6HR PRN Administration Nausea / Vomiting Oxycodone HCl 5 mg 09/09/18 15:58 09/14/18 21:04 Roxicodone PO 5 mg Q4HR PRN Administration Pain 5 to 7 Potassium Chloride 20 meq 09/12/18 08:32 09/15/18 18:05 K-Dur PO 20 meq BIDWM OK Administration Saccharomyces Boulardii 500 mg 09/11/18 12:30 09/15/18 18:05 Florastor PO 500 mg BIDWM OK Administration Sodium Chloride 10 ml 09/09/18 15:58 09/11/18 10:32 Normal Saline Flush 0.9% IVP 10 ml PRN PRN Administration NEEDED PER PROVIDER ORDERS Sodium Chloride 10 ml 09/09/18 17:00 09/15/18 20:11 Normal Saline Flush 0.9% IVP 10 ml 0100,0900,1700 OK Administration Sodium Phosphate 250 mg 09/11/18 21:00 09/15/18 18:05 K-Phos Neutral PO 250 mg TIDWM OK Administration Thiamine HCl 100 mg 09/13/18 12:00 09/15/18 08:48 Vitamin B-1 PO 100 mg DAILY OK Administration - Lab Result Fish Bone Diagrams: 09/15/18 05:23 09/15/18 05:23 - Additional Planning My Orders: My Active Orders 09/15/18 08:09 LORazepam INJ [Ativan Inj (Vial)] 0.5 mg IVP Q6H PRN 09/17/18 05:00 CBC - COMP BLD CT W/AUTO DIFF [HEME] Routine CMP [COMPREHENSIVE METABOLIC PANEL] [CHEM] Routine MAGNESIUM [CHEM] Routine PHOSPHORUS [CHEM] Routine Objective Vital Signs: Vital Signs - 24 hr 09/15/18 09/15/18 09/15/18 10:00 11:00 12:00 Temperature 36.6 C 36.6 C Heart Rate [ 62 67 62 Monitoring electrodes] Respiratory 12 12 8 L Rate Blood Pressure 113/93 H 114/85 H 100/70 [Right Brachial artery] O2 Saturation 98 94 97 09/15/18 09/15/18 09/15/18 13:00 14:00 17:00 Temperature 36.5 C 36.2 C L Heart Rate [ 70 71 73 Monitoring electrodes] Respiratory 14 12 12 Rate Blood Pressure 120/92 H 118/80 140/91 H [Right Brachial artery] O2 Saturation 98 98 99 09/15/18 09/16/18 09/16/18 21:00 02:00 05:00 Temperature 36.3 C L 36.3 C L 36.3 C L Heart Rate [ 57 L 56 L Monitoring electrodes] Respiratory 8 L 11 L 11 L Rate Blood Pressure 107/60 153/83 H 138/72 H [Right Brachial artery] O2 Saturation 96 98 98 Oxygen O2 Source Room air I&O (Last 24 Hrs): Intake and Output Totals x24h 09/14/18 09/15/18 09/16/18 23:59 23:59 23:59 Intake Total 5083.00 1972.5 700 Output Total 2485 1825 450 Balance 2598.00 147.5 250 General: Other (Somnolent) HEENT: Mucous membr. moist/pink, Other (Disheveld) Neck: Supple Neuro: Disoriented, Speech Slurred, Other (Very bradykinetic) Cardiovascular: Regular rate Respiratory: No respiratory distress Abdomen: Soft Extremities: No edema - Results Results: Laboratory Results WBC 7.0 x10^3/uL (4.8-10.8) 09/15/18 05:23 RBC 3.37 10^6/uL (4.70-6.10) L 09/15/18 05:23 Hgb 12.1 g/dL (14.0-18.0) L 09/15/18 05:23 Hct 36.4 % (42.0-52.0) L 09/15/18 05:23 MCV 107.8 fL (80.0-94.0) H 09/15/18 05:23 MCH 35.8 pg (27.0-31.0) H 09/15/18 05:23 MCHC 33.2 g/dL (32.0-36.0) 09/15/18 05:23 RDW 18.4 % (12.0-15.0) H 09/15/18 05:23 Plt Count 68 10^3/uL (130-450) L 09/15/18 05:23 MPV 7.6 fL (7.4-11.4) 09/15/18 05:23 Neut # (Auto) 4.4 10^3/uL (1.5-6.6) 09/15/18 05:23 Lymph # (Auto) 0.8 10^3/uL (1.5-3.5) L 09/15/18 05:23 [place] # (Auto) 1.6 10^3/uL (0.0-1.0) H 09/15/18 05:23 Eos # (Auto) 0.1 10^3/uL (0.0-0.7) 09/15/18 05:23 Baso # (Auto) 0.0 10^3/uL (0.0-0.1) 09/15/18 05:23 Absolute Nucleated RBC 0.00 x10^3/uL 09/15/18 05:23 Nucleated RBC % 0.0 /100WBC 09/15/18 05:23 Manual Slide Review Indicated 09/10/18 05:01 Platelet Estimate DECREASED (<130,000) (NORMAL) 09/10/18 05:01 Platelet Morphology NORMAL APPEARANCE (NORMAL) 09/10/18 05:01 RBC Morph Micro Appear NORMAL APPEARANCE (NORMAL) 09/10/18 05:01 Sodium 140 mmol/L (135-145) 09/15/18 05:23 Potassium 4.0 mmol/L (3.5-5.0) 09/15/18 05:23 Chloride 108 mmol/L (101-111) 09/15/18 05:23 Carbon Dioxide 24 mmol/L (21-32) 09/15/18 05:23 Anion Gap 8.0 (6-13) 09/15/18 05:23 BUN 10 mg/dL (6-20) 09/15/18 05:23 Creatinine 0.7 mg/dL (0.6-1.2) 09/15/18 05:23 Estimated GFR (MDRD) 115 (>89) 09/15/18 05:23 Glucose 83 mg/dL (70-100) 09/15/18 05:23 Lactic Acid 2.0 mmol/L (0.5-2.2) 09/10/18 05:01 Calcium 8.1 mg/dL (8.5-10.3) L 09/15/18 05:23 Phosphorus 2.8 mg/dL (2.5-4.6) 09/15/18 05:23 Magnesium 1.8 mg/dL (1.7-2.8) 09/14/18 05:00 Total Bilirubin 8.5 mg/dL (0.2-1.0) H 09/15/18 05:23 AST 87 IU/L (10-42) H 09/15/18 05:23 ALT 42 IU/L (10-60) 09/15/18 05:23 Alkaline Phosphatase 115 IU/L (42-121) 09/15/18 05:23 Ammonia 21.7 umol/L (7-35) 09/16/18 05:18 Total Protein 5.5 g/dL (6.7-8.2) L 09/15/18 05:23 Albumin 2.4 g/dL (3.2-5.5) L 09/15/18 05:23 Globulin 3.1 g/dL (2.1-4.2) 09/15/18 05:23 Albumin/Globulin Ratio 0.8 (1.0-2.2) L 09/15/18 05:23 Lipase 46 U/L (22-51) 09/09/18 14:00 TSH 2.59 uIU/mL (0.34-5.60) 09/13/18 05:35 Urine Color DARK YELLOW 09/14/18 11:09 Urine Clarity CLEAR (CLEAR) 09/14/18 11:09 Urine pH 6.5 PH (5.0-7.5) 09/14/18 11:09 Ur Specific [place] 1.025 (1.002-1.030) 09/14/18 11:09 Urine Protein NEGATIVE mg/dL (NEGATIVE) 09/14/18 11:09 Urine Glucose (UA) NEGATIVE mg/dL (NEGATIVE) 09/14/18 11:09 Urine Ketones NEGATIVE mg/dL (NEGATIVE) 09/14/18 11:09 Urine Occult Blood SMALL (NEGATIVE) H 09/14/18 11:09 Urine Nitrite NEGATIVE (NEGATIVE) 09/14/18 11:09 Urine Bilirubin MODERATE (NEGATIVE) H 09/14/18 11:09 Urine Urobilinogen 0.2 (NORMAL) E.U./dL (NORMAL) 09/14/18 11:09 Ur Leukocyte Esterase NEGATIVE (NEGATIVE) 09/14/18 11:09 Urine RBC 6-10 /HPF (0-5) H 09/14/18 11:09 Urine WBC 0-3 /HPF (0-3) 09/14/18 11:09 Ur Squamous Epith Cells RARE Squamous (<= Few) 09/14/18 11:09 Urine Bacteria Rare /HPF (None Seen) 09/14/18 11:09 Urine Casts 3-5 Hyaline Casts /LPF 09/14/18 11:09 Urine Mucus Few Strands 09/14/18 11:09 Ur Microscopic Review INDICATED 09/09/18 15:20 Urine Culture Comments NOT INDICATED 09/14/18 11:09 Nasal Screen MRSA (PCR) NEGATIVE (NEGATIVE) 09/11/18 10:15 Last Dose Date 09/11/18 09/12/18 07:25 Last Dose Time 235809/12/18 07:25 Vancomycin Trough 12.3 ug/mL (10.0-20.0) 09/12/18 07:25 Urine Opiates Screen POSITIVE (NEGATIVE) H 09/09/18 15:20 Ur Oxycodone Screen NEGATIVE (NEGATIVE) 09/09/18 15:20 Urine Methadone Screen NEGATIVE (NEGATIVE) 09/09/18 15:20 Ur Propoxyphene Screen NEGATIVE (NEGATIVE) 09/09/18 15:20 Ur Barbiturates Screen NEGATIVE (NEGATIVE) 09/09/18 15:20 Ur Tricyclics Screen NEGATIVE (NEGATIVE) 09/09/18 15:20 Ur Phencyclidine Scrn NEGATIVE (NEGATIVE) 09/09/18 15:20 Ur Amphetamine Screen NEGATIVE (NEGATIVE) 09/09/18 15:20 U Methamphetamines Scrn NEGATIVE (NEGATIVE) 09/09/18 15:20 U Benzodiazepines Scrn NEGATIVE (NEGATIVE) 09/09/18 15:20 Urine Cocaine Screen NEGATIVE (NEGATIVE) 09/09/18 15:20 U Cannabinoids Screen NEGATIVE (NEGATIVE) 09/09/18 15:20 Ethyl Alcohol 149.0 mg/dL 09/09/18 14:00 C. difficile Tox B Gene POSITIVE (NEGATIVE) A* 09/10/18 12:57 Influenza A (Rapid) Negative (Negative) 09/09/18 14:00 Influenza B (Rapid) Negative (Negative) 09/09/18 14:00 - Procedures Procedures: Procedures DRAINAGE OF PERITONEAL CAVITY, PERCUTANEOUS APPROACH, DIAGN (07/27/17) Sepsis Event Note (H) - Evaluation Possible source of Sepsis: positive: Unknown
[2018-09-16] MEDS ORDERED: LOPERAMIDE 2 MG CAPSULE PO PRN (09:26)
[2018-09-16] MEDS ORDERED: DIPHENOX/ATROPINE 2.5/0.025 MG TABLET PO PRN (09:26)
[2018-09-16] MEDS: VANCOMYCIN 125 MG CAPSULE PO SCH ×4 (13:43→21:43)
[2018-09-16] MEDS: ZINC OXIDE 20% OINT 28.35 GM TUBE TOP PRN (14:04)
[2018-09-17] MEDS: SODIUM CHLORIDE FLUSH 0.9% 10 ML SYRINGE IVP SCH ×3 (00:34→17:23)
[2018-09-17 05:53] LABS: BASOPHILS % (AUTO) 0.5 %; EOSINOPHILS # (AUTO) 0.1 10^3/uL (0.0-0.7); HGB - HEMOGLOBIN 12.9 g/dL (14.0-18.0); LYMPHOCYTES # (AUTO) 1.1 10^3/uL (1.5-3.5); LYMPHOCYTES % (AUTO) 18.5 %; MEAN CORPUSCULAR HEMOGLOBIN 36.1 pg (27.0-31.0); MEAN CORPUSCULAR HGB CONC 33.8 g/dL (32.0-36.0); MEAN CORPUSCULAR VOLUME 106.7 fL (80.0-94.0); MEAN PLATELET VOLUME 7.8 fL (7.4-11.4); MONOCYTES % (AUTO) 17.8 %; NEUTROPHILS # (AUTO) 3.5 10^3/uL (1.5-6.6); NEUTROPHILS % (AUTO) 61.2 %; PLT - PLATELET COUNT 107 10^3/uL (130-450); RED BLOOD COUNT 3.56 10^6/uL (4.70-6.10); RED CELL DISTRIBUTION WIDTH 18.2 % (12.0-15.0); WHITE BLOOD COUNT 5.7 x10^3/uL (4.8-10.8)
[2018-09-17 06:03] LABS: ALBUMIN 2.7 g/dL (3.2-5.5); ALBUMIN/GLOBULIN RATIO 0.8 (1.0-2.2); BILIRUBIN,TOTAL 8.5 mg/dL (0.2-1.0); CALCIUM 8.5 mg/dL (8.5-10.3); CREATININE 0.8 mg/dL (0.6-1.2); MAGNESIUM 1.6 mg/dL (1.7-2.8); TOTAL PROTEIN 6.1 g/dL (6.7-8.2)
[2018-09-17] MEDS: LACTULOSE 10 GM /15 ML UDC PO SCH ×3 (06:22→21:18)
[2018-09-17] MEDS: SACCHAROMYCES BOULARDII 250 MG CAPSULE PO SCH ×2 (09:04→17:22)
[2018-09-17] MEDS: VANCOMYCIN 125 MG CAPSULE PO SCH ×4 (09:04→21:19)
[2018-09-17] MEDS: POTASSIUM CHLORIDE 20 MEQ TABLET PO SCH ×2 (09:04→17:23)
[2018-09-17] MEDS: THIAMINE 100 MG TABLET PO SCH ×3 (09:05→21:35)
[2018-09-17] MEDS: NEUTRA-PHOS 250 MG TABLET PO SCH ×3 (09:05→17:22)
[2018-09-17] MEDS: FAMOTIDINE 20 MG TABLET PO SCH ×2 (09:05→21:19)
[2018-09-17 10:24] LABS: FOLATE 13.23 ng/mL (5.90 - >24.8)
[2018-09-17] MEDS: DICYCLOMINE 10 MG CAPSULE PO SCH ×4 (11:05→21:19)
[2018-09-17] MEDS: LACTOBACILLUS RHAMNOSUS GG CAPSULE PO SCH (11:05)
[2018-09-17] MEDS: MAGNESIUM OXIDE 400 MG TABLET PO SCH (11:05)
--- NOTE | 2018-09-17 16:16 | MISCELLANEOUS PROVIDER NOTE ---
Miscellaneous Provider Note - - Note: Subjective: Patient with visible neurocognitive deficits is slow to respond with some slurring of his speech but denying any fevers, chills, chest pain, nausea vomiting GI or symptoms. Is up in chair eating breakfast. Denies diarrhea. Objective: Vital signs hemodynamically stable. Afebrile, heart rate is 70 bpm with a blood pressure 137/78. RR 18. 99% O2 saturation on room air General: Patient is alert but is slow to respond and disoriented to place and person realizes the time. In no acute respiratory distress HEENT: Pupils are equal round reactive to light and accommodation. NCAT. Marked scleral icterus. No ptosis. Neck: No JVD no bruits no lymphadenopathy. CV/lungs: S1-S2 within normal limits. No murmurs gallops clicks or rubs. CTABL. Abdomen: No hepatosplenomegaly. No ascites. No rebound tenderness. No masses or hernias. Passive bowel sounds all quadrants. Extremities/skin: No edema clubbing or cyanosis. Neuro: No psychomotor retardation. Neurocognitive deficits apparent. Unable to assess cranial nerves. Decreased/depressed mood/speech. Labs: Reviewed Imaging studies: Reviewed Assessment/plan: (1) Alcohol abuse/initial Alcohol withdrawal Qualifiers: Complication of substance-induced condition: with unspecified complication Qualified Code(s): F10.239 - Alcohol dependence with withdrawal, unspecified Assessment/Plan: Continue with [facility] protocol as needed. Ativan drip was stopped, Propanolol was also stopped as this may be contributing to lethargy/somnolence. (2) Hepatic encephalopathy--Resolved Assessment/Plan: He was put on Lactulose at admission and ammonia level followed. Last ammonia level was 21.7. Patient has likely baseline Wernicke's encephalopathy. Patient had TSH vitamin B12 folic acid that were unremarkable. Thiamine level to follow those this takes about a week. A head CT Shows no acute intracranial process. Propranolol Was discontinued Follow Ammonia level daily. Continue with PT, after 7 days in bed in the ICU. (3) C. difficile diarrhea, CDAD, Improved Assessment/Plan: Some mild continued loose stools on currently vancomycin 125 mg p.o. 4 times daily, For a total of 10 days Continue with Lomotil and Imodium prn, Flagyl was discontinued, However started on admission (4) Alcoholic cirrhosis of liver without ascites Assessment/Plan: Stable exam. Patient does have hyperbilirubinemia with scleral icterus and markedly elevated T bilirubin. Continue to monitor LFTs as well as bilirubin. Calculate an MELD score. (5) Thrombocytopenia Assessment/Plan: No signs of bleeding. Will check CBC intermittently. (6) Hypomagnesemia Assessment/Plan: Will correct underlying electrolyte disturbance and placed on mag oxide. (7) Generalized weakness secondary to above Plan: we will continue working with physical therapy Continue with GI/DVT prophylaxis
[2018-09-18] MEDS: SODIUM CHLORIDE FLUSH 0.9% 10 ML SYRINGE IVP SCH ×3 (00:27→16:59)
[2018-09-18 05:55] LABS: ALBUMIN 2.4 g/dL (3.2-5.5); CALCIUM 8.6 mg/dL (8.5-10.3); CREATININE 0.8 mg/dL (0.6-1.2); PHOSPHORUS 3.8 mg/dL (2.5-4.6)
[2018-09-18 06:05] LABS: BASOPHILS # (AUTO) 0.1 10^3/uL (0.0-0.1); BASOPHILS % (AUTO) 1.4 %; EOSINOPHILS # (AUTO) 0.1 10^3/uL (0.0-0.7); EOSINOPHILS % (AUTO) 1.8 %; HGB - HEMOGLOBIN 11.8 g/dL (14.0-18.0); LYMPHOCYTES # (AUTO) 1.4 10^3/uL (1.5-3.5); LYMPHOCYTES % (AUTO) 21.1 %; MEAN CORPUSCULAR HEMOGLOBIN 36.3 pg (27.0-31.0); MEAN CORPUSCULAR HGB CONC 33.9 g/dL (32.0-36.0); MEAN CORPUSCULAR VOLUME 107.1 fL (80.0-94.0); MONOCYTES # (AUTO) 1.2 10^3/uL (0.0-1.0); MONOCYTES % (AUTO) 18.1 %; NEUTROPHILS # (AUTO) 3.7 10^3/uL (1.5-6.6); NEUTROPHILS % (AUTO) 57.6 %; PLT - PLATELET COUNT 102 10^3/uL (130-450); RED BLOOD COUNT 3.24 10^6/uL (4.70-6.10); RED CELL DISTRIBUTION WIDTH 18.3 % (12.0-15.0); WHITE BLOOD COUNT 6.4 x10^3/uL (4.8-10.8)
[2018-09-18] MEDS: THIAMINE 100 MG TABLET PO SCH ×3 (06:51→21:28)
[2018-09-18] MEDS: LACTULOSE 10 GM /15 ML UDC PO SCH ×3 (06:51→21:27)
[2018-09-18 06:53] LABS: PLATELET ESTIMATE, MANUAL DECREASED (<130,000) (NORMAL)
[2018-09-18] MEDS ORDERED: LORazepam 0.5 MG TABLET PO PRN (09:24)
[2018-09-18] MEDS: LACTOBACILLUS RHAMNOSUS GG CAPSULE PO SCH (09:37)
[2018-09-18] MEDS: POTASSIUM CHLORIDE 20 MEQ TABLET PO SCH ×2 (09:37→16:57)
[2018-09-18] MEDS: SACCHAROMYCES BOULARDII 250 MG CAPSULE PO SCH ×2 (09:37→16:58)
[2018-09-18] MEDS: DICYCLOMINE 10 MG CAPSULE PO SCH ×4 (09:37→21:29)
[2018-09-18] MEDS: MAGNESIUM OXIDE 400 MG TABLET PO SCH (09:37)
[2018-09-18] MEDS: NEUTRA-PHOS 250 MG TABLET PO SCH ×3 (09:37→16:55)
[2018-09-18] MEDS: VANCOMYCIN 125 MG CAPSULE PO SCH ×4 (09:38→21:25)
[2018-09-18] MEDS: FAMOTIDINE 20 MG TABLET PO SCH ×2 (09:38→21:29)
--- NOTE | 2018-09-18 12:32 | MISCELLANEOUS PROVIDER NOTE ---
Miscellaneous Provider Note - - Note: Subjective: Patient with slow progression and stable neurocognitive deficits. Undergoing behavioral health counseling today. Patient being evaluated [facility] and subsequently to rehab. Has been off of Ativan more than 24 hours. Hemodynamically stable and without much complaints other than intermittent loose stools currently receiving vancomycin for CDAD. Objective: Vital signs hemodynamically stable. Afebrile. Heart rate 69. Blood pressure 134/86. RR 20. 94% O2 saturation on room air. General: Patient is alert but is slow to respond and disoriented to place and person realizes the time. In no acute respiratory distress HEENT: Pupils are equal round reactive to light and accommodation. NCAT. Marked scleral icterus. No ptosis. Neck: No JVD no bruits no lymphadenopathy. CV/lungs: S1-S2 within normal limits. No murmurs gallops clicks or rubs. CTABL. Abdomen: No hepatosplenomegaly. No ascites. No rebound tenderness. No masses or hernias. Passive bowel sounds all quadrants. Extremities/skin: No edema clubbing or cyanosis. Neuro: No psychomotor retardation. Neurocognitive deficits apparent. Unable to assess cranial nerves. Decreased/depressed mood/speech. Labs: Reviewed Imaging studies: Reviewed Assessment/plan: (1)Chronic Alcohol abuse/initial Alcohol withdrawal Qualifiers: Complication of substance-induced condition: with unspecified complication Qualified Code(s): F10.239 - Alcohol dependence with withdrawal, unspecified Assessment/Plan: Patient has been off of Ativan drip or IV for more than 24 hours. Patient does not score high on CIWA protocol. Continue with CIWA protocol as needed. Propanolol was also stopped as this may be contributing to lethargy/somnolence. Upon discharge patient likely will require Librium as needed. (2) Hepatic encephalopathy--Resolved Assessment/Plan: He was put on Lactulose at admission and ammonia level followed. Last ammonia level was 21.7. Patient has likely baseline Wernicke's encephalopathy. Patient had TSH, vitamin B12, folic acid that were unremarkable. Thiamine level to follow those this takes about a week. A head CT Shows no acute intracranial process. Propranolol Was discontinued Daily ammonia levels have been stable. Continue with PT, Placement of [facility]. (3) C. difficile diarrhea, CDAD, Improved Assessment/Plan: Some mild continued loose stools on currently vancomycin 125 mg p.o. 4 times daily, For a total of 10 days, End date would be 09/25. Continue with Lomotil and Imodium prn, Flagyl was discontinued, However started on admission (4) Alcoholic cirrhosis of liver without ascites Assessment/Plan: Stable exam. Patient does have hyperbilirubinemia with scleral icterus and markedly elevated T bilirubin. Continue to monitor LFTs as well as bilirubin. Patient's child Moore score is 12 points child class C with a life expectancy of 1-2 years; abdominal surgery perioperatively mortality 82% (5) Thrombocytopenia Assessment/Plan: No signs of bleeding. Will check CBC intermittently. (6) Hypomagnesemia Assessment/Plan: Will correct underlying electrolyte disturbance and placed on mag oxide. (7) Generalized weakness secondary to above Plan: we will continue working with physical therapy Due to patient's ongoing need for physical therapy and with gait and balance issues and ongoing chronic alcoholism with associated Wernicke's encephalopathy and clear neurocognitive deficits patient requires more than 96 hours due to ongoing medical mgmt as well as awaiting placement at this time. Continue with GI/DVT prophylaxis
[2018-09-19] MEDS: SODIUM CHLORIDE FLUSH 0.9% 10 ML SYRINGE IVP SCH ×2 (00:07→08:04)
[2018-09-19] MEDS: IBUPROFEN 600 MG TABLET PO PRN (00:41)
[2018-09-19] MEDS: LACTULOSE 10 GM /15 ML UDC PO SCH ×2 (06:20→13:23)
[2018-09-19] MEDS: THIAMINE 100 MG TABLET PO SCH ×2 (06:20→13:23)
[2018-09-19] MEDS: oxyCODONE 5 MG TABLET PO PRN (06:31)
[2018-09-19] MEDS: NEUTRA-PHOS 250 MG TABLET PO SCH ×2 (08:03→11:33)
[2018-09-19] MEDS: VANCOMYCIN 125 MG CAPSULE PO SCH ×2 (08:03→13:22)
[2018-09-19] MEDS: DICYCLOMINE 10 MG CAPSULE PO SCH (08:03)
[2018-09-19] MEDS: POTASSIUM CHLORIDE 20 MEQ TABLET PO SCH (08:03)
[2018-09-19] MEDS: SACCHAROMYCES BOULARDII 250 MG CAPSULE PO SCH (08:03)
[2018-09-19] MEDS: MAGNESIUM OXIDE 400 MG TABLET PO SCH (08:04)
[2018-09-19] MEDS: FAMOTIDINE 20 MG TABLET PO SCH (08:04)
[2018-09-19] MEDS: LACTOBACILLUS RHAMNOSUS GG CAPSULE PO SCH (08:04)
[2018-09-19 09:08] VITALS: BP 120/67
[2018-09-19] MEDS ORDERED: MECLIZINE 12.5 MG TABLET PO PRN (11:06)
[2018-09-19] MEDS ORDERED: DIPHENOX/ATROPINE 2.5/0.025 MG TABLET PO SCH (12:00)
--- NOTE | 2018-09-19 12:01 | Discharge Plan ---
Discharge Plan Disposition: 01 Home, Self Care Condition: Good Prescriptions: chlordiazePOXIDE [Librium] 25 mg PO Q6H #40 capsule Diphenoxylate/Atropine [Lomotil] 1 tab PO TID #30 tablet Lactobacillus Rhamnosus GG [Culturelle] 1 cap PO DAILY #30 capsule Lactulose [Constulose] 10 gm PO BID #1 bottle Thiamine [Vitamin B-1] 100 mg PO TID #90 tablet Vancomycin [Vancocin] 125 mg PO QID 7 Days #28 capsule Diet: Regular Activity Restrictions: Activity as Tolerated Shower Restrictions: No Driving Restrictions: No Weight Bearing: Full Weight Instruction Topics: ED Alcohol Intoxication, ED Withdrawal Alcohol, Clostridium Difficile Infec Additional Instructions or Follow Up instructions: Patient instructed on keeping all appointments taking all p.o. medications as prescribed alcohol education counseling and cessation. Patient not interested in half-way facility or rehab and will follow-up as an outpatient with PCP in 1-2 weeks Pt comfortable with plan and will return if he worsens. No Smoking: If you smoke, Please STOP! Call for help. Follow-up with: Africa Gonzales MD [Primary Care Provider] - 2 Weeks (Follow-up with PCP in 1- 2 weeks)
--- NOTE | 2018-09-19 12:08 | DISCHARGE SUMMARY ---
Discharge Summary Admit Date: 09/09/18 Discharge Date: 09/19/18 Discharging Provider: Dr. Catalan Primary Care Provider: Africa Gonzales Code Status: Attempt Resuscitation Condition at Discharge: Good Discharge Disposition: 01 Home, Self Care - DIAGNOSES Admission Diagnoses: 1. Alcohol withdrawal 2. Alcohol liver disease without ascites 3. Fever 4. DVT prophylaxis 5. Full CODE STATUS Discharge Diagnoses with Status of Each Condition: (1)Chronic Alcohol abuse/initial Alcohol withdrawal; Resolved (2) Hepatic encephalopathy--Resolved (3) C. difficile diarrhea, CDAD, Improved (4) Alcoholic cirrhosis of liver without ascites; Stable chronic (5) Thrombocytopenia; Stable chronic (6) Hypomagnesemia; Stable (7) Generalized weakness secondary to above; Stable. Refusing a assisted facility - HPI History of Present Illness: This is a 62-year-old gentleman with history of some alcohol problems who presents with 2 days of sudden onset low back pain. He says it is just below the belt sign and slightly to the right of midline. It started at rest while watching TV. He admits to drinking alcohol for the pain, but his time course is inconsistent because then he says that his last drink was 5 days ago. He also complains of central abdominal pain, vomiting and diarrhea and shakiness from alcohol withdrawal. He denies any specific urinary complaints. He has no history of IV drug use.) - HOSPITAL COURSE Hospital Course: This is a male who drinks a pint of hard liquor a day comes in with low back pain for at least 5 days and was noted to have diffuse abdominal aching with nausea vomiting diarrhea. He does have a underlying history of chronic pancreatitis however lipase was unremarkable white cell count was normal and he has chronic thrombocytopenia. Patient had a fever of 38 C in the emergency department but no source of infection was found. C. difficile was positive subsequently on stools and empiric vancomycin with cefepime was initially started and then de-escalate to oral vancomycin. Patient underwent alcohol withdrawal for which Ativan drip was placed and subsequently discontinued. Patient has underlying history of chronic alcohol abuse with underlying liver disease chronically elevated bilirubin with alcoholic hepatitis and suicidal ideation 2017 also has underlying esophageal varices but did not bleed with this inpatient admission. Patient was on CIWA protocol for which patient was subsequently discontinued off Ativan drip and did not receive him Ativan for more than 24 hours prior to discharge with patient being Hemovac in a stable and afebrile, banana bag was subsequently changed to oral thiamine and multivitamins and magnesium was replaced throughout admission. Patient was deemed to have some form of Wernicke's encephalopathy and was treated with increased doses of thiamine. Patient refused assisted facility and/or rehab. Patient would like to go home. Patient continues to have 4 loose stools per day and is on low motel lactobacillus, Imodium, lactulose and Bentyl likely causing his dizziness meclizine was given for supportive symptomatic management. Orthostats were done. Patient has an end date of vancomycin 09/25/18 to receive a total of 10 days of oral vancomycin for his CDAD. Patient has been given follow-up to PCP in 1-2 weeks and to continue all home medications keep all appointments and education counseling on alcohol cessation. - ALLERGIES Allergies/Adverse Reactions: Allergies Allergy/AdvReac Type Severity Reaction Status Date / Time Sulfa (Sulfonamide Allergy Unknown Verified 06/12/18 03:16 Antibiotics) - MEDICATIONS Home Medications: Ambulatory Orders Medication Instructions Recorded Confirmed Multivit-Min/Iron Fum/Folic AC 1 each PO DAILY #30 tablet 06/12/18 09/11/18 [Mdird-Dppkegs-Txyhypod Tablet] Omeprazole 20 mg PO BID #60 tablet. 06/12/18 09/11/18 Diphenoxylate/Atropine [Lomotil] 1 tab PO TID #30 tablet 09/19/18 Lactobacillus Rhamnosus GG 1 cap PO DAILY #30 capsule 09/19/18 [Culturelle] Lactulose [Constulose] 10 gm PO BID #1 bottle 09/19/18 Thiamine [Vitamin B-1] 100 mg PO TID #90 tablet 09/19/18 Vancomycin [Vancocin] 125 mg PO QID 7 Days #28 capsule 09/19/18 chlordiazePOXIDE [Librium] 25 mg PO Q6H #40 capsule 09/19/18 - PHYSICAL EXAM AT DISCHARGE General Appearance: positive: No acute distress, Alert, Other (Generalized weakness noted) Eyes Bilateral: positive: Normal inspection, PERRL, EOMI, Other (Scleral icterus) ENT: positive: ENT inspection nml, Pharynx nml, No signs of dehydration Neck: positive: Nml inspection, Thyroid nml, No JVD, Trachea midline. negative: Thyromegaly Respiratory: positive: Chest non-tender, No respiratory distress, Breath sounds nml Cardiovascular: positive: Regular rate & rhythm, No murmur, No gallop Peripheral Pulses: positive: 2+ Abdomen: positive: Non-tender, No organomegaly, Nml bowel sounds, No distention. negative: Tenderness Skin: positive: No rash, Warm, Other (Jaundice) Extremities: positive: Non-tender, Full ROM, Nml appearance Neurologic/Psychiatric: positive: Oriented x3, CN's nml (2-12) - LABS Result Diagrams: 09/18/18 05:20 09/18/18 05:20 - SEPSIS Current Stage of Sepsis: Ruled out - QUALITY (Female Hip Fx Only) Was patient sent home on osteoporosis medication?: No - FOLLOW UP Follow Up: PCP to follow-up in 1-2 weeks - TIME SPENT Time Spent in Discharge (Minutes): 35
== END 2018-09-19 14:43 | disposition home or self-care (01) | DRG 897 ==
LOC: ED 12:52 → MS2 15:58 → ICU 09-11 04:01 → MS2 09-16 20:57 → ICU 09-16 21:00 → MS2 09-16 22:22
PROVIDERS: ADMIT Specialist; ATTEND Family Medicine
DX: F10.231 Alcohol dependence with withdrawal delirium (principal); E87.2 Acidosis; A04.72 Enterocolitis due to Clostridium difficile, not specified as recurrent; E51.2 Wernicke's encephalopathy; I85.10 Secondary esophageal varices without bleeding; K76.6 Portal hypertension; E87.0 Hyperosmolality and hypernatremia; M54.5 Low back pain; Z87.442 Personal history of urinary calculi; K70.30 Alcoholic cirrhosis of liver without ascites; K72.90 Hepatic failure, unspecified without coma; D69.59 Other secondary thrombocytopenia; E83.42 Hypomagnesemia; Z88.2 Allergy status to sulfonamides; E80.6 Other disorders of bilirubin metabolism; E83.39 Other disorders of phosphorus metabolism; E87.6 Hypokalemia; R50.9 Fever, unspecified
CPT/HCPCS: 36415; 70450; 71045; 74176; 80048; 80053; 80069; 80202; 80306; 80320; 81001; 82040; 82140; 82607; 82746; 83605; 83690; 83735; 84100; 84425; 84443; 85025; 87040; 87086; 87150; 87275; 87276; 87493; 96361; 96365; 96368; 96375; 97116; 97161; 97530; 99283; 99291; A9270; J0131; J2060; J2270; J3370; J3411; J7120; J8499; 81003; 99284

== ENCOUNTER 2018-10-22 10:16 | Outpatient (CLI) | payer OTHER | END 2018-10-22 10:17 | disposition critical access hospital (66) | LOC: EMS 10:16 | PROVIDERS: ATTEND Surgery | DX: R26.81 Unsteadiness on feet (principal); M54.5 Low back pain; Z72.89 Other problems related to lifestyle | CPT/HCPCS: A0425; A0429 ==

== ENCOUNTER 2018-10-22 10:57 | Emergency (ER) | payer OTHER ==
[2018-10-22 11:02] VITALS: BP 130/83
--- NOTE | 2018-10-22 11:37 | ED Physician Documentation ---
History of Present Illness - Stated complaint Stated Complaint: ETOH - Chief complaint Chief Complaint: MHE - History obtained from History obtained from: Patient, EMS - History of Present Illness Timing: Today Pain level max: 0 Pain level now: 0 Improved by: nothing - Additonal information Additional information: 62-year-old male brought in by EMS, states he has no complaints at this time. States he was drinking today and "thought I should not drive". When asked where he was going he said no where I was just staying at home. Patient does not want to go to rehab or detox at this time. He is not having seizures. No hallucinations. He states he does not want any blood work. He cannot tell me why he called the ambulance. Review of Systems Constitutional: denies: Fever, Chills Ears: denies: Ear pain Nose: denies: Rhinorrhea / runny nose, Congestion Cardiac: denies: Chest pain / pressure Respiratory: denies: Cough GI: denies: Nausea, Vomiting Skin: denies: Rash Musculoskeletal: denies: Neck pain, Back pain Neurologic: denies: Headache PD PAST MEDICAL HISTORY - Past Medical History Cardiovascular: None Respiratory: None Neuro: None Endocrine/Autoimmune: None GI: Other : Kidney stones HEENT: None Psych: None Musculoskeletal: Other Derm: None - Past Surgical History Past Surgical History: Yes Ortho: Carpal Tunnel surgery, Other - Present Medications Home Medications: Ambulatory Orders Medication Instructions Recorded Confirmed Multivit-Min/Iron Fum/Folic AC 1 each PO DAILY #30 tablet 06/12/18 09/11/18 [Sspkg-Cilwnkh-Efbzitnm Tablet] Omeprazole 20 mg PO BID #60 tablet. 06/12/18 09/11/18 Diphenoxylate/Atropine [Lomotil] 1 tab PO TID #30 tablet 09/19/18 Lactobacillus Rhamnosus GG 1 cap PO DAILY #30 capsule 09/19/18 [Culturelle] Lactulose [Constulose] 10 gm PO BID #1 bottle 09/19/18 Thiamine [Vitamin B-1] 100 mg PO TID #90 tablet 09/19/18 Vancomycin [Vancocin] 125 mg PO QID 7 Days #28 capsule 09/19/18 chlordiazePOXIDE [Librium] 25 mg PO Q6H #40 capsule 09/19/18 - Allergies Allergies/Adverse Reactions: Allergies Allergy/AdvReac Type Severity Reaction Status Date / Time Sulfa (Sulfonamide Allergy Unknown Verified 10/22/18 11:03 Antibiotics) - Social History Does the pt smoke?: No Smoking Status: Never smoker Does the pt drink ETOH?: Yes Does the pt have substance abuse?: No - Immunizations Immunizations are current?: Yes - POLST Patient has POLST: No PD ED PE NORMAL - Vitals Vital signs reviewed: Yes - General General: Alert and oriented X 3, No acute distress, Well developed/nourished - HEENT HEENT: PERRL, Moist mucous membranes - Neck Neck: Supple, no meningeal sign - Cardiac Cardiac: RRR - Respiratory Respiratory: No respiratory distress, Clear bilaterally - Abdomen Abdomen: Soft, Non tender, Non distended - Derm Derm: Warm and dry - Extremities Extremities: No edema, No calf tenderness / cord, Other (walking normally, steady gait) - Neuro Neuro: Alert and oriented X 3 - Psych Psych: Normal mood, Normal affect Results - Vitals Vitals: Vital Signs - 24 hr 10/22/18 10:58 Temperature 36.7 C Heart Rate 97 Respiratory 20 Rate Blood Pressure 130/83 H O2 Saturation 95 Oxygen O2 Source Room air PD MEDICAL DECISION MAKING - ED course Complexity details: re-evaluated patient, considered differential, d/w patient ED course: 62-year-old male with alcohol abuse. Social work contacted, they consulted on the patient and resources were given. He does not want to go directly to detox or rehab today. We will follow-up with his doctor. No emergency medical condition at this time. Patient counseled regarding signs and symptoms for which I believe and urgent re-evaluation would be necessary. Patient with good understanding of and agreement to plan and is comfortable going home at this time This document was made in part using voice recognition software. While efforts are made to proofread this document, sound alike and grammatical errors may occur. Departure - Departure Disposition: 01 Home, Self Care Clinical Impression: Alcohol abuse Condition: Good Instructions: ED Alcohol Abuse Follow-Up: your,doctor in 1 week [Other] Comments: Follow up as directed by social work for further care of you alcohol abuse issues. Return if you worsen. Discharge Date/Time: 10/22/18 12:39
== END 2018-10-22 12:39 | disposition home or self-care (01) ==
LOC: EDUNIT# → ED 10:57
DX: F10.10 Alcohol abuse, uncomplicated (principal)
CPT/HCPCS: 99283

== ENCOUNTER 2018-10-28 11:42 | Outpatient (CLI) | payer OTHER | END 2018-10-28 11:43 | disposition EMS.NT | LOC: EMS 11:42 | PROVIDERS: ATTEND Surgery | DX: R00.0 Tachycardia, unspecified (principal); R23.2 Flushing; R26.81 Unsteadiness on feet ==

== ENCOUNTER 2018-12-05 23:20 | Outpatient (CLI) | payer OTHER | END 2018-12-05 23:21 | disposition critical access hospital (66) | LOC: EMS 23:20 | PROVIDERS: ATTEND Surgery | DX: R26.2 Difficulty in walking, not elsewhere classified (principal); R10.9 Unspecified abdominal pain | CPT/HCPCS: A0425; A0429 ==

== ENCOUNTER 2018-12-05 23:58 | Emergency (ER) | payer OTHER ==
--- NOTE | 2018-12-06 00:52 | ED Physician Documentation ---
PD HPI ALTERED MENTAL STATUS - Stated complaint Stated Complaint: W/D - Chief complaint Chief Complaint: Neuro - History obtained from History obtained from: Patient, EMS - History of Present Illness Timing - onset: Today Quality / character: Hallucinating (possibly) Basline status: Alert and oriented X 3, Ambulatory, Independent Recently seen: Other (see below) - Additional information Additional information: GUILHERME. Patient called 911 because he believes people were in his house and on his property. He says that by the time police arrived, they had left. EMS brought patient to ED due to this being possible hallucinations. Patient tells me there were people out in his yard tonight and a person was in his house lying in the bed. He shows me pictures he took tonight; due to the quality of pictures, I cannot see if there are people in the pictures of his yard. Similarly, he shows me a picture of a bed and there is clothing in the bed but I do not see clearly a person in the bed in the clothing. Patient tells me he was 30 days inpatient rehab for alcoholism in [place] approximately 1-2 months ago. He tells me that three days ago, he drank liquor but he insists he only drank on the one day and not since then nor since getting out of rehab. Review of Systems Constitutional: reports: Reviewed and negative Cardiac: reports: Reviewed and negative Respiratory: reports: Reviewed and negative GI: reports: Reviewed and negative Neurologic: reports: Reviewed and negative Psychiatric: reports: Other (unclear if he is hallucinating). denies: Depressed, Suicidal, Homicidal, Anxiety PD PAST MEDICAL HISTORY - Past Medical History Past Medical History: Yes Cardiovascular: None Respiratory: None Neuro: None Endocrine/Autoimmune: None GI: Other : Kidney stones HEENT: None Psych: None Musculoskeletal: Other Derm: None - Past Surgical History Past Surgical History: Yes Ortho: Carpal Tunnel surgery, Other - Present Medications Home Medications: Ambulatory Orders Medication Instructions Recorded Confirmed Multivit-Min/Iron Fum/Folic AC 1 each PO DAILY #30 tablet 06/12/18 09/11/18 [Tnqif-Nthxhpz-Udutbnpp Tablet] Omeprazole 20 mg PO BID #60 tablet. 06/12/18 09/11/18 Diphenoxylate/Atropine [Lomotil] 1 tab PO TID #30 tablet 09/19/18 Lactobacillus Rhamnosus GG 1 cap PO DAILY #30 capsule 09/19/18 [Culturelle] Lactulose [Constulose] 10 gm PO BID #1 bottle 09/19/18 Thiamine [Vitamin B-1] 100 mg PO TID #90 tablet 09/19/18 Vancomycin [Vancocin] 125 mg PO QID 7 Days #28 capsule 09/19/18 chlordiazePOXIDE [Librium] 25 mg PO Q6H #40 capsule 09/19/18 LORazepam [Ativan] 0.5 - 1 mg PO TID #10 tablet 12/06/18 - Allergies Allergies/Adverse Reactions: Allergies Allergy/AdvReac Type Severity Reaction Status Date / Time Sulfa (Sulfonamide Allergy Unknown Verified 12/06/18 00:04 Antibiotics) - Social History Does the pt smoke?: No Smoking Status: Never smoker Does the pt drink ETOH?: Yes Does the pt have substance abuse?: No - Immunizations Immunizations are current?: Yes - POLST Patient has POLST: No PD ED PE NORMAL - Vitals Vital signs reviewed: Yes - General General: Alert and oriented X 3, No acute distress, Well developed/nourished - HEENT HEENT: PERRL, EOMI, Moist mucous membranes, Other (scleral icturus bilaterally) - Neck Neck: Supple, no meningeal sign - Cardiac Cardiac: No murmur - Respiratory Respiratory: No respiratory distress, Clear bilaterally - Abdomen Abdomen: Soft, Non tender - Derm Derm: Normal color, Warm and dry - Extremities Extremities: No edema - Neuro Neuro: Alert and oriented X 3, 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, No motor deficit, No sensory deficit, Normal speech Eye Opening: Spontaneous Motor: Obeys Commands Verbal: Oriented GCS Score: 15 PD ED PE EXPANDED - Cardiac Cardiac: Tachy, Regular Rhythm Results - Vitals Vitals: Vital Signs - 24 hr 12/06/18 12/06/18 12/06/18 00:01 00:42 01:39 Temperature 36.8 C Heart Rate 137 H 112 H 108 H Respiratory 18 17 17 Rate Blood Pressure 103/79 105/74 118/79 O2 Saturation 97 95 99 12/06/18 12/06/18 04:06 07:14 Temperature Heart Rate 109 H 101 H Respiratory 19 18 Rate Blood Pressure 102/83 H 115/80 O2 Saturation 97 98 Oxygen O2 Source Room air - Labs Labs: Laboratory Tests 12/06/18 12/06/18 12/06/18 00:15 00:15 01:45 WBC 7.2 RBC 3.84 L Hgb 13.0 L Hct 40.3 L MCV 104.9 H MCH 33.9 H MCHC 32.3 RDW 15.0 Plt Count 72 L MPV 10.1 Neut # (Auto) 5.8 Lymph # (Auto) 0.3 L Casey # (Auto) 0.9 Eos # (Auto) 0.0 Baso # (Auto) 0.1 Absolute Nucleated RBC 0.00 Nucleated RBC % 0.0 Sodium 140 Potassium 3.3 L Chloride 100 L Carbon Dioxide 15 L Anion Gap 25.0 H BUN 18 Creatinine 2.9 H Estimated GFR (MDRD) 22 L Glucose 99 Calcium 9.2 Total Bilirubin 9.1 H AST 139 H ALT 42 Alkaline Phosphatase 118 Ammonia 59.6 H Total Protein 8.5 H Albumin 3.7 Globulin 4.8 H Albumin/Globulin Ratio 0.8 L Lipase 35 Ethyl Alcohol < 5.0 PD MEDICAL DECISION MAKING - ED course Complexity details: reviewed old records, reviewed results, re-evaluated patient, considered differential, d/w patient ED course: SW talked to patient in AM prior to d/c home. He declines rehab, wants to be discharged home. I instructed him to follow up with his primary care provider and emphasized the need for reevaluation of his abnormal blood tests, particularly his kidney tests (creatinine). Patient was calm , cooperative, and polite during ED stay. He did not exhibit any hallucinatory behavior when I was evaluating him Departure - Departure Disposition: Home, Self Care Clinical Impression: Alcoholism /alcohol abuse, Hepatorenal syndrome Condition: Good Health Concerns: Hallucinations Alcoholism liver and kidney damage Plan of Treatment: Needs to follow up with primary care provider for recheck of abnormal lab tests including liver and kidney tests. Needs to talk with his primary care provider to discuss options for treatment of alcoholism Instructions: ED Withdrawal Alcohol, ED Insufficiency Renal, ED Alcohol Abuse Follow-Up: Africa Gonzales MD [Primary Care Provider] - Prescriptions: LORazepam [Ativan] 0.5 - 1 mg PO TID #10 tablet Comments: It is very important that you follow up with your primary care provider for recheck of your abnormal blood tests, particularly your kidney tests as the abnormal kidney tests today appear to be significantly worse than previous.
[2018-12-06] MEDS ORDERED: THIAMINE 100 MG/1 ML 2 ML MDV ONE (01:25)
[2018-12-06] MEDS: LORazepam 2 MG/ML VIAL IVP STA (01:27)
[2018-12-06] MEDS: FOLIC ACID INJ 1 MG, THIAMINE INJ 100 MG, MAGNESIUM SULFATE 2 GM, MULTIVITAMIN 10 ML in... IV STA ×5 (01:34)
[2018-12-06 01:36] LABS: ALBUMIN 3.7 g/dL (3.2-5.5); ALBUMIN/GLOBULIN RATIO 0.8 (1.0-2.2); ALKALINE PHOSPHATASE 118 IU/L (42-121); ALT ALANINE AMINOTRANSFERASE 42 IU/L (10-60); AST ASPARTATE AMINOTRANSFERASE 139 IU/L (10-42); BILIRUBIN,TOTAL 9.1 mg/dL (0.2-1.0); BUN - BLOOD UREA NITROGEN 18 mg/dL (6-20); CALCIUM 9.2 mg/dL (8.5-10.3); CARBON DIOXIDE - CO2 15 mmol/L (21-32); CHLORIDE 100 mmol/L (101-111); CREATININE 2.9 mg/dL (0.6-1.2); GFR - MDRD 22 (>89); GLUCOSE 99 mg/dL (70-100); LIPASE 35 U/L (22-51); SODIUM 140 mmol/L (135-145); TOTAL PROTEIN 8.5 g/dL (6.7-8.2)
[2018-12-06 01:58] LABS: BASOPHILS # (AUTO) 0.1 10^3/uL (0.0-0.1); BASOPHILS % (AUTO) 0.8 %; EOSINOPHILS % (AUTO) 0.6 %; LYMPHOCYTES # (AUTO) 0.3 10^3/uL (1.5-3.5); LYMPHOCYTES % (AUTO) 4.6 %; MEAN CORPUSCULAR HEMOGLOBIN 33.9 pg (27.0-31.0); MEAN CORPUSCULAR HGB CONC 32.3 g/dL (32.0-36.0); MEAN CORPUSCULAR VOLUME 104.9 fL (80.0-94.0); MEAN PLATELET VOLUME 10.1 fL (7.4-11.4); MONOCYTES # (AUTO) 0.9 10^3/uL (0.0-1.0); MONOCYTES % (AUTO) 11.9 %; NEUTROPHILS # (AUTO) 5.8 10^3/uL (1.5-6.6); NEUTROPHILS % (AUTO) 80.6 %; PLT - PLATELET COUNT 72 10^3/uL (130-450); RED BLOOD COUNT 3.84 10^6/uL (4.70-6.10); WHITE BLOOD COUNT 7.2 x10^3/uL (4.8-10.8)
[2018-12-06 08:23] VITALS: BP 115/96
== END 2018-12-06 08:15 | disposition home or self-care (01) ==
LOC: EDUNIT# → ED 23:58
DX: F10.20 Alcohol dependence, uncomplicated (principal); K76.7 Hepatorenal syndrome
CPT/HCPCS: 36415; 80053; 80320; 82140; 83690; 85025; 96365; 96375; 99283; 99284

== ENCOUNTER 2018-12-06 12:12 | Outpatient (CLI) | payer OTHER | END 2018-12-06 12:13 | disposition critical access hospital (66) | LOC: EMS 12:12 | PROVIDERS: ATTEND Surgery | DX: R44.1 Visual hallucinations (principal) | CPT/HCPCS: A0425; A0429 ==

== ENCOUNTER 2018-12-06 12:49 | Inpatient (IN) | payer OTHER ==
[2018-12-06 13:20] LABS: BASOPHILS # (AUTO) 0.1 10^3/uL (0.0-0.1); BASOPHILS % (AUTO) 0.7 %; EOSINOPHILS # (AUTO) 0.1 10^3/uL (0.0-0.7); EOSINOPHILS % (AUTO) 1.2 %; HGB - HEMOGLOBIN 11.2 g/dL (14.0-18.0); LYMPHOCYTES # (AUTO) 0.9 10^3/uL (1.5-3.5); LYMPHOCYTES % (AUTO) 12.9 %; MEAN CORPUSCULAR HEMOGLOBIN 34.5 pg (27.0-31.0); MEAN CORPUSCULAR HGB CONC 33.4 g/dL (32.0-36.0); MEAN CORPUSCULAR VOLUME 103.1 fL (80.0-94.0); MONOCYTES # (AUTO) 1.2 10^3/uL (0.0-1.0); MONOCYTES % (AUTO) 16.8 %; NEUTROPHILS # (AUTO) 4.6 10^3/uL (1.5-6.6); PLT - PLATELET COUNT 54 10^3/uL (130-450); RED BLOOD COUNT 3.25 10^6/uL (4.70-6.10); RED CELL DISTRIBUTION WIDTH 15.3 % (12.0-15.0); WHITE BLOOD COUNT 6.8 x10^3/uL (4.8-10.8)
[2018-12-06] MEDS ORDERED: FOLIC ACID INJ 1 MG, THIAMINE INJ 100 MG, MAGNESIUM SULFATE 2 GM, MULTIVITAMIN 10 ML in... IV STA ×5 (13:20)
[2018-12-06 13:32] LABS: ACETAMINOPHEN < 10 ug/mL (10-30); ALBUMIN 3.5 g/dL (3.2-5.5); ALBUMIN/GLOBULIN RATIO 0.9 (1.0-2.2); ALKALINE PHOSPHATASE 102 IU/L (42-121); ALT ALANINE AMINOTRANSFERASE 37 IU/L (10-60); AST ASPARTATE AMINOTRANSFERASE 110 IU/L (10-42); BILIRUBIN,TOTAL 7.5 mg/dL (0.2-1.0); BUN - BLOOD UREA NITROGEN 25 mg/dL (6-20); CALCIUM 8.7 mg/dL (8.5-10.3); CARBON DIOXIDE - CO2 21 mmol/L (21-32); CHLORIDE 100 mmol/L (101-111); CREATININE 2.5 mg/dL (0.6-1.2); GFR - MDRD 26 (>89); GLUCOSE 80 mg/dL (70-100); LIPASE 36 U/L (22-51); SALICYLATE < 6.0 mg/dL; SODIUM 136 mmol/L (135-145); TOTAL PROTEIN 7.3 g/dL (6.7-8.2)
--- NOTE | 2018-12-06 13:38 | ED Physician Documentation ---
PD HPI ALTERED MENTAL STATUS - Stated complaint Stated Complaint: MHE - Chief complaint Chief Complaint: MHE - History obtained from History obtained from: Patient, EMS - History of Present Illness Timing - onset: Today Timing - duration: Days (1) Timing - details: Gradual onset Quality / character: Hallucinating (visual hallucinations of clowns and people digging up his backyard.) Associated symptoms: No: Fever, Headache, Stiff neck, Dyspnea, Cough, NVD, Urinary sx, General weakness, Focal weakness, Seizure activity, Syncope Contributing factors: Other (history of alcoholism. States no etoh x 4 days) Basline status: Alert and oriented X 3 Similar symptoms before: Diagnosis (alcohol withdrawal) Recently seen: Other (seen here this am for etoh withdrawal.) Review of Systems Ten Systems: 10 systems reviewed and negative Constitutional: denies: Fever, Chills Respiratory: denies: Cough GI: denies: Abdominal Pain : denies: Dysuria Skin: denies: Rash Musculoskeletal: denies: Neck pain, Back pain Neurologic: denies: Headache PD PAST MEDICAL HISTORY - Past Medical History Cardiovascular: None Respiratory: None Neuro: None Endocrine/Autoimmune: None GI: Other : Kidney stones HEENT: None Psych: None Musculoskeletal: Other Derm: None - Past Surgical History Past Surgical History: Yes Ortho: Carpal Tunnel surgery, Other - Present Medications Home Medications: Ambulatory Orders Medication Instructions Recorded Confirmed No Known Home Medications 12/06/18 12/06/18 - Allergies Allergies/Adverse Reactions: Allergies Allergy/AdvReac Type Severity Reaction Status Date / Time Sulfa (Sulfonamide Allergy Unknown Verified 12/06/18 13:00 Antibiotics) - Social History Does the pt smoke?: No Smoking Status: Never smoker Does the pt drink ETOH?: Yes Does the pt have substance abuse?: No - Immunizations Immunizations are current?: Yes - POLST Patient has POLST: No PD ED PE NORMAL - Vitals Vital signs reviewed: Yes - General General: Alert and oriented X 3, No acute distress, Well developed/nourished - HEENT HEENT: PERRL, Ears normal, Moist mucous membranes, Pharynx benign - Neck Neck: Supple, no meningeal sign - Cardiac Cardiac: RRR, Strong equal pulses - Respiratory Respiratory: No respiratory distress, Clear bilaterally - Abdomen Abdomen: Soft, Non tender, Non distended - Back Back: No spinal TTP - Derm Derm: Warm and dry, No rash - Extremities Extremities: No edema, No calf tenderness / cord - Neuro Neuro: Alert and oriented X 3, hospice plan administrator 2-12 intact, No motor deficit, No sensory deficit Eye Opening: Spontaneous Motor: Obeys Commands Verbal: Oriented GCS Score: 15 - Psych Psych: Other (states that he saw clowns in his house. Took pictures on his phone, but there are no clowns in the photos. ) Results - Vitals Vitals: Vital Signs - 24 hr 12/06/18 12:50 Temperature 37.1 C Heart Rate 104 H Respiratory 17 Rate Blood Pressure 127/95 H O2 Saturation 98 Oxygen O2 Source Room air - Labs Labs: Laboratory Tests 12/06/18 12/06/18 12/06/18 13:00 13:10 13:10 WBC 6.8 RBC 3.25 L Hgb 11.2 L Hct 33.5 L MCV 103.1 H MCH 34.5 H MCHC 33.4 RDW 15.3 H Plt Count 54 L MPV 10.0 Neut # (Auto) 4.6 Lymph # (Auto) 0.9 L Russell # (Auto) 1.2 H Eos # (Auto) 0.1 Baso # (Auto) 0.1 Absolute Nucleated RBC 0.00 Nucleated RBC % 0.0 Manual Slide Review Indicated WBC Morphology NORMAL APPEARANCE Platelet Estimate DECREASED (<130,000) Platelet Morphology NORMAL APPEARANCE RBC Morph Micro Appear 1+ POLYCHROMASIA PT 24.6 H INR 2.2 H APTT 37.9 H VBG pH VBG pCO2 VBG pO2 VBG HCO3 VBG Total CO2 VBG O2 Saturation VBG Base Excess Sodium 136 Potassium 2.7 L Chloride 100 L Carbon Dioxide 21 Anion Gap 15.0 H BUN 25 H Creatinine 2.5 H Estimated GFR (MDRD) 26 L Glucose 80 Calcium 8.7 Phosphorus Magnesium Total Bilirubin 7.5 H AST 110 H ALT 37 Alkaline Phosphatase 102 Total Protein 7.3 Albumin 3.5 Globulin 3.8 Albumin/Globulin Ratio 0.9 L Lipase 36 TSH Salicylates < 6.0 Acetaminophen < 10 L Ethyl Alcohol < 5.0 Serum Ketones 12/06/18 12/06/18 12/06/18 13:10 13:51 13:51 WBC RBC Hgb Hct MCV MCH MCHC RDW Plt Count MPV Neut # (Auto) Lymph # (Auto) Russell # (Auto) Eos # (Auto) Baso # (Auto) Absolute Nucleated RBC Nucleated RBC % Manual Slide Review WBC Morphology Platelet Estimate Platelet Morphology RBC Morph Micro Appear PT INR APTT VBG pH 7.452 H VBG pCO2 35.6 L VBG pO2 49.6 H VBG HCO3 24.3 VBG Total CO2 25.4 VBG O2 Saturation 86.4 H VBG Base Excess 0.7 Sodium Potassium Chloride Carbon Dioxide Anion Gap BUN Creatinine Estimated GFR (MDRD) Glucose Calcium Phosphorus Magnesium Total Bilirubin AST ALT Alkaline Phosphatase Total Protein Albumin Globulin Albumin/Globulin Ratio Lipase TSH 4.15 Salicylates Acetaminophen Ethyl Alcohol Serum Ketones NEGATIVE 12/06/18 13:51 WBC RBC Hgb Hct MCV MCH MCHC RDW Plt Count MPV Neut # (Auto) Lymph # (Auto) Russell # (Auto) Eos # (Auto) Baso # (Auto) Absolute Nucleated RBC Nucleated RBC % Manual Slide Review WBC Morphology Platelet Estimate Platelet Morphology RBC Morph Micro Appear PT INR APTT VBG pH VBG pCO2 VBG pO2 VBG HCO3 VBG Total CO2 VBG O2 Saturation VBG Base Excess Sodium Potassium Chloride Carbon Dioxide Anion Gap BUN Creatinine Estimated GFR (MDRD) Glucose Calcium Phosphorus 2.9 Magnesium 2.1 Total Bilirubin AST ALT Alkaline Phosphatase Total Protein Albumin Globulin Albumin/Globulin Ratio Lipase TSH Salicylates Acetaminophen Ethyl Alcohol Serum Ketones PD MEDICAL DECISION MAKING - ED course Complexity details: reviewed old records, reviewed results, re-evaluated patient, considered differential, d/w patient, d/w healthcare risk control consultant ED course: 62-year-old male presents to the emergency department with visual hallucinations today. States that he quit drinking alcohol 4 days ago. He is not tremulous here. He is in acute renal failure and hypokalemic. Given IV fluids, banana bag and will replace potassium as well. Will place in observation to ensure these electrolyte abnormalities are improving as well as his kidney function is improving. Discussed the case with Dr. Frazier, hospitalist who accepts This document was made in part using voice recognition software. While efforts are made to proofread this document, sound alike and grammatical errors may occur. Departure - Departure Disposition: ED Place in Observation Clinical Impression: Hypokalemia, Dehydration, Visual hallucination Acute renal failure Qualifiers: Acute renal failure type: unspecified Qualified Code(s): N17.9 - Acute kidney failure, unspecified Condition: Stable
--- NOTE | 2018-12-06 13:55 | CT Report ---
Reason: ALOC Procedure Date: 12/06/2018 Accession Number: [id number] / [id number] Procedure: CT - HEAD WO CPT Code: FULL RESULT: EXAM: CT HEAD EXAM DATE: 12/06/2018 01:43 PM. CLINICAL HISTORY: Loss of consciousness. COMPARISON: HEAD W/O 09/15/2018 7:49 PM. TECHNIQUE: Multiaxial CT images were obtained from the foramen magnum to the vertex. Reformats: Sagittal and coronal. IV contrast: None. In accordance with CT protocol optimization, one or more of the following dose reduction techniques were utilized for this exam: automated exposure control, adjustment of mA and/or KV based on patient size, or use of iterative reconstructive technique. FINDINGS: Parenchyma: No intraparenchymal hemorrhage. No evidence of mass, midline shift. Davis-white differentiation is distinct. Extraaxial Spaces: Normal for age. No subdural or epidural collections identified. Ventricles: Normal in size and position. Sinuses and Orbits: Imaged paranasal sinuses, orbits, and mastoids show no significant abnormality. Bones: No evidence of fracture or calvarial defect. Other: None. IMPRESSION: No acute intracranial abnormalities detected. RADIA
[2018-12-06 13:57] LABS: PLATELET ESTIMATE, MANUAL DECREASED (<130,000) (NORMAL); PLATELET MORPHOLOGY NORMAL APPEARANCE (NORMAL)
[2018-12-06 13:58] LABS: VBG PCO2 35.6 mmHg (41-51); VBG PH 7.452 (7.31-7.41); VBG PO2 49.6 mmHg (25-47)
[2018-12-06 13:59] LABS: VBG BASE EXCESS 0.7 mmol/L (-2 - +2); VBG TOTAL CO2 25.4 mmol/L (24-29)
[2018-12-06] MEDS ORDERED: LACTATED RINGERS 1,000 ML IV STA (14:23)
[2018-12-06 14:25] LABS: MAGNESIUM 2.1 mg/dL (1.7-2.8); PHOSPHORUS 2.9 mg/dL (2.5-4.6)
[2018-12-06 14:28] LABS: INR 2.2 (0.8-1.2); PT - PROTHROMBIN TIME 24.6 secs (9.9-12.6)
[2018-12-06 14:35] LABS: PARTIAL THROMBOPLASTIN TIME 37.9 secs (24.9-33.3)
[2018-12-06] MEDS ORDERED: SODIUM CHLORIDE FLUSH 0.9% 10 ML SYRINGE IVP PRN (14:46)
[2018-12-06] MEDS ORDERED: oxyCODONE 5 MG TABLET PO PRN (14:46)
[2018-12-06] MEDS ORDERED: TEMAZEPAM 15 MG CAPSULE PO PRN (14:46)
[2018-12-06] MEDS ORDERED: ONDANSETRON 4 MG/2 ML VIAL IVP PRN (14:46)
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
[2018-12-06 16:17] LABS: MUDS CUTOFF CONCENTRATIONS CUTOFF CONC BELOW:
[2018-12-06] MEDS ORDERED: LORazepam 2 MG/ML VIAL IVP PRN (16:20)
[2018-12-06] MEDS ORDERED: LORazepam 1 MG TABLET PO PRN ×2 (16:20)
[2018-12-06 16:37] LABS: GLUCOSE, URINE (UA) NEGATIVE (NEGATIVE); KETONES,URINE (UA) TRACE mg/dL (NEGATIVE); LEUKOCYTE ESTERASE, URINE TRACE (NEGATIVE); NITRITE,URINE POSITIVE (NEGATIVE); OCCULT BLOOD,URINE LARGE (NEGATIVE); PH,URINE 5.5 PH (5.0-7.5); PROTEIN,URINE 100 mg/dL (NEGATIVE); UROBILINOGEN,URINE 4 E.U./dL (NORMAL)
[2018-12-06 16:44] LABS: BILIRUBIN,URINE MODERATE (NEGATIVE); CLARITY,URINE HAZY (CLEAR); ICTOTEST,URINE POSITIVE
[2018-12-06 16:46] LABS: AMPHETAMINE SCREEN,URINE NEGATIVE (NEGATIVE); BENZODIAZEPINES SCREEN, URINE POSITIVE (NEGATIVE); COCAINE SCREEN URINE NEGATIVE (NEGATIVE); METHADONE SCREEN, URINE NEGATIVE (NEGATIVE); METHAMPHETAMINES SCREEN, URINE NEGATIVE (NEGATIVE); OPIATE SCREEN, URINE NEGATIVE (NEGATIVE); OXYCODONE SCREEN, URINE NEGATIVE (NEGATIVE); PROPOXYPHENE SCREEN, URINE NEGATIVE (NEGATIVE); TRICYCLIC ANTIDEPRESSANT,URINE NEGATIVE (NEGATIVE)
[2018-12-06 16:54] LABS: BACTERIA,URINE Few /HPF (None Seen); CASTS, URINE 6-10 Hyaline Casts /LPF; MUCUS,URINE Few Strands; SQUAMOUS EPITHELIAL CELL,UR NONE SEEN (<= Few)
[2018-12-06] MEDS: SODIUM CHLORIDE FLUSH 0.9% 10 ML SYRINGE IVP SCH (18:17)
[2018-12-06] MEDS: NS W/20 MEQ KCL 1,000 ML IV SCH (18:20)
[2018-12-06] MEDS: DEXTROSE 5% IV SCH ×2 (18:30→22:15)
[2018-12-06] MEDS: THIAMINE IV SCH ×2 (18:30→22:15)
[2018-12-06] MEDS: cefTRIAXone 2 GM in SODIUM CHLORIDE 0.9% MINIBAG 100 ML IV SCH (19:58)
[2018-12-06] MEDS: FAMOTIDINE 20 MG TABLET PO SCH (21:12)
[2018-12-06] MEDS ORDERED: POTASSIUM CHLORIDE 20 MEQ TABLET PO ONE (22:11)
[2018-12-06] MEDS ORDERED: POTASSIUM CHLOR 10 MEQ/100 ML 10 MEQ/100 ML BAG IV SCH ×2 (23:00)
[2018-12-06] MEDS: POTASSIUM CHLOR 10 MEQ/100 ML 10 MEQ/100 ML BAG IV SCH (23:42)
[2018-12-07] MEDS ORDERED: POTASSIUM CHLOR 10 MEQ/100 ML 10 MEQ/100 ML BAG IV SCH ×3 (00:01→02:00)
[2018-12-07] MEDS: POTASSIUM CHLOR 10 MEQ/100 ML 10 MEQ/100 ML BAG IV SCH ×3 (00:45→02:56)
[2018-12-07] MEDS: SODIUM CHLORIDE FLUSH 0.9% 10 ML SYRINGE IVP SCH ×3 (01:52→16:50)
--- NOTE | 2018-12-07 02:10 | Ultrasound Report ---
Reason: evaluate for stones, infection Procedure Date: 12/07/2018 Accession Number: [id number] / [id number] Procedure: US - Retroperitoneal CPT Code: FULL RESULT: EXAM: RENAL ULTRASOUND EXAM DATE: 12/07/2018 01:17 AM. CLINICAL HISTORY: Evaluate for stones, infection. Patient in hospital for urinary tract infection and acute kidney injury. Symptoms include UTI, low urine output and abnormal BUN/creatinine. COMPARISON: ABDOMEN/PELVIS W/O 09/09/2018 1:34 PM. TECHNIQUE: Real-time scanning was performed with static images obtained. FINDINGS: Right Kidney: 11.1 x 6.0 x 5.3 cm. No hydronephrosis. Approximately 2.8 cm benign cyst. Possible tiny 4 mm residual nonobstructing stone. Left Kidney: 10.1 x 4.8 x 4.8 cm. No hydronephrosis. A couple of tiny echogenic foci could reflect nonobstructing stones. No solid appearing masses. Bladder: Bilateral jets seen. The prevoid bladder volume was 297.1 cc. The postvoid bladder volume was 6.1 cc. Other: Known moderate splenomegaly. IMPRESSION: 1. No hydronephrosis in either kidney. 2. Small bilateral nonobstructing renal stones suspected. RADIA
[2018-12-07 05:07] LABS: BASOPHILS % (AUTO) 0.7 %; EOSINOPHILS # (AUTO) 0.1 10^3/uL (0.0-0.7); EOSINOPHILS % (AUTO) 1.7 %; HGB - HEMOGLOBIN 10.4 g/dL (14.0-18.0); LYMPHOCYTES # (AUTO) 0.9 10^3/uL (1.5-3.5); LYMPHOCYTES % (AUTO) 15.7 %; MEAN CORPUSCULAR HGB CONC 32.2 g/dL (32.0-36.0); MEAN CORPUSCULAR VOLUME 105.6 fL (80.0-94.0); MONOCYTES # (AUTO) 0.8 10^3/uL (0.0-1.0); MONOCYTES % (AUTO) 13.8 %; NEUTROPHILS # (AUTO) 3.7 10^3/uL (1.5-6.6); NEUTROPHILS % (AUTO) 67.5 %; PLT - PLATELET COUNT 45 10^3/uL (130-450); RED BLOOD COUNT 3.06 10^6/uL (4.70-6.10); RED CELL DISTRIBUTION WIDTH 15.2 % (12.0-15.0); WHITE BLOOD COUNT 5.4 x10^3/uL (4.8-10.8)
[2018-12-07 05:18] LABS: INR 2.1 (0.8-1.2); PT - PROTHROMBIN TIME 24.1 secs (9.9-12.6)
[2018-12-07 05:19] LABS: ALBUMIN 2.7 g/dL (3.2-5.5); ALBUMIN/GLOBULIN RATIO 0.8 (1.0-2.2); BILIRUBIN,TOTAL 5.4 mg/dL (0.2-1.0); CALCIUM 7.8 mg/dL (8.5-10.3); CREATININE 1.7 mg/dL (0.6-1.2); MAGNESIUM 2.3 mg/dL (1.7-2.8); PHOSPHORUS 2.4 mg/dL (2.5-4.6); TOTAL PROTEIN 6.3 g/dL (6.7-8.2)
[2018-12-07] MEDS: DEXTROSE 5% IV SCH ×3 (06:01→21:37)
[2018-12-07] MEDS: THIAMINE IV SCH ×3 (06:01→21:37)
[2018-12-07] MEDS: NS W/20 MEQ KCL 1,000 ML IV SCH ×2 (07:19→18:14)
[2018-12-07] MEDS: POLYETHYLENE GLYCOL 3350 17 GM PACKET PO SCH (10:48)
[2018-12-07] MEDS: FAMOTIDINE 20 MG TABLET PO SCH ×2 (10:59→21:37)
[2018-12-07] MEDS: ENOXAPARIN 40 MG/0.4 ML SYRINGE SUBQ SCH (10:59)
--- NOTE | 2018-12-07 15:24 | PROVIDER PROGRESS NOTE ---
Subjective - Prog Note Date Prog Note Date: 12/07/18 Prog Note Time: 15:22 - Subjective Pt reports feeling: Improved Subjective: Nabeel complains of "no one believing him" regarding the people that were at his home prior to this admission. He denies any new symptoms such as chest pain, nausea, vomiting, a new rash, dizziness or a new cough. He has ongoing profound weakness on exam to his BLEs. Current Medications - Current Medications Current Medications: Active Medications: Chlordiazepoxide HCl (Librium) 25 mg PO Q6HR OK Enoxaparin Sodium (Lovenox) 40 mg SUBQ DAILY OK Famotidine (Pepcid) 20 mg PO BID OK Potassium Chloride/Sodium Chloride (Normal Saline 0.9% W/20 Meq Kcl) 1,000 mls @ 100 mls/hr IV .Q10H OK Thiamine HCl 500 mg/ Dextrose 255 mls @ 255 mls/hr IV TID OK Ceftriaxone Sodium 2 gm/ (Sodium Chloride) 100 mls @ 200 mls/hr IV Q24H OK Lorazepam (Ativan) 2 mg PO Q1H PRN; Protocol Lorazepam (Ativan Inj (Vial)) 2 mg IVP Q30M PRN; Protocol Ondansetron HCl (Zofran Inj) 4 mg IVP Q6HR PRN Oxycodone HCl (Roxicodone) 5 mg PO Q4HR PRN Polyethylene Glycol (Miralax) 17 gm PO DAILY OK Saccharomyces Boulardii (Florastor) 250 mg PO BIDWM OK Temazepam (Restoril) 15 mg PO QPM PRN HOME meds: No Known Home Medications 12/06/18 Objective - Vital Signs/Intake & Output Reviewed Vital Signs: Yes Vital Signs: Vital Signs x48h Temp Pulse Resp BP Pulse Ox 12/07/18 13:39 37.5 C 114 H 18 106/60 98 12/07/18 09:00 37.6 C H 88 18 126/75 98 Intake & Output: Intake & Output 12/04/18 12/05/18 12/06/18 12/07/18 23:59 23:59 23:59 23:59 Intake Total 2556.867 1863.333 Output Total 500 1000 Balance 2056.867 863.333 - Objective General Appearance: positive: Alert, Moderate distress, Anxious Eyes Bilateral: positive: PERRL Eyes: OU Conjunctivae pale, OU Scleral icterus ENT: positive: Pharynx nml, Dry mucous membranes Neck: positive: Thyroid nml, No JVD, Trachea midline Respiratory: positive: Chest non-tender, No respiratory distress, Breath sounds nml Cardiovascular: positive: Regular rate & rhythm, No gallop, Systolic murmur Peripheral Pulses: 1+ Radial (R), 1+ Radial (L) Abdomen: positive: Non-tender, Nml bowel sounds, Hepatomegaly Back: positive: Nml inspection Skin: positive: Color nml, No rash, Warm, Dry Extremities: positive: Non-tender, Full ROM Neurologic/Psychiatric: positive: Disoriented to time, Weakness, Sensory loss, Slurred/abnml speech (sluggish speech, cannot answer direct questionos), Depressed mood/affect Reflexes: Bicep (R): 2+, Bicep (L): 2+ - Lab Results Fish Bones: 12/07/18 04:50 12/07/18 04:50 Other Labs: Lab Results x24hrs 12/07/18 12/07/18 12/07/18 Range/Units 04:50 04:50 04:50 WBC 5.4 (4.8-10.8) x10^3/uL RBC 3.06 L (4.70-6.10) 10^6/uL Hgb 10.4 L (14.0-18.0) g/dL Hct 32.3 L (42.0-52.0) % MCV 105.6 H (80.0-94.0) fL MCH 34.0 H (27.0-31.0) pg MCHC 32.2 (32.0-36.0) g/dL RDW 15.2 H (12.0-15.0) % Plt Count 45 L (130-450) 10^3/uL MPV 10.0 (7.4-11.4) fL Neut # (Auto) 3.7 (1.5-6.6) 10^3/uL Lymph # (Auto) 0.9 L (1.5-3.5) 10^3/uL [place] # (Auto) 0.8 (0.0-1.0) 10^3/uL Eos # (Auto) 0.1 (0.0-0.7) 10^3/uL Baso # (Auto) 0.0 (0.0-0.1) 10^3/uL Absolute Nucleated RBC 0.00 x10^3/uL Nucleated RBC % 0.0 /100WBC PT 24.1 H (9.9-12.6) secs INR 2.1 H (0.8-1.2) Sodium 136 (135-145) mmol/L Potassium 3.5 (3.5-5.0) mmol/L Chloride 104 (101-111) mmol/L Carbon Dioxide 21 (21-32) mmol/L Anion Gap 11.0 (6-13) BUN 21 H (6-20) mg/dL Creatinine 1.7 H (0.6-1.2) mg/dL Estimated GFR (MDRD) 41 L (>89) Glucose 79 (70-100) mg/dL Calcium 7.8 L (8.5-10.3) mg/dL Phosphorus 2.4 L (2.5-4.6) mg/dL Magnesium 2.3 (1.7-2.8) mg/dL Total Bilirubin 5.4 H (0.2-1.0) mg/dL GGT 163 H (8-55) IU/L AST 90 H (10-42) IU/L ALT 30 (10-60) IU/L Alkaline Phosphatase 92 (42-121) IU/L Total Protein 6.3 L (6.7-8.2) g/dL Albumin 2.7 L (3.2-5.5) g/dL Globulin 3.6 (2.1-4.2) g/dL Albumin/Globulin Ratio 0.8 L (1.0-2.2) Urine Color Urine Clarity (CLEAR) Urine pH (5.0-7.5) PH Ur Specific [place] (1.002-1.030) Urine Protein (NEGATIVE) mg/dL Urine Glucose (UA) (NEGATIVE) mg/dL Urine Ketones (NEGATIVE) mg/dL Urine Occult Blood (NEGATIVE) Urine Nitrite (NEGATIVE) Urine Bilirubin (NEGATIVE) Urine Urobilinogen (NORMAL) E.U./dL Ur Leukocyte Esterase (NEGATIVE) Urine RBC (0-5) /HPF Urine WBC (0-3) /HPF Ur Squamous Epith Cells (<= Few) Urine Bacteria (None Seen) /HPF Urine Casts /LPF Urine Mucus Ur Microscopic Review Urine Culture Comments Urine Opiates Screen (NEGATIVE) Ur Oxycodone Screen (NEGATIVE) Urine Methadone Screen (NEGATIVE) Ur Propoxyphene Screen (NEGATIVE) Ur Barbiturates Screen (NEGATIVE) Ur Tricyclics Screen (NEGATIVE) Ur Phencyclidine Scrn (NEGATIVE) Ur Amphetamine Screen (NEGATIVE) U Methamphetamines Scrn (NEGATIVE) U Benzodiazepines Scrn (NEGATIVE) Urine Cocaine Screen (NEGATIVE) U Cannabinoids Screen (NEGATIVE) 12/06/18 Range/Units 16:10 WBC (4.8-10.8) x10^3/uL RBC (4.70-6.10) 10^6/uL Hgb (14.0-18.0) g/dL Hct (42.0-52.0) % MCV (80.0-94.0) fL MCH (27.0-31.0) pg MCHC (32.0-36.0) g/dL RDW (12.0-15.0) % Plt Count (130-450) 10^3/uL MPV (7.4-11.4) fL Neut # (Auto) (1.5-6.6) 10^3/uL Lymph # (Auto) (1.5-3.5) 10^3/uL [place] # (Auto) (0.0-1.0) 10^3/uL Eos # (Auto) (0.0-0.7) 10^3/uL Baso # (Auto) (0.0-0.1) 10^3/uL Absolute Nucleated RBC x10^3/uL Nucleated RBC % /100WBC PT (9.9-12.6) secs INR (0.8-1.2) Sodium (135-145) mmol/L Potassium (3.5-5.0) mmol/L Chloride (101-111) mmol/L Carbon Dioxide (21-32) mmol/L Anion Gap (6-13) BUN (6-20) mg/dL Creatinine (0.6-1.2) mg/dL Estimated GFR (MDRD) (>89) Glucose (70-100) mg/dL Calcium (8.5-10.3) mg/dL Phosphorus (2.5-4.6) mg/dL Magnesium (1.7-2.8) mg/dL Total Bilirubin (0.2-1.0) mg/dL GGT (8-55) IU/L AST (10-42) IU/L ALT (10-60) IU/L Alkaline Phosphatase (42-121) IU/L Total Protein (6.7-8.2) g/dL Albumin (3.2-5.5) g/dL Globulin (2.1-4.2) g/dL Albumin/Globulin Ratio (1.0-2.2) Urine Color DARK YELLOW Urine Clarity HAZY (CLEAR) Urine pH 5.5 (5.0-7.5) PH Ur Specific [place] 1.025 (1.002-1.030) Urine Protein 100 H (NEGATIVE) mg/dL Urine Glucose (UA) NEGATIVE (NEGATIVE) mg/dL Urine Ketones TRACE (NEGATIVE) mg/dL Urine Occult Blood LARGE H (NEGATIVE) Urine Nitrite POSITIVE H (NEGATIVE) Urine Bilirubin MODERATE H (NEGATIVE) Urine Urobilinogen 4 H (NORMAL) E.U./dL Ur Leukocyte Esterase TRACE H (NEGATIVE) Urine RBC 11-25 H (0-5) /HPF Urine WBC 6-10 H (0-3) /HPF Ur Squamous Epith Cells NONE SEEN (<= Few) Urine Bacteria Few (None Seen) /HPF Urine Casts 6-10 Hyaline Casts /LPF Urine Mucus Few Strands Ur Microscopic Review INDICATED Urine Culture Comments INDICATED Urine Opiates Screen NEGATIVE (NEGATIVE) Ur Oxycodone Screen NEGATIVE (NEGATIVE) Urine Methadone Screen NEGATIVE (NEGATIVE) Ur Propoxyphene Screen NEGATIVE (NEGATIVE) Ur Barbiturates Screen NEGATIVE (NEGATIVE) Ur Tricyclics Screen NEGATIVE (NEGATIVE) Ur Phencyclidine Scrn NEGATIVE (NEGATIVE) Ur Amphetamine Screen NEGATIVE (NEGATIVE) U Methamphetamines Scrn NEGATIVE (NEGATIVE) U Benzodiazepines Scrn POSITIVE H (NEGATIVE) Urine Cocaine Screen NEGATIVE (NEGATIVE) U Cannabinoids Screen NEGATIVE (NEGATIVE) ABX Reporting Has patient been on IV antibiotics over the past 48 hours?: Yes Assessment/Plan - Problem List (1) Alcohol withdrawal Impression: - Longstanding alcohol use as a known past medical history - More tremors noted today - Diaphoretic at times - Still with visual hallucinations, nausea, headaches, and impulsiveness - Ongoing CIWA scoring between 5-7 today - Visit from mother and S.O, seemed to exacerbate his symptoms, poor appetite, easily distracted Plan: Continue with CIWA, continue Librium scheduled Q6H, continue thiamine TID IV Qualifiers: Complication of substance-induced condition: with perceptual disturbance Qualified Code(s): 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 (2) Wernicke encephalopathy syndrome Impression: - Diagnosed based on the characterization of profound indifference, inattentive ness, and disorientation - Slight nystagmus on exam with drift to the left - Gait ataxia, walking with short-spaced steps, slow - Already started on IV thiamine Plan: Continue high dose IV thiamine, monitor for worsening mental status (3) STEFFANY (acute kidney injury) Impression: - Creatinine baseline is 0.8 - Now elevated at 1.7, down from 2.5 yesterday - Suspect from extreme dehydration Plan: Continye IV fluids, routine labs (4) UTI (urinary tract infection) Impression: - Patient admits to some difficulty with urination lately - Also notes that his urine has been more dark in color, and smelly - UA obtained in the ED shows + nitrites, bacteria, WBC and blood - Kidney US to evaluate kidneys shows no hydronephrosis Plan: Continue Rocephin, and await final culture result Qualifiers: Urinary tract infection type: acute cystitis (5) Hepatic encephalopathy Impression: - Ongoing visual hallucinations - Still very anxious today about "no one believing him" regarding the people at his house prior to coming to the ED - Alcoholism is ongoing - Head CT shows no abnormalities, but shahid-white differentiation is distinct Plan: Continue to treat illness, STEFFANY and monitor for worsening (6) Dehydration Impression: - STEFFANY, dry mucous membranes - Scoring between 5-7 today for CIWA Plan: Continue IV hydration, monitor for withdrawal, encourage oral intake (7) Hypokalemia Impression: - Potassium was 2.7 at the time of admission, now up to 3.5 - Patient denies recent diarrhea, nausea, or vomiting - Only nibbling at his lunch Plan: Continue IV fluids with K+, encourage PO intake, recheck labs (8) Weakness Impression: - Ongoing weakness as per patient report - Poor overall nutrition - Has difficulty getting to the bathroom due to profound BLE weakness - Likely due to long standing alcoholism, also from acute illness Plan: Continue to monitor, await PT evaluation (9) Cirrhosis Impression: - Last imaging in August 2018 showed liver cirrhosis with a nodular contour consistent with cirrhotic liver morphology - Long standing alcoholism - Past charting noted Larry Roberto, but also drinks beer - Very elevated bili at 7.5, AST 110, alk phos normal Plan: Continue to monitor for withdrawal, monitor labs and check a GGT in the AM Qualifiers: Hepatic cirrhosis type: alcoholic cirrhosis Ascites presence: without ascites Qualified Code(s): K70.30 - Alcoholic cirrhosis of liver without ascites (10) Essential hypertension Impression: - Hypertension per chart review, 137/95 - Light blood pressures 106/60 today - Listed in past medical history - Telemetry for CIWA Plan: Continue to monitor, more frequently with CIWA (11) History of Clostridium difficile infection Impression: - had C. diff on last hospital stay - Will start prophylactic oral vanco since he is on IV antibiotics for his acute UTI Plan: Continue to monitor, give vanco orally
[2018-12-07] MEDS: SACCHAROMYCES BOULARDII 250 MG CAPSULE PO SCH ×2 (15:28→16:50)
[2018-12-07] MEDS ORDERED: chlordiazePOXIDE 25 MG CAPSULE PO SCH (16:00)
[2018-12-07] MEDS: LACTULOSE 10 GM /15 ML UDC PO SCH (16:47)
[2018-12-07] MEDS: VANCOMYCIN 125 MG CAPSULE PO SCH (16:49)
[2018-12-07] MEDS: LORazepam 2 MG/ML VIAL IVP PRN ×3 (17:23→18:49)
[2018-12-07] MEDS: cefTRIAXone 2 GM in SODIUM CHLORIDE 0.9% MINIBAG 100 ML IV SCH (18:13)
[2018-12-07] MEDS ORDERED: HALOPERIDOL 5 MG/ML VIAL IVP PRN (18:15)
[2018-12-07] MEDS ORDERED: LORazepam 1 MG TABLET PO PRN (18:21)
[2018-12-07] MEDS: LORazepam 1 MG TABLET PO SCH (21:37)
[2018-12-08] MEDS: NS W/20 MEQ KCL 1,000 ML IV SCH ×2 (00:57→05:55)
[2018-12-08] MEDS: LORazepam 1 MG TABLET PO SCH ×4 (02:30→22:03)
[2018-12-08] MEDS: SODIUM CHLORIDE FLUSH 0.9% 10 ML SYRINGE IVP SCH ×3 (05:52→22:04)
[2018-12-08 06:00] LABS: BASOPHILS # (AUTO) 0.1 10^3/uL (0.0-0.1); BASOPHILS % (AUTO) 1.3 %; EOSINOPHILS # (AUTO) 0.1 10^3/uL (0.0-0.7); HGB - HEMOGLOBIN 10.2 g/dL (14.0-18.0); LYMPHOCYTES # (AUTO) 0.9 10^3/uL (1.5-3.5); LYMPHOCYTES % (AUTO) 21.6 %; MEAN CORPUSCULAR HEMOGLOBIN 33.8 pg (27.0-31.0); MEAN CORPUSCULAR HGB CONC 31.1 g/dL (32.0-36.0); MEAN CORPUSCULAR VOLUME 108.6 fL (80.0-94.0); MEAN PLATELET VOLUME 10.1 fL (7.4-11.4); MONOCYTES # (AUTO) 0.9 10^3/uL (0.0-1.0); MONOCYTES % (AUTO) 22.6 %; NEUTROPHILS % (AUTO) 51.7 %; PLT - PLATELET COUNT 51 10^3/uL (130-450); RED BLOOD COUNT 3.02 10^6/uL (4.70-6.10); RED CELL DISTRIBUTION WIDTH 15.9 % (12.0-15.0); WHITE BLOOD COUNT 3.9 x10^3/uL (4.8-10.8)
[2018-12-08 06:12] LABS: ALBUMIN 2.6 g/dL (3.2-5.5); ALBUMIN/GLOBULIN RATIO 0.7 (1.0-2.2); BILIRUBIN,TOTAL 4.4 mg/dL (0.2-1.0); CALCIUM 7.7 mg/dL (8.5-10.3); CREATININE 1.2 mg/dL (0.6-1.2); MAGNESIUM 1.8 mg/dL (1.7-2.8); PHOSPHORUS 2.4 mg/dL (2.5-4.6); TOTAL PROTEIN 6.3 g/dL (6.7-8.2)
[2018-12-08] MEDS: DEXTROSE 5% IV SCH ×3 (06:20→22:13)
[2018-12-08] MEDS: THIAMINE IV SCH ×3 (06:20→22:13)
[2018-12-08] MEDS: LACTULOSE 10 GM /15 ML UDC PO SCH (08:11)
[2018-12-08] MEDS: VANCOMYCIN 125 MG CAPSULE PO SCH (08:12)
[2018-12-08] MEDS: SACCHAROMYCES BOULARDII 250 MG CAPSULE PO SCH ×2 (08:12→17:30)
[2018-12-08] MEDS: FAMOTIDINE 20 MG TABLET PO SCH ×2 (08:12→22:03)
[2018-12-08] MEDS: POLYETHYLENE GLYCOL 3350 17 GM PACKET PO SCH (08:13)
[2018-12-08] MEDS: ENOXAPARIN 40 MG/0.4 ML SYRINGE SUBQ SCH (08:13)
[2018-12-08] MEDS ORDERED: VANCOMYCIN 125 MG CAPSULE PO SCH (09:00)
--- NOTE | 2018-12-08 10:34 | PROVIDER PROGRESS NOTE ---
Subjective - Prog Note Date Prog Note Date: 12/08/18 Prog Note Time: 10:34 - Subjective Pt reports feeling: Improved Subjective: Nabeel complains of not having his cell phone, but after reminding, he sees it in his bed. He asks me, "why do you have a balloon on top of your hand"? He denies chest pain, nausea, vomiting, a rash, sore throat, a new cough or shortness of breath. Current Medications - Current Medications Current Medications: Active Medications: Enoxaparin Sodium (Lovenox) 40 mg SUBQ DAILY OK Famotidine (Pepcid) 20 mg PO BID OK Haloperidol (Haldol Inj) 1 mg IVP Q6H PRN Thiamine HCl 500 mg/ Dextrose 255 mls @ 255 mls/hr IV TID OK Ceftriaxone Sodium 2 gm/ (Sodium Chloride) 100 mls @ 200 mls/hr IV Q24H OK Lactulose (Enulose) 10 gm PO DAILY OK Lorazepam (Ativan Inj (Vial)) 2 mg IVP Q30M PRN; Protocol Lorazepam (Ativan) 2 mg PO Q6H OK Lorazepam (Ativan) 2 mg PO Q15M PRN; Protocol Ondansetron HCl (Zofran Inj) 4 mg IVP Q6HR PRN Oxycodone HCl (Roxicodone) 5 mg PO Q4HR PRN Saccharomyces Boulardii (Florastor) 250 mg PO BIDWM OK Temazepam (Restoril) 15 mg PO QPM PRN Vancomycin HCl (Vancocin) 125 mg PO DAILY [facility] HOME meds: No Known Home Medications 12/06/18 Objective - Vital Signs/Intake & Output Reviewed Vital Signs: Yes Vital Signs: Vital Signs x48h Temp Pulse Resp BP Pulse Ox 12/08/18 07:43 37.1 C 80 16 116/75 99 12/08/18 05:00 37.1 C 75 18 127/70 99 Intake & Output: Intake & Output 12/05/18 12/06/18 12/07/18 12/08/18 23:59 23:59 23:59 23:59 Intake Total 2556.867 3913.333 1615 Output Total 500 2000 300 Balance 2056.867 2828.732 2739 - Objective General Appearance: positive: Alert, Mild distress, Anxious Eyes Bilateral: positive: PERRL Eyes: OU Scleral icterus ENT: positive: Pharynx nml, No signs of dehydration Neck: positive: Thyroid nml, No JVD Respiratory: positive: Chest non-tender, No respiratory distress, Breath sounds nml Cardiovascular: positive: Regular rate & rhythm, No gallop, Systolic murmur Peripheral Pulses: 1+ Radial (R), 1+ Radial (L) Abdomen: positive: Non-tender, Nml bowel sounds, Hepatomegaly Back: positive: Nml inspection Skin: positive: Color nml, No rash, Warm, Dry Extremities: positive: Non-tender, Pedal edema Neurologic/Psychiatric: positive: Disoriented to time, Weakness, Sensory loss, Slurred/abnml speech (baseline slurred speech), Depressed mood/affect, Other (resting tremor, visual hallucinations) Reflexes: Bicep (R): 2+, Bicep (L): 2+ - Lab Results Fish Bones: 12/08/18 05:49 12/08/18 05:49 Other Labs: Lab Results x24hrs 12/08/18 12/08/18 12/08/18 Range/Units 05:49 05:49 05:49 WBC (4.8-10.8) x10^3/uL RBC (4.70-6.10) 10^6/uL Hgb (14.0-18.0) g/dL Hct (42.0-52.0) % MCV (80.0-94.0) fL MCH (27.0-31.0) pg MCHC (32.0-36.0) g/dL RDW (12.0-15.0) % Plt Count (130-450) 10^3/uL MPV (7.4-11.4) fL Neut # (Auto) (1.5-6.6) 10^3/uL Lymph # (Auto) (1.5-3.5) 10^3/uL [place] # (Auto) (0.0-1.0) 10^3/uL Eos # (Auto) (0.0-0.7) 10^3/uL Baso # (Auto) (0.0-0.1) 10^3/uL Absolute Nucleated RBC x10^3/uL Nucleated RBC % /100WBC Sodium (135-145) mmol/L Potassium (3.5-5.0) mmol/L Chloride (101-111) mmol/L Carbon Dioxide (21-32) mmol/L Anion Gap (6-13) BUN (6-20) mg/dL Creatinine (0.6-1.2) mg/dL Estimated GFR (MDRD) (>89) Glucose (70-100) mg/dL Lactic Acid 0.7 (0.5-2.2) mmol/L Calcium (8.5-10.3) mg/dL Phosphorus (2.5-4.6) mg/dL Magnesium (1.7-2.8) mg/dL Total Bilirubin (0.2-1.0) mg/dL AST (10-42) IU/L ALT (10-60) IU/L Alkaline Phosphatase (42-121) IU/L Ammonia 46.2 H (7-35) umol/L Total Protein (6.7-8.2) g/dL Albumin (3.2-5.5) g/dL Globulin (2.1-4.2) g/dL Albumin/Globulin Ratio (1.0-2.2) Vitamin B12 1582 H (180-914) pg/mL 12/08/18 12/08/18 Range/Units 05:49 05:49 WBC 3.9 L (4.8-10.8) x10^3/uL RBC 3.02 L (4.70-6.10) 10^6/uL Hgb 10.2 L (14.0-18.0) g/dL Hct 32.8 L (42.0-52.0) % MCV 108.6 H (80.0-94.0) fL MCH 33.8 H (27.0-31.0) pg MCHC 31.1 L (32.0-36.0) g/dL RDW 15.9 H (12.0-15.0) % Plt Count 51 L (130-450) 10^3/uL MPV 10.1 (7.4-11.4) fL Neut # (Auto) 2.0 (1.5-6.6) 10^3/uL Lymph # (Auto) 0.9 L (1.5-3.5) 10^3/uL [place] # (Auto) 0.9 (0.0-1.0) 10^3/uL Eos # (Auto) 0.1 (0.0-0.7) 10^3/uL Baso # (Auto) 0.1 (0.0-0.1) 10^3/uL Absolute Nucleated RBC 0.00 x10^3/uL Nucleated RBC % 0.0 /100WBC Sodium 139 (135-145) mmol/L Potassium 3.8 (3.5-5.0) mmol/L Chloride 114 H (101-111) mmol/L Carbon Dioxide 19 L (21-32) mmol/L Anion Gap 6.0 (6-13) BUN 16 (6-20) mg/dL Creatinine 1.2 (0.6-1.2) mg/dL Estimated GFR (MDRD) 62 L (>89) Glucose 83 (70-100) mg/dL Lactic Acid (0.5-2.2) mmol/L Calcium 7.7 L (8.5-10.3) mg/dL Phosphorus 2.4 L (2.5-4.6) mg/dL Magnesium 1.8 (1.7-2.8) mg/dL Total Bilirubin 4.4 H (0.2-1.0) mg/dL AST 73 H (10-42) IU/L ALT 26 (10-60) IU/L Alkaline Phosphatase 84 (42-121) IU/L Ammonia (7-35) umol/L Total Protein 6.3 L (6.7-8.2) g/dL Albumin 2.6 L (3.2-5.5) g/dL Globulin 3.7 (2.1-4.2) g/dL Albumin/Globulin Ratio 0.7 L (1.0-2.2) Vitamin B12 (180-914) pg/mL ABX Reporting Has patient been on IV antibiotics over the past 48 hours?: Yes Assessment/Plan - Problem List (1) Alcohol withdrawal Impression: - Longstanding alcohol use as a known past medical history - Ongoing baseline tremors that become worse with activity - Diaphoretic at times - Still with visual hallucinations, nausea, headaches, and impulsiveness - Ongoing CIWA scoring between 1-5 today Plan: Continue with CIWA, continue Lorazepam scheduled Q6H, continue thiamine TID IV Qualifiers: Complication of substance-induced condition: with perceptual disturbance Qualified Code(s): 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 (2) Wernicke encephalopathy syndrome Impression: - Diagnosed based on the characterization of profound indifference, inattentiveness, and disorientation - Slight nystagmus on exam with drift to the left - Gait ataxia, walking with short-spaced steps, slow - Having visual hallucinations on exam today - Continues on IV thiamine Plan: Continue high dose IV thiamine, monitor for worsening mental status (3) STEFFANY (acute kidney injury) Impression: - Creatinine baseline is 0.8 - Creatinine is now normal at 1.2, down from 1.7 yesterday - Suspect from extreme dehydration - Stopping IV fluids, poor appetite overall Plan: Routine labs (4) UTI (urinary tract infection) Impression: - Patient admits to some difficulty with urination lately - Also notes that his urine has been more dark in color, and smelly - UA obtained in the ED shows + nitrites, bacteria, WBC and blood - Kidney US to evaluate kidneys shows no hydronephrosis - No growth in urine sample, so changing IV rocephin to PO augmentin Plan: Continue Augmentin, monitor for dysuria Qualifiers: Urinary tract infection type: acute cystitis (5) Hepatic encephalopathy Impression: - Visual hallucinations are becoming less frequent, but still very apparent based on today's exam - Still very anxious today about "no one believing him" regarding the people at his house prior to coming to the ED - Alcoholism is ongoing - Head CT shows no abnormalities, but shahid-white differentiation is distinct Plan: Continue to treat illness, and monitor for worsening (6) Weakness Impression: - Ongoing weakness as per patient report - Poor overall nutrition - Has difficulty getting to the bathroom due to profound BLE weakness - Likely due to long standing alcoholism, also from acute illness - Today PT evaluation recommends SNF; "BM independent, STS and transfer Deepak/1. Gait with FWW Deepak/1. Gait ataxic wide base. Excessive tremor" Plan: Continue to monitor, PT is seeing daily and recommends SNF (7) Cirrhosis Impression: - Last imaging in August 2018 showed liver cirrhosis with a nodular contour consistent with cirrhotic liver morphology - Long standing alcoholism - Past charting noted Larry Roberto, but also drinks beer - Very elevated bili at 4.4, AST 73, alk phos normal, GGT elevated at 163 - Elevated ammonia at 46.2 - Started lactulose yesterday Plan: Continue to monitor for withdrawal, continue daily lactulose, monitor labs Qualifiers: Hepatic cirrhosis type: alcoholic cirrhosis Ascites presence: without ascites Qualified Code(s): K70.30 - Alcoholic cirrhosis of liver without ascites (8) Essential hypertension Impression: - Hypertension per chart review, 123/79 today - Listed in past medical history - Telemetry for CIWA - Stopping IV fluids Plan: Continue to monitor, more frequently with CIWA (9) History of Clostridium difficile infection Impression: - had C. diff on last hospital stay - Will start prophylactic oral vanco since he is on IV antibiotics for his acute UTI Plan: Continue to monitor, give vanco orally
[2018-12-08] MEDS: AMOX/CLAV 875 MG/125 MG TABLET PO SCH (22:02)
[2018-12-09] MEDS: LORazepam 1 MG TABLET PO SCH ×3 (02:39→14:03)
[2018-12-09] MEDS ORDERED: SODIUM CHLORIDE 0.9% 500 ML IV PRN (04:53)
[2018-12-09 06:43] LABS: BASOPHILS # (AUTO) 0.1 10^3/uL (0.0-0.1); BASOPHILS % (AUTO) 1.2 %; EOSINOPHILS # (AUTO) 0.1 10^3/uL (0.0-0.7); EOSINOPHILS % (AUTO) 2.3 %; HGB - HEMOGLOBIN 11.2 g/dL (14.0-18.0); MEAN CORPUSCULAR HEMOGLOBIN 34.3 pg (27.0-31.0); MONOCYTES # (AUTO) 0.9 10^3/uL (0.0-1.0); MONOCYTES % (AUTO) 19.3 %; NEUTROPHILS # (AUTO) 2.6 10^3/uL (1.5-6.6); PLT - PLATELET COUNT 68 10^3/uL (130-450); RED BLOOD COUNT 3.27 10^6/uL (4.70-6.10); RED CELL DISTRIBUTION WIDTH 15.6 % (12.0-15.0); WHITE BLOOD COUNT 4.8 x10^3/uL (4.8-10.8)
[2018-12-09 06:52] LABS: ALBUMIN 2.5 g/dL (3.2-5.5); ALBUMIN/GLOBULIN RATIO 0.7 (1.0-2.2); BILIRUBIN,TOTAL 4.5 mg/dL (0.2-1.0); CALCIUM 8.3 mg/dL (8.5-10.3); CREATININE 1.1 mg/dL (0.6-1.2); MAGNESIUM 1.7 mg/dL (1.7-2.8); PHOSPHORUS 2.8 mg/dL (2.5-4.6); TOTAL PROTEIN 6.3 g/dL (6.7-8.2)
[2018-12-09] MEDS: DEXTROSE 5% IV SCH ×3 (07:00→21:55)
[2018-12-09] MEDS: THIAMINE IV SCH ×3 (07:00→21:55)
[2018-12-09] MEDS: SODIUM CHLORIDE FLUSH 0.9% 10 ML SYRINGE IVP SCH ×3 (07:00→17:26)
[2018-12-09 07:19] LABS: INR 2.1 (0.8-1.2); PT - PROTHROMBIN TIME 23.2 secs (9.9-12.6)
[2018-12-09] MEDS: SACCHAROMYCES BOULARDII 250 MG CAPSULE PO SCH ×2 (09:07→17:26)
[2018-12-09] MEDS: LACTULOSE 10 GM /15 ML UDC PO SCH (09:07)
[2018-12-09] MEDS: ENOXAPARIN 40 MG/0.4 ML SYRINGE SUBQ SCH (09:07)
[2018-12-09] MEDS: AMOX/CLAV 875 MG/125 MG TABLET PO SCH ×2 (09:07→20:51)
[2018-12-09] MEDS: FAMOTIDINE 20 MG TABLET PO SCH ×2 (09:09→20:50)
[2018-12-09] MEDS: VANCOMYCIN 125 MG CAPSULE PO SCH (09:09)
[2018-12-09] MEDS ORDERED: WITCH HAZEL/GLYCERIN 1 PAD TOP PRN (11:58)
[2018-12-09] MEDS ORDERED: LORazepam 1 MG TABLET PO PRN (14:46)
--- NOTE | 2018-12-09 14:48 | PROVIDER PROGRESS NOTE ---
Subjective - Prog Note Date Prog Note Date: 12/09/18 Prog Note Time: 10:00 - Subjective Pt reports feeling: Improved Subjective: Nabeel has no complaints and will be finishing his last thiamine IV tonight. He admits to ongoing weakness and tremors, but made no mention of visual hallucinations today. He denies chest pain, nausea, vomiting, a rash, sore throat, a new cough or shortness of breath. Current Medications - Current Medications Current Medications: Active Medications: Amoxicillin/Clavulanate Potassium (Augmentin 875/125) 1 tab PO BID OK Chlordiazepoxide HCl (Librium) 25 mg PO Q6HR OK Enoxaparin Sodium (Lovenox) 40 mg SUBQ DAILY OK Famotidine (Pepcid) 20 mg PO BID OK Haloperidol (Haldol Inj) 1 mg IVP Q6H PRN Thiamine HCl 500 mg/ Dextrose 255 mls @ 255 mls/hr IV TID OK Sodium Chloride (Normal Saline 0.9%) 500 mls @ 0 mls/hr IV Q24H PRN Lactulose (Enulose) 10 gm PO DAILY OK Ondansetron HCl (Zofran Inj) 4 mg IVP Q6HR PRN Oxycodone HCl (Roxicodone) 5 mg PO Q4HR PRN Saccharomyces Boulardii (Florastor) 250 mg PO BIDWM OK Spironolactone (Aldactone) 25 mg PO DAILY OK Temazepam (Restoril) 15 mg PO QPM PRN Vancomycin HCl (Vancocin) 125 mg PO DAILY OK Witch Aspen/Glycerin (Tucks) 1 pad TOP PRN PRN No Known Home Medications 12/06/18 Objective - Vital Signs/Intake & Output Reviewed Vital Signs: Yes Vital Signs: Vital Signs x48h Temp Pulse Resp BP Pulse Ox 12/09/18 12:47 87 16 125/76 97 12/09/18 07:41 36.5 C 66 20 127/88 H 97 Intake & Output: Intake & Output 12/06/18 12/07/18 12/08/18 12/09/18 23:59 23:59 23:59 23:59 Intake Total 2556.867 3913.333 3965 735 Output Total 500 2000 1700 1275 Balance 2056.867 0509.469 5127 -540 - Objective General Appearance: positive: No acute distress, Alert, Anxious Eyes Bilateral: positive: PERRL, No lid inflammation Eyes: OU Scleral icterus ENT: positive: Pharynx nml, No signs of dehydration Neck: positive: Thyroid nml, No JVD, Trachea midline Respiratory: positive: Chest non-tender, No respiratory distress, Wheezes Cardiovascular: positive: Regular rate & rhythm, No gallop, Systolic murmur, Decreased pulse(s) Peripheral Pulses: 1+ Radial (R), 1+ Radial (L) Abdomen: positive: Non-tender, Nml bowel sounds Back: positive: Nml inspection Skin: positive: No rash, Warm, Dry, Other (mild jaundice) Extremities: positive: Non-tender, Full ROM, Pedal edema (mild, BLEs) Neurologic/Psychiatric: positive: Disoriented to place, Disoriented to time, Weakness, Sensory loss, Slurred/abnml speech, Depressed mood/affect, Other (baseline alcoholic dementia) Reflexes: Bicep (R): 2+, Bicep (L): 2+ - Lab Results Fish Bones: 12/09/18 06:30 12/09/18 06:30 Other Labs: Lab Results x24hrs 12/09/18 12/09/18 12/09/18 Range/Units 06:30 06:30 06:30 WBC (4.8-10.8) x10^3/uL RBC (4.70-6.10) 10^6/uL Hgb (14.0-18.0) g/dL Hct (42.0-52.0) % MCV (80.0-94.0) fL MCH (27.0-31.0) pg MCHC (32.0-36.0) g/dL RDW (12.0-15.0) % Plt Count (130-450) 10^3/uL MPV (7.4-11.4) fL Neut # (Auto) (1.5-6.6) 10^3/uL Lymph # (Auto) (1.5-3.5) 10^3/uL [place] # (Auto) (0.0-1.0) 10^3/uL Eos # (Auto) (0.0-0.7) 10^3/uL Baso # (Auto) (0.0-0.1) 10^3/uL Absolute Nucleated RBC x10^3/uL Nucleated RBC % /100WBC PT 23.2 H (9.9-12.6) secs INR 2.1 H (0.8-1.2) Sodium 135 (135-145) mmol/L Potassium 4.0 (3.5-5.0) mmol/L Chloride 110 (101-111) mmol/L Carbon Dioxide 19 L (21-32) mmol/L Anion Gap 6.0 (6-13) BUN 12 (6-20) mg/dL Creatinine 1.1 (0.6-1.2) mg/dL Estimated GFR (MDRD) 68 L (>89) Glucose 84 (70-100) mg/dL Calcium 8.3 L (8.5-10.3) mg/dL Phosphorus 2.8 (2.5-4.6) mg/dL Magnesium 1.7 (1.7-2.8) mg/dL Total Bilirubin 4.5 H (0.2-1.0) mg/dL AST 65 H (10-42) IU/L ALT 26 (10-60) IU/L Alkaline Phosphatase 93 (42-121) IU/L Ammonia 28.4 (7-35) umol/L Total Creatine Kinase 198 (22-269) IU/L Total Protein 6.3 L (6.7-8.2) g/dL Albumin 2.5 L (3.2-5.5) g/dL Globulin 3.8 (2.1-4.2) g/dL Albumin/Globulin Ratio 0.7 L (1.0-2.2) 12/09/18 Range/Units 06:30 WBC 4.8 (4.8-10.8) x10^3/uL RBC 3.27 L (4.70-6.10) 10^6/uL Hgb 11.2 L (14.0-18.0) g/dL Hct 35.0 L (42.0-52.0) % MCV 107.0 H (80.0-94.0) fL MCH 34.3 H (27.0-31.0) pg MCHC 32.0 (32.0-36.0) g/dL RDW 15.6 H (12.0-15.0) % Plt Count 68 L (130-450) 10^3/uL MPV 10.0 (7.4-11.4) fL Neut # (Auto) 2.6 (1.5-6.6) 10^3/uL Lymph # (Auto) 1.0 L (1.5-3.5) 10^3/uL [place] # (Auto) 0.9 (0.0-1.0) 10^3/uL Eos # (Auto) 0.1 (0.0-0.7) 10^3/uL Baso # (Auto) 0.1 (0.0-0.1) 10^3/uL Absolute Nucleated RBC 0.00 x10^3/uL Nucleated RBC % 0.0 /100WBC PT (9.9-12.6) secs INR (0.8-1.2) Sodium (135-145) mmol/L Potassium (3.5-5.0) mmol/L Chloride (101-111) mmol/L Carbon Dioxide (21-32) mmol/L Anion Gap (6-13) BUN (6-20) mg/dL Creatinine (0.6-1.2) mg/dL Estimated GFR (MDRD) (>89) Glucose (70-100) mg/dL Calcium (8.5-10.3) mg/dL Phosphorus (2.5-4.6) mg/dL Magnesium (1.7-2.8) mg/dL Total Bilirubin (0.2-1.0) mg/dL AST (10-42) IU/L ALT (10-60) IU/L Alkaline Phosphatase (42-121) IU/L Ammonia (7-35) umol/L Total Creatine Kinase (22-269) IU/L Total Protein (6.7-8.2) g/dL Albumin (3.2-5.5) g/dL Globulin (2.1-4.2) g/dL Albumin/Globulin Ratio (1.0-2.2) ABX Reporting Has patient been on IV antibiotics over the past 48 hours?: No Assessment/Plan - Problem List (1) Alcohol withdrawal Impression: - Longstanding alcohol use as a known past medical history - Ongoing baseline tremors that become worse with activity - Diaphoretic at times - Still with visual hallucinations, nausea, headaches, and impulsiveness- much reduced today - Stopping CIWA scoring - Changing scheduled Lorazepam to scheduled Librium Plan: Start Librium, stop CIWA, stop tele, continue thiamine TID IV- with today being the last day of this Qualifiers: Complication of substance-induced condition: with perceptual disturbance Qualified Code(s): 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 (2) Wernicke encephalopathy syndrome Impression: - Diagnosed based on the characterization of profound indifference, inattentiveness, and disorientation - Slight nystagmus on exam with drift to the left - Gait ataxia, walking with short-spaced steps, slow - Having visual hallucinations, although less frightening - Continues on IV thiamine - Now off CIWA, starting scheduled Librium Plan: Continue high dose IV thiamine- through this evening then stop, monitor for worsening mental status (3) STEFFANY (acute kidney injury) Impression: - Creatinine baseline is 0.8 - Creatinine is now normal at 1.1, down from 1.2 yesterday - Suspect from extreme dehydration - Stopped IV fluids, poor appetite overall Plan: Routine labs (4) UTI (urinary tract infection) Impression: - Patient admits to some difficulty with urination lately - Also notes that his urine has been more dark in color, and smelly - UA obtained in the ED shows + nitrites, bacteria, WBC and blood - Kidney US to evaluate kidneys shows no hydronephrosis - No growth in urine sample, so changed IV rocephin to PO augmentin Plan: Continue Augmentin, monitor for dysuria Qualifiers: Urinary tract infection type: acute cystitis (5) Hepatic encephalopathy Impression: - Visual hallucinations are becoming less frequent, but still very apparent based on today's exam - Still very anxious today about "no one believing him" regarding the people at his house prior to coming to the ED - Alcoholism is ongoing - Head CT shows no abnormalities, but shahid-white differentiation is distinct Plan: Continue to treat illness, and monitor for worsening (6) Weakness Impression: - Ongoing weakness as per patient report - Poor overall nutrition - Has difficulty getting to the bathroom due to profound BLE weakness - Likely due to long standing alcoholism, also from acute illness - PT evaluation recommends SNF; "BM independent, STS and transfer Deepak/1. Gait with FWW Deepak/1. Gait ataxic wide base. Excessive tremor" Plan: Continue to monitor, PT is seeing daily and recommends SNF (7) Cirrhosis Impression: - Last imaging in August 2018 showed liver cirrhosis with a nodular contour cons istent with cirrhotic liver morphology - Long standing alcoholism - Past charting noted Larry Roberto, but also drinks beer - Very elevated bili at 4.4, AST 73, alk phos normal, GGT elevated at 163 - Elevated ammonia at 46.2, now reduced to 28.4 - Continues on daily lactulose - NOw off CIWA, starting Librium - Starting Spironolactone today Plan: Continue scheduled librium, continue daily lactulose, monitor labs Qualifiers: Hepatic cirrhosis type: alcoholic cirrhosis Ascites presence: without ascites Qualified Code(s): K70.30 - Alcoholic cirrhosis of liver without ascites (8) Essential hypertension Impression: - Hypertension per chart review, 125/76 today - Listed in past medical history - Starting Spironolactone today, low dose Plan: Continue to monitor, more frequently with CIWA (9) History of Clostridium difficile infection Impression: - had C. diff on last hospital stay - Continues on prophylactic oral vanco since he is on antibiotics for his acute UTI Plan: Continue to monitor, give vanco orally
[2018-12-09] MEDS: SPIRONOLACTONE 25 MG TABLET PO SCH (15:19)
[2018-12-09] MEDS ORDERED: LORazepam 1 MG TABLET PO SCH (16:00)
[2018-12-09] MEDS: chlordiazePOXIDE 25 MG CAPSULE PO SCH (18:46)
[2018-12-09] MEDS ORDERED: THIAMINE 100 MG/1 ML 2 ML MDV ONE (21:51)
[2018-12-10] MEDS: chlordiazePOXIDE 25 MG CAPSULE PO SCH ×3 (00:45→12:16)
[2018-12-10] MEDS: SODIUM CHLORIDE FLUSH 0.9% 10 ML SYRINGE IVP SCH ×2 (00:45→08:22)
[2018-12-10 05:30] LABS: BASOPHILS # (AUTO) 0.1 10^3/uL (0.0-0.1); BASOPHILS % (AUTO) 1.1 %; EOSINOPHILS # (AUTO) 0.1 10^3/uL (0.0-0.7); EOSINOPHILS % (AUTO) 2.3 %; HGB - HEMOGLOBIN 11.4 g/dL (14.0-18.0); LYMPHOCYTES % (AUTO) 18.7 %; MEAN CORPUSCULAR HEMOGLOBIN 34.1 pg (27.0-31.0); MEAN CORPUSCULAR HGB CONC 32.4 g/dL (32.0-36.0); MEAN CORPUSCULAR VOLUME 105.4 fL (80.0-94.0); MEAN PLATELET VOLUME 9.9 fL (7.4-11.4); MONOCYTES % (AUTO) 19.2 %; NEUTROPHILS % (AUTO) 56.4 %; PLT - PLATELET COUNT 71 10^3/uL (130-450); RED BLOOD COUNT 3.34 10^6/uL (4.70-6.10); RED CELL DISTRIBUTION WIDTH 15.4 % (12.0-15.0); WHITE BLOOD COUNT 5.3 x10^3/uL (4.8-10.8)
[2018-12-10 05:37] LABS: PT - PROTHROMBIN TIME 22.1 secs (9.9-12.6)
[2018-12-10 05:40] LABS: ALBUMIN 2.5 g/dL (3.2-5.5); ALBUMIN/GLOBULIN RATIO 0.6 (1.0-2.2); BILIRUBIN,TOTAL 4.2 mg/dL (0.2-1.0); CREATININE 1.1 mg/dL (0.6-1.2); MAGNESIUM 1.6 mg/dL (1.7-2.8); PHOSPHORUS 3.4 mg/dL (2.5-4.6); TOTAL PROTEIN 6.5 g/dL (6.7-8.2)
[2018-12-10] MEDS: ENOXAPARIN 40 MG/0.4 ML SYRINGE SUBQ SCH (07:44)
[2018-12-10] MEDS ORDERED: MAGNESIUM OXIDE 400 MG TABLET PO SCH (08:00)
[2018-12-10 08:14] VITALS: BP 138/76
[2018-12-10] MEDS: VANCOMYCIN 125 MG CAPSULE PO SCH (08:21)
[2018-12-10] MEDS: FAMOTIDINE 20 MG TABLET PO SCH (08:21)
[2018-12-10] MEDS: AMOX/CLAV 875 MG/125 MG TABLET PO SCH (08:21)
[2018-12-10] MEDS: SPIRONOLACTONE 25 MG TABLET PO SCH (08:21)
[2018-12-10] MEDS: SACCHAROMYCES BOULARDII 250 MG CAPSULE PO SCH (08:22)
[2018-12-10] MEDS: LACTULOSE 10 GM /15 ML UDC PO SCH (08:22)
[2018-12-10] MEDS ORDERED: THIAMINE 100 MG TABLET PO SCH (09:00)
--- NOTE | 2018-12-10 11:41 | Discharge Plan ---
Discharge Plan Disposition: 01 Home, Self Care Condition: Stable Prescriptions: chlordiazePOXIDE [Librium] 25 mg PO Q8HR #90 capsule Ciprofloxacin HCl [Cipro] 500 mg PO BID #40 tablet Saccharomyces Boulardii [Florastor] 250 mg PO BID #60 capsule Spironolactone [Aldactone] 25 mg PO DAILY #30 tablet Thiamine [Vitamin B-1] 100 mg PO DAILY #30 tablet Diet: Regular Activity Restrictions: Activity as Tolerated Shower Restrictions: No Driving Restrictions: Yes (NO driving until approved by neurology, or PCP) Weight Bearing: Full Weight Health Concerns: Alcoholism Liver cirrhosis Urinary infection Hallucinations Plan of Treatment: Finish full treatment for your urinary tract infection with Cipro for the next 20 days Please take a probiotic to prevent c. diff Please continue taking the Librium to help with the prevention of further alcohol use Please take the Spironolactone for your Liver cirrhosis Please take a daily Thiamine pill for good brain health Care Goals: Sobriety A full treatment of the UTI Prevention of hallucinations, prevention of vitamin loss Prevention of worsening liver failure Assessment: You were admitted after coming to the ED for the second time with visual hallucinations. You were treated for alcohol withdrawal, and you improved slowly. You were started on a medication called Librium which may help prevent further use of alcohol. You were given IV antibiotics that have been changed to oral antibiotics, Ciprofloxacin that should continue for an extended time for full treatment. You were found to have liver cirrhosis as a consequence of your alcohol use, please continue on the Spironolactone which may preserve your liver and keep your abdominal swelling down. Earlier in your admission you were very weak, and longterm rehab was indicated, but today you passed this test, so we suggest returning home. It would be best if someone could stay with you for the first few days and to drive you to your follow up appointment within one week. You should not drive until you are evaluated by a neurologist or as per your PCP discrepancy. No Smoking: If you smoke, Please STOP! Call for help.
--- NOTE | 2018-12-10 11:50 | DISCHARGE SUMMARY ---
Discharge Summary Admit Date: 12/06/18 Discharge Date: 12/10/18 Discharging Provider: ANGUS Hsu Primary Care Provider: Africa Gonzales Code Status: Attempt Resuscitation Condition at Discharge: Stable Discharge Disposition: 01 Home, Self Care - DIAGNOSES Admission Diagnoses: STEFFANY (acute kidney injury) UTI (urinary tract infection) Hepatic encephalopathy Dehydration Hypokalemia Weakness Cirrhosis Essential hypertension Discharge Diagnoses with Status of Each Condition: Alcohol withdrawal- resolved, continue on thiamine, and Librium Wernicke encephalopathy syndrome- status post IV thiamine x3 days, stable, no further hallucinations STEFFANY (acute kidney injury)- resolved UTI (urinary tract infection)- new on this admission, continue Cipro x20 more days Hepatic encephalopathy- chronic, stable Weakness- improved, no longer a SNF candidate Cirrhosis- chronic, continue on Spironolactone Essential hypertension- chronic, stable History of Clostridioides difficile infection- chronic, stay on probiotic - HPI History of Present Illness: Nabeel Garland is a 62-year old male with a past medical history of medical noncompliance, hypertension, alcoholism, depression, kidney stones, c-diff diarrhea, and CLIFFORD. Patient was brought in by EMS just past midnight for visual hallucinations for which he described "there were people all around his house". He was evaluated by social work, who spoke with him about possible rehab, but he declined and wants to be discharged home. He was instructed to follow up with his primary care provider for his kidney labs. Later today, for his second episode, he reported "seeing clowns in his kitchen" and even took pictures with his phone, but when these photos were reviewed by ED staff, there were nothing except objects in these pictures. Upon arrival to the ED labs showed acute kidney failure with a creatinine of 2.5 (baseline creatinine of 0.8), BUN 25, GFR down to 26. Other labs show a sodium of 136, potassium of 2.7, chloride of 100, anion gap of 15.0, bili of 7.5, AST 110, ALT 37, alk phos of 102, lipase 36, TSH 4.15, alcohol of <5.0, VBGs of pH 7.45, pCO2 35.6, pO2 49.6, and O2 saturation 86.4, macrocytic anemia with an elevated MCV of 103.1, H/H of 11.2/33.5, WBC count of 6.8. A head CT showed no acute abnormalities. He will be admitted for an observation stay for further evaluation and treatment of his kidney failure, and to be monitored for withdrawal. Social work has already met with him, but he confirms that he does not wish to pursue inpatient rehab for his alcoholism. - HOSPITAL COURSE Hospital Course: Alcohol withdrawal- Longstanding alcohol use as a known past medical history - Ongoing baseline tremors that become worse with activity - Diaphoretic at times - Still with visual hallucinations, nausea, headaches, and impulsiveness- much reduced today - Stopping CIWA scoring - Changing scheduled Lorazepam to scheduled Librium - Continue Librium at home Wernicke encephalopathy syndrome- Diagnosed based on the characterization of profound indifference, inattentiveness, and disorientation - Slight nystagmus on exam with drift to the left - Gait ataxia, walking with short-spaced steps, slow - Having visual hallucinations, although less frightening - Continues on IV thiamine - Now off CIWA, starting scheduled Librium STEFFANY (acute kidney injury)- Creatinine baseline is 0.8 - Creatinine is now normal at 1.1, down from 1.2 yesterday - Suspect from extreme dehydration - Stopped IV fluids, poor appetite overall UTI (urinary tract infection)- Patient admits to some difficulty with urination lately - Also notes that his urine has been more dark in color, and smelly - UA obtained in the ED shows + nitrites, bacteria, WBC and blood - Kidney US to evaluate kidneys shows no hydronephrosis - No growth in urine sample, so changed IV rocephin to PO Cipro for prostate penetration Hepatic encephalopathy - Visual hallucinations are becoming less frequent, but still very apparent based on today's exam - Still very anxious today about "no one believing him" regarding the people at his house prior to coming to the ED - Alcoholism is ongoing - Head CT shows no abnormalities, but shahid-white differentiation is distinct Weakness- Ongoing weakness as per patient report - Poor overall nutrition - Has difficulty getting to the bathroom due to profound BLE weakness - Likely due to long standing alcoholism, also from acute illness - PT evaluation recommends SNF; "BM independent, STS and transfer Deepak/. Gait with FWW Deepak/. Gait ataxic wide base. Excessive tremor" Cirrhosis- Last imaging in August 2018 showed liver cirrhosis with a nodular contour consistent with cirrhotic liver morphology - Long standing alcoholism - Past charting noted Larry Roberto, but also drinks beer - Very elevated bili at 4.4, AST 73, alk phos normal, GGT elevated at 163 - Elevated ammonia at 46.2, now reduced to 28.4 - Continues on daily lactulose - NOw off CIWA, starting Librium - Starting Spironolactone Essential hypertension- Hypertension per chart review, 125/76 today - Listed in past medical history - Starting Spironolactone, low dose History of Clostridium difficile infection- had C. diff on last hospital stay - Continues on prophylactic oral vanco since he is on antibiotics for his acute UTI Disposition: The patient was medically stable and discharged home after passing his PT evaluation. No further visual hallucinations. - ALLERGIES Allergies/Adverse Reactions: Allergies Allergy/AdvReac Type Severity Reaction Status Date / Time Sulfa (Sulfonamide Allergy Unknown Verified 12/06/18 13:00 Antibiotics) - MEDICATIONS Home Medications: Ambulatory Orders Medication Instructions Recorded Confirmed Ciprofloxacin HCl [Cipro] 500 mg PO BID #40 tablet 12/10/18 Saccharomyces Boulardii [Florastor] 250 mg PO BID #60 capsule 12/10/18 Spironolactone [Aldactone] 25 mg PO DAILY #30 tablet 12/10/18 Thiamine [Vitamin B-1] 100 mg PO DAILY #30 tablet 12/10/18 chlordiazePOXIDE [Librium] 25 mg PO Q8HR #90 capsule 12/10/18 - PHYSICAL EXAM AT DISCHARGE General Appearance: positive: No acute distress, Alert Eyes Bilateral: positive: PERRL ENT: positive: Pharynx nml, No signs of dehydration Neck: positive: Thyroid nml, No JVD Respiratory: positive: Chest non-tender, No respiratory distress, Breath sounds nml Cardiovascular: positive: Regular rate & rhythm, No gallop, Systolic murmur Peripheral Pulses: positive: 2+ Abdomen: positive: Non-tender, Nml bowel sounds, Hepatomegaly Back: positive: Nml inspection Skin: positive: No rash, Warm, Dry, Other (jaundice) Extremities: positive: Non-tender, Full ROM, Pedal edema Neurologic/Psychiatric: positive: Oriented x3, CN's nml (2-12), Motor nml, Sensation nml, Weakness, Depressed mood/affect Reflexes: Bicep (R): 2+, Bicep (L): 2+ - LABS Result Diagrams: 12/10/18 05:16 12/10/18 05:16 - FOLLOW UP Follow Up: Disposition: Home, Self Care Prescriptions: chlordiazePOXIDE [Librium] 25 mg PO Q8HR #90 capsule Ciprofloxacin HCl [Cipro] 500 mg PO BID #40 tablet Saccharomyces Boulardii [Florastor] 250 mg PO BID #60 capsule Spironolactone [Aldactone] 25 mg PO DAILY #30 tablet Thiamine [Vitamin B-1] 100 mg PO DAILY #30 tablet Driving Restrictions: Yes (NO driving until approved by neurology, or PCP) Health Concerns: Alcoholism, Liver cirrhosis, Urinary infection, Hallucinations Plan of Treatment: Finish full treatment for your urinary tract infection with Cipro for the next 20 days Please take a probiotic to prevent c. diff Please continue taking the Librium to help with the prevention of further alcohol use Please take the Spironolactone for your Liver cirrhosis Please take a daily Thiamine pill for good brain health Care Goals: Sobriety A full treatment of the UTI Prevention of hallucinations, prevention of vitamin loss Prevention of worsening liver failure Assessment: You were admitted after coming to the ED for the second time with visual hallucinations. You were treated for alcohol withdrawal, and you improved slowly. You were started on a medication called Librium which may help prevent further use of alcohol. You were given IV antibiotics that have been changed to oral antibiotics, Ciprofloxacin that should continue for an extended time for full treatment. You were found to have liver cirrhosis as a consequence of your alcohol use, please continue on the Spironolactone which may preserve your liver and keep your abdominal swelling down. Earlier in your admission you were very weak, and halfway rehab was indicated, but today you passed this test, so we suggest returning home. It would be best if someone could stay with you for the first few days and to drive you to your follow up appointment within one week. You should not drive until you are evaluated by a neurologist or as per your PCP discrepancy. - TIME SPENT Time Spent in Discharge (Minutes): 50
== END 2018-12-10 14:26 | disposition home or self-care (01) | DRG 896 ==
LOC: EDUNIT# → ED 12:49 → MS2 14:46 → OBSVTOIN 12-07 10:21
PROVIDERS: ADMIT Nurse Practitioner; ATTEND Nurse Practitioner
DX: F10.232 Alcohol dependence with withdrawal with perceptual disturbance (principal); K76.7 Hepatorenal syndrome; N17.9 Acute kidney failure, unspecified; E51.2 Wernicke's encephalopathy; N30.01 Acute cystitis with hematuria; F10.280 Alcohol dependence with alcohol-induced anxiety disorder; F10.27 Alcohol dependence with alcohol-induced persisting dementia; K70.30 Alcoholic cirrhosis of liver without ascites; K70.40 Alcoholic hepatic failure without coma; E86.0 Dehydration; I10 Essential (primary) hypertension; E87.6 Hypokalemia; F32.9 Major depressive disorder, single episode, unspecified; G47.33 Obstructive sleep apnea (adult) (pediatric); J44.9 Chronic obstructive pulmonary disease, unspecified; R63.0 Anorexia; N40.1 Benign prostatic hyperplasia with lower urinary tract symptoms; R35.0 Frequency of micturition; R35.1 Nocturia; Y90.0 Blood alcohol level of less than 20 mg/100 ml; Z79.899 Other long term (current) drug therapy; Z86.19 Personal history of other infectious and parasitic diseases; Z91.19 Patient's noncompliance with other medical treatment and regimen; Z87.442 Personal history of urinary calculi
CPT/HCPCS: 36415; 70450; 76770; 80053; 80306; 80307; 80320; 80329; 81001; 82009; 82140; 82550; 82607; 82803; 82977; 83605; 83690; 83735; 84100; 84443; 85025; 85610; 85730; 87086; 96365; 96366; 96367; 96375; 97161; 97530; 99283; 99284; 99285; A9270; G0378; J1650; J2060; J3411; J7120; J8499; 81003

== ENCOUNTER 2018-12-10 21:34 | Outpatient (CLI) | payer SELFPAY | END 2018-12-10 21:35 | disposition EMS.NT | LOC: EMS 21:34 | PROVIDERS: ATTEND Surgery | DX: Z03.89 Encounter for observation for other suspected diseases and conditions ruled out (principal) ==

== ENCOUNTER 2018-12-10 23:59 | Emergency (ER) | payer OTHER ==
[2018-12-11] MEDS ORDERED: LORazepam 1 MG TABLET PO STA (01:43)
--- NOTE | 2018-12-11 02:05 | ED Physician Documentation ---
History of Present Illness - Stated complaint Stated Complaint: ETOH WITHDRAWAL - Chief complaint Chief Complaint: MHE - History obtained from History obtained from: Patient - History of Present Illness Timing: Today - Additonal information Additional information: 62-year-old male was discharged from the hospital earlier today after being admitted to the hospital for alcohol withdrawal and metabolic encephalopathy. He was in the hospital 4 days he has been on a Librium taper and he was not able to obtain the Librium at the pharmacy today. He is also received thiamine multiple doses. He is come to the emergency department this evening because he does not want to feel the way he was feeling previously and feels he needs a dose of medication. 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 : Benign prostate hypertrophy, Nocturia, Frequency, Kidney stones HEENT: Chronic vision loss Psych: Depression, Anxiety, Other Musculoskeletal: Osteoarthritis, Other Derm: None - Past Surgical History Past Surgical History: Yes Ortho: Carpal Tunnel surgery, Other - Present Medications Home Medications: Ambulatory Orders Medication Instructions Recorded Confirmed RX: Ciprofloxacin HCl [Cipro] 500 mg PO BID #40 tablet 12/10/18 RX: Spironolactone [Aldactone] 25 mg PO DAILY #30 tablet 12/10/18 RX: Thiamine [Vitamin B-1] 100 mg PO DAILY #30 tablet 12/10/18 RX: chlordiazePOXIDE [Librium] 25 mg PO Q8HR #90 capsule 12/10/18 Saccharomyces Boulardii [Florastor] 250 mg PO BID #60 capsule 12/10/18 - Allergies Allergies/Adverse Reactions: Allergies Allergy/AdvReac Type Severity Reaction Status Date / Time Sulfa (Sulfonamide Allergy Unknown Verified 12/11/18 00:10 Antibiotics) - Social History Does the pt smoke?: No Smoking Status: Never smoker Does the pt drink ETOH?: Yes Does the pt have substance abuse?: No - Immunizations Immunizations are current?: Yes - POLST Patient has POLST: No POLST Status: Full Code PD ED PE NORMAL - Vitals Vital signs reviewed: Yes (hypertensive ) - General General: Alert and oriented X 3, No acute distress, Well developed/nourished - HEENT HEENT: Atraumatic, PERRL, EOMI - Neck Neck: Supple, no meningeal sign - Cardiac Cardiac: RRR, No murmur - Respiratory Respiratory: No respiratory distress, Clear bilaterally - Abdomen Abdomen: Soft, Non tender - Back Back: No CVA TTP, No spinal TTP - Derm Derm: Normal color, Warm and dry, No rash - Extremities Extremities: No deformity, No edema - Neuro Neuro: Alert and oriented X 3, closed circuit screen watcher 2-12 intact, No motor deficit, No sensory deficit, Normal speech Eye Opening: Spontaneous Motor: Obeys Commands Verbal: Oriented GCS Score: 15 - Psych Psych: Normal mood, Normal affect Results - Vitals Vitals: Vital Signs - 24 hr 12/11/18 12/11/18 00:04 02:33 Temperature 36.7 C Heart Rate 87 81 Respiratory 16 16 Rate Blood Pressure 131/84 H 134/85 H O2 Saturation 98 94 Oxygen O2 Source [Without Activity] Room air O2 Source Room air PD MEDICAL DECISION MAKING - ED course Complexity details: considered differential, d/w patient ED course: 62-year-old alcoholic male who is going through alcohol withdrawal was released from the hospital today and was unable to fill his prescription for Librium as there was none available in the 3 pharmacies he tried. He has come in this evening wanting a dose of some medication so that he does not feel the symptoms of withdrawal. He is administered Ativan 1 mg orally and feels well to go home. Departure - Departure Disposition: 01 Home, Self Care Clinical Impression: Alcohol withdrawal Qualifiers: Complication of substance-induced condition: with unspecified complication Qualified Code(s): F10.239 - Alcohol dependence with withdrawal, unspecified Condition: Stable Instructions: ED Withdrawal Alcohol Follow-Up: Africa Gonzales MD [Physician No Access] - Discharge Date/Time: 12/11/18 02:33
[2018-12-11 02:34] VITALS: BP 134/85
== END 2018-12-11 02:33 | disposition home or self-care (01) ==
LOC: ED 23:59
DX: F10.239 Alcohol dependence with withdrawal, unspecified (principal); I10 Essential (primary) hypertension
CPT/HCPCS: 99283; J8499

== ENCOUNTER 2019-01-11 12:44 | Outpatient (CLI) | payer OTHER | END 2019-01-11 12:45 | disposition EMS.NT | LOC: EMS 12:44 | PROVIDERS: ATTEND Surgery | DX: T23.001A Burn of unspecified degree of right hand, unspecified site, initial encounter (principal); X08.8XXA Exposure to other specified smoke, fire and flames, initial encounter; Y93.89 Activity, other specified ==

== ENCOUNTER 2019-01-15 12:20 | Emergency (ER) | payer OTHER ==
[2019-01-15 12:30] VITALS: BP 138/72
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
[2019-01-15] MEDS ORDERED: MUPIROCIN 2% OINT 1 GM TOP STA (13:13)
== END 2019-01-15 13:26 | disposition home or self-care (01) ==
LOC: ED 12:20
DX: S20.311A Abrasion of right front wall of thorax, initial encounter (principal); T23.261A Burn of second degree of back of right hand, initial encounter; T31.0 Burns involving less than 10% of body surface; X01.8XXA Other exposure to uncontrolled fire, not in building or structure, initial encounter; W22.8XXA Striking against or struck by other objects, initial encounter; Y93.89 Activity, other specified; Y92.008 Other place in unspecified non-institutional (private) residence as the place of occurrence of the external cause; I10 Essential (primary) hypertension
CPT/HCPCS: 99282; 99283; A9270

== ENCOUNTER 2019-11-07 15:00 | Outpatient (CLI) | payer OTHER | END 2019-11-07 23:59 | disposition home or self-care (01) | LOC: COV 15:00 | PROVIDERS: ATTEND Family Medicine | DX: R05 Cough (principal); M79.10 Myalgia, unspecified site; J02.9 Acute pharyngitis, unspecified | CPT/HCPCS: 81599 ==

== ENCOUNTER 2020-06-11 12:17 | Outpatient (CLI) | payer OTHER | END 2020-06-11 12:18 | disposition home or self-care (01) | LOC: COV 12:17 | PROVIDERS: ATTEND Family Medicine | DX: R68.83 Chills (without fever) (principal); R07.0 Pain in throat; R09.81 Nasal congestion; J34.89 Other specified disorders of nose and nasal sinuses; Z20.828 Contact with and (suspected) exposure to other viral communicable diseases ==

== ENCOUNTER 2021-01-12 15:00 | Outpatient (CLI) | payer OTHER | END 2021-01-12 15:01 | disposition home or self-care (01) | LOC: COV 15:00 | PROVIDERS: ATTEND Family Medicine | DX: Z20.822 Contact with and (suspected) exposure to COVID-19 (principal) ==

== ENCOUNTER 2022-04-16 10:00 | Outpatient (CLI) | payer OTHER | END 2022-04-16 23:59 | disposition critical access hospital (66) | LOC: EMS 10:00 | DX: K92.0 Hematemesis (principal); R25.2 Cramp and spasm; R46.4 Slowness and poor responsiveness; R41.0 Disorientation, unspecified; Z72.89 Other problems related to lifestyle | CPT/HCPCS: A0425; A0427 ==

== ENCOUNTER 2022-04-16 10:39 | Emergency (ER) | payer OTHER ==
[2022-04-16] MEDS ORDERED: PANTOPRAZOLE 40 MG VIAL IVP STA (10:46)
--- NOTE | 2022-04-16 10:48 | ED Physician Documentation ---
History of Present Illness - Stated complaint Stated Complaint: AMS - History obtained from History obtained from: Patient, EMS - Additonal information Additional information: 66-year-old gentleman with history of alcohol abuse, has varices. Last seen normal by friends maybe 3 days ago. Has been throwing up blood for a few days. Denies melena or change in stools. He is noted to be altered. Blood sugar prior to arrival was in the 300s, He was also noted to have a single blood pressure of 80/30 prior to arrival with the other blood pressures being normal. 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 : Benign prostate hypertrophy, Nocturia, Frequency, Kidney stones HEENT: Chronic vision loss Psych: Depression, Anxiety, Other Musculoskeletal: Osteoarthritis, Other Derm: None - Past Surgical History Past Surgical History: Yes Ortho: Carpal Tunnel surgery, Other - Present Medications Home Medications: Ambulatory Orders Medication Instructions Recorded Confirmed Ciprofloxacin HCl [Cipro] 500 mg PO BID #40 tablet 12/10/18 Saccharomyces Boulardii [Florastor] 250 mg PO BID #60 capsule 12/10/18 Spironolactone [Aldactone] 25 mg PO DAILY #30 tablet 12/10/18 Thiamine [Vitamin B-1] 100 mg PO DAILY #30 tablet 12/10/18 chlordiazePOXIDE [Librium] 25 mg PO Q8HR #90 capsule 12/10/18 Mupirocin 1 applic TP TID #15 g 01/15/19 - Allergies Allergies/Adverse Reactions: Allergies Allergy/AdvReac Type Severity Reaction Status Date / Time Sulfa (Sulfonamide Allergy Unknown Verified 04/16/22 10:50 Antibiotics) - Social History Does the pt smoke?: No Smoking Status: Never smoker Does the pt drink ETOH?: Yes Does the pt have substance abuse?: No - Immunizations Immunizations are current?: Yes - POLST Patient has POLST: No POLST Status: Full Code PD ED PE NORMAL - Vitals Vital signs reviewed: Yes - General General: No acute distress, Other (He is alert and oriented to person and place but not time or events. There is no asterixis. He is jaundiced. Some blood on his shirt.) - HEENT HEENT: PERRL - Neck Neck: Supple, no meningeal sign, No bony TTP - Cardiac Cardiac: RRR, No murmur - Respiratory Respiratory: No respiratory distress, Clear bilaterally - Abdomen Abdomen: Soft, Non tender - Back Back: No CVA TTP, No spinal TTP - Derm Derm: Normal color, Warm and dry - Extremities Extremities: No edema, No calf tenderness / cord - Neuro Neuro: Other (No asterixis) Eye Opening: Spontaneous Motor: Obeys Commands Verbal: Confused GCS Score: 14 Results - Vitals Vitals: Vital Signs - 24 hr 04/16/22 04/16/22 04/16/22 10:46 14:04 15:00 Temperature 37.7 C Heart Rate 87 92 72 Respiratory 19 18 9 L Rate Blood Pressure 108/64 103/60 102/61 O2 Saturation 98 97 98 04/16/22 04/16/22 04/16/22 16:00 17:00 18:00 Temperature Heart Rate 90 80 73 Respiratory 11 L 13 11 L Rate Blood Pressure 108/58 L 113/61 112/63 O2 Saturation 96 99 100 Oxygen O2 Source [] Room air O2 Source Room air - EKG (time done) 1107 Rate: Rate (enter#) (74) Rhythm: NSR [place]: Normal Intervals: Prolonged QT (borderline qtc 497), Wide QRS (IVCD) QRS: Normal Ischemia: Non specific changes. No: ST elevation c/w ischemia, ST depression - Labs Labs: Laboratory Tests 04/16/22 04/16/22 04/16/22 10:52 10:52 10:52 WBC 6.8 RBC 2.39 L Hgb 8.1 L Hct 24.5 L MCV 102.5 H MCH 33.9 H MCHC 33.1 RDW 16.5 H Plt Count 83 L MPV 10.9 Neut # (Auto) 4.4 Lymph # (Auto) 0.8 L [place] # (Auto) 1.4 H Eos # (Auto) 0.0 Baso # (Auto) 0.0 Absolute Nucleated RBC 0.13 Nucleated RBC % 1.9 PT 17.9 H INR 1.6 H Sodium 134 L Potassium 2.8 L Chloride 95 L Carbon Dioxide 26 Anion Gap 13.0 BUN 108 H* Creatinine 3.1 H Estimated GFR (MDRD) 20 L Glucose 135 H Calcium 7.3 L Phosphorus 3.1 Magnesium 2.3 Total Bilirubin 5.9 H AST 293 H ALT 127 H Alkaline Phosphatase 71 Ammonia Total Protein 5.1 L Albumin 2.7 L Globulin 2.4 Albumin/Globulin Ratio 1.1 Urine Opiates Screen Ur Oxycodone Screen Urine Methadone Screen Ur Propoxyphene Screen Ur Barbiturates Screen Ur Tricyclics Screen Ur Phencyclidine Scrn Ur Amphetamine Screen U Methamphetamines Scrn U Benzodiazepines Scrn Urine Cocaine Screen U Cannabinoids Screen Ethyl Alcohol < 5.0 SARS-CoV-2 (PCR) Blood Type Antibody Screen Crossmatch IS Only 04/16/22 04/16/22 04/16/22 10:52 10:52 11:15 WBC RBC Hgb Hct MCV MCH MCHC RDW Plt Count MPV Neut # (Auto) Lymph # (Auto) [place] # (Auto) Eos # (Auto) Baso # (Auto) Absolute Nucleated RBC Nucleated RBC % PT INR Sodium Potassium Chloride Carbon Dioxide Anion Gap BUN Creatinine Estimated GFR (MDRD) Glucose Calcium Phosphorus Magnesium Total Bilirubin AST ALT Alkaline Phosphatase Ammonia 51.5 H Total Protein Albumin Globulin Albumin/Globulin Ratio Urine Opiates Screen Ur Oxycodone Screen Urine Methadone Screen Ur Propoxyphene Screen Ur Barbiturates Screen Ur Tricyclics Screen Ur Phencyclidine Scrn Ur Amphetamine Screen U Methamphetamines Scrn U Benzodiazepines Scrn Urine Cocaine Screen U Cannabinoids Screen Ethyl Alcohol SARS-CoV-2 (PCR) NOT DETECTED Blood Type A POSITIVE Antibody Screen NEGATIVE Crossmatch IS Only See Detail 04/16/22 04/16/22 04/16/22 13:02 14:59 17:16 WBC 6.9 RBC 2.46 L Hgb 8.9 L 8.3 L Hct 27.3 L 25.5 L MCV 103.7 H MCH 33.7 H MCHC 32.5 RDW 17.2 H Plt Count 82 L MPV 10.7 Neut # (Auto) 4.0 Lymph # (Auto) 1.0 L [place] # (Auto) 1.6 H Eos # (Auto) 0.0 Baso # (Auto) 0.0 Absolute Nucleated RBC 0.13 Nucleated RBC % 1.9 PT INR Sodium Potassium Chloride Carbon Dioxide Anion Gap BUN Creatinine Estimated GFR (MDRD) Glucose Calcium Phosphorus Magnesium Total Bilirubin AST ALT Alkaline Phosphatase Ammonia Total Protein Albumin Globulin Albumin/Globulin Ratio Urine Opiates Screen NEGATIVE Ur Oxycodone Screen NEGATIVE Urine Methadone Screen NEGATIVE Ur Propoxyphene Screen NEGATIVE Ur Barbiturates Screen NEGATIVE Ur Tricyclics Screen NEGATIVE Ur Phencyclidine Scrn NEGATIVE Ur Amphetamine Screen NEGATIVE U Methamphetamines Scrn NEGATIVE U Benzodiazepines Scrn NEGATIVE Urine Cocaine Screen NEGATIVE U Cannabinoids Screen NEGATIVE Ethyl Alcohol SARS-CoV-2 (PCR) Blood Type Antibody Screen Crossmatch IS Only 04/16/22 17:16 WBC RBC Hgb Hct MCV MCH MCHC RDW Plt Count MPV Neut # (Auto) Lymph # (Auto) [place] # (Auto) Eos # (Auto) Baso # (Auto) Absolute Nucleated RBC Nucleated RBC % PT INR Sodium 133 L Potassium 3.1 L Chloride 95 L Carbon Dioxide 25 Anion Gap 13.0 BUN 99 H* Creatinine 3.0 H Estimated GFR (MDRD) 21 L Glucose 125 H Calcium 7.0 L Phosphorus Magnesium Total Bilirubin AST ALT Alkaline Phosphatase Ammonia Total Protein Albumin Globulin Albumin/Globulin Ratio Urine Opiates Screen Ur Oxycodone Screen Urine Methadone Screen Ur Propoxyphene Screen Ur Barbiturates Screen Ur Tricyclics Screen Ur Phencyclidine Scrn Ur Amphetamine Screen U Methamphetamines Scrn U Benzodiazepines Scrn Urine Cocaine Screen U Cannabinoids Screen Ethyl Alcohol SARS-CoV-2 (PCR) Blood Type Antibody Screen Crossmatch IS Only PD MEDICAL DECISION MAKING - ED course ED course: 66-year-old alcoholic with history of cirrhosis and varices presents with an upper GI bleed and altered mental status. Discussed case by phone with Dr. Hatch, our on-call surgeon after resulting of the CBC showing a hemoglobin of 8.1 with thrombocytopenia, his normal hemoglobin is in the 10 range. He recommended treatment transfer to a facility with GI capability.+ We talked to the [facility] and they were full and he is placed on [facility] waiting list. I anticipate a very prolonged length of stay in the emergency department pending transfer given hospital capacity issues throughout the region. Repeat H&H actually trended up. He is dry so we will start some IV fluids, he does have acute kidney injury. This is in a prerenal pattern, not sure if that is truly prerenal or from the bleeding causing elevated BUN. - Critical Care Time(min): 40 Time Includes: Direct patient care, Review records, Reassess patient, Document care, Coordinate care, Medical consult Data interpretation: Labs, Pulse ox Procedures excluded from critical care time: EKG Departure - Departure Disposition: 02 Transfer Acute Care Hosp Clinical Impression: Upper GI bleed, STEFFANY (acute kidney injury) Cirrhosis Qualifiers: Hepatic cirrhosis type: alcoholic cirrhosis Condition: Serious
[2022-04-16] MEDS ORDERED: OCTREOTIDE 100 MCG/ML VIAL IVP STA (10:49)
[2022-04-16] MEDS ORDERED: cefTRIAXone 1 GM in SODIUM CHLORIDE 0.9% MINIBAG 100 ML IV STA (10:49)
[2022-04-16] MEDS ORDERED: OCTREOTIDE 500 MCG in SODIUM CHLORIDE 0.9% 100ML 95 ML IV STA (10:49)
[2022-04-16] MEDS ORDERED: PANTOPRAZOLE 80 MG in SODIUM CHLORIDE 0.9% 100ML 100 ML IV STA (10:49)
[2022-04-16 11:01] LABS: BASOPHILS % (AUTO) 0.3 %; EOSINOPHILS % (AUTO) 0.3 %; HCT - HEMATOCRIT 24.5 % (42.0-52.0); HGB - HEMOGLOBIN 8.1 g/dL (14.0-18.0); LYMPHOCYTES # (AUTO) 0.8 10^3/uL (1.5-3.5); LYMPHOCYTES % (AUTO) 11.5 %; MEAN CORPUSCULAR HEMOGLOBIN 33.9 pg (27.0-31.0); MEAN CORPUSCULAR HGB CONC 33.1 g/dL (32.0-36.0); MEAN CORPUSCULAR VOLUME 102.5 fL (80.0-94.0); MEAN PLATELET VOLUME 10.9 fL (7.4-11.4); MONOCYTES # (AUTO) 1.4 10^3/uL (0.0-1.0); NEUTROPHILS # (AUTO) 4.4 10^3/uL (1.5-6.6); NEUTROPHILS % (AUTO) 64.4 %; NRBC ABSOLUTE COUNT (AUTO) 0.13 x10^3/uL; NUCLEATED RED BLOOD CELLS AUTO 1.9 /100WBC; PLT - PLATELET COUNT 83 10^3/uL (130-450); RED BLOOD COUNT 2.39 10^6/uL (4.70-6.10); RED CELL DISTRIBUTION WIDTH 16.5 % (12.0-15.0); WHITE BLOOD COUNT 6.8 x10^3/uL (4.8-10.8)
[2022-04-16 11:05] LABS: INR 1.6 (0.8-1.2); PT - PROTHROMBIN TIME 17.9 secs (9.9-12.6)
[2022-04-16 11:25] LABS: ALBUMIN/GLOBULIN RATIO 1.1 (1.0-2.2)
[2022-04-16 11:28] LABS: ALBUMIN 2.7 g/dL (3.2-5.5); ALKALINE PHOSPHATASE 71 IU/L (42-121); ALT ALANINE AMINOTRANSFERASE 127 IU/L (10-60); AST ASPARTATE AMINOTRANSFERASE 293 IU/L (10-42); BILIRUBIN,TOTAL 5.9 mg/dL (0.2-1.0); CALCIUM 7.3 mg/dL (8.5-10.3); CARBON DIOXIDE - CO2 26 mmol/L (21-32); CHLORIDE 95 mmol/L (101-111); CREATININE 3.1 mg/dL (0.6-1.2); ETOH - ETHANOL < 5.0 mg/dL; GFR - MDRD 20 (>89); GLUCOSE 135 mg/dL (70-100); MAGNESIUM 2.3 mg/dL (1.7-2.8); PHOSPHORUS 3.1 mg/dL (2.5-4.6); POTASSIUM 2.8 mmol/L (3.5-5.0); SODIUM 134 mmol/L (135-145); TOTAL PROTEIN 5.1 g/dL (6.7-8.2)
[2022-04-16 11:29] LABS: BUN - BLOOD UREA NITROGEN 108 mg/dL (6-20)
[2022-04-16] MEDS ORDERED: POTASSIUM CHLOR 10 MEQ/100 ML 10 MEQ/100 ML BAG IV STA ×2 (11:40→18:17)
[2022-04-16 13:06] LABS: HCT - HEMATOCRIT 27.3 % (42.0-52.0); HGB - HEMOGLOBIN 8.9 g/dL (14.0-18.0)
[2022-04-16] MEDS ORDERED: SODIUM CHLORIDE 0.9% 1,000 ML IV STA (13:18)
[2022-04-16] MEDS ORDERED: THIAMINE INJ 100 MG in SODIUM CHLORIDE 0.9% 50 ML IV STA (13:19)
[2022-04-16] MEDS ORDERED: METOCLOPRAMIDE 10 MG/2 ML VIAL IVP STA (13:23)
[2022-04-16 15:13] LABS: MUDS CUTOFF CONCENTRATIONS CUTOFF CONC BELOW:
[2022-04-16 15:35] LABS: AMPHETAMINE SCREEN,URINE NEGATIVE (NEGATIVE); BARBITURATE SCREEN,UR NEGATIVE (NEGATIVE); BENZODIAZEPINES SCREEN, URINE NEGATIVE (NEGATIVE); COCAINE SCREEN URINE NEGATIVE (NEGATIVE); METHADONE SCREEN, URINE NEGATIVE (NEGATIVE); METHAMPHETAMINES SCREEN, URINE NEGATIVE (NEGATIVE); OPIATE SCREEN, URINE NEGATIVE (NEGATIVE); OXYCODONE SCREEN, URINE NEGATIVE (NEGATIVE); PROPOXYPHENE SCREEN, URINE NEGATIVE (NEGATIVE); THC CANNABINOID SCREEN, URINE NEGATIVE (NEGATIVE); TRICYCLIC ANTIDEPRESSANT,URINE NEGATIVE (NEGATIVE)
[2022-04-16 17:24] LABS: BASOPHILS % (AUTO) 0.1 %; EOSINOPHILS % (AUTO) 0.4 %; HCT - HEMATOCRIT 25.5 % (42.0-52.0); HGB - HEMOGLOBIN 8.3 g/dL (14.0-18.0); LYMPHOCYTES % (AUTO) 14.3 %; MEAN CORPUSCULAR HEMOGLOBIN 33.7 pg (27.0-31.0); MEAN CORPUSCULAR HGB CONC 32.5 g/dL (32.0-36.0); MEAN CORPUSCULAR VOLUME 103.7 fL (80.0-94.0); MEAN PLATELET VOLUME 10.7 fL (7.4-11.4); MONOCYTES # (AUTO) 1.6 10^3/uL (0.0-1.0); MONOCYTES % (AUTO) 23.9 %; NEUTROPHILS % (AUTO) 58.4 %; NRBC ABSOLUTE COUNT (AUTO) 0.13 x10^3/uL; NUCLEATED RED BLOOD CELLS AUTO 1.9 /100WBC; PLT - PLATELET COUNT 82 10^3/uL (130-450); RED BLOOD COUNT 2.46 10^6/uL (4.70-6.10); RED CELL DISTRIBUTION WIDTH 17.2 % (12.0-15.0); WHITE BLOOD COUNT 6.9 x10^3/uL (4.8-10.8)
[2022-04-16 17:37] LABS: POTASSIUM 3.1 mmol/L (3.5-5.0)
[2022-04-16] MEDS: LACTULOSE 10 GM /15 ML UDC PO SCH ×2 (18:10→20:40)
[2022-04-17] MEDS ORDERED: OCTREOTIDE 500 MCG in SODIUM CHLORIDE 0.9% 100ML 95 ML IV STA ×2 (04:02→15:25)
[2022-04-17] MEDS ORDERED: SODIUM CHLORIDE 0.9% 1,000 ML IV STA (04:02)
[2022-04-17 06:17] LABS: INR 1.4 (0.8-1.2); PT - PROTHROMBIN TIME 15.7 secs (9.9-12.6)
[2022-04-17 06:22] LABS: ALBUMIN 2.6 g/dL (3.2-5.5); BILIRUBIN,TOTAL 5.2 mg/dL (0.2-1.0); CREATININE 2.5 mg/dL (0.6-1.2); POTASSIUM 3.6 mmol/L (3.5-5.0); TOTAL PROTEIN 5.3 g/dL (6.7-8.2)
[2022-04-17 08:19] LABS: BASOPHILS # (AUTO) 0.1 10^3/uL (0.0-0.1); BASOPHILS % (AUTO) 0.9 %; EOSINOPHILS # (AUTO) 0.1 10^3/uL (0.0-0.7); EOSINOPHILS % (AUTO) 1.7 %; HCT - HEMATOCRIT 27.2 % (42.0-52.0); HGB - HEMOGLOBIN 8.6 g/dL (14.0-18.0); LYMPHOCYTES # (AUTO) 0.8 10^3/uL (1.5-3.5); MEAN CORPUSCULAR HGB CONC 31.6 g/dL (32.0-36.0); MEAN CORPUSCULAR VOLUME 110.6 fL (80.0-94.0); MONOCYTES # (AUTO) 1.6 10^3/uL (0.0-1.0); MONOCYTES % (AUTO) 28.3 %; NEUTROPHILS # (AUTO) 2.9 10^3/uL (1.5-6.6); NEUTROPHILS % (AUTO) 50.4 %; NRBC ABSOLUTE COUNT (AUTO) 0.07 x10^3/uL; NUCLEATED RED BLOOD CELLS AUTO 1.2 /100WBC; PLT - PLATELET COUNT 65 10^3/uL (130-450); RED BLOOD COUNT 2.46 10^6/uL (4.70-6.10); RED CELL DISTRIBUTION WIDTH 18.3 % (12.0-15.0); WHITE BLOOD COUNT 5.7 x10^3/uL (4.8-10.8)
[2022-04-17 08:21] LABS: SLIDE REVIEW? Indicated
[2022-04-17] MEDS ORDERED: PANTOPRAZOLE 40 MG VIAL IVP SCH (09:00)
[2022-04-17] MEDS ORDERED: cefTRIAXone 1 GM in SODIUM CHLORIDE 0.9% MINIBAG 100 ML IV SCH (09:00)
[2022-04-17] MEDS: LACTULOSE 10 GM /15 ML UDC PO SCH ×3 (09:16→18:11)
[2022-04-17 15:05] LABS: HCT - HEMATOCRIT 23.7 % (42.0-52.0); HGB - HEMOGLOBIN 7.6 g/dL (14.0-18.0)
[2022-04-17 15:14] LABS: CREATININE 2.1 mg/dL (0.6-1.2)
[2022-04-17 15:48] LABS: CALCIUM 6.8 mg/dL (8.5-10.3)
--- NOTE | 2022-04-17 15:59 | ED Physician Documentation ---
ED Addendum - Addendum Addendum: 04/17/22 15:54 Patient presented yesterday with upper GI bleed of vomiting red blood and unknown liver disease patient with history of varices. He was placed on pantoprazole and octreotide and had serial blood counts. He is crossmatched for blood but did not require transfusion. He was fairly anemic. He seems stable overnight and into this morning with hemoglobin remaining of approximately 8.3-8.6. A repeat blood count this afternoon was now 7.6. He has not had any more vomiting but does feel some nausea. He is able to take some sips of fluid water without any pain. He did have a moderate sized melanotic stool. Vitals remain stable at approximately 1 10-1 18 systolic since this morning. Concern however is that he still seems to be having some bleeding with the lowering blood count and melanotic stool still. He still has potential instability and needs urgent scoping for source of bleeding control. [facility] did have some beds available and has talked with Dr. Baires who is the wire brush operator on. I reviewed the presentation and lab course and trends. He is excepting of the patient in transfer. Exam: The patient is awake and conversant now on my exam. He had been sleeping earlier in the morning and still a little foggy thought process. He seems more alert this afternoon. He states he has some mild abdominal pain. Some nausea but no vomiting. Abdomen is somewhat tender in the epigastric area without any guarding. There is some mild shifting dullness to percussion but no tense or significant ascites. He states he has had his abdomen tapped with paracentesis in the past but has not had that done for 6 months or so. He does apparently have a liver specialist in [place] according to old records. However [facility] does not have any beds available and does not expect any for the foreseeable future. At this point we will continue the octreotide and renew it with Dr. Baires saying it typically for 72 hours. We will continue the pantoprazole IV. We will watch repeat blood count if he still here for a few more hours. However we should be able to get the patient transferred over the next several hours. Disposition: The patient is transferred to acute care facility in stable condition Diagnoses: Chronic liver disease 2. Acute renal insufficiency 3. Upper GI bleed with hematemesis and anemia. 4. History of varices 5. Thrombocytopenia 6. Hypokalemia, corrected
[2022-04-17] MEDS ORDERED: PANTOPRAZOLE 80 MG in SODIUM CHLORIDE 0.9% 100ML 100 ML IV STA (17:10)
[2022-04-17] MEDS ORDERED: PANTOPRAZOLE 40 MG VIAL ONE (17:41)
[2022-04-17 18:15] VITALS: BP 114/78
== END 2022-04-17 18:27 | disposition short-term general hospital (02) ==
LOC: EDBD → EDUNIT# → ED 10:39
DX: K92.2 Gastrointestinal hemorrhage, unspecified (principal); N17.9 Acute kidney failure, unspecified; K70.30 Alcoholic cirrhosis of liver without ascites; D64.9 Anemia, unspecified; N28.9 Disorder of kidney and ureter, unspecified; K92.0 Hematemesis; D69.6 Thrombocytopenia, unspecified; E87.6 Hypokalemia; Z20.822 Contact with and (suspected) exposure to COVID-19
CPT/HCPCS: 36415; 80048; 80053; 80306; 80320; 82140; 83735; 84100; 85014; 85018; 85025; 85610; 86850; 86900; 86901; 86920; 87635; 93005; 96365; 96366; 96368; 96375; 96376; 99285; 99291; A9270; J2354; J2765; J3411; J7040